=== PATIENT | male | born 1960 | race Caucasian/White ===

== ENCOUNTER 2020-06-30 22:21 | Inpatient (IN) | payer OTHER, MEDICAID, SELFPAY ==
[~2020-06-30] VITALS: Ht 142.2 cm; Wt 58.5 kg
[2020-06-30 22:22] VITALS: BP_SYST 76
[2020-06-30] MEDS ORDERED: PIPERACILLIN/TAZO 3.375 GM in NS 50 ML IV ONE (22:45)
[2020-06-30] MEDS ORDERED: VANCOMYCIN HCL 1,000 MG in NS 250 ML IV ONE (22:45)
[2020-06-30] MEDS ORDERED: LR 1,000 ML IV ONE (22:45)
[2020-06-30] MEDS ORDERED: NOREPINEPHRINE 4 MG/4 ML VIAL IV ONE (22:47)
[2020-06-30] MEDS ORDERED: CALCIUM GLUCONATE 1 GM/10 ML VIAL IVP ONE (23:00)
[2020-06-30] MEDS ORDERED: NOREPINEPHRINE BITARTRATE 32 MG in NS 218 ML IV PRN (23:00)
[2020-06-30] MEDS ORDERED: PIPERACILLIN/TAZOBACTAM 3.375 GM/VIAL (ZOSYN) IV ONE (23:15)
[2020-06-30] MEDS ORDERED: VANCOMYCIN HCL 1000 MG/VIAL IV ONE (23:15)
[2020-06-30 23:22] LABS: HEMATOCRIT 28.6 % (36-54); HEMOGLOBIN 9.4 g/dL (14.0-18.0); MEAN CORPUSCULAR HEMOGLOBIN 32 pg (27-31); MEAN CORPUSCULAR HGB CONC 33 % (32-36); MEAN CORPUSCULAR VOLUME 97 fL (79.0-98.0); PLATELET COUNT (AUTO) 304 K/uL (130-430); RED BLOOD CELL COUNT(AUTO) 2.96 MIL/uL (4.2-6.2); RED CELL DISTRIBUTION WIDTH 18.5 % (9.0-15.0); WHITE BLOOD COUNT (AUTO) 20.2 K/uL (4.8-10.8)
[2020-06-30 23:36] LABS: CREATININE 1.83 mg/dL (0.55-1.30)
[2020-06-30 23:47] LABS: ALBUMIN 2.1 g/dL (3.4-4.8); BILIRUBIN,DIRECT 0.1 mg/dL (0.0-0.3); TOTAL BILIRUBIN 0.3 mg/dL (0.0-1.0)
[2020-06-30 23:49] LABS: BAND % (MANUAL) 0 % (0-6)
[2020-06-30 23:50] LABS: ATYPICAL LYMPHOCYTES % 0 % (0-0); BASOPHILS % (MANUAL) 0 % (0-2); EOSINOPHILS % (MANUAL) 2 % (0-7); LYMPHOCYTES % (MANUAL) 1 % (20-46); MONOCYTES % (MANUAL) 7 % (0-11)
[2020-06-30] MEDS ORDERED: FAMO20TA8 GT (23:50)
[2020-06-30] MEDS ORDERED: CARV3.1246 GT (23:50)
[2020-06-30] MEDS ORDERED: ALBMDI INH (23:50)
[2020-06-30] MEDS ORDERED: LOVI30 SQ (23:50)
[2020-06-30] MEDS ORDERED: TYLL650 GT (23:50)
[2020-06-30] MEDS ORDERED: METO-290 GT (23:56)
[2020-06-30] MEDS ORDERED: ASCO500W7 GT (23:56)
[2020-06-30] MEDS ORDERED: INSU100V42 (23:56)
[2020-06-30] MEDS ORDERED: MIDO5TAB4 GT (23:56)
[2020-06-30] MEDS ORDERED: LORA-258 GT (23:56)
[2020-06-30] MEDS ORDERED: LOPE2CAP GT (23:56)
[2020-07-01] VITALS (28 sets, daily range): BP systolic 76–152
[2020-07-01 00:13] LABS: BILIRUBIN,URINE NEGATIVE (NEGATIVE); BLOOD, URINE 3+ (NEGATIVE); CLARITY/URINE CLEAR (CLEAR); COLOR,URINE YELLOW (YELLOW); GLUCOSE,URINE NEGATIVE (NEGATIVE); KETONES,URINE NEGATIVE (NEGATIVE); LEUKOCYTE ESTERASE ,URINE NEGATIVE (NEGATIVE); NITRITE, URINE NEGATIVE (NEGATIVE); PH,URINE 6.5 (5.0-8.0); PROTEIN URINE 1+ (NEGATIVE); UROBILINOGEN,URINE 0.2 (0.2-1.0)
[2020-07-01] MEDS ORDERED: LR 1,000 ML IV ONE (00:15)
[2020-07-01] MEDS ORDERED: D5W 1,000 ML IV PRN (00:30)
[2020-07-01] MEDS ORDERED: GLUCOSE (DEXTROSE) ORAL GEL -Adults PO PRN (00:30)
[2020-07-01] MEDS ORDERED: INSULIN LISPRO SLIDING SCALE 100 UNITS/ML VIAL (humaLOG) SUBCUT PRN (00:30)
[2020-07-01] MEDS ORDERED: NOREPINEPHRINE BITARTRATE 4 MG in NS 246 ML IV SCH (00:30)
[2020-07-01] MEDS ORDERED: DEXTROSE 50% JECT 50 ML DISP.SYRIN IVP PRN (00:30)
[2020-07-01 00:33] LABS: BACTERIA,URINE RARE /HPF (None Seen); RBC,URINE >100 /HPF (0-3); WBC,URINE 0-3 /HPF (0-3)
[2020-07-01] MEDS: LR 1,000 ML IV SCH ×4 (01:12→20:09)
[2020-07-01] MEDS: ALBUTEROL SULFATE 0.083% 2.5 MG/3 ML VIAL.NEB INH SCH ×6 (02:39→23:23)
[2020-07-01] MEDS ORDERED: PIPERACILLIN/TAZOBACTAM 3.375 GM/VIAL (ZOSYN) IV ONE (03:20)
[2020-07-01] MEDS ORDERED: NOREPINEPHRINE BITARTRATE 4 MG in NS 246 ML IV PRN (03:30)
[2020-07-01] MEDS ORDERED: NOREPINEPHRINE BITARTRATE 32 MG in NS 218 ML IV PRN (03:30)
[2020-07-01] MEDS: ACETAMINOPHEN 325 MG TABLET GT SCH ×3 (05:03→17:53)
[2020-07-01] MEDS: PIPERACILLIN/TAZO 3.375/DEX-IS 50 ML IV SCH ×3 (05:04→17:53)
[2020-07-01 07:12] LABS: BASOPHILS # (AUTO) 0.1 K/uL (0.0-0.2); BASOPHILS % (AUTO) 0.3 % (0.0-2.0); EOSINOPHILS % (AUTO) 0.2 % (0.0-4.0); HEMATOCRIT 30.3 % (36-54); LYMPHOCYTES # (AUTO) 0.7 K/uL (1.0-5.5); LYMPHOCYTES % (AUTO) 2.8 % (20.5-51.5); MEAN CORPUSCULAR HEMOGLOBIN 32 pg (27-31); MEAN CORPUSCULAR HGB CONC 33 % (32-36); MEAN CORPUSCULAR VOLUME 96 fL (79.0-98.0); MONOCYTES # (AUTO) 1.4 K/uL (0.0-1.0); MONOCYTES % (AUTO) 5.7 % (1.7-9.3); NEUTROPHILS # (AUTO) 21.8 K/uL (1.8-7.7); PLATELET COUNT (AUTO) 314 K/uL (130-430); RED BLOOD CELL COUNT(AUTO) 3.14 MIL/uL (4.2-6.2); RED CELL DISTRIBUTION WIDTH 18.2 % (9.0-15.0)
[2020-07-01 07:50] LABS: ALBUMIN 2.1 g/dL (3.4-4.8); CALCIUM 9.1 mg/dL (8.4-11.0); CREATININE 1.5 mg/dL (0.55-1.30); POTASSIUM 4.4 mmol/L (3.5-5.1)
[2020-07-01 08:29] LABS: TOTAL BILIRUBIN 0.6 mg/dL (0.0-1.0)
[2020-07-01] MEDS ORDERED: METOCLOPRAMIDE HCL 10 MG TABLET GT PRN (09:45)
[2020-07-01] MEDS ORDERED: ASCORBIC ACID 500 MG TABLET GT ONE (10:00)
[2020-07-01] MEDS: MIDODRINE HCL 5 MG TABLET (PROAMATINE) GT SCH ×2 (11:37→17:53)
[2020-07-01] MEDS: FLUCONAZOLE 100 mg/ NS 50 ML IV SCH (20:08)
[2020-07-01] MEDS: ENOXAPARIN SODIUM 30 MG/0.3 ML SYRINGE SQ SCH (20:55)
[2020-07-01] MEDS: FAMOTIDINE 20 MG TABLET GT SCH (20:55)
[2020-07-01] MEDS: LINEZOLID 300 ML IV SCH (20:55)
[2020-07-01] MEDS ORDERED: VANCOMYCIN HCL 1,250 MG in NS 250 ML IV SCH (21:00)
[2020-07-02] VITALS (29 sets, daily range): BP systolic 92–159
[2020-07-02] MEDS: PIPERACILLIN/TAZO 3.375/DEX-IS 50 ML IV SCH ×4 (00:07→17:41)
[2020-07-02] MEDS: ACETAMINOPHEN 325 MG TABLET GT SCH ×4 (00:08→17:41)
[2020-07-02] MEDS: MIDODRINE HCL 5 MG TABLET (PROAMATINE) GT SCH ×4 (00:08→17:41)
[2020-07-02] MEDS: ALBUTEROL SULFATE 0.083% 2.5 MG/3 ML VIAL.NEB INH SCH ×5 (03:33→23:42)
[2020-07-02 06:39] LABS: BASOPHILS # (AUTO) 0.1 K/uL (0.0-0.2); BASOPHILS % (AUTO) 0.6 % (0.0-2.0); EOSINOPHILS # (AUTO) 0.5 K/uL (0.0-0.4); HEMATOCRIT 28.3 % (36-54); HEMOGLOBIN 9.3 g/dL (14.0-18.0); LYMPHOCYTES # (AUTO) 0.6 K/uL (1.0-5.5); LYMPHOCYTES % (AUTO) 3.6 % (20.5-51.5); MEAN CORPUSCULAR HEMOGLOBIN 32 pg (27-31); MEAN CORPUSCULAR HGB CONC 33 % (32-36); MEAN CORPUSCULAR VOLUME 97 fL (79.0-98.0); MONOCYTES % (AUTO) 5.9 % (1.7-9.3); NEUTROPHILS # (AUTO) 14.4 K/uL (1.8-7.7); NEUTROPHILS % (AUTO) 86.9 % (40.0-70.0); PLATELET COUNT (AUTO) 328 K/uL (130-430); RED BLOOD CELL COUNT(AUTO) 2.91 MIL/uL (4.2-6.2); RED CELL DISTRIBUTION WIDTH 18.8 % (9.0-15.0); WHITE BLOOD COUNT (AUTO) 16.6 K/uL (4.8-10.8)
[2020-07-02] MEDS: LR 1,000 ML IV SCH ×3 (06:52→17:39)
[2020-07-02 07:17] LABS: ALBUMIN 1.9 g/dL (3.4-4.8); CREATININE 1.27 mg/dL (0.55-1.30); PHOSPHORUS 3.8 mg/dL (2.7-4.5); POTASSIUM 4.6 mmol/L (3.5-5.1); TOTAL BILIRUBIN 0.4 mg/dL (0.0-1.0)
[2020-07-02] MEDS: ASCORBIC ACID 500 MG TABLET GT SCH (08:23)
[2020-07-02] MEDS: FAMOTIDINE 20 MG TABLET GT SCH ×2 (08:23→21:43)
[2020-07-02] MEDS: LINEZOLID 300 ML IV SCH ×2 (09:14→21:43)
[2020-07-02] MEDS: ENOXAPARIN SODIUM 30 MG/0.3 ML SYRINGE SQ SCH ×2 (09:15→21:44)
[2020-07-02] MEDS ORDERED: MUPIROCIN 2% TOPICAL OINTMENT 22 GM NS ONE (11:15)
[2020-07-02] MEDS: FLUCONAZOLE 100 mg/ NS 50 ML IV SCH (18:17)
[2020-07-02] MEDS: MUPIROCIN 2% TOPICAL OINTMENT 22 GM NS SCH ×2 (21:00→21:49)
[2020-07-02] MEDS: LOPERAMIDE HCL 2 MG CAPSULE GT PRN (21:43)
[2020-07-03] VITALS (33 sets, daily range): BP systolic 99–159
[2020-07-03] MEDS: PIPERACILLIN/TAZO 3.375/DEX-IS 50 ML IV SCH ×4 (00:02→17:00)
[2020-07-03] MEDS: ACETAMINOPHEN 325 MG TABLET GT SCH ×4 (00:02→17:02)
[2020-07-03] MEDS: LORazepam 1 MG TABLET GT PRN (00:03)
[2020-07-03] MEDS: MIDODRINE HCL 5 MG TABLET (PROAMATINE) GT SCH ×4 (00:03→17:00)
[2020-07-03] MEDS: LR 1,000 ML IV SCH ×4 (00:04→17:51)
[2020-07-03] MEDS: ALBUTEROL SULFATE 0.083% 2.5 MG/3 ML VIAL.NEB INH SCH ×6 (04:01→23:30)
[2020-07-03] MEDS: ENOXAPARIN SODIUM 30 MG/0.3 ML SYRINGE SQ SCH ×2 (08:49→21:00)
[2020-07-03] MEDS: ASCORBIC ACID 500 MG TABLET GT SCH (08:49)
[2020-07-03] MEDS: FAMOTIDINE 20 MG TABLET GT SCH ×2 (08:49→21:00)
[2020-07-03] MEDS: LINEZOLID 300 ML IV SCH (08:49)
[2020-07-03] MEDS: MUPIROCIN 2% TOPICAL OINTMENT 22 GM NS SCH ×2 (08:50→21:00)
[2020-07-03 10:01] LABS: BASOPHILS # (AUTO) 0.1 K/uL (0.0-0.2); EOSINOPHILS # (AUTO) 0.3 K/uL (0.0-0.4); EOSINOPHILS % (AUTO) 3.5 % (0.0-4.0); HEMATOCRIT 26.9 % (36-54); HEMOGLOBIN 8.9 g/dL (14.0-18.0); LYMPHOCYTES # (AUTO) 0.9 K/uL (1.0-5.5); LYMPHOCYTES % (AUTO) 9.4 % (20.5-51.5); MEAN CORPUSCULAR HEMOGLOBIN 32 pg (27-31); MEAN CORPUSCULAR HGB CONC 33 % (32-36); MEAN CORPUSCULAR VOLUME 97 fL (79.0-98.0); MONOCYTES # (AUTO) 0.7 K/uL (0.0-1.0); MONOCYTES % (AUTO) 7.7 % (1.7-9.3); NEUTROPHILS # (AUTO) 7.3 K/uL (1.8-7.7); NEUTROPHILS % (AUTO) 78.4 % (40.0-70.0); PLATELET COUNT (AUTO) 287 K/uL (130-430); RED BLOOD CELL COUNT(AUTO) 2.77 MIL/uL (4.2-6.2); WHITE BLOOD COUNT (AUTO) 9.3 K/uL (4.8-10.8)
[2020-07-03 10:03] LABS: CALCIUM 8.2 mg/dL (8.4-11.0); CREATININE 1.06 mg/dL (0.55-1.30); POTASSIUM 3.9 mmol/L (3.5-5.1)
[2020-07-03] MEDS: FLUCONAZOLE 100 mg/ NS 50 ML IV SCH (17:50)
[2020-07-03] MEDS: LOPERAMIDE HCL 2 MG CAPSULE GT PRN (22:22)
[2020-07-04] VITALS (28 sets, daily range): BP systolic 81–145
[2020-07-04] MEDS: MIDODRINE HCL 5 MG TABLET (PROAMATINE) GT SCH ×4 (00:01→17:33)
[2020-07-04] MEDS: ACETAMINOPHEN 325 MG TABLET GT SCH ×4 (00:02→17:33)
[2020-07-04] MEDS: PIPERACILLIN/TAZO 3.375/DEX-IS 50 ML IV SCH ×4 (00:03→17:33)
[2020-07-04] MEDS: LR 1,000 ML IV SCH ×3 (01:16→16:13)
[2020-07-04] MEDS: ALBUTEROL SULFATE 0.083% 2.5 MG/3 ML VIAL.NEB INH SCH ×4 (07:22→20:35)
[2020-07-04] MEDS: MUPIROCIN 2% TOPICAL OINTMENT 22 GM NS SCH ×2 (09:15→20:55)
[2020-07-04] MEDS: FAMOTIDINE 20 MG TABLET GT SCH ×2 (09:16→20:53)
[2020-07-04] MEDS: ASCORBIC ACID 500 MG TABLET GT SCH (09:16)
[2020-07-04] MEDS: ENOXAPARIN SODIUM 30 MG/0.3 ML SYRINGE SQ SCH ×2 (09:17→20:54)
[2020-07-04] MEDS: FLUCONAZOLE 100 mg/ NS 50 ML IV SCH (18:16)
[2020-07-05] VITALS: BP_SYST 112
[2020-07-05] MEDS: ALBUTEROL SULFATE 0.083% 2.5 MG/3 ML VIAL.NEB INH SCH ×7 (00:21→23:34)
[2020-07-05] MEDS: PIPERACILLIN/TAZO 3.375/DEX-IS 50 ML IV SCH ×5 (01:08→23:24)
[2020-07-05] MEDS: MIDODRINE HCL 5 MG TABLET (PROAMATINE) GT SCH ×5 (01:09→23:24)
[2020-07-05] MEDS: ACETAMINOPHEN 325 MG TABLET GT SCH ×5 (01:09→23:24)
[2020-07-05] MEDS: LR 1,000 ML IV SCH ×4 (01:19→16:58)
[2020-07-05 08:01] VITALS: BP_SYST 119
[2020-07-05] MEDS: ENOXAPARIN SODIUM 30 MG/0.3 ML SYRINGE SQ SCH ×2 (09:22→20:38)
[2020-07-05] MEDS: FAMOTIDINE 20 MG TABLET GT SCH ×2 (09:22→20:37)
[2020-07-05] MEDS: ASCORBIC ACID 500 MG TABLET GT SCH (09:22)
[2020-07-05] MEDS: MUPIROCIN 2% TOPICAL OINTMENT 22 GM NS SCH ×2 (09:25→20:41)
[2020-07-05 11:30] VITALS: BP_SYST 140
[2020-07-05 15:24] VITALS: BP_SYST 95
[2020-07-05] MEDS: FLUCONAZOLE 100 mg/ NS 50 ML IV SCH (17:26)
[2020-07-06 01:00] VITALS: BP_SYST 133
[2020-07-06] MEDS: ALBUTEROL SULFATE 0.083% 2.5 MG/3 ML VIAL.NEB INH SCH ×6 (03:22→23:20)
[2020-07-06] MEDS: PIPERACILLIN/TAZO 3.375/DEX-IS 50 ML IV SCH ×4 (05:13→23:04)
[2020-07-06] MEDS: ACETAMINOPHEN 325 MG TABLET GT SCH ×5 (05:16→23:05)
[2020-07-06] MEDS: LR 1,000 ML IV SCH ×4 (05:16→20:56)
[2020-07-06] MEDS: MIDODRINE HCL 5 MG TABLET (PROAMATINE) GT SCH ×4 (05:24→23:19)
[2020-07-06 07:05] LABS: BASOPHILS # (AUTO) 0.1 K/uL (0.0-0.2); BASOPHILS % (AUTO) 1.7 % (0.0-2.0); EOSINOPHILS # (AUTO) 0.3 K/uL (0.0-0.4); EOSINOPHILS % (AUTO) 5.7 % (0.0-4.0); HEMOGLOBIN 9.3 g/dL (14.0-18.0); LYMPHOCYTES # (AUTO) 1.2 K/uL (1.0-5.5); LYMPHOCYTES % (AUTO) 19.2 % (20.5-51.5); MEAN CORPUSCULAR HEMOGLOBIN 32 pg (27-31); MEAN CORPUSCULAR HGB CONC 33 % (32-36); MEAN CORPUSCULAR VOLUME 97 fL (79.0-98.0); MONOCYTES # (AUTO) 0.6 K/uL (0.0-1.0); MONOCYTES % (AUTO) 9.7 % (1.7-9.3); NEUTROPHILS # (AUTO) 3.9 K/uL (1.8-7.7); NEUTROPHILS % (AUTO) 63.7 % (40.0-70.0); PLATELET COUNT (AUTO) 352 K/uL (130-430); RED BLOOD CELL COUNT(AUTO) 2.87 MIL/uL (4.2-6.2); RED CELL DISTRIBUTION WIDTH 18.2 % (9.0-15.0); WHITE BLOOD COUNT (AUTO) 6.2 K/uL (4.8-10.8)
[2020-07-06 07:22] LABS: CALCIUM 8.7 mg/dL (8.4-11.0); CREATININE 0.92 mg/dL (0.55-1.30); POTASSIUM 5.5 mmol/L (3.5-5.1)
[2020-07-06 08:00] VITALS: BP_SYST 129
[2020-07-06] MEDS: FAMOTIDINE 20 MG TABLET GT SCH ×2 (08:52→20:56)
[2020-07-06] MEDS: ASCORBIC ACID 500 MG TABLET GT SCH (08:52)
[2020-07-06] MEDS: ENOXAPARIN SODIUM 30 MG/0.3 ML SYRINGE SQ SCH ×2 (08:54→20:57)
[2020-07-06] MEDS: MUPIROCIN 2% TOPICAL OINTMENT 22 GM NS SCH ×2 (09:25→20:58)
[2020-07-06 11:28] VITALS: BP_SYST 117
[2020-07-06] MEDS: LORazepam 1 MG TABLET GT PRN (13:26)
[2020-07-06 15:41] VITALS: BP_SYST 100
[2020-07-06] MEDS: FLUCONAZOLE 100 mg/ NS 50 ML IV SCH (17:12)
[2020-07-06 20:00] VITALS: BP_SYST 129
[2020-07-06] MEDS: COLISTIMETHATE SODIUM 150 MG VIAL INH SCH (23:21)
[2020-07-07 00:42] VITALS: BP_SYST 90
[2020-07-07] MEDS: ALBUTEROL SULFATE 0.083% 2.5 MG/3 ML VIAL.NEB INH SCH ×5 (04:02→23:17)
[2020-07-07] MEDS: LR 1,000 ML IV SCH ×4 (05:04→21:53)
[2020-07-07] MEDS: PIPERACILLIN/TAZO 3.375/DEX-IS 50 ML IV SCH ×4 (05:05→23:55)
[2020-07-07] MEDS: LOPERAMIDE HCL 2 MG CAPSULE GT PRN ×2 (05:08→12:40)
[2020-07-07] MEDS: MIDODRINE HCL 5 MG TABLET (PROAMATINE) GT SCH ×4 (05:08→23:55)
[2020-07-07] MEDS: ACETAMINOPHEN 325 MG TABLET GT SCH ×4 (05:09→23:55)
[2020-07-07 08:00] VITALS: BP_SYST 105
[2020-07-07] MEDS: ASCORBIC ACID 500 MG TABLET GT SCH (09:51)
[2020-07-07] MEDS: FAMOTIDINE 20 MG TABLET GT SCH ×2 (09:51→20:12)
[2020-07-07] MEDS: MUPIROCIN 2% TOPICAL OINTMENT 22 GM NS SCH ×2 (09:51→20:14)
[2020-07-07] MEDS: ENOXAPARIN SODIUM 30 MG/0.3 ML SYRINGE SQ SCH ×2 (09:52→20:13)
[2020-07-07] MEDS: COLISTIMETHATE SODIUM 150 MG VIAL INH SCH ×2 (11:20→20:13)
[2020-07-07 12:13] VITALS: BP_SYST 119
[2020-07-07 16:13] VITALS: BP_SYST 139
[2020-07-07] MEDS: FLUCONAZOLE 100 mg/ NS 50 ML IV SCH (16:58)
[2020-07-07 20:00] VITALS: BP_SYST 112
[2020-07-08 00:53] VITALS: BP_SYST 155
[2020-07-08] MEDS: ALBUTEROL SULFATE 0.083% 2.5 MG/3 ML VIAL.NEB INH SCH ×6 (03:15→23:17)
[2020-07-08] MEDS: LR 1,000 ML IV SCH ×3 (05:41→20:49)
[2020-07-08] MEDS: PIPERACILLIN/TAZO 3.375/DEX-IS 50 ML IV SCH ×4 (06:27→23:55)
[2020-07-08] MEDS: ACETAMINOPHEN 325 MG TABLET GT SCH ×4 (06:28→23:56)
[2020-07-08] MEDS: MIDODRINE HCL 5 MG TABLET (PROAMATINE) GT SCH ×4 (06:28→23:56)
[2020-07-08] MEDS: COLISTIMETHATE SODIUM 150 MG VIAL INH SCH ×2 (07:14→21:42)
[2020-07-08 09:04] VITALS: BP_SYST 121
[2020-07-08] MEDS: MUPIROCIN 2% TOPICAL OINTMENT 22 GM NS SCH ×2 (09:08→20:52)
[2020-07-08] MEDS: FAMOTIDINE 20 MG TABLET GT SCH ×2 (09:09→20:49)
[2020-07-08] MEDS: ASCORBIC ACID 500 MG TABLET GT SCH (09:09)
[2020-07-08] MEDS: ENOXAPARIN SODIUM 30 MG/0.3 ML SYRINGE SQ SCH ×2 (09:10→20:54)
[2020-07-08 12:00] VITALS: BP_SYST 116
[2020-07-08 16:08] VITALS: BP_SYST 125
[2020-07-08 20:00] VITALS: BP_SYST 117
[2020-07-08 20:06] VITALS: BP_SYST 117
[2020-07-09 00:01] VITALS: BP_SYST 100
[2020-07-09] MEDS: ALBUTEROL SULFATE 0.083% 2.5 MG/3 ML VIAL.NEB INH SCH ×6 (03:23→23:18)
[2020-07-09] MEDS: LR 1,000 ML IV SCH ×3 (03:43→20:14)
[2020-07-09] MEDS: PIPERACILLIN/TAZO 3.375/DEX-IS 50 ML IV SCH ×4 (05:30→23:41)
[2020-07-09] MEDS: MIDODRINE HCL 5 MG TABLET (PROAMATINE) GT SCH ×4 (05:31→23:42)
[2020-07-09] MEDS: ACETAMINOPHEN 325 MG TABLET GT SCH ×2 (05:32→12:00)
[2020-07-09 07:38] VITALS: BP_SYST 134
[2020-07-09] MEDS: COLISTIMETHATE SODIUM 150 MG VIAL INH SCH ×2 (07:50→19:45)
[2020-07-09 08:11] VITALS: BP_SYST 126
[2020-07-09] MEDS: ASCORBIC ACID 500 MG TABLET GT SCH (09:25)
[2020-07-09] MEDS: FAMOTIDINE 20 MG TABLET GT SCH ×2 (09:25→21:57)
[2020-07-09] MEDS: ENOXAPARIN SODIUM 30 MG/0.3 ML SYRINGE SQ SCH ×2 (09:27→22:00)
[2020-07-09] MEDS: MUPIROCIN 2% TOPICAL OINTMENT 22 GM NS SCH ×2 (09:27→21:58)
[2020-07-09 12:42] VITALS: BP_SYST 107
[2020-07-09 16:29] VITALS: BP_SYST 120
[2020-07-09] MEDS ORDERED: ACETAMINOPHEN 650 MG/20.3 ML UDC GT PRN (18:15)
[2020-07-09 20:00] VITALS: BP_SYST 107
[2020-07-10] VITALS (8 sets, daily range): BP systolic 91–148
[2020-07-10] MEDS: LR 1,000 ML IV SCH ×4 (03:44→19:43)
[2020-07-10] MEDS: ALBUTEROL SULFATE 0.083% 2.5 MG/3 ML VIAL.NEB INH SCH ×6 (04:46→19:52)
[2020-07-10] MEDS: PIPERACILLIN/TAZO 3.375/DEX-IS 50 ML IV SCH ×3 (06:05→17:53)
[2020-07-10] MEDS: MIDODRINE HCL 5 MG TABLET (PROAMATINE) GT SCH ×3 (06:05→17:53)
[2020-07-10] MEDS: COLISTIMETHATE SODIUM 150 MG VIAL INH SCH ×2 (07:42→20:19)
[2020-07-10] MEDS: ENOXAPARIN SODIUM 30 MG/0.3 ML SYRINGE SQ SCH ×2 (08:32→20:44)
[2020-07-10] MEDS: ASCORBIC ACID 500 MG TABLET GT SCH (08:32)
[2020-07-10] MEDS: FAMOTIDINE 20 MG TABLET GT SCH ×2 (08:33→20:43)
[2020-07-10] MEDS: MUPIROCIN 2% TOPICAL OINTMENT 22 GM NS SCH ×2 (08:33→20:44)
== END 2020-07-10 23:38 | DRG 870 ==
LOC: SED 22:21 → SIC 07-01 00:22 → STU 07-04 19:16
PROVIDERS: ADMIT Family Medicine; ATTEND Family Medicine
PROC: 5A1955Z Respiratory Ventilation, Greater than 96 Consecutive Hours (ICD-10-PCS; principal; 2020-07-01)
DX: A41.9 Sepsis, unspecified organism (principal); R65.21 Severe sepsis with septic shock; J15.6 Pneumonia due to other Gram-negative bacteria; N39.0 Urinary tract infection, site not specified; J96.10 Chronic respiratory failure, unspecified whether with hypoxia or hypercapnia; N17.9 Acute kidney failure, unspecified; Z99.11 Dependence on respirator [ventilator] status; Z16.30 Resistance to unspecified antimicrobial drugs; Y95 Nosocomial condition; E86.0 Dehydration; I10 Essential (primary) hypertension; E87.5 Hyperkalemia; E11.9 Type 2 diabetes mellitus without complications; Z20.822 Contact with and (suspected) exposure to COVID-19; Q90.9 Down syndrome, unspecified; Z79.899 Other long term (current) drug therapy; Z86.16 Personal history of COVID-19; Z93.0 Tracheostomy status; Z93.1 Gastrostomy status
CPT/HCPCS: 36415; 36600; 70450-TC; 71045; 76376; 80048; 80053; 80076; 81000; 82803-TC; 82947; 82962; 83690; 83735; 83880; 84100; 84484; 85007; 85025; 85027; 86140; 87040-TC; 87070-TC; 87081; 87101; 87205-TC; 93005; 94002; 94003; 94640; 94760; 96361; 96365; 96368; 96375; 99291; G0378; J0610; J0770; J1450; J1650; J2020; J2543; J3370; J7030; J7050; J7060; J7120; J7613

== ENCOUNTER 2020-08-10 08:13 | Inpatient (IN) | payer OTHER, MEDICAID, SELFPAY ==
[~2020-08-10] VITALS: Ht 162.6 cm; Wt 78.2 kg
[2020-08-10] VITALS (15 sets, daily range): BP systolic 88–112
[~2020-08-10 08:13] MED LIST: ALBMDI INH; ASCO500W7 GT; CARV3.1246 GT; FAMO20TA8 GT; INSU100V42; LOPE2CAP GT; LORA-258 GT; LOVI30 SQ; METO-290 GT; MIDO5TAB4 GT; TYLL650 GT
--- NOTE | 2020-08-10 08:13 | NUR ---
Placed in room 1. Placed on sheet catcher, blood pressure machine and pulse oximeter. To gown for exam. Side rails up. Report given to MAUREEN Pretty.
--- NOTE | 2020-08-10 08:14 | NUR ---
ER Dr. Mackenzie at bedside examining patient.
[2020-08-10] MEDS ORDERED: ACETAMINOPHEN 650 MG SUPP.RECT RC ONE ×2 (08:20→08:30)
[2020-08-10] MEDS ORDERED: ACETAMINOPHEN 325 MG SUPP.RECT RC ONE ×2 (08:21→08:30)
[2020-08-10] MEDS ORDERED: TRAM50TA2 GT (08:27)
[2020-08-10] MEDS ORDERED: INSU100V SUBQ (08:27)
[2020-08-10] MEDS ORDERED: LOPE2CAP GT (08:27)
[2020-08-10] MEDS ORDERED: ENOX30DI4 SQ (08:27)
[2020-08-10] MEDS ORDERED: ASCO500S10 GT (08:27)
[2020-08-10] MEDS ORDERED: MIDO5TAB4 GT (08:27)
[2020-08-10] MEDS ORDERED: DOXY100T2 GT (08:27)
[2020-08-10] MEDS ORDERED: ACET650S22 GT (08:27)
[2020-08-10] MEDS ORDERED: FAMO20TA8 GT (08:27)
[2020-08-10] MEDS ORDERED: ALBU2.5V7 NEB (08:27)
[2020-08-10] MEDS ORDERED: MULT-1100 GT (08:27)
[2020-08-10] MEDS ORDERED: ACID1CAP2 GT (08:27)
--- NOTE | 2020-08-10 08:27 | NUR ---
Medication reconciliation completed with information provided by Camden Love. Any prior medication reconciliation on file was reviewed and corrected.
[2020-08-10] MEDS ORDERED: NACL 0.9% 1,000 ML IV ONE ×2 (08:30→11:00)
--- NOTE | 2020-08-10 08:33 | NUR ---
PT BIB AMBULANCE WITH HYPOXIA AND CYANOSIS. GCS 13 PT IS NON-VERBAL AND UNABLE TO FOLLOW COMMANDS. PT IS PALE AND HAS BILATERAL HEEL WOUNDS, EXCORIATION ON THE COCYX. PT VS RECTAL TEMP 102 BP103/57, HR152, RR 48, 02 100% TRACH TO VENTED A/C 20 TV 450 FIO2 50 PEEP 5. PT ARRIVED WITH PORT A CATH AND PEG TUBE. BILATERAL LUNGS SOUNDS ARE CLEAR. ABDOMEN IS FIRM AND DISTENDED.
--- NOTE | 2020-08-10 08:35 | NUR ---
1 LITER OF NS STARTED, 650MG RECTAL TYLENOL AND 325MG RECTAL TYLENOL GIVEN BAH CATHETER INSERTED WITH STERILE TECHNIQUE. PT TOLERATED PROCEDURE WELL.
--- NOTE | 2020-08-10 08:45 | NUR ---
# 20 gauge angiocath placed to rac. Use of asceptic technique. Opsite placed over site. Blood return noted. Blood for lab drawn from site. Flushed with 10 cc of normal saline. No evidence of infiltration noted. Patient tolerated well.
[2020-08-10 08:55] LABS: BASOPHILS % (AUTO) 0.1 % (0.0-2.0); EOSINOPHILS % (AUTO) 0.2 % (0.0-4.0); HEMATOCRIT 32.1 % (36-54); HEMOGLOBIN 10.1 g/dL (14.0-18.0); LYMPHOCYTES # (AUTO) 0.8 K/uL (1.0-5.5); LYMPHOCYTES % (AUTO) 5.8 % (20.5-51.5); MEAN CORPUSCULAR HEMOGLOBIN 31 pg (27-31); MEAN CORPUSCULAR HGB CONC 31 % (32-36); MEAN CORPUSCULAR VOLUME 100 fL (79.0-98.0); MONOCYTES % (AUTO) 0.3 % (1.7-9.3); NEUTROPHILS # (AUTO) 13.4 K/uL (1.8-7.7); NEUTROPHILS % (AUTO) 93.6 % (40.0-70.0); PLATELET COUNT (AUTO) 524 K/uL (130-430); RED BLOOD CELL COUNT(AUTO) 3.21 MIL/uL (4.2-6.2); WHITE BLOOD COUNT (AUTO) 14.3 K/uL (4.8-10.8)
--- NOTE | 2020-08-10 09:00 | NUR ---
RAPID COVID AND MRSA COLLECTED AND SENT TO LAB
[2020-08-10] MEDS ORDERED: NACL 0.9% 1,500 ML IV ONE (09:15)
[2020-08-10 09:20] LABS: ALBUMIN 1.8 g/dL (3.4-4.8); CALCIUM 9.2 mg/dL (8.4-11.0); CREATININE 1.37 mg/dL (0.55-1.30); POTASSIUM 4.5 mmol/L (3.5-5.1); TOTAL BILIRUBIN 0.6 mg/dL (0.0-1.0)
[2020-08-10 09:26] LABS: PROTHROMBIN TIME 10.3 SECS (9.5-12.5)
[2020-08-10] MEDS ORDERED: PIPERACILLIN/TAZO 3.375 GM in NS 50 ML IV ONE (09:30)
[2020-08-10] MEDS ORDERED: PIPERACILLIN/TAZOBACTAM 3.375 GM/VIAL (ZOSYN) IV ONE (09:33)
--- NOTE | 2020-08-10 10:20 | NUR ---
Patient transported to radiology via GURNEY, accompanied by STAFF AND RN
[2020-08-10] MEDS ORDERED: NOREPINEPHRINE 4 MG/4 ML VIAL IV ONE ×2 (10:49→11:03)
--- NOTE | 2020-08-10 10:57 | NUR ---
LEVOPHED DRIP STARTED AT 0.1 MCG/KG/MIN.
[2020-08-10] MEDS ORDERED: NOREPINEPHRINE BITARTRATE 4 MG in NS 246 ML IV ONE (11:00)
[2020-08-10] MEDS ORDERED: VANCOMYCIN HCL 1,000 MG in NS 250 ML IV ONE (11:00)
[2020-08-10] MEDS ORDERED: VANCOMYCIN HCL 1000 MG/VIAL IV ONE (11:17)
--- NOTE | 2020-08-10 11:20 | NUR ---
LEVOPHED DRIP INCREASED TO 0.13 MCG.
[2020-08-10 11:25] LABS: BILIRUBIN,URINE NEGATIVE (NEGATIVE); BLOOD, URINE 3+ (NEGATIVE); CLARITY/URINE CLOUDY (CLEAR); COLOR,URINE YELLOW (YELLOW); GLUCOSE,URINE NEGATIVE (NEGATIVE); KETONES,URINE NEGATIVE (NEGATIVE); LEUKOCYTE ESTERASE ,URINE NEGATIVE (NEGATIVE); NITRITE, URINE NEGATIVE (NEGATIVE); PH,URINE 5.5 (5.0-8.0); PROTEIN URINE 2+ (NEGATIVE); UROBILINOGEN,URINE 0.2 (0.2-1.0)
--- NOTE | 2020-08-10 11:38 | NUR ---
LEVOPHED DRIP INCREASED TO 0.16MCG Addendum: 08/10/20 at 1138 by CLINTONNKAYLYNN CURRENT BP IS 73/55 (00), 124
[2020-08-10 11:41] LABS: BACTERIA,URINE MODERATE /HPF (None Seen); WBC,URINE 0-3 /HPF (0-3)
[2020-08-10 11:42] LABS: MUCUS,URINE None Seen /LPF (None Seen); URINE AMORPHOUS URATE 3+ /HPF (None Seen)
--- NOTE | 2020-08-10 12:04 | NUR ---
LEVOPHED DRIP INCREASED 0.19 Addendum: 08/10/20 at 1205 by SDEDND LEVOPHED DRIP INCREASED 0.19MCG
--- NOTE | 2020-08-10 12:20 | NUR ---
LEVOPHED DRIP INCREASED TO 0.22MCG 93/44 (59), HR 122,
--- NOTE | 2020-08-10 12:31 | NUR ---
LEVOPHED INCREASED TO 0.25MCG BP 79/45
--- NOTE | 2020-08-10 12:40 | NUR ---
Patient will be admitted to care of . Admitted to ICU unit. Will go to room 6. Belongings list completed. Complete and up to date summary report printed. SBAR report to be given at bedside with opportunity for questions.
--- NOTE | 2020-08-10 14:23 | NUR ---
ADMIT TO ICU BED 6 REPORT RCVD FROM REPLENISHMENT ANALYST AT BEDSIDE.
--- NOTE | 2020-08-10 14:29 | NUR ---
BELONGINGS: PATIENT CAME WITH NO BELONGINGS FROM FACILITY.
[2020-08-10] MEDS: D5NS 1,000 ML IV SCH ×2 (14:50→19:25)
[2020-08-10] MEDS: NOREPINEPHRINE BITARTRATE 16 MG in NS 234 ML IV PRN (15:08)
--- NOTE | 2020-08-10 15:33 | NUR ---
DR. QUILES: MD AT BEDSIDE ASSESSING PATIENT, VERBAL REPORT GIVEN. MD TO PLACE NEW ORDERS.
--- NOTE | 2020-08-10 15:38 | NUR ---
CONSULT ID CONSULTING MD: DR. FENG DIALED: [phone] PERSON NOTIFIED: LUCRETIA ORDERED BY: DR. QUILES
--- NOTE | 2020-08-10 15:40 | NUR ---
CONSULT PULMO. CONSULTING MD: DR. ROYAL PERSON NOTIFIED: DR. ROYAL DIALED: [phone] ORDERED BY: DR. QUILES
--- NOTE | 2020-08-10 15:46 | NUR ---
DR. ROYAL: SPOKE WITH MD OVER PHONE, REPORT GIVEN WILL COME SEE PATIENT LATER THIS EVENING.
[2020-08-10] MEDS ORDERED: VANCOMYCIN HCL 750 MG/NS 250 ML IV SCH (16:00)
[2020-08-10] MEDS ORDERED: IPRATROPIUM/ALBUTEROL SULFATE 3 ML AMPUL.NEB (DUONEB) INH ONE (16:15)
--- NOTE | 2020-08-10 17:56 | NUR ---
FAMILY: SPOKE WITH BROTHER OVER PHONE, UPDATE GIVEN ALL QUESTIONS ANSWERED AT THIS TIME.
[2020-08-10] MEDS: VANCOMYCIN HCL 750 MG/NS 250 ML IV SCH (17:59)
[2020-08-10] MEDS: PIPERACILLIN/TAZO 3.375/DEX-IS 50 ML IV SCH (17:59)
[2020-08-10] MEDS: MIDODRINE HCL 5 MG TABLET (PROAMATINE) GT SCH (18:00)
--- NOTE | 2020-08-10 19:19 | NUR ---
CLOSING NOTE: REPORT GIVEN TO NOC NURSE USING SBAR FORMAT, BED LOW LOCKED FOR SAFETY. ALL SAFETY PRECAUTIONS IN PLACE.
--- NOTE | 2020-08-10 19:25 | NUR ---
OPENING NOTE Received SBAR report from off coming RN for continuity of care. Pt laying in bed with eyes closed. No s/s of distress noted. Pt has a trach and is intubated. Levophed gtt infusing @ 0.6 mcg/kg/min, D5NS infusing @ 150 ml/hr. G tube in place with tube feeding infusing, Contreras catheter in place and draining to gravity. Bed locked and in lowest position, safety precautions in place.
[2020-08-10] MEDS: LACTULOSE 20 GM/30 ML UDC GT SCH (20:43)
[2020-08-10] MEDS: LACTOBACILLUS RHAMNOSUS GG 1 CAP CAPSULE PO SCH (20:43)
[2020-08-10] MEDS: FAMOTIDINE 20 MG TABLET GT SCH (20:43)
[2020-08-10] MEDS: ENOXAPARIN SODIUM 30 MG/0.3 ML SYRINGE SQ SCH (20:45)
[2020-08-10] MEDS: SENNOSIDES/DOCUSATE SODIUM 1 TAB TABLET(SENOKOT-S) GT SCH (21:00)
--- NOTE | 2020-08-10 21:15 | NUR ---
Pt laying in bed with eyes closed, opens eyes to tactile stimuli. Pt does not follow commands but withdraws to painful stimuli. Pt trached and on ventilator,oxygen saturations maintained above 90%. PO care and suctioning provided, tolerated well. Pt has small amounts of PO and endotracheal secretions, frequent suctioning provided as needed. Tube feeding infusing through G tube. Contreras catheter in place and draining to gravity. Pt turned and repositioned. Bed locked and in lowest position, safety precautions in place.
--- NOTE | 2020-08-10 23:26 | NUR ---
Dr. Nava at the bedside assessing pt.
[2020-08-11] VITALS (34 sets, daily range): BP systolic 95–143
[2020-08-11] MEDS: PIPERACILLIN/TAZO 3.375/DEX-IS 50 ML IV SCH ×5 (00:07→23:58)
[2020-08-11] MEDS: MIDODRINE HCL 5 MG TABLET (PROAMATINE) GT SCH ×5 (00:08→23:58)
[2020-08-11] MEDS ORDERED: NOREPINEPHRINE 4 MG/4 ML VIAL IV ONE (00:25)
[2020-08-11] MEDS: NOREPINEPHRINE BITARTRATE 16 MG in NS 234 ML IV PRN ×2 (00:32→09:36)
[2020-08-11] MEDS: INSULIN REGULAR, HUMAN 100 UNITS/ML, 10 ML VIAL (humuLIN R) SUBCUT PRN ×4 (00:32→18:03)
[2020-08-11] MEDS: D5NS 1,000 ML IV SCH ×4 (00:40→21:57)
[2020-08-11] MEDS: IPRATROPIUM/ALBUTEROL SULFATE 3 ML AMPUL.NEB (DUONEB) INH SCH ×4 (00:54→20:01)
--- NOTE | 2020-08-11 05:00 | NUR ---
CHG bath and full linen change done, pt tolerated well.
[2020-08-11] MEDS: VANCOMYCIN HCL 750 MG/NS 250 ML IV SCH (05:37)
[2020-08-11 06:16] LABS: CALCIUM 7.6 mg/dL (8.4-11.0); CREATININE 1.26 mg/dL (0.55-1.30); PHOSPHORUS 3.3 mg/dL (2.7-4.5); POTASSIUM 4.6 mmol/L (3.5-5.1)
--- NOTE | 2020-08-11 07:13 | NUR ---
Nutrition Update Joel Scale 12 noted. Pt admitted for Septic shock Diet: Glucerna 1.2 at 40ml/hr, FWF 150ml via GT BMI: 23.9 kg/m2 RD to follow per nutrition care standards.
--- NOTE | 2020-08-11 07:23 | NUR ---
CLOSING NOTE Endorsed SBAR report to oncoming RN for continuity of care. Pt laying in bed with eyes open, no s/s of distress noted. Levophed gtt infusing @ 0.5 mcg/kg/min. Bed locked in lowest position, safety precautions in place.
[2020-08-11 07:29] LABS: HEMATOCRIT 26.3 % (36-54); HEMOGLOBIN 8.1 g/dL (14.0-18.0); MEAN CORPUSCULAR HEMOGLOBIN 30 pg (27-31); MEAN CORPUSCULAR HGB CONC 31 % (32-36); MEAN CORPUSCULAR VOLUME 99 fL (79.0-98.0); PLATELET COUNT (AUTO) 469 K/uL (130-430); RED BLOOD CELL COUNT(AUTO) 2.67 MIL/uL (4.2-6.2); RED CELL DISTRIBUTION WIDTH 19.4 % (9.0-15.0)
--- NOTE | 2020-08-11 07:30 | NUR ---
opening notes: received bedside report from endorsing RN, patient is lying in bed, no signs of acute distress noted at this time. Bed locked at lowest position Fall and safety precaution in place.
--- NOTE | 2020-08-11 07:50 | NUR ---
AM ASSESSMENT PT AFEBRILE, ORAL CARE DONE, SUCTIONED VIA TRACH, ABDOMEN SOFT, GOOD BOWEL SOUNDS, TURNED TO HIS SIDE, INCONTINENT OF BOWEL, GOOD PERINEAL CARE DONE, FOAM DRESSING INTACT TO SACRO/BUTTOCK, SKIN BROWN-RED TO BOTH HEELS, ELEVATED HEELS ON PILLOW.
[2020-08-11 07:59] LABS: WHITE BLOOD COUNT (AUTO) 68.4 K/uL (4.8-10.8)
--- NOTE | 2020-08-11 08:15 | NUR ---
abnormal lab paged Dr. Ramirez(ID). for elevated WBC count.
--- NOTE | 2020-08-11 08:30 | NUR ---
CHANGED TO AC18 PER GENNY.
[2020-08-11 09:21] LABS: BAND % (MANUAL) 30 % (0-6); BASOPHILS % (MANUAL) 0 % (0-2); EOSINOPHILS % (MANUAL) 0 % (0-7); LYMPHOCYTES % (MANUAL) 1 % (20-46); MONOCYTES % (MANUAL) 1 % (0-11); WBC MORPHOLOGY TOXIC GRANULATION
[2020-08-11] MEDS: ASCORBIC ACID 500 MG TABLET GT SCH (09:36)
[2020-08-11] MEDS: FAMOTIDINE 20 MG TABLET GT SCH ×2 (09:37→20:00)
[2020-08-11] MEDS: LACTULOSE 20 GM/30 ML UDC GT SCH ×2 (09:37→20:01)
[2020-08-11] MEDS: LACTOBACILLUS RHAMNOSUS GG 1 CAP CAPSULE PO SCH ×2 (09:37→20:01)
[2020-08-11] MEDS: ENOXAPARIN SODIUM 30 MG/0.3 ML SYRINGE SQ SCH ×2 (09:37→20:02)
[2020-08-11] MEDS: MULTIVITS,CA,MINERALS/IRON/FA 1 TABLET GT SCH (09:37)
[2020-08-11] MEDS ORDERED: LEVOFLOXACIN 250 MG/D5W 50 ML IV SCH (10:00)
--- NOTE | 2020-08-11 10:20 | NUR ---
FAMILY PT'S BROTHER FRANCISCO CALLED TO GET UPDATE, PT'S STATUS PROVIDED.
--- NOTE | 2020-08-11 11:00 | NUR ---
MD: Dr. Ramirez (ID) is at bedside assessing the Patient. new orders carried out.
--- NOTE | 2020-08-11 11:30 | NUR ---
WOUND EVALUATION: Late note for 08/11/20 at 1130 secondary to patient care. Wound Consult received from Dr. Oseguera. Thank you, Dr. Oseguera, for the consult. Patient received in a [place] Bed with an IsoFlex ARISTIDES mattress, awake, nonverbal, nonresponsive to verbal commands. Patient is unable to turn in bed independently. Joel Score is a 12. Past Medical History: Diabetes Mellitus, Down Syndrome, Chronic Respiratory Failure, Tracheostomy, G-tube placement. Admitted for Hypotension, initial workup significant for Septic Shock, Dehydration, and Acute Renal Failure. Recent Labs: WBC 68.4, RBC 2.67, hemoglobin 8.1, hematocrit 26.3, chloride 113, BUN 22, creatinine 1.26, GFR 62, glucose 286, POC glucose 129, calcium 7.6, PTT 23.0, albumin 1.8. Microbiology: Blood culture results x2 in progress. MRSA screen results in progress. Urine culture results in progress. Tracheal aspirate culture results in progress. Intrinsic factors that delay wound healing: Diabetes Mellitus, Chronic Respiratory Failure, Acute Renal Failure. Extrinsic factors that delay wound healing: Decreased mobility. Wound Assessment: 1. Sacral/Buttocks areas: Blanchable redness (IAD/MASD) with brown discoloration, possible sDTI. 2. Left Sacral area: Area of wrinkly brown skin. No odor, no drainage. Site measures 1.4 cm x 1.0 cm. 3. Right Buttock: Blanchable redness with wound, present on admission. Wound bed has 100% pink tissue. No odor, no drainage. Periwound intact. Wound measures 1.0 cm x 1.4 Recommend: Cleanse sites with normal saline. Apply moisture barrier cream to sites. Cover with Sacral foam dressing. Perform site care daily, and as needed for dressing soiling or dislodgement. Do not rub involved areas. 4. Left Knee: Blanchable redness, present on admission. Recommend: No dressing needed. Continue to monitor site every shift. 5. Left Lateral Malleolus: Blanchable redness, present on admission. 6. Left Heel: Non-blanchable dark red tissue with brown discoloration, present on admission. 7. Right Heel: Blanchable dark red tissue with brown discoloration, present on admission. Recommend: Elevate, offload and float bilateral heels, ankles and feet with one pillow lengthwise under each extremity at all times. Do not allow any portion of heels, ankles or feet to to touch bed or other surfaces at any time. Also recommend: Reposition patient side to side only every 2 hours with pillow support and off-load pressure areas with pillows for pressure re-distribution. Offload, elevate and float bilateral heels with pillows. Perform skin care and monitor skin integrity Q shift. Use moisture barrier cream on buttocks and other moisture susceptible areas QID and as needed for soiling. Initiate low air loss therapy.
--- NOTE | 2020-08-11 11:45 | NUR ---
Skin Care: Foam dressing been removed.county coroner Donny is at bedside.wound assess and care done.
[2020-08-11] MEDS: metroNIDAZOLE 500 mg/NS 100 ML IV SCH ×2 (14:11→21:57)
--- NOTE | 2020-08-11 19:16 | NUR ---
CLOSING NOTES: ENDORSED PATIENT TO HOSPITALITY HOUSE SUPERVISOR RN FOR CONTINUATION OF CARE.
--- NOTE | 2020-08-11 19:20 | NUR ---
OPENING NOTE Received SBAR report from off coming RN for continuation of care. Pt laying in bed with eyes closed, trach to vent. No s/s of distress noted. Levophed gtt infusing @ 0.4 mcg/kg/min, D5 NS infusing @ 150 ml/hr. Tube feeding infusing through G tube. Contreras catheter in place and draining to gravity. Bed locked in lowest position, safety precautions in place.
--- NOTE | 2020-08-11 19:25 | NUR ---
Dr. Oseguera at bedside assessing pt. Discussed plan of care. Made aware of pt's frequent loose BMs, ordered to hold lactulose and send stool sample for c dif.
[2020-08-11] MEDS: SENNOSIDES/DOCUSATE SODIUM 1 TAB TABLET(SENOKOT-S) GT SCH (20:01)
--- NOTE | 2020-08-11 20:10 | NUR ---
Pt had 2 large emesis episodes. Provided PO care and cleaned pt. Stopped tube feeding.
--- NOTE | 2020-08-11 20:30 | NUR ---
Pt laying in bed with eyes open. Pt trach to vent, Oxygen saturations above 90%. Provided PO care and suctioning, pt tolerated well. Levophed gtt infusing @ 0.4 mcg/kg/min, D5 NS @ 150 ml/hr. HR in low 100s to 90s (ST-NSR). Abdomen firm and slightly distended. Pt presents with a lot of gas. No residual obtained from G tube. Tube feeding stopped d/t emesis earlier, will reassess and resume if appropriate. Contreras catheter in place and draining to gravity. Pt had a large loose BM. Provided dolores care and full CHG and bed bath, linen change, pt tolerated well. Turned and repositioned pt, heels floated with pillows. Bed locked and in lowest position, safety precautions in place.
--- NOTE | 2020-08-11 22:35 | NUR ---
Tube feeding resumed @ 10 ml/hr, will increase as appropriate. No residual obtained from G tube. Pt continues to be gassy.
--- NOTE | 2020-08-11 23:25 | NUR ---
Dr. Nava at bedside assessing pt and discussing plan of care.
[2020-08-12] VITALS (33 sets, daily range): BP systolic 85–135
[2020-08-12] MEDS: INSULIN REGULAR, HUMAN 100 UNITS/ML, 10 ML VIAL (humuLIN R) SUBCUT PRN ×3 (00:06→11:38)
[2020-08-12] MEDS: IPRATROPIUM/ALBUTEROL SULFATE 3 ML AMPUL.NEB (DUONEB) INH SCH ×4 (01:04→19:51)
[2020-08-12] MEDS: MIDODRINE HCL 5 MG TABLET (PROAMATINE) GT SCH ×4 (05:14→23:50)
[2020-08-12] MEDS: PIPERACILLIN/TAZO 3.375/DEX-IS 50 ML IV SCH ×4 (05:14→23:49)
[2020-08-12] MEDS: D5NS 1,000 ML IV SCH ×4 (05:14→22:22)
[2020-08-12] MEDS: NOREPINEPHRINE BITARTRATE 16 MG in NS 234 ML IV PRN ×2 (05:17→18:00)
--- NOTE | 2020-08-12 06:00 | NUR ---
Pt had a small BM, pasty in texture. Nicolette care provided and partial linen change, pt tolerated well. Tube feeding infusing @ 40 ml/hr (goal rate) now. No residuals obtained from G tube.
[2020-08-12] MEDS: metroNIDAZOLE 500 mg/NS 100 ML IV SCH ×3 (06:10→21:33)
[2020-08-12 06:59] LABS: BASOPHILS # (AUTO) 0.1 K/uL (0.0-0.2); BASOPHILS % (AUTO) 0.3 % (0.0-2.0); EOSINOPHILS # (AUTO) 0.2 K/uL (0.0-0.4); EOSINOPHILS % (AUTO) 0.5 % (0.0-4.0); HEMATOCRIT 26.3 % (36-54); HEMOGLOBIN 8.3 g/dL (14.0-18.0); LYMPHOCYTES # (AUTO) 1.2 K/uL (1.0-5.5); LYMPHOCYTES % (AUTO) 2.9 % (20.5-51.5); MEAN CORPUSCULAR HEMOGLOBIN 31 pg (27-31); MEAN CORPUSCULAR HGB CONC 32 % (32-36); MEAN CORPUSCULAR VOLUME 97 fL (79.0-98.0); MONOCYTES # (AUTO) 1.1 K/uL (0.0-1.0); MONOCYTES % (AUTO) 2.7 % (1.7-9.3); NEUTROPHILS # (AUTO) 40.1 K/uL (1.8-7.7); NEUTROPHILS % (AUTO) 93.6 % (40.0-70.0); PLATELET COUNT (AUTO) 366 K/uL (130-430); RED CELL DISTRIBUTION WIDTH 19.5 % (9.0-15.0)
[2020-08-12 07:17] LABS: CALCIUM 7.5 mg/dL (8.4-11.0); CREATININE 1.06 mg/dL (0.55-1.30); PHOSPHORUS 2.3 mg/dL (2.7-4.5); POTASSIUM 3.7 mmol/L (3.5-5.1)
--- NOTE | 2020-08-12 07:19 | NUR ---
CLOSING NOTE Endorsed SBAR report to oncoming RN for continuity of care. Pt laying in bed, eyes open with no s/s of distress noted. Levophed gtt infusing @ 0.34 mcg/kg/min. Bed locked and in lowest position, safety precautions in place.
[2020-08-12 07:26] LABS: WHITE BLOOD COUNT (AUTO) 42.8 K/uL (4.8-10.8)
--- NOTE | 2020-08-12 07:53 | NUR ---
Initial notes Awake, no distress noted. afebrile. repositioned and oral care done. tolerating feeding and vent settings. will continue to monitor Addendum: 08/12/20 at 0913 by Missy Ortiz RN On levophed at 0.34mcg/kg/min
[2020-08-12] MEDS: LACTULOSE 20 GM/30 ML UDC GT SCH ×2 (08:22→21:30)
[2020-08-12] MEDS: FAMOTIDINE 20 MG TABLET GT SCH ×2 (08:31→21:30)
[2020-08-12] MEDS: ASCORBIC ACID 500 MG TABLET GT SCH (08:31)
[2020-08-12] MEDS: LACTOBACILLUS RHAMNOSUS GG 1 CAP CAPSULE PO SCH ×2 (08:31→21:31)
[2020-08-12] MEDS: MULTIVITS,CA,MINERALS/IRON/FA 1 TABLET GT SCH (08:31)
[2020-08-12] MEDS: ENOXAPARIN SODIUM 30 MG/0.3 ML SYRINGE SQ SCH ×2 (08:34→21:32)
--- NOTE | 2020-08-12 10:47 | NUR ---
Dietitian Recommendations *Recommend: increase EN infusion rate to new goal. *Recommend: Glucerna 1.2 at 60ml/hr (new goal), Lauri BID, FWF 150ml Q6H (per physician) via GT Provides: 1888 kcal, 91gm protein and 1759ml free water daily. Meets: 99% of estimated calorie needs and 102% of upper end of estimated protein needs. *Consider Banatrol TID if diarrhea persists. Please see Nutritional Assessment for details. CHELSI, RD
--- NOTE | 2020-08-12 13:00 | NUR ---
Md rounds Seen by dr. Oseguera .
--- NOTE | 2020-08-12 16:00 | NUR ---
Notes repositioned, oral care done, no distress noted.
[2020-08-12] MEDS ORDERED: NACL 0.9% 1,000 ML IV ONE (16:30)
[2020-08-12] MEDS ORDERED: *TPN PER PHARMACY XX PRN (16:30)
[2020-08-12] MEDS ORDERED: MIDAZOLAM IN NACL,ISO-OSMOT/PF 100 ML IV PRN (16:30)
[2020-08-12] MEDS ORDERED: PANTOPRAZOLE SODIUM 40 MG in NS 50 ML IV SCH (18:00)
--- NOTE | 2020-08-12 18:15 | NUR ---
Spoke to Dr. Ramirez and made aware of c diff results, new orders received.
--- NOTE | 2020-08-12 20:00 | NUR ---
MENTALLY CHALLENGED. TRACH TO VENT. SUCTIONED WITH MOD AMOUNT OF THIN WHITE MUCUS OBTAINED. GT FEEDING WITH GLUCERNA AT 40CC/HR. RIGHT CHEST PORTACATH DRSG D/I. ON LEVOPHED DRIP AT 0.36 MCG/KG/MIN. BAH CATH PATENT DRAINING OLIGURIC MYRTLE URINE TO GRAVITY. SR.
[2020-08-12] MEDS: SENNOSIDES/DOCUSATE SODIUM 1 TAB TABLET(SENOKOT-S) GT SCH (21:30)
[2020-08-12] MEDS: VANCOMYCIN HCL ORAL SOLUTION 250 MG/5 ML, 80 ML GT SCH (21:31)
--- NOTE | 2020-08-12 22:00 | NUR ---
HS CARE GIVEN.
--- NOTE | 2020-08-12 23:00 | NUR ---
VOMITED. CLEANED. GT FEEDING HELD AT THIS TIME.
[2020-08-13] VITALS (32 sets, daily range): BP systolic 103–153
--- NOTE | 2020-08-13 | NUR ---
SUCTIONED WITH SAME RESULTS. ORAL CARE GIVEN. ACCU-CHEK 136, NO INSULIN DUE PER SLIDING SCALE COV. TURNED.
[2020-08-13] MEDS: INSULIN REGULAR, HUMAN 100 UNITS/ML, 10 ML VIAL (humuLIN R) SUBCUT PRN ×3 (00:14→11:31)
[2020-08-13] MEDS: IPRATROPIUM/ALBUTEROL SULFATE 3 ML AMPUL.NEB (DUONEB) INH SCH ×4 (01:13→20:40)
--- NOTE | 2020-08-13 02:52 | NUR ---
MORPHINE 2 MG IVP GIVEN FOR RESTLESSNESS. Addendum: 08/13/20 at 0425 by Hudson Smiley RN CORRECTION: WRONG PT.
[2020-08-13] MEDS ORDERED: NOREPINEPHRINE 4 MG/4 ML VIAL IV ONE (03:37)
[2020-08-13] MEDS: NOREPINEPHRINE BITARTRATE 16 MG in NS 234 ML IV PRN ×2 (03:53→17:39)
--- NOTE | 2020-08-13 04:00 | NUR ---
VOMITED SOME MORE EARLIER. GT FEEDING STILL ON HOLD. BP BETTER. LEVOPHED TITRATED DOWN TO 0.3 MCG/KG/MIN
--- NOTE | 2020-08-13 05:00 | NUR ---
CHG BATH GIVEN. ORAL CARE, BAH CARE, SKIN CARE, BACK CARE GIVEN. PARTIAL LINEN CHANGE DONE. DOES NOT ASSIST WITH TURNING. JENNA PROC WELL.
--- NOTE | 2020-08-13 06:00 | NUR ---
UO GOOD. LEVOPHED AT 0.3 MCG/KG/MIN. NGT 20CC OUT. ACCU-CHEK 157, 2 UNITS REGULAR INSULIN SQ GIVEN PER SLIDING SCALE COV. REMAINS IN GUARDED CONDITION.
[2020-08-13] MEDS: MIDODRINE HCL 5 MG TABLET (PROAMATINE) GT SCH ×3 (06:08→20:12)
[2020-08-13] MEDS: metroNIDAZOLE 500 mg/NS 100 ML IV SCH ×3 (06:08→21:59)
[2020-08-13] MEDS: PIPERACILLIN/TAZO 3.375/DEX-IS 50 ML IV SCH ×3 (06:08→17:16)
--- NOTE | 2020-08-13 08:00 | NUR ---
AM ASSESSMENT. PT AWAKE, TRACH TO VENTILATOR, IVF D5NS AT 150 ML PER HR, ON LEVOPHED DRIP AT 0.3 MCG/KG/MIN, TEMP IN NORMAL RANGE, EDEMA TO BOTH ARMS NOTED, PORT A CATH TO RIGHT CHEST, FEEDING OFF, ABDOMEN SOFT, REPOSITIONED PT TO HIS SIDE, FLATULENT, FOAM DRESSING TO SACRAL AREA INTACT, BAH CATHETER DRAINING YELLOW URINE.
[2020-08-13] MEDS: D5NS 1,000 ML IV SCH ×2 (08:23→17:37)
[2020-08-13] MEDS: ENOXAPARIN SODIUM 30 MG/0.3 ML SYRINGE SQ SCH ×2 (09:17→21:59)
[2020-08-13] MEDS: LACTULOSE 20 GM/30 ML UDC GT SCH ×2 (09:18→21:58)
[2020-08-13] MEDS: ASCORBIC ACID 500 MG TABLET GT SCH (09:18)
[2020-08-13] MEDS: LACTOBACILLUS RHAMNOSUS GG 1 CAP CAPSULE PO SCH ×2 (09:18→21:58)
[2020-08-13] MEDS: FAMOTIDINE 20 MG TABLET GT SCH ×2 (09:18→21:58)
[2020-08-13] MEDS: MULTIVITS,CA,MINERALS/IRON/FA 1 TABLET GT SCH (09:18)
[2020-08-13] MEDS: VANCOMYCIN HCL ORAL SOLUTION 250 MG/5 ML, 80 ML GT SCH ×4 (09:19→21:58)
[2020-08-13 10:36] LABS: BASOPHILS # (AUTO) 0.2 K/uL (0.0-0.2); BASOPHILS % (AUTO) 0.6 % (0.0-2.0); EOSINOPHILS # (AUTO) 0.4 K/uL (0.0-0.4); EOSINOPHILS % (AUTO) 1.6 % (0.0-4.0); HEMATOCRIT 27.8 % (36-54); LYMPHOCYTES # (AUTO) 1.6 K/uL (1.0-5.5); LYMPHOCYTES % (AUTO) 6.4 % (20.5-51.5); MEAN CORPUSCULAR HEMOGLOBIN 32 pg (27-31); MEAN CORPUSCULAR HGB CONC 32 % (32-36); MEAN CORPUSCULAR VOLUME 98 fL (79.0-98.0); MONOCYTES # (AUTO) 1.2 K/uL (0.0-1.0); MONOCYTES % (AUTO) 4.7 % (1.7-9.3); NEUTROPHILS # (AUTO) 22.3 K/uL (1.8-7.7); NEUTROPHILS % (AUTO) 86.7 % (40.0-70.0); PLATELET COUNT (AUTO) 296 K/uL (130-430); RED BLOOD CELL COUNT(AUTO) 2.84 MIL/uL (4.2-6.2); RED CELL DISTRIBUTION WIDTH 19.7 % (9.0-15.0); WHITE BLOOD COUNT (AUTO) 25.8 K/uL (4.8-10.8)
--- NOTE | 2020-08-13 11:35 | NUR ---
WOUND CARE. TURNED PT CAREFULLY TO HIS SIDE, FOAM DRESSING FROM BUTTOCKS REMOVED, WOUND CLEANSED WITH SALINE, PAT DRY, Z-GUARD LOTION TO WOUND EDGES AND HYDROGEL TO SKIN TEAR ON RIGHT BUTTOCK. FOAM DRESSING APPLIED TO COVER.
--- NOTE | 2020-08-13 11:50 | NUR ---
[facility]. CALL RECEIVED FROM RENY, WOOD AND HARDWARE OUTFITTER OF [facility]. SHE ASKED FOR THE REASON OF TRANSFERRING HIM TO THE HOSPITAL, SHE ALSO SAID THAT SHE GOT A CALL FROM THE UNIT INQUIRING FOR DURABLE POWER OF DEVELOPMENT TECHNICIAN. SHE SAID THAT THERE IS NO DPOA, PT'S BROTHER CAN GIVE CONSENT.
--- NOTE | 2020-08-13 15:30 | NUR ---
MD DR QUILES AT BEDSIDE, MADE AWARE THAT PT'S TUBE FEEDING BEEN HELD TODAY. HE ORDERED TO DISCONTINUE FEEDING AND PLACE PT ON TPN.
[2020-08-13] MEDS ORDERED: *TPN PER PHARMACY XX PRN (16:00)
--- NOTE | 2020-08-13 20:00 | NUR ---
TRACH TO VENT. SUCTIONED WITH MOD AMOUNT OF THIN WHITE MUCUS OBTAINED. GT CLAMPED. RIGHT CHEST CHAPINCITO CATH DRSG D/I. ON LEVOPHED AT 0.3 MCG/KG/MIN. BAH CATH PATENT DRAINING CLOUDY MYRTLE URINE TO GRAVITY. CONTACT ISOLATION OBSERVED.
[2020-08-13] MEDS ORDERED: IPRATROPIUM BROM 0.5 MG/2.5 ML VIAL.NEB (ATROVENT) INH ONE (20:15)
[2020-08-13] MEDS ORDERED: ALBUTEROL SULFATE 0.083% 2.5 MG/3 ML VIAL.NEB INH ONE (20:15)
[2020-08-13] MEDS: SENNOSIDES/DOCUSATE SODIUM 1 TAB TABLET(SENOKOT-S) GT SCH (21:58)
--- NOTE | 2020-08-13 22:00 | NUR ---
HS CARE DONE.
[2020-08-14] VITALS (35 sets, daily range): BP systolic 68–136
--- NOTE | 2020-08-14 | NUR ---
ACCU-CHEK 135, NO INSULIN DUE PER SLIDING SCALE COV.
[2020-08-14] MEDS: PIPERACILLIN/TAZO 3.375/DEX-IS 50 ML IV SCH ×2 (00:02→05:47)
[2020-08-14] MEDS: IPRATROPIUM/ALBUTEROL SULFATE 3 ML AMPUL.NEB (DUONEB) INH SCH ×4 (01:24→19:38)
[2020-08-14] MEDS: D5NS 1,000 ML IV SCH ×3 (02:00→20:40)
--- NOTE | 2020-08-14 03:00 | NUR ---
BP 132/79, LEVOPHED TITRATED DOWN TO 0.27 MCG/KG/MIN.
[2020-08-14] MEDS: MIDODRINE HCL 5 MG TABLET (PROAMATINE) GT SCH ×3 (03:38→21:19)
--- NOTE | 2020-08-14 05:00 | NUR ---
1 LARGE WATERY YELLOWISH BROWN STOOL DEFECATED. CLEANED. ORAL CARE GIVEN. CHG BATH DONE. BAH CARE, BACK CARE, SKIN CARE RENDERED. COMPLETE LINEN CHANGE DONE. DOES NOT ASSIST WITH TURNING. JENNA PROC WELL.
[2020-08-14] MEDS: metroNIDAZOLE 500 mg/NS 100 ML IV SCH ×3 (05:48→22:50)
--- NOTE | 2020-08-14 06:00 | NUR ---
ACCU-CHEK 144, NO INSULIN DUE PER SLIDING SCALE. UO GOOD. LEVOPHED AT 0.27 MCG/KG/MIN. REMAINS IN GUARDED CONDITION.
[2020-08-14] MEDS: INSULIN REGULAR, HUMAN 100 UNITS/ML, 10 ML VIAL (humuLIN R) SUBCUT PRN ×3 (06:15→23:24)
[2020-08-14 07:04] LABS: BASOPHILS # (AUTO) 0.1 K/uL (0.0-0.2); BASOPHILS % (AUTO) 1.1 % (0.0-2.0); EOSINOPHILS # (AUTO) 0.6 K/uL (0.0-0.4); EOSINOPHILS % (AUTO) 5.1 % (0.0-4.0); HEMATOCRIT 24.9 % (36-54); HEMOGLOBIN 9.1 g/dL (14.0-18.0); LYMPHOCYTES # (AUTO) 1.5 K/uL (1.0-5.5); LYMPHOCYTES % (AUTO) 12.5 % (20.5-51.5); MEAN CORPUSCULAR HEMOGLOBIN 36 pg (27-31); MEAN CORPUSCULAR HGB CONC 36 % (32-36); MEAN CORPUSCULAR VOLUME 98 fL (79.0-98.0); MONOCYTES # (AUTO) 0.7 K/uL (0.0-1.0); MONOCYTES % (AUTO) 5.9 % (1.7-9.3); NEUTROPHILS % (AUTO) 75.4 % (40.0-70.0); PLATELET COUNT (AUTO) 530 K/uL (130-430); RED BLOOD CELL COUNT(AUTO) 2.55 MIL/uL (4.2-6.2); RED CELL DISTRIBUTION WIDTH 20.5 % (9.0-15.0)
--- NOTE | 2020-08-14 07:27 | NUR ---
OPENING NOTES: RECEIVED BEDSIDE REPORT FROM ENDORSING RN, PATIENT IS AWAKE LYING IN BED, NO SIGNS OF ACUTE DISTRESS NOTED AT THIS TIME. BED LOCKED AT LOWEST POSITION. FALL AND SAFETY PRECAUTION IN PLACE.
[2020-08-14 07:48] LABS: ALBUMIN 1.3 g/dL (3.4-4.8); CREATININE 0.99 mg/dL (0.55-1.30); PHOSPHORUS 2.3 mg/dL (2.7-4.5); POTASSIUM 3.4 mmol/L (3.5-5.1); TOTAL BILIRUBIN 0.3 mg/dL (0.0-1.0)
[2020-08-14] MEDS: LACTOBACILLUS RHAMNOSUS GG 1 CAP CAPSULE PO SCH ×2 (08:02→21:18)
[2020-08-14] MEDS: ASCORBIC ACID 500 MG TABLET GT SCH (08:02)
[2020-08-14] MEDS: LACTULOSE 20 GM/30 ML UDC GT SCH ×2 (08:02→21:18)
[2020-08-14] MEDS: MULTIVITS,CA,MINERALS/IRON/FA 1 TABLET GT SCH (08:02)
[2020-08-14] MEDS: ENOXAPARIN SODIUM 30 MG/0.3 ML SYRINGE SQ SCH ×2 (08:04→21:16)
[2020-08-14] MEDS: FAMOTIDINE 20 MG TABLET GT SCH ×2 (08:07→21:18)
[2020-08-14] MEDS: VANCOMYCIN HCL ORAL SOLUTION 250 MG/5 ML, 80 ML GT SCH ×4 (08:29→21:19)
[2020-08-14] MEDS: NOREPINEPHRINE BITARTRATE 16 MG in NS 234 ML IV PRN (09:24)
[2020-08-14] MEDS: AMIKACIN SULFATE 1,000 MG in NS 250 ML IV SCH (10:53)
--- NOTE | 2020-08-14 14:08 | NUR ---
Admitting Diagnosis Pt w/: Septic shock, Bilateral pneumonia, Dehydration, CHRISTIANO, Chronic Respiratory failure, Down Syndrome, DM per MD notes. PMH: Down, syndrome, DM, Chronic respiratory failure, Tracheostomy and GT placement. RD Note: Per MD note pt is not tolerating GT feeding, pt continues to be on vent, pt C. diff result came in positive. Current Diet Order/Nutrition Support: NPO, TPN: 8.5%AA, 30% Dextrose, 43 ml/hr, total volume: 1032 mL Nutrition support provides a total volume of 1032 mL total volume, 702 kcals and 44 gm protein, meets 75% protein needs and 37% of energy needs (inadequate) Pertinent Medications Theragrean-M, Lactulose, Culturelle, Lovenox, SSI, D5%/NS at 150ml/hr, senokot, insulin, famotidine Pertinent Labs H/H: 9.1/24.1H, POC glucose: 161H Height: 5 ft 4 inch Weight: 139 lbs Weight: 63.602374 kilograms BMI: 23.86 kg/m2 %IBW: 107% [place]/Adjusted Body Weight : 130#/ 59kg; Adj IBW QP: 114#/ 52kg Weight Status: Appropriate GI: ABD firm, active bowel sounds, Last BM: 08/14/20 Difficulty With: Swallowing Usual Diet At Home Glucerna 1.2 at 40ml x20 hrs per hard chart review. Skin Integrity Comment: R heel wound, Posterior sacrum erythema Joel: 11 Current % PO N/A, on TPN support. Estimated Energy Expenditure (kcals/day) 1892 Kcal/day (PSU 2002b for vent) Estimated Protein Required (g/day) 59-89 gm/day (1-1.5 gm/kg IBW for sepsis, renal Dx predialysis and wound) Estimated Fluid Required (l/day) per MD (ARF) Problem/Etiology/Signs/Symptoms 1)Increased nutrient needs r/t metabolic demands AEB wounds (ongoing) 2)Altered nutrition related labs r/t endocrine dysfunction AEB elevated BG (ongoing) 3)Inadequate intake from parental nutrition related to inadequate energy intake as evidenced by current nutrition support meets 37% of energy needs (new*) Expected Outcomes/Goals Monitor nutrition support of pt meeting more than 75% of estimated nutritional needs, labs trending WNL, normal GI function, skin integrity/wt maintenance. Dietitian Recommendations *Recommend: TPN @ 43 mL/hr 30% dextrose, AA5% with 20% 250 mL ILE (this regimen provides a total volume of 1032 mL, 1759 kcals, 52 gm protein, GIR: 3.4 mg/kg/min) Provided recommendation to pharmacy, Pharmacy reported lipid bag can be ordered once sepsis resolves. Pharmacist may change rate of TPN, patients estimated nutrient needs communicated to pharmacist. Follow Up High Risk: F/U in 2-3days
--- NOTE | 2020-08-14 14:15 | NUR ---
Dietitian Recommendations *Recommend: TPN @ 43 mL/hr 30% dextrose, AA5% with 20% 250 mL ILE (this regimen provides a total volume of 1032 mL, 1759 kcals, 52 gm protein, GIR: 3.4 mg/kg/min) Provided recommendation to pharmacy, Pharmacy reported lipid bag can be ordered once sepsis resolves. Pharmacist may change rate of TPN, patients estimated nutrient needs communicated to pharmacist. KW, RD
--- NOTE | 2020-08-14 19:28 | NUR ---
closing notes: endorsed patient to overnight babysitter RN for continuation of care.
--- NOTE | 2020-08-14 20:00 | NUR ---
INITIAL NOTE PATIENT IS IN BED. NO S/S OF RESPIRATORY DISTRESS NOTED. PT IS RUNNING FLUIDS IN HIS PORT-A-CATH. PATIENT EDUCATED DOLPHIN RESEARCHER LIGHT. PATIENT UNSUCCESSFULLY DEMONSTRATES USAGE OF CALL LIGHT. BED IS LOCKED, ALARMED, AND AT THE LOWEST POSITION. FALL, SAFETY, ASPIRATION, AND RESPIRATORY PRECAUTIONS WILL BE IN PLACE THROUGHOUT THE SHIFT. PT ON VENT. PLAN OF CARE IS DISCUSSED WITH PATIENT.
--- NOTE | 2020-08-14 20:02 | NUR ---
MD ANNA ZAVALA CRITICAL LAB RESULTS [phone] SPOKE WITH DAGOBERTO
[2020-08-14] MEDS ORDERED: K PHOS IV SCH ×10 (21:00)
[2020-08-14] MEDS ORDERED: POTASSIUM ACETATE IV SCH ×10 (21:00)
[2020-08-14] MEDS ORDERED: [UNRECOGNIZED DRUG - OTHER] IV SCH ×10 (21:00)
[2020-08-14] MEDS ORDERED: TPN CENTRAL IV SCH ×10 (21:00)
[2020-08-14] MEDS: SENNOSIDES/DOCUSATE SODIUM 1 TAB TABLET(SENOKOT-S) GT SCH (21:19)
--- NOTE | 2020-08-14 21:26 | NUR ---
COMMUNICATED TO DR. ZAVALA ABOUT POSITIVE BLOOD CULTURE AND SPUTUM. NO NEW ORDERS.
[2020-08-15] VITALS (36 sets, daily range): BP systolic 91–149
[2020-08-15] MEDS: IPRATROPIUM/ALBUTEROL SULFATE 3 ML AMPUL.NEB (DUONEB) INH SCH ×4 (00:55→19:24)
[2020-08-15] MEDS: NOREPINEPHRINE BITARTRATE 16 MG in NS 234 ML IV PRN ×2 (01:43→14:35)
[2020-08-15] MEDS: MIDODRINE HCL 5 MG TABLET (PROAMATINE) GT SCH ×3 (05:37→20:53)
[2020-08-15] MEDS: metroNIDAZOLE 500 mg/NS 100 ML IV SCH (05:40)
[2020-08-15] MEDS: INSULIN REGULAR, HUMAN 100 UNITS/ML, 10 ML VIAL (humuLIN R) SUBCUT PRN ×2 (05:45→17:05)
[2020-08-15] MEDS: D5NS 1,000 ML IV SCH ×3 (07:00→17:08)
[2020-08-15 07:10] LABS: ALBUMIN 1.4 g/dL (3.4-4.8); CREATININE 0.9 mg/dL (0.55-1.30); PHOSPHORUS 2.2 mg/dL (2.7-4.5); TOTAL BILIRUBIN 0.3 mg/dL (0.0-1.0)
--- NOTE | 2020-08-15 07:15 | NUR ---
SBAR REPORT ENDORSED TO AM NURSE.
--- NOTE | 2020-08-15 07:30 | NUR ---
opening notes: received bedside report from endorsing RN, patient is lying in bed, intubated. no signs of acute distress noted at this time, bed locked at lowest position, fall and safety precaution in place.
[2020-08-15 07:38] LABS: CALCIUM 6.7 mg/dL (8.4-11.0); POTASSIUM 2.9 mmol/L (3.5-5.1)
--- NOTE | 2020-08-15 07:48 | NUR ---
phone call: talked to patient brother on the phone and gave an update.
--- NOTE | 2020-08-15 08:00 | NUR ---
MD rounds: Dr. Nvaa is at bedside assessing the patient.made aware of current critical value.
[2020-08-15] MEDS: ASCORBIC ACID 500 MG TABLET GT SCH (08:14)
[2020-08-15] MEDS: MULTIVITS,CA,MINERALS/IRON/FA 1 TABLET GT SCH (08:15)
[2020-08-15] MEDS: LACTULOSE 20 GM/30 ML UDC GT SCH ×2 (08:15→20:48)
[2020-08-15] MEDS: LACTOBACILLUS RHAMNOSUS GG 1 CAP CAPSULE PO SCH ×2 (08:15→20:53)
[2020-08-15] MEDS: FAMOTIDINE 20 MG TABLET GT SCH ×2 (08:15→20:53)
[2020-08-15] MEDS: ENOXAPARIN SODIUM 30 MG/0.3 ML SYRINGE SQ SCH ×2 (08:16→20:54)
[2020-08-15] MEDS: VANCOMYCIN HCL ORAL SOLUTION 250 MG/5 ML, 80 ML GT SCH ×4 (08:17→20:53)
[2020-08-15] MEDS: POTASSIUM CHLORIDE 20 MEQ/PKT PACKET PO SCH ×2 (09:50→12:17)
[2020-08-15] MEDS: AMIKACIN SULFATE 1,000 MG in NS 250 ML IV SCH (10:22)
[2020-08-15] MEDS: LEVOFLOXACIN 250 MG/D5W 50 ML IV SCH (11:33)
--- NOTE | 2020-08-15 11:58 | NUR ---
RN Notes: patient had bowel movement, good dolores care, turn and repositioned with pillow support.keep hob elevated to prevent aspiration, am care provided. endorsed patient to Nurse Maria Teresa RN for continuation of care.
--- NOTE | 2020-08-15 11:59 | NUR ---
RECEIVED PT FROM RN. PT STABLE AT THIS TIME.
--- NOTE | 2020-08-15 12:33 | NUR ---
ROUTINE MEDS ADMINISTERED ORDERED PER MD, VERBALIZED EDUCATION, TOLERATED WELL.
--- NOTE | 2020-08-15 17:25 | NUR ---
endorsed to michaela luevano. pt stable at this time.
--- NOTE | 2020-08-15 17:26 | NUR ---
RN NOTES: RECEIVED REPORT FROM IOANA REDDY. PATIENT IS IN STABLE CONDITION.
--- NOTE | 2020-08-15 18:26 | NUR ---
RN NOTES: PATIENT HAD BOWEL MOVEMENT,PAMELA CARE DONE, PATIENT CLEANED, TURNED, REPOSITIONED AND SUCTIONED.BED LOCKED AT LOWEST POSITION AND BED ALARM ON, NO SIGNS AND SYMPTOMS OF ACUTE DISTRESS NOTED, PATIENT TOLERATED WELL.
[2020-08-15] MEDS: SENNOSIDES/DOCUSATE SODIUM 1 TAB TABLET(SENOKOT-S) GT SCH (20:48)
[2020-08-15] MEDS ORDERED: TPN CENTRAL IV SCH ×10 (21:00)
[2020-08-15] MEDS ORDERED: POTASSIUM ACETATE IV SCH ×10 (21:00)
[2020-08-15] MEDS ORDERED: K PHOS IV SCH ×10 (21:00)
[2020-08-15] MEDS ORDERED: [UNRECOGNIZED DRUG - OTHER] IV SCH ×10 (21:00)
[2020-08-16] VITALS (33 sets, daily range): BP systolic 102–143
[2020-08-16] MEDS: IPRATROPIUM/ALBUTEROL SULFATE 3 ML AMPUL.NEB (DUONEB) INH SCH ×4 (02:05→21:34)
[2020-08-16] MEDS: MIDODRINE HCL 5 MG TABLET (PROAMATINE) GT SCH ×3 (05:29→20:00)
[2020-08-16] MEDS: D5NS 1,000 ML IV SCH ×3 (05:29→20:19)
[2020-08-16] MEDS: NOREPINEPHRINE BITARTRATE 16 MG in NS 234 ML IV PRN ×2 (05:39→22:19)
[2020-08-16] MEDS: INSULIN REGULAR, HUMAN 100 UNITS/ML, 10 ML VIAL (humuLIN R) SUBCUT PRN (05:40)
[2020-08-16] MEDS ORDERED: NOREPINEPHRINE 4 MG/4 ML VIAL IV ONE (06:12)
[2020-08-16 06:31] LABS: BASOPHILS # (AUTO) 0.1 K/uL (0.0-0.2); BASOPHILS % (AUTO) 0.8 % (0.0-2.0); EOSINOPHILS # (AUTO) 0.3 K/uL (0.0-0.4); EOSINOPHILS % (AUTO) 2.4 % (0.0-4.0); HEMATOCRIT 27.4 % (36-54); HEMOGLOBIN 8.8 g/dL (14.0-18.0); LYMPHOCYTES % (AUTO) 14.9 % (20.5-51.5); MEAN CORPUSCULAR HEMOGLOBIN 32 pg (27-31); MEAN CORPUSCULAR HGB CONC 32 % (32-36); MEAN CORPUSCULAR VOLUME 98 fL (79.0-98.0); MONOCYTES % (AUTO) 7.2 % (1.7-9.3); NEUTROPHILS # (AUTO) 10.3 K/uL (1.8-7.7); NEUTROPHILS % (AUTO) 74.7 % (40.0-70.0); PLATELET COUNT (AUTO) 266 K/uL (130-430); RED BLOOD CELL COUNT(AUTO) 2.78 MIL/uL (4.2-6.2); RED CELL DISTRIBUTION WIDTH 19.7 % (9.0-15.0); WHITE BLOOD COUNT (AUTO) 13.7 K/uL (4.8-10.8)
[2020-08-16 06:38] LABS: ALBUMIN 1.3 g/dL (3.4-4.8); CREATININE 0.7 mg/dL (0.55-1.30); PHOSPHORUS 1.7 mg/dL (2.7-4.5); POTASSIUM 3.5 mmol/L (3.5-5.1); TOTAL BILIRUBIN 0.2 mg/dL (0.0-1.0)
[2020-08-16 07:48] LABS: CALCIUM 6.6 mg/dL (8.4-11.0)
--- NOTE | 2020-08-16 08:00 | NUR ---
AM ROUNDS: PATIENT RECEIVED ON [facility] VENTILATOR,WITH FIO2=30%.WITH GOOD SATURATION. PATIENT'S EYE CLOSED. SLEEPING. ON CONTACT ISOLATION FOR MDRO/CHIEF METER READER AND C-DIFF,PRECAUTION RENDERED. RIGHT CHAPINCITO CATHETER AND RIGHT AC IN PLACE,LEVOPHED RUNNING AT 0.27MCG/KG/MIN,TPN AND IV FLUIDS RUNNING WELL. G TUBE CLAMPED.DISTENDED ABDOMEN,FIRM TO TOUCH. BAH IN SITU. PATIENT TOLERATING WELL,WITH THE VENT SETTINGS.
[2020-08-16] MEDS: ASCORBIC ACID 500 MG TABLET GT SCH (08:55)
[2020-08-16] MEDS: FAMOTIDINE 20 MG TABLET GT SCH ×2 (08:55→20:25)
[2020-08-16] MEDS: LACTULOSE 20 GM/30 ML UDC GT SCH ×2 (08:55→20:25)
[2020-08-16] MEDS: LACTOBACILLUS RHAMNOSUS GG 1 CAP CAPSULE PO SCH ×2 (08:55→20:27)
[2020-08-16] MEDS: MULTIVITS,CA,MINERALS/IRON/FA 1 TABLET GT SCH (08:56)
[2020-08-16] MEDS: VANCOMYCIN HCL ORAL SOLUTION 250 MG/5 ML, 80 ML GT SCH ×4 (08:56→20:27)
[2020-08-16] MEDS: ENOXAPARIN SODIUM 30 MG/0.3 ML SYRINGE SQ SCH ×2 (08:57→20:33)
[2020-08-16] MEDS: LEVOFLOXACIN 250 MG/D5W 50 ML IV SCH (11:47)
--- NOTE | 2020-08-16 17:25 | NUR ---
MD ROUNDS: DR QUILES SEEN PATIENT IN THE ROOM.NO NEW ORDERS MADE.
--- NOTE | 2020-08-16 18:19 | NUR ---
END OF SHIFT: PATIENT HAD ANOTHER LOOSE GREENISH STOOLS IN MODERATION.CARE RENDERED. SACRAL FOAM DRESSING APPLIED. MAINTAINED FIO2=30%,WITH GOOD SATURATION. G TUBE CLAMPED.RIGHT CHEST CHAPINCITO CATHETER IN PLACE. RIGHT AC IV INTACT. EDEMATOUS BOTH UPPER AND LOWER EXTREMITIES NOTED. BAH DRAINING LARGE AMOUNT OF YELLOW URINE. NO OTHER NEW ORDERS THIS TIME. STABLE THIS TIME. Addendum: 08/16/20 at 1830 by Shona Hope RN MAINTAINED ON LEVOPHED AT 0.27MCG/KG/MIN (15.9CC/H).SH=728/77.
--- NOTE | 2020-08-16 19:15 | NUR ---
change of shift.pt.presents cognition/mentation challenge.pt.presents mental challenge status.pt.presents isolation status; c-diff;contact.pt.presents rt.scv:central line:port/cath.intact;iv fluids;tpn,levophed drip infusing.pt.presents g-tube:clamped: g-tube to be utilized for the sole purpose medications administration. pt.presents schultz cath intact;patent urine content present.pt.presents trach#8/ventilator:settings:tv:450,fio2%=30%,a/c:18.peep:5.pt.tolerating the vent settings.02-sat%=98%.call light w/in access of the pt.
--- NOTE | 2020-08-16 20:00 | NUR ---
pt.assessed.v/s assessed values wnl.trach intact;i have attended to the oral /trach care/suction.rt.svc central line intact;tpn, iv fluids levophed drip infusing.g-tube intact;clamped.per flacc pain mgx pt.absent facial grimaces/body posturing.pt.assessed for cleanliness.pt.repositined.general status stable.respiratory status stable;02-sat%=98%.call light placed w/in access of the pt.
[2020-08-16] MEDS: SENNOSIDES/DOCUSATE SODIUM 1 TAB TABLET(SENOKOT-S) GT SCH (20:30)
[2020-08-16] MEDS: POTASSIUM ACETATE IV SCH ×10 (20:33)
[2020-08-16] MEDS: TPN CENTRAL IV SCH ×10 (20:33)
[2020-08-16] MEDS: K PHOS IV SCH ×10 (20:33)
[2020-08-16] MEDS: [UNRECOGNIZED DRUG - OTHER] IV SCH ×10 (20:33)
--- NOTE | 2020-08-16 21:00 | NUR ---
2100p medications administered via g-tube.g-tube flushed w/out resistance.per flacc pain mgx pt.absent facial grimaces/body posturing.call light placed w/in access of the pt.
--- NOTE | 2020-08-16 22:00 | NUR ---
pt.assessed.v/s assessed values wnl.trach intact.i have attended to the oral/trach care/suction.rt.svc intact iv fluids/tpn,levophed drips infusing. per flacc pain mgx pt.absent facial grimaces/body posturing.g-tube intact,schultz cath intact;patent urine content present.pt.assessed for cleanliness.pt.repositioned.general status stable.respiratory status stable;02-sat%=98%. present.assessed the pt. inquired r/e: pt's general status.i have provided/conveyed pt's updates to .call light placed w/in access of the pt.
[2020-08-16] MEDS: AMIKACIN SULFATE 1,000 MG in NS 250 ML IV SCH (22:15)
--- NOTE | 2020-08-16 23:30 | NUR ---
pt.assessed.blood glucose assessed value;126mg/dl.i have administered amikacin abx ivpb@this hour.per flacc pain mgx pt.absent facial grimaces/body posturing.call light placed w/in access of the pt.
[2020-08-17] VITALS (28 sets, daily range): BP systolic 100–149
--- NOTE | 2020-08-17 | NUR ---
pt.assessed.v/s assessed values wnl.trach intact i have attended to the oral/trach care.rt.svc intact;iv fluids/tpn,levophed drip infusing.g-tube intact.schultz cath intact;patent urine content present.per flacc pain mgx pt.absent facial grimaces/body posturing. .pt.assessed for cleanliness.pt.repositioned.general status stable:o2-sat%=98%.call light placed w/in access of the pt.
--- NOTE | 2020-08-17 02:00 | NUR ---
pt.assessed.v/s assessed values wnl.trach intact.i have attended to the oral/trach care/suction.per flacc pain mgx pt.absent facial grimaces/body posturing.rt.svc central line intact.iv fluids/tpn,levophed drip infusing.g-tube intact.schultz cath intact urine content present.pt.assessed for cleanliness.pt.repositioned.general status stable.respiratory status stable;02-sat%=98%.call light placed w/in access of the pt.
[2020-08-17] MEDS: MIDODRINE HCL 5 MG TABLET (PROAMATINE) GT SCH ×3 (03:29→19:51)
[2020-08-17] MEDS: D5NS 1,000 ML IV SCH ×2 (03:43→23:19)
--- NOTE | 2020-08-17 04:00 | NUR ---
pt.assessed.trach intact.i have attended to the oral/trach care suction.rt.svc intact iv fluids infusing.g-tube intact.schultz cath intact urine content present.per flacc pain mgx pt.absent facial grimaces/body posturing.pt.assessed for cleanliness.pt. repositioned.general status stable.respirtory status stable;02-sat%=98%.call light placed w/in access of the pt.
[2020-08-17 06:07] LABS: ALBUMIN 1.3 g/dL (3.4-4.8); CREATININE 0.78 mg/dL (0.55-1.30); PHOSPHORUS 2.4 mg/dL (2.7-4.5); POTASSIUM 3.8 mmol/L (3.5-5.1); TOTAL BILIRUBIN 0.1 mg/dL (0.0-1.0)
--- NOTE | 2020-08-17 06:30 | NUR ---
pt.assessed.v/s assessed wnl.trach intact.i have attended to the oral/trach care/suction.i have changed the rt.svc dsg.i have attended to the wound care;dsg changed.schultz cath intact urine content present.i have cleaned the pt.repositioned.blood glucose assed.i have weighed the pt.2/t chf.call light placed w/in access of the pt.
[2020-08-17 06:34] LABS: CALCIUM 6.8 mg/dL (8.4-11.0)
--- NOTE | 2020-08-17 07:18 | NUR ---
opening notes, Received pt in bed, pt is non-verbal, opens eyes, tached to vent, kept npo , on tpn, no fever , vitals wnl. will cont to monitor.
[2020-08-17] MEDS: FAMOTIDINE 20 MG TABLET GT SCH ×2 (08:31→20:36)
[2020-08-17] MEDS: LACTOBACILLUS RHAMNOSUS GG 1 CAP CAPSULE PO SCH ×2 (08:38→20:36)
[2020-08-17] MEDS: ASCORBIC ACID 500 MG TABLET GT SCH (08:39)
[2020-08-17] MEDS: ENOXAPARIN SODIUM 30 MG/0.3 ML SYRINGE SQ SCH ×2 (08:51→20:37)
[2020-08-17] MEDS: VANCOMYCIN HCL ORAL SOLUTION 250 MG/5 ML, 80 ML GT SCH ×4 (08:53→20:36)
[2020-08-17] MEDS: MULTIVITS,CA,MINERALS/IRON/FA 1 TABLET GT SCH (09:00)
[2020-08-17] MEDS: LACTULOSE 20 GM/30 ML UDC GT SCH ×2 (09:02→20:36)
--- NOTE | 2020-08-17 11:18 | NUR ---
PT CLEANSED AFTER HAVE DIARRHEA. TURNED AND REPOSITIONED.
[2020-08-17] MEDS: LEVOFLOXACIN 250 MG/D5W 50 ML IV SCH (11:32)
--- NOTE | 2020-08-17 12:37 | NUR ---
Nutrition F/U Admitting Diagnosis: Septic shock Medical History Comment: Pt w/: Septic shock, Bilateral pneumonia, Dehydration, CHRISTIANO, Chronic Respiratory failure, Down Syndrome, DM per MD notes. PMH: Down, syndrome, DM, Chronic respiratory failure, Tracheostomy and GT placement. SARS-CoV-2 Ag Rapid 08/10 Negative Subjective Information: Pt was seen in ICU, non-verbal, intubated on vent, and remains on levophed. Pt tested positive for C.diff PCR and ID started pt on vancomycin. RAGHU aguirre/ RN who reports that pt c/w diarrhea, stool regimen still provided this am. Per EMR review, abdomen is firm and distended w/ hypoactive bowel sounds. Last BM 08/17 x1, Joel scale: 12. Per employment specialist/program manager note 08/11: 1. Sacral/Buttocks areas: Blanchable redness (IAD/MASD) with brown discoloration, possible sDTI. 2. Left Sacral area: Area of wrinkly brown skin. 3. Right Buttock: Blanchable redness with wound, present on admission. 4. Left Knee: Blanchable redness, present on admission. 5. Left Lateral Malleolus: Blanchable redness, present on admission. 6. Left Heel: Non-blanchable dark red tissue with brown discoloration, present on admission. 7. Right Heel: Blanchable dark red tissue with brown discoloration, present on admission. Current CPN provides: 832 kcal, 52gm protein and 1224ml fluids daily which meets> 44% of estimated calorie needs and 58% of upper end of estimated protein needs. Pt is not yet meeting adequate nutrition and may benefit from increasing PN concentration and infusion rate to better meet estimated needs. Current Diet Order/Nutrition Support: NPO since 08/13 + D30% AA8.5% at 75ml/hr via central line Pertinent Medications: Theragran-M, Lactulose, Culturelle, Lovenox, SSI, D5%/NS at 75ml/hr (306 kcal/day) Pertinent Labs: 08/17: WBC 13.7H, Na 146H, K 3.8WNL, BG 144H, POC BG 132H, BUN 6L, Cre 0.78WNL, 08/14: TG 91WNL. Height: 5 feet 4.00 inches Weight: 139 pounds/ 63.426411 kilograms Body Mass Index: 23.86 kg/m2 [place]/Adjusted Body Weight: 130#/ 59kg; Adj IBW QP: 114#/ 52kg Estimated Energy Expenditure (kcals/day) 1892 Kcal/day (PSU 2003b for vent) Estimated Protein Required (g/day) 59-89 gm/day (1-1.5 gm/kg IBW for sepsis, renal Dz predialysis and wound) Estimated Fluid Required (l/day) per MD (ARF Problem/Etiology/Signs/Symptoms Increased nutrient needs r/t metabolic demands AEB wounds. (*ongoing) Altered nutrition related labs r/t endocrine dysfunction AEB elevated BG. (*ongoing) Inadequate PN intake r/t current PN order AEB current PN meets <65% of estimated needs (*modified) Altered GI function r/t increased gastric motility AEB diarrhea. (*new) Expected Outcomes/Goals Monitor PN tolerance and intake w/ goal of pt meeting more than 75% of estimated nutritional needs, labs trending WNL, normal GI function, skin integrity/wt maintenance. Dietitian Recommendations *Recommend: continue culturelle and consider Banatrol TID for C.diff. Discontinue laxatives. *Recommend: increase TPN concentration to better meet estimated needs. *Recommend: D30% AA 10% at 80ml/hr (goal rate) via central line, no lipid. Provides: 1363 Kcal, 96gm protein, 1920ml fluids daily. Meets: 72% of estimated calorie needs and 107% of upper end of estimated protein needs. Follow Up High Risk: F/U in 2-3days
--- NOTE | 2020-08-17 13:00 | NUR ---
Dietitian Recommendations *Recommend: continue culturelle and consider Banatrol TID for C.diff. Discontinue laxatives. *Recommend: increase TPN concentration to better meet estimated needs. *Recommend: D30% AA 10% at 80ml/hr (goal rate) via central line, no lipid. Provides: 1363 Kcal, 96gm protein, 1920ml fluids daily. Meets: 72% of estimated calorie needs and 107% of upper end of estimated protein needs. Please see Nutrition F/U note for details. CHELSI, RD
--- NOTE | 2020-08-17 13:32 | NUR ---
DR QUILES MADE ROUNDS, NO NEW ORDERS. INFORMED OF CA LEVEL OF 6.8, MD SAID WE DONT DO ANYTHING .
[2020-08-17] MEDS: IPRATROPIUM/ALBUTEROL SULFATE 3 ML AMPUL.NEB (DUONEB) INH SCH ×2 (13:33→19:40)
--- NOTE | 2020-08-17 18:20 | NUR ---
DR FENG HERE AND SEEN PT. SAID OKAY TO CONTINUE ISOLATION. ALSO SAID OKAY FOR PICC INSERTION [place] CATH IS MOSTLY FOR CHEMO PURPOSES ONLY.
--- NOTE | 2020-08-17 18:24 | NUR ---
CLOSING NOTES, PT HAS BEEN STABLE, NO CHANGES IN VENT SETTTINGS. PT HAS BEEN CONTINUED ON LEVOPHED DRIP. NOTED THAT PT'S BP WENT DOWN TO THE 80S WHEN LEVO DRIP STOPPED. WILL ENDORSE TO NIGHT NURSE.
--- NOTE | 2020-08-17 20:00 | NUR ---
ALERT. TRACH TO VENT. SUCTIONED WITH MOD AMOUNT OF YELLOW MUCUS OBTAINED. ORAL CARE DONE. GT CLAMPED. RIGHT UPPER CHEST PORT-A-CATH DRSG D/I. ON LEVOPHED AT O.23 MCG/KG/MIN. TPN AT 52CC/HR. BAH CATH PATENT DRAINING HAZY YELLOW URINE TO GRAVITY. SR.
[2020-08-17] MEDS: NOREPINEPHRINE BITARTRATE 16 MG in NS 234 ML IV PRN (20:20)
[2020-08-17] MEDS: SENNOSIDES/DOCUSATE SODIUM 1 TAB TABLET(SENOKOT-S) GT SCH (20:36)
[2020-08-17] MEDS: POTASSIUM ACETATE IV SCH ×10 (20:38)
[2020-08-17] MEDS: K PHOS IV SCH ×10 (20:38)
[2020-08-17] MEDS: [UNRECOGNIZED DRUG - OTHER] IV SCH ×10 (20:38)
[2020-08-17] MEDS: TPN CENTRAL IV SCH ×10 (20:38)
[2020-08-17] MEDS ORDERED: POTASSIUM ACETATE IV SCH ×10 (21:00)
[2020-08-17] MEDS ORDERED: K PHOS IV SCH ×10 (21:00)
[2020-08-17] MEDS ORDERED: TPN CENTRAL IV SCH ×10 (21:00)
[2020-08-17] MEDS ORDERED: [UNRECOGNIZED DRUG - OTHER] IV SCH ×10 (21:00)
--- NOTE | 2020-08-17 21:40 | NUR ---
DR ROYAL HERE, UPDATED ON STATUS. NO NEW ORDERS GIVEN.
--- NOTE | 2020-08-17 22:00 | NUR ---
HS CARE DONE.
[2020-08-18] VITALS (31 sets, daily range): BP systolic 102–135
--- NOTE | 2020-08-18 | NUR ---
ACCU-CHEK 143, NO INSULIN DUE PER SLIDING SCALE COV. BP 126/75, LEVOPHED DRIP TITRATED DOWN TO 0.2 MCG/KG/MIN.
[2020-08-18] MEDS: IPRATROPIUM/ALBUTEROL SULFATE 3 ML AMPUL.NEB (DUONEB) INH SCH ×3 (00:42→20:28)
[2020-08-18] MEDS: INSULIN REGULAR, HUMAN 100 UNITS/ML, 10 ML VIAL (humuLIN R) SUBCUT PRN ×2 (00:46→06:17)
--- NOTE | 2020-08-18 02:00 | NUR ---
DOZES ON AND OFF. SUCTIONED. TURNED.
[2020-08-18] MEDS: MIDODRINE HCL 5 MG TABLET (PROAMATINE) GT SCH ×3 (03:51→21:19)
--- NOTE | 2020-08-18 04:00 | NUR ---
1 LARGE WATERY YELLOWISH BROWN STOOL DEFECATED X2. CLEANED. PERINEAL CARE DONE. ORAL CARE, BACK CARE, BAH CARE GIVEN. Z-GUARD APPLIED, SKIN CARE RENDERED. COMPLETE LINEN CHANGE. DOES NOT ASSIST WITH TURNING. JENNA PROC WELL. BP 119/68, LEVOPHED TITRATED DOWN TO 0.17 MCG/KG/MIN. Addendum: 08/18/20 at 0623 by Hudson Smiley RN CHG BATH GIVEN.
--- NOTE | 2020-08-18 06:00 | NUR ---
SLEPT INTERMITTENTLY. UO GOOD. BP 134/69, LEVOPHED TITRATED DOWN TO 0.14 MCG/KG/MIN. ACCU-CHEK 127, NO INSULIN DUE PER SLIDING SCALE COV. REMAINS IN GUARDED CONDITION.
[2020-08-18 06:41] LABS: ALBUMIN 1.4 g/dL (3.4-4.8); CALCIUM 7.3 mg/dL (8.4-11.0); CREATININE 0.78 mg/dL (0.55-1.30); TOTAL BILIRUBIN 0.3 mg/dL (0.0-1.0)
[2020-08-18 07:20] LABS: INR 1.1 (0.80-1.20); PROTHROMBIN TIME 10.9 SECS (9.5-12.5)
[2020-08-18 07:24] LABS: POTASSIUM 4.1 mmol/L (3.5-5.1)
--- NOTE | 2020-08-18 07:30 | NUR ---
Opening Note Received bedside report from endorsing RN for continuation of care. Received patient resting in bed, no signs or symptoms of distress noted. Bed locked in lowest position, bed alarm on, and call light within reach. Fall and safety precautions in place.
[2020-08-18] MEDS: ENOXAPARIN SODIUM 30 MG/0.3 ML SYRINGE SQ SCH ×2 (08:22→21:20)
[2020-08-18] MEDS: LACTOBACILLUS RHAMNOSUS GG 1 CAP CAPSULE PO SCH ×2 (08:22→21:19)
[2020-08-18] MEDS: LACTULOSE 20 GM/30 ML UDC GT SCH ×2 (08:22→21:00)
[2020-08-18] MEDS: FAMOTIDINE 20 MG TABLET GT SCH ×2 (08:22→21:19)
[2020-08-18] MEDS: MULTIVITS,CA,MINERALS/IRON/FA 1 TABLET GT SCH (08:22)
[2020-08-18] MEDS: ASCORBIC ACID 500 MG TABLET GT SCH (08:23)
[2020-08-18 09:10] LABS: BASOPHILS # (AUTO) 0.1 K/uL (0.0-0.2); BASOPHILS % (AUTO) 1.3 % (0.0-2.0); EOSINOPHILS # (AUTO) 0.2 K/uL (0.0-0.4); EOSINOPHILS % (AUTO) 2.8 % (0.0-4.0); HEMATOCRIT 25.1 % (36-54); HEMOGLOBIN 8.3 g/dL (14.0-18.0); LYMPHOCYTES # (AUTO) 1.6 K/uL (1.0-5.5); LYMPHOCYTES % (AUTO) 19.1 % (20.5-51.5); MEAN CORPUSCULAR HEMOGLOBIN 33 pg (27-31); MEAN CORPUSCULAR HGB CONC 33 % (32-36); MEAN CORPUSCULAR VOLUME 100 fL (79.0-98.0); MONOCYTES # (AUTO) 0.7 K/uL (0.0-1.0); MONOCYTES % (AUTO) 8.1 % (1.7-9.3); NEUTROPHILS # (AUTO) 5.9 K/uL (1.8-7.7); NEUTROPHILS % (AUTO) 68.7 % (40.0-70.0); PLATELET COUNT (AUTO) 258 K/uL (130-430); RED BLOOD CELL COUNT(AUTO) 2.51 MIL/uL (4.2-6.2); RED CELL DISTRIBUTION WIDTH 19.3 % (9.0-15.0); WHITE BLOOD COUNT (AUTO) 8.6 K/uL (4.8-10.8)
--- NOTE | 2020-08-18 10:20 | NUR ---
Contacted brother of patient, Rian Blanco, for PICC line consent. No answer, left voicemail. Contacted Lindsay Ornelas, did not answer and left voicemail.
--- NOTE | 2020-08-18 10:30 | NUR ---
Received a call back from Lindsay Ornelas. States Rian Blanco is the decision maker for patient.
--- NOTE | 2020-08-18 10:35 | NUR ---
Second attempt at calling Rian Blanco for PICC line consent. Left voicemail.
[2020-08-18] MEDS: LEVOFLOXACIN 250 MG/D5W 50 ML IV SCH (11:10)
--- NOTE | 2020-08-18 12:50 | NUR ---
Dr. Valleium rounding on patient. Informed MD about multiple attempts to contact brother for PICC line consent. MD states he will sign for medical necessity.
[2020-08-18] MEDS: AMIKACIN SULFATE 1,000 MG in NS 250 ML IV SCH (13:05)
[2020-08-18] MEDS: FAT EMULSIONS 250 ML IV SCH (13:09)
[2020-08-18] MEDS: VANCOMYCIN HCL ORAL SOLUTION 250 MG/5 ML, 80 ML GT SCH ×2 (13:14→21:35)
[2020-08-18] MEDS: D5NS 1,000 ML IV SCH (13:21)
--- NOTE | 2020-08-18 14:00 | NUR ---
Right AC IV catheter noted outside of patient's arm. IV catheter tip intact, bleeding controlled. No infiltration.
--- NOTE | 2020-08-18 17:00 | NUR ---
Dr. Nava rounding on patient.
--- NOTE | 2020-08-18 18:15 | NUR ---
PICC line RN at bedside.
--- NOTE | 2020-08-18 19:02 | NUR ---
Closing Pt with PICC line to left arm. No acute distress or pain noted. Remains on levophed drip. Flexiseal in place. Contreras in place. Will endorse plan of care to RN.
--- NOTE | 2020-08-18 19:30 | NUR ---
Opening note Received report and assumed care. Patient tolerating vent settings on AC 18 TV 450 FIO2 30% peep 5+. Requires full assist for ADL's and repositioning. IV infusions changed from right subclavian port a cath to Left upper arm picc line. will continue to monitor patient as per unit protocol.
[2020-08-18] MEDS ORDERED: POTASSIUM ACETATE IV SCH ×10 (21:00)
[2020-08-18] MEDS ORDERED: TPN CENTRAL IV SCH ×10 (21:00)
[2020-08-18] MEDS ORDERED: [UNRECOGNIZED DRUG - OTHER] IV SCH ×10 (21:00)
[2020-08-18] MEDS ORDERED: K PHOS IV SCH ×10 (21:00)
[2020-08-18] MEDS: SENNOSIDES/DOCUSATE SODIUM 1 TAB TABLET(SENOKOT-S) GT SCH (21:00)
--- NOTE | 2020-08-18 21:45 | NUR ---
Spoke to brother Rian, information and update provided.
[2020-08-19] VITALS (34 sets, daily range): BP systolic 83–133
--- NOTE | 2020-08-19 00:11 | NUR ---
Assessment completed, repositioned for comfort.
[2020-08-19] MEDS: IPRATROPIUM/ALBUTEROL SULFATE 3 ML AMPUL.NEB (DUONEB) INH SCH ×4 (01:32→19:45)
[2020-08-19] MEDS: D5NS 1,000 ML IV SCH ×3 (02:20→21:00)
[2020-08-19] MEDS: MIDODRINE HCL 5 MG TABLET (PROAMATINE) GT SCH ×3 (05:13→21:08)
[2020-08-19 06:34] LABS: BASOPHILS # (AUTO) 0.1 K/uL (0.0-0.2); BASOPHILS % (AUTO) 2.4 % (0.0-2.0); EOSINOPHILS # (AUTO) 0.1 K/uL (0.0-0.4); EOSINOPHILS % (AUTO) 2.8 % (0.0-4.0); HEMATOCRIT 24.4 % (36-54); LYMPHOCYTES # (AUTO) 1.3 K/uL (1.0-5.5); LYMPHOCYTES % (AUTO) 25.5 % (20.5-51.5); MEAN CORPUSCULAR HEMOGLOBIN 33 pg (27-31); MEAN CORPUSCULAR HGB CONC 33 % (32-36); MEAN CORPUSCULAR VOLUME 101 fL (79.0-98.0); MONOCYTES # (AUTO) 0.5 K/uL (0.0-1.0); NEUTROPHILS # (AUTO) 3.1 K/uL (1.8-7.7); NEUTROPHILS % (AUTO) 59.3 % (40.0-70.0); PLATELET COUNT (AUTO) 243 K/uL (130-430); RED BLOOD CELL COUNT(AUTO) 2.42 MIL/uL (4.2-6.2); RED CELL DISTRIBUTION WIDTH 19.2 % (9.0-15.0); WHITE BLOOD COUNT (AUTO) 5.3 K/uL (4.8-10.8)
[2020-08-19 06:52] LABS: ALBUMIN 1.3 g/dL (3.4-4.8); CALCIUM 7.3 mg/dL (8.4-11.0); CREATININE 0.71 mg/dL (0.55-1.30); PHOSPHORUS 3.7 mg/dL (2.7-4.5); POTASSIUM 4.4 mmol/L (3.5-5.1); TOTAL BILIRUBIN 0.1 mg/dL (0.0-1.0)
--- NOTE | 2020-08-19 07:20 | NUR ---
Opening Received report from endorsing RN. Pt in no signs of distress, trach to vent. Remains on levophed drip. Contreras in place draining urine to gravity. Flexi seal in place with liquid stool. Bed in lowest position.
[2020-08-19 07:40] LABS: TOTAL IRON BIND. CAPACITY 114 ug/dL (250-450)
[2020-08-19] MEDS: LACTULOSE 20 GM/30 ML UDC GT SCH ×2 (09:00→21:13)
[2020-08-19] MEDS: MULTIVITS,CA,MINERALS/IRON/FA 1 TABLET GT SCH (09:24)
[2020-08-19] MEDS: FAMOTIDINE 20 MG TABLET GT SCH ×2 (09:24→21:07)
[2020-08-19] MEDS: ASCORBIC ACID 500 MG TABLET GT SCH (09:24)
[2020-08-19] MEDS: LACTOBACILLUS RHAMNOSUS GG 1 CAP CAPSULE PO SCH ×2 (09:24→21:07)
[2020-08-19] MEDS: ENOXAPARIN SODIUM 30 MG/0.3 ML SYRINGE SQ SCH ×2 (09:24→21:09)
[2020-08-19] MEDS: VANCOMYCIN HCL ORAL SOLUTION 250 MG/5 ML, 80 ML GT SCH ×3 (09:26→17:43)
[2020-08-19] MEDS: FAT EMULSIONS 250 ML IV SCH (12:35)
[2020-08-19] MEDS: SOD FERRIC GLUC COMPLEX/SUC 125 MG in NS 100 ML IV SCH (15:43)
--- NOTE | 2020-08-19 18:00 | NUR ---
CHG bath and skin care done. Pt tolerated well.
--- NOTE | 2020-08-19 19:00 | NUR ---
Closing Pt in no signs of pain or distress. Off levophed drip, SBP 100s. Contreras in place draining yellow urine. Flexiseal in place with liquid brown stool with sediments. Bed locked in lowest position. Will endorse plan of care to RN.
--- NOTE | 2020-08-19 19:25 | NUR ---
PM SHIFT ASSESSMENT Pt is awake and alert. SPO2 is above 95%, RR even and unlabored. Skin warm and intact. IVF infusing to KERRI PICCLINE. Safety precautions in place, call light within reach. Will continue to monitor.
--- NOTE | 2020-08-19 20:30 | NUR ---
Dr. Nava here to see patient.
[2020-08-19] MEDS: SENNOSIDES/DOCUSATE SODIUM 1 TAB TABLET(SENOKOT-S) GT SCH (21:00)
[2020-08-19] MEDS ORDERED: TPN CENTRAL IV SCH ×10 (21:00)
[2020-08-19] MEDS ORDERED: SODIUM ACETATE IV SCH ×10 (21:00)
[2020-08-19] MEDS ORDERED: K PHOS IV SCH ×10 (21:00)
[2020-08-19] MEDS ORDERED: [UNRECOGNIZED DRUG - OTHER] IV SCH ×10 (21:00)
[2020-08-19] MEDS: AMIKACIN SULFATE 1,000 MG in NS 250 ML IV SCH (23:47)
[2020-08-20] VITALS (36 sets, daily range): BP systolic 72–150
[2020-08-20] MEDS: IPRATROPIUM/ALBUTEROL SULFATE 3 ML AMPUL.NEB (DUONEB) INH SCH ×4 (01:59→19:25)
[2020-08-20 05:08] LABS: FOLATE (FOLIC ACID) 13.5 ng/mL (>3.0)
[2020-08-20] MEDS: MIDODRINE HCL 5 MG TABLET (PROAMATINE) GT SCH ×3 (05:32→20:22)
[2020-08-20] MEDS: NOREPINEPHRINE BITARTRATE 16 MG in NS 234 ML IV PRN (06:18)
[2020-08-20 06:54] LABS: ALBUMIN 1.2 g/dL (3.4-4.8); CALCIUM 7.6 mg/dL (8.4-11.0); CREATININE 0.73 mg/dL (0.55-1.30); PHOSPHORUS 4.3 mg/dL (2.7-4.5); POTASSIUM 4.1 mmol/L (3.5-5.1); TOTAL BILIRUBIN 0.1 mg/dL (0.0-1.0)
--- NOTE | 2020-08-20 07:15 | NUR ---
ENDORSEMENT Pt care endorsed to dayshift RN using nursing SBAR.
--- NOTE | 2020-08-20 08:00 | NUR ---
AM ASSESSMENT. PT AFEBRILE, SKIN WARM AND DRY TO TOUCH, TRACHED TO VENT, SINUS TACHY, LEVOPHED DRIP INFUSING AT 0.1 MCG/KG/MIN, TPN AND LIPIDS, IVF D5NS AT 50 ML PER HR THRU PICC PORT, PORTACATH TO RIGHT UPPER CHEST, ABDOMEN SOFT, GTUBE CLAMPED, BAH CATHETER DRAINING LIGHT YELLOW URINE, FLEXISEAL INTACT.
[2020-08-20] MEDS: ASCORBIC ACID 500 MG TABLET GT SCH (08:16)
[2020-08-20] MEDS: MULTIVITS,CA,MINERALS/IRON/FA 1 TABLET GT SCH (08:16)
[2020-08-20] MEDS: LACTULOSE 20 GM/30 ML UDC GT SCH ×2 (08:16→20:22)
[2020-08-20] MEDS: LACTOBACILLUS RHAMNOSUS GG 1 CAP CAPSULE PO SCH ×2 (08:16→20:22)
[2020-08-20] MEDS: FAMOTIDINE 20 MG TABLET GT SCH ×2 (08:16→20:22)
[2020-08-20] MEDS: ENOXAPARIN SODIUM 30 MG/0.3 ML SYRINGE SQ SCH ×2 (08:17→20:23)
[2020-08-20] MEDS: FAT EMULSIONS 250 ML IV SCH (11:35)
--- NOTE | 2020-08-20 12:00 | NUR ---
SKIN CARE. FOAM DRESSING REMOVED FROM SACRAL AREA, WOUND DRY, CLEANSED WITH SALINE, MOISTURE BARRIER TO EDGES, COVERED WITH FOAM DRESSING. PERINEAL CARE DONE.
[2020-08-20] MEDS: SOD FERRIC GLUC COMPLEX/SUC 125 MG in NS 100 ML IV SCH (13:23)
[2020-08-20] MEDS: D5NS 1,000 ML IV SCH (14:59)
--- NOTE | 2020-08-20 16:19 | NUR ---
Admitting Diagnosis: Septic shock Medical History Comment: Pt w/: Septic shock, Bilateral pneumonia, Dehydration, CHRISTIANO, Chronic Respiratory failure, Down Syndrome, DM per MD notes. PMH: Down, syndrome, DM, Chronic respiratory failure, Tracheostomy and GT placement. RD Note: Pt was seen in ICU, non-verbal, intubated on vent. Pt tested positive for C.diff PCR. per pts nurse pt has a rectal tube, pt continues to have watery stools, ABD more soft per pts primary RN GI: soft, nondistended ABD, active bowel sounds, last BM 08/18 x3 Skin: Joel scale: 12. No skin issues identified per nursing notes Current Diet Order/Nutrition Support: NPO since 08/13 + D30% AA8.5% at 76 ml/hr, fat emulsion: 20%, 250 mL bag @ 10 mL/hr (Provides a total volume of 2074 mL, including lipid emulsion, 1740 kcals, 78 gm protein, 50 gm lipid, GIR: 3 mg/kg/min) Pertinent Medications: Theragran-M, Lactulose, Culturelle, D5%/NS at 50 mL/hr, [place] sulfate 254 mL/hr, vitamin C 500 mg, ferric sodium gluconate complex 110 mL/hr, senokot, lovenox Pertinent Labs: H/H: 8/24.4L, Cl: 109H, glucose; 112H, POC glucose: 113H (08/19), Glucose: 112, SARS-CoV-2 Ag Rapid 08/10 Negative Height: 5 feet 4.00 inches Weight: (08/17): 63.957 kg/ 140 lbs, (08/12) 139 pounds/ 63.895347 kilograms Body Mass Index: (08/17): 24.2 kg/m2, (08/12): 23.86 kg/m2), wt stable Weight status: appropriate [place]/Adjusted Body Weight: 130#/ 59kg; Adj IBW QP: 114#/ 52kg Estimated Energy Expenditure (kcals/day) 1892 Kcal/day (PSU 2003b for vent) Estimated Protein Required (g/day) 59-89 gm/day (1-1.5 gm/kg IBW for sepsis, renal Dz predialysis and wound) Estimated Fluid Required (l/day) per MD (ARF Problem/Etiology/Signs/Symptoms 1) Increased nutrient needs r/t metabolic demands AEB wounds. (*ongoing) 2) Altered nutrition related labs r/t endocrine dysfunction AEB elevated BG. (*ongoing) 3) Inadequate PN intake r/t current PN order AEB current PN meets <65% of estimated needs (resolved, PN meeting estimated nutrition needs 08/20) 4) Altered GI function r/t increased gastric motility AEB diarrhea. (ongoing) Expected Outcomes/Goals Monitor PN tolerance and intake w/ goal of pt meeting more than 75% of estimated nutritional needs, labs trending WNL, normal GI function, skin integrity/wt maintenance (ongoing) Dietitian Recommendations *Recommend: continue Culturelle Recommend Banatrol TID for C.diff. Discontinue laxatives. Continue current CPN, as ordered. Meets 92% of kcal needs and 100% of protein needs. Follow Up High Risk: F/U in 2-3days KW, RD
--- NOTE | 2020-08-20 16:19 | NUR ---
Dietitian Recommendations *Recommend: continue Culturelle Recommend Banatrol TID for C.diff. Discontinue laxatives. Continue current CPN, as ordered. Meets 92% of kcal needs and 100% of protein needs. KW, RD
[2020-08-20] MEDS ORDERED: ALBUMIN HUMAN 25% 100 ML IV PRN (17:15)
--- NOTE | 2020-08-20 17:56 | NUR ---
NURSING CARE. TURNED AND REPOSITIONED PT Q2H. ORAL CARE DONE, DRAINAGE BAG CHANGED FROM FLEXISEAL, LARGE AMOUNT OF GAS OBSERVED.
[2020-08-20] MEDS: TPN CENTRAL IV SCH ×10 (20:25)
[2020-08-20] MEDS: SENNOSIDES/DOCUSATE SODIUM 1 TAB TABLET(SENOKOT-S) GT SCH (20:25)
[2020-08-20] MEDS: SODIUM ACETATE IV SCH ×10 (20:25)
[2020-08-20] MEDS: K PHOS IV SCH ×10 (20:25)
[2020-08-20] MEDS: [UNRECOGNIZED DRUG - OTHER] IV SCH ×10 (20:25)
[2020-08-21] VITALS (35 sets, daily range): BP systolic 80–172
[2020-08-21] MEDS: ALBUMIN HUMAN 25% 100 ML IV PRN ×2 (00:25→05:14)
[2020-08-21] MEDS: IPRATROPIUM/ALBUTEROL SULFATE 3 ML AMPUL.NEB (DUONEB) INH SCH ×4 (01:49→19:36)
[2020-08-21] MEDS: ACETAMINOPHEN 650 MG/20.3 ML UDC GT PRN (05:14)
[2020-08-21] MEDS: MIDODRINE HCL 5 MG TABLET (PROAMATINE) GT SCH ×3 (05:14→22:39)
[2020-08-21 07:06] LABS: BASOPHILS # (AUTO) 0.2 K/uL (0.0-0.2); BASOPHILS % (AUTO) 1.3 % (0.0-2.0); EOSINOPHILS # (AUTO) 0.1 K/uL (0.0-0.4); EOSINOPHILS % (AUTO) 1.1 % (0.0-4.0); HEMATOCRIT 27.2 % (36-54); HEMOGLOBIN 8.8 g/dL (14.0-18.0); LYMPHOCYTES # (AUTO) 1.9 K/uL (1.0-5.5); LYMPHOCYTES % (AUTO) 15.5 % (20.5-51.5); MEAN CORPUSCULAR HEMOGLOBIN 34 pg (27-31); MEAN CORPUSCULAR HGB CONC 33 % (32-36); MEAN CORPUSCULAR VOLUME 103 fL (79.0-98.0); MONOCYTES # (AUTO) 0.7 K/uL (0.0-1.0); MONOCYTES % (AUTO) 5.7 % (1.7-9.3); NEUTROPHILS # (AUTO) 9.4 K/uL (1.8-7.7); NEUTROPHILS % (AUTO) 76.4 % (40.0-70.0); PLATELET COUNT (AUTO) 327 K/uL (130-430); RED BLOOD CELL COUNT(AUTO) 2.64 MIL/uL (4.2-6.2); RED CELL DISTRIBUTION WIDTH 23.6 % (9.0-15.0); WHITE BLOOD COUNT (AUTO) 12.2 K/uL (4.8-10.8)
--- NOTE | 2020-08-21 07:21 | NUR ---
ENDORSEMENT Pt care endorsed to dayshift RN using nursing SBAR.
[2020-08-21 07:36] LABS: ALBUMIN 1.8 g/dL (3.4-4.8); CREATININE 0.76 mg/dL (0.55-1.30); PHOSPHORUS 4.1 mg/dL (2.7-4.5); POTASSIUM 3.6 mmol/L (3.5-5.1); TOTAL BILIRUBIN 0.2 mg/dL (0.0-1.0)
--- NOTE | 2020-08-21 08:00 | NUR ---
AM ASSESSMENT. PT ON PPN AND LIPIDS INFUSION, ABDOMEN SOFT ON PALPATION, FLEXISEAL INTACT, LARGE AMOUNT OF GAS NOTED, TURNED PT TO HIS SIDE, FOAM DRESSING INTACT TO SACRAL AREA, BAH CATHETER DRAINING ADEQUATE AMOUNT OF URINE.
[2020-08-21] MEDS: LACTOBACILLUS RHAMNOSUS GG 1 CAP CAPSULE PO SCH ×2 (08:55→22:39)
[2020-08-21] MEDS: LACTULOSE 20 GM/30 ML UDC GT SCH ×2 (08:55→21:00)
[2020-08-21] MEDS: MULTIVITS,CA,MINERALS/IRON/FA 1 TABLET GT SCH (08:55)
[2020-08-21] MEDS: FAMOTIDINE 20 MG TABLET GT SCH ×2 (08:55→22:39)
[2020-08-21] MEDS: ENOXAPARIN SODIUM 30 MG/0.3 ML SYRINGE SQ SCH ×2 (08:56→22:40)
[2020-08-21] MEDS: ASCORBIC ACID 500 MG TABLET GT SCH (09:01)
[2020-08-21] MEDS: D5NS 1,000 ML IV SCH (09:16)
[2020-08-21] MEDS: AMIKACIN SULFATE 1,000 MG in NS 250 ML IV SCH (10:37)
[2020-08-21] MEDS: FAT EMULSIONS 250 ML IV SCH (11:35)
[2020-08-21] MEDS: SOD FERRIC GLUC COMPLEX/SUC 125 MG in NS 100 ML IV SCH (13:16)
[2020-08-21] MEDS: NOREPINEPHRINE BITARTRATE 16 MG in NS 234 ML IV PRN (13:18)
--- NOTE | 2020-08-21 13:20 | NUR ---
BP78/38. Levophed is initiated.
--- NOTE | 2020-08-21 14:00 | NUR ---
SBP in the low 100s. Continue to monitor.
--- NOTE | 2020-08-21 18:20 | NUR ---
BS 120. No coverage needed.
--- NOTE | 2020-08-21 19:30 | NUR ---
Opening note Received report and assumed care. patient intubated and tolerating settings on Ac 18 tv 450 FIO2 30% peep 5+. No signs of respiratory distress. Vital signs stable. flexiseal in place requiring frequent emptying of accumulation of excess gas. TPN and lipids infusing to Jerman picc; patent. Continue on Levophed drip at 0.15 mcg/kg/min. will continue to monitor patient as per unit protocol.
[2020-08-21] MEDS: SODIUM ACETATE IV SCH ×10 (19:53)
[2020-08-21] MEDS: K PHOS IV SCH ×20 (19:53→21:47)
[2020-08-21] MEDS: TPN CENTRAL IV SCH ×20 (19:53→21:47)
[2020-08-21] MEDS: [UNRECOGNIZED DRUG - OTHER] IV SCH ×10 (19:53)
--- NOTE | 2020-08-21 20:00 | NUR ---
Assessment completed; repositioned for comfort.
[2020-08-21] MEDS: SENNOSIDES/DOCUSATE SODIUM 1 TAB TABLET(SENOKOT-S) GT SCH (21:00)
[2020-08-21] MEDS: CALCIUM GLUCONATE IV SCH ×10 (21:47)
[2020-08-21] MEDS: [UNRECOGNIZED DRUG - OTHER] IV SCH ×10 (21:47)
--- NOTE | 2020-08-21 22:10 | NUR ---
Dr Nava at bedside for assessment. Information provided; orders received.
--- NOTE | 2020-08-21 23:30 | NUR ---
Received call from Rian, patient's brother. Update provided.
[2020-08-22] VITALS (32 sets, daily range): BP systolic 92–138
[2020-08-22] MEDS: IPRATROPIUM/ALBUTEROL SULFATE 3 ML AMPUL.NEB (DUONEB) INH SCH ×4 (00:02→19:46)
--- NOTE | 2020-08-22 00:15 | NUR ---
assessment completed; repositioned for comfort. BS 134, no coverage required.
[2020-08-22] MEDS: MIDODRINE HCL 5 MG TABLET (PROAMATINE) GT SCH ×3 (04:00→20:00)
--- NOTE | 2020-08-22 04:05 | NUR ---
Morning care provided. CHG bath given. repositioned for comfort. patient tolerated well.
[2020-08-22] MEDS: ACETAMINOPHEN 650 MG/20.3 ML UDC GT PRN (06:00)
[2020-08-22 06:41] LABS: BASOPHILS # (AUTO) 0.1 K/uL (0.0-0.2); BASOPHILS % (AUTO) 1.2 % (0.0-2.0); EOSINOPHILS # (AUTO) 0.2 K/uL (0.0-0.4); EOSINOPHILS % (AUTO) 2.1 % (0.0-4.0); HEMATOCRIT 23.7 % (36-54); HEMOGLOBIN 7.8 g/dL (14.0-18.0); LYMPHOCYTES # (AUTO) 1.2 K/uL (1.0-5.5); LYMPHOCYTES % (AUTO) 10.5 % (20.5-51.5); MEAN CORPUSCULAR HEMOGLOBIN 33 pg (27-31); MEAN CORPUSCULAR HGB CONC 33 % (32-36); MEAN CORPUSCULAR VOLUME 102 fL (79.0-98.0); MONOCYTES # (AUTO) 0.5 K/uL (0.0-1.0); MONOCYTES % (AUTO) 4.6 % (1.7-9.3); NEUTROPHILS # (AUTO) 9.3 K/uL (1.8-7.7); NEUTROPHILS % (AUTO) 81.6 % (40.0-70.0); PLATELET COUNT (AUTO) 354 K/uL (130-430); RED BLOOD CELL COUNT(AUTO) 2.33 MIL/uL (4.2-6.2); WHITE BLOOD COUNT (AUTO) 11.4 K/uL (4.8-10.8)
[2020-08-22 06:59] LABS: ALBUMIN 1.9 g/dL (3.4-4.8); CALCIUM 7.5 mg/dL (8.4-11.0); CREATININE 0.73 mg/dL (0.55-1.30); PHOSPHORUS 3.4 mg/dL (2.7-4.5); POTASSIUM 3.2 mmol/L (3.5-5.1); TOTAL BILIRUBIN 0.2 mg/dL (0.0-1.0)
--- NOTE | 2020-08-22 07:38 | NUR ---
INITIAL NOTES, rECEIVED PT IN BED, PT IS SLEEPING, DID NOT OPEN EYES TO VOICE, RESPONDS TO TACTILE STIMULI. PT RECEIVING IV FLUIDS, ON LEVOPHED DRIP. BP WNL, TACHED TO VENT SETTING HAS NOT BEEN CHANGED PER NIGHT NURSE. PT HAS BAH CATH WITH YELLOW URINE AND RECTAL TUBE DRAINING GREENISH /BLACK LIQUID STOOL. WILL CONT TO MONITOR.
[2020-08-22] MEDS: LACTULOSE 20 GM/30 ML UDC GT SCH (08:38)
[2020-08-22] MEDS: ASCORBIC ACID 500 MG TABLET GT SCH (08:38)
[2020-08-22] MEDS: FAMOTIDINE 20 MG TABLET GT SCH ×2 (08:38→22:17)
[2020-08-22] MEDS: LACTOBACILLUS RHAMNOSUS GG 1 CAP CAPSULE PO SCH ×2 (08:38→22:19)
[2020-08-22] MEDS: MULTIVITS,CA,MINERALS/IRON/FA 1 TABLET GT SCH (08:38)
[2020-08-22] MEDS: D5NS 1,000 ML IV SCH (08:39)
[2020-08-22] MEDS: ENOXAPARIN SODIUM 30 MG/0.3 ML SYRINGE SQ SCH ×2 (08:40→22:19)
--- NOTE | 2020-08-22 09:05 | NUR ---
PLACED PAGE FOR DR GALICIA (COVERING FOR DR QUILES) FOR K = 3.2.
--- NOTE | 2020-08-22 09:25 | NUR ---
HIGH ALERT NOTE: Called back at identified within the medical roster to verify physician authenticity.
[2020-08-22] MEDS ORDERED: POTASSIUM CHLORIDE 20 MEQ/PKT PACKET GT ONE (09:30)
[2020-08-22] MEDS: FAT EMULSIONS 250 ML IV SCH (11:43)
[2020-08-22] MEDS: INSULIN REGULAR, HUMAN 100 UNITS/ML, 10 ML VIAL (humuLIN R) SUBCUT PRN (11:44)
[2020-08-22] MEDS: SOD FERRIC GLUC COMPLEX/SUC 125 MG in NS 100 ML IV SCH (13:04)
[2020-08-22] MEDS ORDERED: LACTULOSE 20 GM/30 ML UDC GT PRN (14:15)
--- NOTE | 2020-08-22 15:13 | NUR ---
Nutrition follow up note Admitting Diagnosis: Septic shock Medical History Comment: Pt w/: Septic shock, Bilateral pneumonia, Dehydration, CHRISTIANO, Chronic Respiratory failure, Down Syndrome, DM per MD notes. PMH: Down, syndrome, DM, Chronic respiratory failure, Tracheostomy and GT placement. RD Note: Per RN, large amount of gas noted, ABD soft, rectal tube draining greenish black stool this AM, per MD notes pt will be leaned off levophed. Lactulose on hold per MD notes. Pt weighed via bed scale at time of visit. Pts weight was 133.7 lbs, pt has lost 6.3 lbs since 08/17/20. Will continue to monitor wt for changes. GI: soft, distended ABD, active bowel sounds, rectal tube in place, stool output this AM per pts primary nurse Edema: bilateral arms and feet pitting + 1 Skin: Joel scale: 13. Per RN notes 1) L foot dry scab, 2) L/R heel erythema, 3) posterior sacrum dry scab, 4) R foot erythema Current Diet Order/Nutrition Support: NPO since 08/13 + D30% AA8.5% at 76 ml/hr, fat emulsion: 20%, 250 mL bag @ 10 mL/hr (Provides a total volume of 2170 mL, including lipid emulsion, 1806 kcals, 82 gm protein, 50 gm lipid, GIR: 2.5 mg/kg/min) I/Os: (08/22): 894/1000= - 106 mL PN infusion: 540 mL Pertinent Medications: Theragran-M, Culturelle, [place] sulfate 254 mL/hr, vitamin C 500 mg, ferric, senokot, lovenox, albumin, insulin Pertinent Labs: H/H: 7.8/23.7L, WBC: 11.4H, POC glucose: 152H, glucose: 137H Height: 5 feet 4.00 inches Weight: (08/22): 133.7 lbs, 60.7 kg (08/17): 63.957 kg/ 140 lbs, (08/12) 139 pounds/ 63.835438 kilograms Body Mass Index: (08/22): 23 kg.m2, (08/17): 24.2 kg/m2, (08/12): 23.86 kg/m2), wt loss of 6.3 lbs Weight status: appropriate [place]/Adjusted Body Weight: 130#/ 59kg; Adj IBW QP: 114#/ 52kg Estimated Energy Expenditure (kcals/day) 1892 Kcal/day (PSU for vent) Estimated Protein Required (g/day) 59-89 gm/day (1-1.5 gm/kg IBW for sepsis, renal Dz predialysis and wound) Estimated Fluid Required (l/day) per MD (ARF Problem/Etiology/Signs/Symptoms 1) Increased nutrient needs r/t metabolic demands AEB wounds. (*ongoing) 2) Altered nutrition related labs r/t endocrine dysfunction AEB elevated BG. (*ongoing) 3) Inadequate PN intake r/t current PN order AEB current PN meets <65% of estimated needs (resolved, PN meeting estimated nutrition needs 08/20) 4) Altered GI function r/t increased gastric motility AEB diarrhea, rectal tube in place, + C.diff. (ongoing) Expected Outcomes/Goals Monitor PN tolerance and intake w/ goal of pt meeting more than 75% of estimated nutritional needs, labs trending WNL, normal GI function, skin integrity/wt maintenance (ongoing) Dietitian Recommendations *Recommend: continue Culturelle. Discontinue laxatives. Continue current CPN, as ordered. Meets 95% of kcal needs and 100% of protein needs. KW, RD
--- NOTE | 2020-08-22 15:13 | NUR ---
Dietitian Recommendations *Recommend: continue Culturelle. Discontinue laxatives. Continue current CPN, as ordered. Meets 95% of kcal needs and 100% of protein needs. KW, RD
--- NOTE | 2020-08-22 19:27 | NUR ---
PT HAS BEEN STABLE, NO FEVER. CONTINUED TO BE ON LEVOPHED DRIP. ENDORSED TO NIGHT MAUREEN SWEET
--- NOTE | 2020-08-22 19:40 | NUR ---
Opening note Received report and assumed care. Patient awake but lethargic and unable to follow commands. Vent to trach in place tolerating settings on AC 18.
[2020-08-22] MEDS: CALCIUM GLUCONATE IV SCH ×21 (19:53→22:18)
[2020-08-22] MEDS: TPN CENTRAL IV SCH ×21 (19:53→22:18)
[2020-08-22] MEDS: [UNRECOGNIZED DRUG - OTHER] IV SCH ×10 (19:53)
[2020-08-22] MEDS: K PHOS IV SCH ×21 (19:53→22:18)
[2020-08-22] MEDS: SENNOSIDES/DOCUSATE SODIUM 1 TAB TABLET(SENOKOT-S) GT SCH (22:17)
[2020-08-22] MEDS: [UNRECOGNIZED DRUG - OTHER] IV SCH ×11 (22:18)
[2020-08-22] MEDS: AMIKACIN SULFATE 1,000 MG in NS 250 ML IV SCH (23:00)
[2020-08-23] VITALS (30 sets, daily range): BP systolic 101–149
[2020-08-23] MEDS: IPRATROPIUM/ALBUTEROL SULFATE 3 ML AMPUL.NEB (DUONEB) INH SCH ×4 (01:20→19:50)
[2020-08-23] MEDS: MIDODRINE HCL 5 MG TABLET (PROAMATINE) GT SCH ×3 (04:00→21:08)
[2020-08-23] MEDS: D5NS 1,000 ML IV SCH ×2 (05:31→23:57)
[2020-08-23 07:06] LABS: ALBUMIN 1.8 g/dL (3.4-4.8); CALCIUM 7.9 mg/dL (8.4-11.0); CREATININE 0.66 mg/dL (0.55-1.30); PHOSPHORUS 3.5 mg/dL (2.7-4.5); POTASSIUM 3.6 mmol/L (3.5-5.1); TOTAL BILIRUBIN 0.3 mg/dL (0.0-1.0)
--- NOTE | 2020-08-23 07:25 | NUR ---
Relieved patient and report from night club manager nurse. Patient in bed with side rails x 3 up. Call light with in reach.
[2020-08-23 08:06] LABS: HEMATOCRIT 26.5 % (36-54); HEMOGLOBIN 8.7 g/dL (14.0-18.0); MEAN CORPUSCULAR HEMOGLOBIN 34 pg (27-31); MEAN CORPUSCULAR HGB CONC 33 % (32-36); MEAN CORPUSCULAR VOLUME 104 fL (79.0-98.0); PLATELET COUNT (AUTO) 386 K/uL (130-430); RED BLOOD CELL COUNT(AUTO) 2.55 MIL/uL (4.2-6.2); RED CELL DISTRIBUTION WIDTH 25.4 % (9.0-15.0); WHITE BLOOD COUNT (AUTO) 9.7 K/uL (4.8-10.8)
[2020-08-23] MEDS: MULTIVITS,CA,MINERALS/IRON/FA 1 TABLET GT SCH (10:12)
[2020-08-23] MEDS: ASCORBIC ACID 500 MG TABLET GT SCH (10:12)
[2020-08-23] MEDS: LACTOBACILLUS RHAMNOSUS GG 1 CAP CAPSULE PO SCH ×2 (10:13→21:10)
[2020-08-23] MEDS: FAMOTIDINE 20 MG TABLET GT SCH ×2 (10:13→21:08)
[2020-08-23] MEDS: ENOXAPARIN SODIUM 30 MG/0.3 ML SYRINGE SQ SCH ×2 (10:13→21:11)
--- NOTE | 2020-08-23 12:20 | NUR ---
MD Monreal at bedside assessing patient, new order to restart original vancomycin 125 mg four times a day. Orders placed.
[2020-08-23] MEDS: VANCOMYCIN HCL ORAL SOLUTION 250 MG/5 ML, 80 ML PO SCH ×3 (13:03→21:10)
[2020-08-23] MEDS: SOD FERRIC GLUC COMPLEX/SUC 125 MG in NS 100 ML IV SCH (13:03)
[2020-08-23] MEDS: FAT EMULSIONS 250 ML IV SCH (13:04)
[2020-08-23 13:36] LABS: BAND % (MANUAL) 10 % (0-6); BASOPHILS % (MANUAL) 0 % (0-2); EOSINOPHILS % (MANUAL) 1 % (0-7); LYMPHOCYTES % (MANUAL) 13 % (20-46); MONOCYTES % (MANUAL) 9 % (0-11)
--- NOTE | 2020-08-23 19:15 | NUR ---
OPENING NOTE: RECEIVED REPORT FROM RN USING SBAR REPORTING. ALL CARE ASSUMED.
[2020-08-23] MEDS: TPN CENTRAL IV SCH ×11 (19:53)
[2020-08-23] MEDS: CALCIUM GLUCONATE IV SCH ×11 (19:53)
[2020-08-23] MEDS: [UNRECOGNIZED DRUG - OTHER] IV SCH ×11 (19:53)
[2020-08-23] MEDS: K PHOS IV SCH ×11 (19:53)
[2020-08-23] MEDS ORDERED: CALCIUM GLUCONATE IV SCH ×10 (21:00)
[2020-08-23] MEDS ORDERED: TPN CENTRAL IV SCH ×10 (21:00)
[2020-08-23] MEDS ORDERED: [UNRECOGNIZED DRUG - OTHER] IV SCH ×10 (21:00)
[2020-08-23] MEDS ORDERED: K PHOS IV SCH ×10 (21:00)
[2020-08-23] MEDS: SENNOSIDES/DOCUSATE SODIUM 1 TAB TABLET(SENOKOT-S) GT SCH (21:09)
[2020-08-23] MEDS: NOREPINEPHRINE BITARTRATE 16 MG in NS 234 ML IV PRN (23:53)
[2020-08-24] VITALS (36 sets, daily range): BP systolic 78–137
[2020-08-24] MEDS: IPRATROPIUM/ALBUTEROL SULFATE 3 ML AMPUL.NEB (DUONEB) INH SCH ×4 (00:40→19:35)
[2020-08-24] MEDS: MIDODRINE HCL 5 MG TABLET (PROAMATINE) GT SCH ×3 (05:40→20:14)
[2020-08-24 06:43] LABS: BASOPHILS # (AUTO) 0.2 K/uL (0.0-0.2); BASOPHILS % (AUTO) 1.3 % (0.0-2.0); EOSINOPHILS # (AUTO) 0.2 K/uL (0.0-0.4); HEMATOCRIT 27.1 % (36-54); HEMOGLOBIN 8.8 g/dL (14.0-18.0); LYMPHOCYTES # (AUTO) 1.2 K/uL (1.0-5.5); LYMPHOCYTES % (AUTO) 10.1 % (20.5-51.5); MEAN CORPUSCULAR HEMOGLOBIN 34 pg (27-31); MEAN CORPUSCULAR HGB CONC 33 % (32-36); MEAN CORPUSCULAR VOLUME 104 fL (79.0-98.0); MONOCYTES # (AUTO) 0.7 K/uL (0.0-1.0); MONOCYTES % (AUTO) 5.9 % (1.7-9.3); NEUTROPHILS # (AUTO) 9.6 K/uL (1.8-7.7); PLATELET COUNT (AUTO) 392 K/uL (130-430); RED CELL DISTRIBUTION WIDTH 25.5 % (9.0-15.0); WHITE BLOOD COUNT (AUTO) 11.9 K/uL (4.8-10.8)
[2020-08-24 07:07] LABS: ALBUMIN 1.7 g/dL (3.4-4.8); CALCIUM 8.2 mg/dL (8.4-11.0); CREATININE 0.67 mg/dL (0.55-1.30); POTASSIUM 3.6 mmol/L (3.5-5.1); TOTAL BILIRUBIN 0.4 mg/dL (0.0-1.0)
[2020-08-24 07:51] LABS: NEUTROPHILS % (AUTO) 80.7 % (40.0-70.0)
[2020-08-24] MEDS: LACTOBACILLUS RHAMNOSUS GG 1 CAP CAPSULE PO SCH ×2 (08:17→20:14)
[2020-08-24] MEDS: MULTIVITS,CA,MINERALS/IRON/FA 1 TABLET GT SCH (08:17)
[2020-08-24] MEDS: FAMOTIDINE 20 MG TABLET GT SCH ×2 (08:17→20:14)
[2020-08-24] MEDS: ASCORBIC ACID 500 MG TABLET GT SCH (08:17)
[2020-08-24] MEDS: ENOXAPARIN SODIUM 30 MG/0.3 ML SYRINGE SQ SCH ×2 (08:18→20:16)
[2020-08-24] MEDS: VANCOMYCIN HCL ORAL SOLUTION 250 MG/5 ML, 80 ML PO SCH ×4 (08:18→20:15)
[2020-08-24] MEDS: AMIKACIN SULFATE 1,000 MG in NS 250 ML IV SCH (11:35)
[2020-08-24] MEDS: FAT EMULSIONS 250 ML IV SCH (12:10)
--- NOTE | 2020-08-24 13:25 | NUR ---
ENDORSEMENT Patient received from MAUREEN BURDICK. VSS. Patient tolerating current vent settings. No signs of acute distress noted. Safety precautions in place, call light within reach. Will continue to monitor.
--- NOTE | 2020-08-24 13:55 | NUR ---
CLOSING NOTE: REPORT GIVEN TO RN USING SBAR REPORTING. ALL SAFETY PRECAUTIONS ENFORCED.
[2020-08-24] MEDS: SOD FERRIC GLUC COMPLEX/SUC 125 MG in NS 100 ML IV SCH (14:00)
--- NOTE | 2020-08-24 16:25 | NUR ---
DR. SANCHEZIUM HERE TO SEE PATIENT, NO NEW ORDERS.
--- NOTE | 2020-08-24 19:30 | NUR ---
ENDORSEMENT Pt care endorsed to nightshift RN using nursing SBAR.
--- NOTE | 2020-08-24 19:30 | NUR ---
PM ASSESSMENT REPORT RECEIVED FROM HAROON REDDY. PT RECEIVED IN BED WITH EYES OPEN, VSS, NO S/S OF ACUTE DISTRESS NOTED. PT TRACH TO VENT: AC 18, TV 450, FIO2 30%, PEEP 5. R PORT-A-CATH IN PLACE, KERRI PICC IN PLACE INFUSING IVF, TPN, LIPIDS, AND LEVOPHED DRIP PER ORDERS. G-TUBE IN PLACE CLAMPED. BAH CATH AND FLEXI-SEAL DRAINING URINE AND STOOL TO GRAVITY. HOB ELEVATED, BED IN LOWEST POSITION, CALL LIGHT IN REACH. WILL CONTINUE TO MONITOR PT.
[2020-08-24] MEDS: D5NS 1,000 ML IV SCH (20:13)
[2020-08-24] MEDS: SENNOSIDES/DOCUSATE SODIUM 1 TAB TABLET(SENOKOT-S) GT SCH (20:14)
[2020-08-24] MEDS ORDERED: K PHOS IV SCH ×10 (21:00)
[2020-08-24] MEDS ORDERED: TPN CENTRAL IV SCH ×10 (21:00)
[2020-08-24] MEDS ORDERED: [UNRECOGNIZED DRUG - OTHER] IV SCH ×10 (21:00)
[2020-08-24] MEDS ORDERED: POTASSIUM ACETATE IV SCH ×10 (21:00)
[2020-08-24] MEDS: ACETAMINOPHEN 650 MG/20.3 ML UDC GT PRN (23:14)
[2020-08-25] VITALS (36 sets, daily range): BP systolic 75–162
[2020-08-25] MEDS: IPRATROPIUM/ALBUTEROL SULFATE 3 ML AMPUL.NEB (DUONEB) INH SCH ×4 (01:10→20:00)
--- NOTE | 2020-08-25 01:40 | NUR ---
FEBRILE PT REMAINS FEBRILE AFTER TYLENOL BEING GIVEN, TEMP 101.1. COOLING MEASURES APPLIED. WILL CONTINUE TO MONITOR PT.
[2020-08-25] MEDS: MIDODRINE HCL 5 MG TABLET (PROAMATINE) GT SCH ×3 (03:43→20:31)
[2020-08-25 06:34] LABS: ALBUMIN 1.5 g/dL (3.4-4.8); CALCIUM 7.7 mg/dL (8.4-11.0); CREATININE 1.02 mg/dL (0.55-1.30); PHOSPHORUS 3.4 mg/dL (2.7-4.5); POTASSIUM 4.1 mmol/L (3.5-5.1); TOTAL BILIRUBIN 0.4 mg/dL (0.0-1.0)
--- NOTE | 2020-08-25 07:17 | NUR ---
ENDORSEMENT BEDSIDE REPORT GIVEN TO DEYSI REDDY USING SBAR APPROACH.
[2020-08-25] MEDS: LACTOBACILLUS RHAMNOSUS GG 1 CAP CAPSULE PO SCH ×2 (08:44→20:32)
[2020-08-25] MEDS: MULTIVITS,CA,MINERALS/IRON/FA 1 TABLET GT SCH (08:44)
[2020-08-25] MEDS: FAMOTIDINE 20 MG TABLET GT SCH ×2 (08:44→20:31)
[2020-08-25] MEDS: ASCORBIC ACID 500 MG TABLET GT SCH (08:44)
[2020-08-25] MEDS: VANCOMYCIN HCL ORAL SOLUTION 250 MG/5 ML, 80 ML PO SCH ×4 (08:45→20:32)
[2020-08-25] MEDS: ENOXAPARIN SODIUM 30 MG/0.3 ML SYRINGE SQ SCH ×2 (08:46→20:33)
[2020-08-25] MEDS: ACETAMINOPHEN 650 MG/20.3 ML UDC GT PRN ×2 (09:01→20:13)
--- NOTE | 2020-08-25 10:43 | NUR ---
Nutrition F/U Admitting Diagnosis: Septic shock Medical History Comment: Pt w/: Septic shock, Bilateral pneumonia, Dehydration, CHRISTIANO, Chronic Respiratory failure, Down Syndrome, DM per MD notes. PMH: Down, syndrome, DM, Chronic respiratory failure, Tracheostomy and GT placement. SARS-CoV-2 Ag Rapid 08/10 Negative Subjective Information: Pt remains in ICU, vent-dependent respiratory failure, w/ history of Down Syndrome and functional quadriplegia. Pt is non-verbal, has not been tolerating EN support and was placed on TPN and lipids. Pt seen in ICU, on vent, TPN infusing as ordered. RD s/w pharmD [id number], rec to lower infusion rate for lipid (elevated TG as of 08/21). PharmD stated that he will get new TG first and make changes after the lab. Per EMR review, Joel scale: 14. Pt was seen by reimbursement specialist on 08/11: 1. Sacral/Buttocks areas: Blanchable redness (IAD/MASD) with brown discoloration, possible sDTI. 2. Left Sacral area: Area of wrinkly brown skin. 3. Right Buttock: Blanchable redness with wound, present on admission. 4. Left Knee: Blanchable redness, present on admission. Left Lateral Malleolus: Blanchable redness, present on admission. 6. Left Heel: Non-blanchable dark red tissue with brown discoloration, present on admission. 7. Right Heel: Blanchable dark red tissue with brown discoloration, present on admission. No edema noted. Abdomen is soft w/ active bowel sounds. Current Diet Order/Nutrition Support: NPO since 08/13 + D30% AA8.5% at 80 ml/hr, IL20% at 10 mL/hr via central line Current TPN provides: 1785 kcal, 82gm protein and 2160ml fluids daily which meets: 94% of estimated calorie needs and 92% of upper end of estimated protein needs. Pertinent Medications: Theragran-M, Culturelle, vitamin C, lovenox, insulin, D5%/NaCl IV at 50ml/hr (204 kcal/day) Pertinent Labs: 08/25: Na 135L, K 4.1WNL, BG 91WNL, BUN 19WNL, Cre 1.02WNL, 08/21:TG 151H Height: 5 feet 4.00 inches Weight: (08/22): 133.7 lbs, 60.7 kg (08/17): 63.957 kg/ 140 lbs, (08/12) 139 pounds/ 63.387575 kilograms; (08/17) 141#/ 64kg ---2# weight gain in 2 days. Body Mass Index: (08/22): 23 kg.m2, (08/17): 24.2 kg/m2, (08/12): 23.86 kg/m2), (08/17): 24.2 kg.m2. Weight status: appropriate [place]/Adjusted Body Weight: 130#/ 59kg; Adj IBW QP: 114#/ 52kg Estimated Energy Expenditure (kcals/day) 1892 Kcal/day (PSU 2003b for vent) Estimated Protein Required (g/day) 59-89 gm/day (1-1.5 gm/kg IBW for sepsis, renal Dz predialysis and wound) Estimated Fluid Required (l/day) per MD (ARF Problem/Etiology/Signs/Symptoms 1) Increased nutrient needs r/t metabolic demands AEB wounds. (*ongoing) 2) Altered nutrition related labs r/t endocrine dysfunction AEB elevated BG. (*ongoing) 3) Inadequate PN intake r/t current PN order AEB current PN meets <65% of estimated needs (resolved, PN meeting estimated nutrition needs 08/25) 4) Altered GI function r/t increased gastric motility AEB diarrhea, rectal tube in place, + C.diff. (ongoing) Expected Outcomes/Goals Monitor PN tolerance and intake w/ goal of pt meeting more than 75% of estimated nutritional needs, labs trending WNL, normal GI function, skin integrity/wt maintenance (ongoing) Dietitian Recommendations *Recommend: continue Culturelle. Discontinue laxatives. *Recommend: D30% AA8.5% at 80ml/hr, IL20% at 5ml/hr via central line Provides: 1545 kcal, 82gm protein, 2040ml fluids daily, GIR: 3gm CHO/kg/min Meets: 82% of estimated calorie needs and 92% of upper end of estimated protein needs. Follow Up High risk 2-3 days
--- NOTE | 2020-08-25 10:58 | NUR ---
Dietitian Recommendations *Recommend: continue Culturelle. Discontinue laxatives. *Recommend: D30% AA8.5% at 80ml/hr, IL20% at 5ml/hr via central line Provides: 1545 kcal, 82gm protein, 2040ml fluids daily, GIR: 3gm CHO/kg/min Meets: 82% of estimated calorie needs and 92% of upper end of estimated protein needs. Please see Nutrition F/U note for details. [facility], RD
[2020-08-25] MEDS: FAT EMULSIONS 250 ML IV SCH ×2 (12:39→22:12)
[2020-08-25] MEDS: SOD FERRIC GLUC COMPLEX/SUC 125 MG in NS 100 ML IV SCH (14:28)
--- NOTE | 2020-08-25 17:30 | NUR ---
Dr. Nava at bedside.
[2020-08-25] MEDS: D5NS 1,000 ML IV SCH (17:51)
--- NOTE | 2020-08-25 19:15 | NUR ---
CLOSING NOTE Endorsed bedside report to oncoming RN using SBAR approach for continuation of care.
--- NOTE | 2020-08-25 19:30 | NUR ---
Opening note received report and assumed care. Patient with vent to trach tolerating setting on AC 18. no signs of pain or respiratory distress noted. Requires repositioning and full assist. Suction required. On TPN and lipids; not tolerating feeding. will continue to monitor.
--- NOTE | 2020-08-25 20:10 | NUR ---
Assessment completed; repositioned for comfort.
[2020-08-25] MEDS: SENNOSIDES/DOCUSATE SODIUM 1 TAB TABLET(SENOKOT-S) GT SCH (20:32)
[2020-08-25] MEDS ORDERED: K PHOS IV SCH ×10 (21:00)
[2020-08-25] MEDS ORDERED: TPN CENTRAL IV SCH ×10 (21:00)
[2020-08-25] MEDS ORDERED: POTASSIUM ACETATE IV SCH ×10 (21:00)
[2020-08-25] MEDS ORDERED: SODIUM ACETATE IV SCH ×10 (21:00)
[2020-08-25] MEDS ORDERED: [UNRECOGNIZED DRUG - OTHER] IV SCH ×10 (21:00)
[2020-08-25] MEDS: AMIKACIN SULFATE 1,000 MG in NS 250 ML IV SCH (22:21)
[2020-08-26] VITALS (34 sets, daily range): BP systolic 87–162
--- NOTE | 2020-08-26 00:15 | NUR ---
Assessment completed. Incontinent care given. No signs of discomfort noted.
[2020-08-26] MEDS: IPRATROPIUM/ALBUTEROL SULFATE 3 ML AMPUL.NEB (DUONEB) INH SCH ×4 (02:17→19:00)
[2020-08-26] MEDS: MIDODRINE HCL 5 MG TABLET (PROAMATINE) GT SCH ×3 (04:00→19:58)
--- NOTE | 2020-08-26 04:30 | NUR ---
Morning care provided. patient tolerated well. repositioned for comfort.
[2020-08-26 05:38] LABS: ALBUMIN 1.4 g/dL (3.4-4.8); CALCIUM 7.6 mg/dL (8.4-11.0); CREATININE 1.07 mg/dL (0.55-1.30); PHOSPHORUS 4.2 mg/dL (2.7-4.5); POTASSIUM 4.3 mmol/L (3.5-5.1); TOTAL BILIRUBIN 0.3 mg/dL (0.0-1.0)
--- NOTE | 2020-08-26 07:30 | NUR ---
OPENING NOTES PT RESTING IN BED, CHEST RISE AND FALL NOTED. EASILY AWAKEN. PT ON VENT AC 18 TV 450 FIO2 30% AND PEEP 5, TOLERATING WELL. PICC LINE INTACT AND PATENT, NO SIGNS OF INFILTRATION NOTED. FLUIDS RUNNING ORDERED PER MD, LEVO DRIP RUNNING 0.1 mcg/kg/min, TOLERATING WELL. FLEXISEAL INTACT AND PATENT. BAH CATHETER INTACT AND DRAINING. NO ACUTE DISTRESS NOTED. ALL NEEDS MET. CALL LIGHT IN REACH. FALL AND ASPIRATION PRECAUTIONS IN PLACE
[2020-08-26] MEDS: FAMOTIDINE 20 MG TABLET GT SCH ×2 (08:01→21:19)
[2020-08-26] MEDS: LACTOBACILLUS RHAMNOSUS GG 1 CAP CAPSULE PO SCH ×2 (08:01→21:19)
[2020-08-26] MEDS: ASCORBIC ACID 500 MG TABLET GT SCH (08:01)
[2020-08-26] MEDS: VANCOMYCIN HCL ORAL SOLUTION 250 MG/5 ML, 80 ML PO SCH ×4 (08:02→21:19)
[2020-08-26] MEDS: ENOXAPARIN SODIUM 30 MG/0.3 ML SYRINGE SQ SCH ×2 (08:20→21:20)
[2020-08-26] MEDS: MULTIVITS,CA,MINERALS/IRON/FA 1 TABLET GT SCH (08:22)
[2020-08-26] MEDS: D5NS 1,000 ML IV SCH (08:23)
[2020-08-26] MEDS: ACETAMINOPHEN 650 MG/20.3 ML UDC GT PRN (10:00)
--- NOTE | 2020-08-26 10:08 | NUR ---
paged dr. adams, awaiting call back.
--- NOTE | 2020-08-26 10:20 | NUR ---
exchange of dr. heart stated to call dr. mata regarding pt's status
--- NOTE | 2020-08-26 10:40 | NUR ---
spoke to dr. mata regarding pt's fever and update on status, received orders, verified, and carried out.
[2020-08-26] MEDS ORDERED: NACL 0.9% 1,000 ML IV ONE (10:45)
[2020-08-26] MEDS: SOD FERRIC GLUC COMPLEX/SUC 125 MG in NS 100 ML IV SCH (13:50)
--- NOTE | 2020-08-26 17:42 | NUR ---
seen by dr. wagner at bedside.
--- NOTE | 2020-08-26 18:09 | NUR ---
SPOKE TO DR. ZAVALA, MADE MD AWARE OF LAB VALUES, VITALS, AND PT'S STATUS, NO FEVER NOTED AT THIS TIME. MD VERBALIZED UNDERSTANDING, NO NEW ORDERS RECEIVED.
--- NOTE | 2020-08-26 18:46 | NUR ---
CLOSING NOTES PT RESTING IN BED, CHEST RISE AND FALL NOTED, EASILY AWAKEN, OPENS EYES. PT ON VENT AC 18 TV 450 FIO2 30% AND PEEP 5, TOLERATING WELL. NO S/S OF RESPIRATORY DISTRESS NOTED. PICC LINE INTACT AND PATENT, NO SIGNS OF INFILTRATION NOTED, FLUIDS RUNNING ORDERED PER MD, LEVO DRIP RUNNING 0.1 mcg/kg/min, TOLERATING WELL. FLEXISEAL INTACT AND PATENT. BAH CATHETER INTACT AND DRAINING. NO ACUTE DISTRESS NOTED. ALL NEEDS MET. CALL LIGHT IN REACH. FALL AND ASPIRATION PRECAUTIONS IN PLACE. WILL ENDORSE TO NOC NURSE.
--- NOTE | 2020-08-26 19:30 | NUR ---
Opening note Received report and assumed care. Vent to trach in place tolerating settings well. Continues on Levophed drip for BP support as patient's BP continues to decrease unpredictably. No signs of respiratory distress noted. Requires frequent turning and full assist for care. will continue to monitor patient as per unit protocol.
--- NOTE | 2020-08-26 19:45 | NUR ---
Dr Nava at bedside. Reported discontent for patient being on Levophed drip and suggested to use PRN albumin before using Levophed. Levophed drip was decreased as Albumin dose starts to infuse. Levophed infusing at 0.05 mcg/kg/min. Will continue to monitor patient for episodes of hypotension.
[2020-08-26] MEDS: ALBUMIN HUMAN 25% 100 ML IV PRN (20:08)
--- NOTE | 2020-08-26 20:30 | NUR ---
Assessment completed. patient repositioned for comfort.
[2020-08-26] MEDS ORDERED: TPN CENTRAL 0.0001 ML, SODIUM ACETATE 40 MEQ, POTASSIUM ACETATE 30 MEQ, K PHOS 9 MM, CA... IV SCH ×11 (21:00)
[2020-08-26] MEDS: FAT EMULSIONS 250 ML IV SCH (21:42)
[2020-08-27] VITALS (31 sets, daily range): BP systolic 85–146
[2020-08-27] MEDS: IPRATROPIUM/ALBUTEROL SULFATE 3 ML AMPUL.NEB (DUONEB) INH SCH ×4 (01:00→19:47)
[2020-08-27] MEDS: MIDODRINE HCL 5 MG TABLET (PROAMATINE) GT SCH ×3 (04:00→20:11)
[2020-08-27 07:06] LABS: ALBUMIN 1.8 g/dL (3.4-4.8); CALCIUM 7.6 mg/dL (8.4-11.0); CREATININE 0.84 mg/dL (0.55-1.30); PHOSPHORUS 2.7 mg/dL (2.7-4.5); TOTAL BILIRUBIN 0.3 mg/dL (0.0-1.0)
[2020-08-27 07:30] LABS: BASOPHILS # (AUTO) 0.1 K/uL (0.0-0.2); BASOPHILS % (AUTO) 1.6 % (0.0-2.0); EOSINOPHILS # (AUTO) 0.1 K/uL (0.0-0.4); EOSINOPHILS % (AUTO) 2.5 % (0.0-4.0); HEMOGLOBIN 7.2 g/dL (14.0-18.0); LYMPHOCYTES # (AUTO) 0.5 K/uL (1.0-5.5); LYMPHOCYTES % (AUTO) 10.9 % (20.5-51.5); MEAN CORPUSCULAR HEMOGLOBIN 35 pg (27-31); MEAN CORPUSCULAR HGB CONC 33 % (32-36); MEAN CORPUSCULAR VOLUME 104 fL (79.0-98.0); MONOCYTES # (AUTO) 0.2 K/uL (0.0-1.0); NEUTROPHILS # (AUTO) 3.7 K/uL (1.8-7.7); PLATELET COUNT (AUTO) 240 K/uL (130-430); RED BLOOD CELL COUNT(AUTO) 2.06 MIL/uL (4.2-6.2); WHITE BLOOD COUNT (AUTO) 4.6 K/uL (4.8-10.8)
[2020-08-27] MEDS ORDERED: ALBUMIN HUMAN 25% 100 ML IV PRN (07:30)
[2020-08-27] MEDS: LACTOBACILLUS RHAMNOSUS GG 1 CAP CAPSULE PO SCH ×2 (08:07→20:11)
[2020-08-27] MEDS: FAMOTIDINE 20 MG TABLET GT SCH ×2 (08:08→20:11)
[2020-08-27] MEDS: MULTIVITS,CA,MINERALS/IRON/FA 1 TABLET GT SCH (08:08)
[2020-08-27] MEDS: ASCORBIC ACID 500 MG TABLET GT SCH (08:08)
[2020-08-27] MEDS: VANCOMYCIN HCL ORAL SOLUTION 250 MG/5 ML, 80 ML PO SCH ×4 (08:08→20:12)
[2020-08-27] MEDS: D5NS 1,000 ML IV SCH (08:08)
[2020-08-27] MEDS: ENOXAPARIN SODIUM 30 MG/0.3 ML SYRINGE SQ SCH ×2 (08:09→20:11)
[2020-08-27 08:19] LABS: HEMATOCRIT 21.5 % (36-54)
--- NOTE | 2020-08-27 09:00 | NUR ---
dr adams was called and informed abt pt's hct value of 21.5, gave orders to transfuse prbc.
--- NOTE | 2020-08-27 10:13 | NUR ---
LEFT MESSAGES TO PT'S BROTHER FRANCISCO RE BLOOD TRANSFUSION CONSENT. THIS IS MY 2ND MESSAGE TO HIS WORK AND HOME PHONE
[2020-08-27] MEDS: AMIKACIN SULFATE 1,000 MG in NS 250 ML IV SCH (11:22)
[2020-08-27] MEDS ORDERED: LEVOFLOXACIN 250 MG/D5W 50 ML IV SCH (12:00)
--- NOTE | 2020-08-27 12:33 | NUR ---
spoke with [facility] ctr latisha hairston to check if they can give consent for blood transfusion. this rn was told the brother gives consent. left message again (4th time) to call us back.
[2020-08-27] MEDS: ACETAMINOPHEN 650 MG/20.3 ML UDC GT PRN (14:43)
--- NOTE | 2020-08-27 14:45 | NUR ---
pt have temp of 100.3, hr is 133 given tylenol
[2020-08-27] MEDS: NOREPINEPHRINE BITARTRATE 16 MG in NS 234 ML IV PRN (18:28)
--- NOTE | 2020-08-27 18:36 | NUR ---
pt given albumin 100 cc 25%, despite albumin bp was still low, pt started on levophed.
--- NOTE | 2020-08-27 19:15 | NUR ---
Opening note Received report from Sam REDDY. Pt resting in bed, trach to vent, infusing D5NS @50, TPN @80, lipids @5 and Levophed @0.1 mcg. Pt is pending consent for blood transfusion.
--- NOTE | 2020-08-27 19:41 | NUR ---
MD Communication Received call from Dr. Oseguera, updated on pending consent from family and unable to reach brother. He gave verbal ok to wait for family to consent through tomorrow. If Hgb drops again tomorrow, he will consent medical necessity.
[2020-08-27] MEDS: FAT EMULSIONS 250 ML IV SCH (20:12)
--- NOTE | 2020-08-27 20:25 | NUR ---
MD Communication Paged Dr. Ramirez regarding positive blood culture. Pending call back.
[2020-08-27] MEDS ORDERED: K PHOS IV SCH ×11 (21:00)
[2020-08-27] MEDS ORDERED: TPN CENTRAL IV SCH ×11 (21:00)
[2020-08-27] MEDS ORDERED: [UNRECOGNIZED DRUG - OTHER] IV SCH ×11 (21:00)
[2020-08-27] MEDS ORDERED: SODIUM ACETATE IV SCH ×11 (21:00)
[2020-08-27] MEDS ORDERED: POTASSIUM ACETATE IV SCH ×11 (21:00)
--- NOTE | 2020-08-27 21:20 | NUR ---
Family Received call from Rian Blanco- valerieer. Verbal telephone consent obtained with 2 nurse verification for blood transfusion.
--- NOTE | 2020-08-27 21:50 | NUR ---
Blood transfusion Blood transfusion initiated, verified with 2 RN's, VSS.
--- NOTE | 2020-08-27 22:05 | NUR ---
Transfusion 1 unit of blood transfusing, VSS, pt tolerating well.
[2020-08-28] VITALS (38 sets, daily range): BP systolic 82–146
--- NOTE | 2020-08-28 00:30 | NUR ---
Blood transfusion Blood transfusion #2 initiated, verified by 2 RN's, ALESSANDRAS.
--- NOTE | 2020-08-28 00:50 | NUR ---
Transfusion 1 unit of blood transfusing, pt with elevated temp. Transfusion stopped immediately. Transfusion reaction protocol initiated. catheterization laboratory technician aware. Lab notified. paged.
[2020-08-28] MEDS: ACETAMINOPHEN 650 MG/20.3 ML UDC GT PRN ×3 (01:21→17:26)
[2020-08-28] MEDS: IPRATROPIUM/ALBUTEROL SULFATE 3 ML AMPUL.NEB (DUONEB) INH SCH ×4 (01:38→19:38)
[2020-08-28 02:19] LABS: BILIRUBIN,URINE NEGATIVE (NEGATIVE); CLARITY/URINE CLEAR (CLEAR); COLOR,URINE YELLOW (YELLOW); GLUCOSE,URINE NEGATIVE (NEGATIVE); KETONES,URINE NEGATIVE (NEGATIVE); LEUKOCYTE ESTERASE ,URINE 1+ (NEGATIVE); NITRITE, URINE NEGATIVE (NEGATIVE); PROTEIN URINE 1+ (NEGATIVE); UROBILINOGEN,URINE 0.2 (0.2-1.0)
[2020-08-28 02:25] LABS: BLOOD, URINE TRACE (NEGATIVE)
[2020-08-28 02:27] LABS: BACTERIA,URINE FEW /HPF (None Seen); YEAST,URINE Many /HPF (None Seen)
--- NOTE | 2020-08-28 02:30 | NUR ---
RN Rounds Pt temp 103.4. Cooling measures applied.
[2020-08-28 02:33] LABS: BASOPHILS # (AUTO) 0.1 K/uL (0.0-0.2); BASOPHILS % (AUTO) 1.5 % (0.0-2.0); EOSINOPHILS % (AUTO) 0.1 % (0.0-4.0); HEMATOCRIT 27.5 % (36-54); HEMOGLOBIN 9.3 g/dL (14.0-18.0); LYMPHOCYTES # (AUTO) 0.5 K/uL (1.0-5.5); LYMPHOCYTES % (AUTO) 15.9 % (20.5-51.5); MEAN CORPUSCULAR HEMOGLOBIN 34 pg (27-31); MEAN CORPUSCULAR HGB CONC 34 % (32-36); MEAN CORPUSCULAR VOLUME 101 fL (79.0-98.0); MONOCYTES # (AUTO) 0.3 K/uL (0.0-1.0); MONOCYTES % (AUTO) 7.8 % (1.7-9.3); NEUTROPHILS # (AUTO) 2.5 K/uL (1.8-7.7); NEUTROPHILS % (AUTO) 74.7 % (40.0-70.0); PLATELET COUNT (AUTO) 186 K/uL (130-430); RED BLOOD CELL COUNT(AUTO) 2.73 MIL/uL (4.2-6.2); WHITE BLOOD COUNT (AUTO) 3.3 K/uL (4.8-10.8)
[2020-08-28] MEDS: MIDODRINE HCL 5 MG TABLET (PROAMATINE) GT SCH ×3 (03:08→21:10)
--- NOTE | 2020-08-28 03:15 | NUR ---
RN Rounds Pt resting in bed, temp rechecked 102.2. Cooling measures applied.
[2020-08-28 04:12] LABS: CALCIUM 7.7 mg/dL (8.4-11.0); CREATININE 1.07 mg/dL (0.55-1.30); POTASSIUM 4.1 mmol/L (3.5-5.1)
[2020-08-28 04:18] LABS: BILIRUBIN,DIRECT 0.4 mg/dL (0.0-0.3); PHOSPHORUS 2.4 mg/dL (2.7-4.5); TOTAL BILIRUBIN 0.6 mg/dL (0.0-1.0)
[2020-08-28] MEDS: D5NS 1,000 ML IV SCH (04:33)
--- NOTE | 2020-08-28 04:45 | NUR ---
RN Rounds Pt resting comfortably in bed, VSS on Levophed.
--- NOTE | 2020-08-28 06:00 | NUR ---
RN Rounds Pt resting in bed, temp down to 99.3. Linens changed, pt tolerated well.
--- NOTE | 2020-08-28 07:07 | NUR ---
Closing note Report given to Sam REDDY. Endorsed pending call backs from Dr. Oseguera and Dr. Ramirez regarding infusion reaction and positive blood culture.
--- NOTE | 2020-08-28 07:25 | NUR ---
Opening notes, Received pt, pt continued to be on Trache to vent, no fever temp was 98.4F. no change in settings of vent. pt on ST, ,o2 sat 95%, Gtube clamped. Contreras on draining yellow urine. TPN and lipids and iv fluids running via picc. Pt still on levephed drip at 0.1 mcg/kg/min. PICC dressing is CDI. will cont to monitor pt.
[2020-08-28] MEDS: MULTIVITS,CA,MINERALS/IRON/FA 1 TABLET GT SCH (08:27)
[2020-08-28] MEDS: ASCORBIC ACID 500 MG TABLET GT SCH (08:27)
[2020-08-28] MEDS: FAMOTIDINE 20 MG TABLET GT SCH ×2 (08:27→21:06)
[2020-08-28] MEDS: LACTOBACILLUS RHAMNOSUS GG 1 CAP CAPSULE PO SCH ×2 (08:27→21:09)
[2020-08-28] MEDS: VANCOMYCIN HCL ORAL SOLUTION 250 MG/5 ML, 80 ML PO SCH ×4 (08:28→21:17)
[2020-08-28] MEDS: ENOXAPARIN SODIUM 30 MG/0.3 ML SYRINGE SQ SCH ×2 (08:29→21:17)
--- NOTE | 2020-08-28 09:42 | NUR ---
AXILLARY TEMP CHECK, PT HR ELEVATED AT 125 AND SHAKING. TEMP WAS 103.0, GIVEN TYLENOL AND COOLING MEASURES.
[2020-08-28] MEDS: MICAFUNGIN SODIUM 100 MG in NS 100 ML IV SCH (10:00)
--- NOTE | 2020-08-28 15:59 | NUR ---
Nutrition F/U Admitting Diagnosis: Septic shock Medical History Comment: Pt w/: Septic shock, Bilateral pneumonia, Dehydration, CHRISTIANO, Chronic Respiratory failure, Down Syndrome, DM per MD notes. PMH: Down, syndrome, DM, Chronic respiratory failure, Tracheostomy and GT placement. Subjective Information: This gentleman is 60 years old with a history of vent-dependent respiratory failure, underlying history of Down syndrome, diabetes, and a history of functional quadriplegia remains in the ICU, but now off Levophed. He still has rectal tube and watery gaseous stools. He does not follow commands, and seems lethargic. He is on TPN and lipids. pt still hypotensive and requires blood pressure support per MD progress note. Also, pt spiking fevers, pt now requires albumin per MD progress notes. At time of visit, observed pt at bedside, observed PN and ILE infusing. Pts wt taken at time of visit. Current Diet Order/Nutrition Support: NPO since 08/13 + D30% AA8.5% at 80 ml/hr, IL20% 250 mL @ 5 mL/hr via central line Current TPN provides: Provides: 1545 kcal, 82gm protein, 2040ml fluids daily, GIR: 3gm CHO/kg/min Meets: 82% of estimated calorie needs and 92% of upper end of estimated protein needs. I/Os: 564/1000= -436 mL GI: Soft, distended ABD, active bowel sounds, last BM: pt has rectal tube Skin: posterior sacrum dry scab, R/L heel, R/L foot- dry, flaky skin per nursing notes Edema: generalized pitting + 1 Pertinent Medications: Theragran-M, Culturelle, vitamin C, lovenox, insulin Pertinent Labs: 08/28: POC BH, Albumin: 2L, Ca: 7.7L, BUN/Cr WNL, 08/21:TG 151H, SARS-CoV-2 Ag Rapid 08/10 Negative Height: 5 feet 4.00 inches Wts: (08/28): 65 kg, 143 lbs (08/22): 133.7 lbs, 60.7 kg (08/17): 63.957 kg/ 140 lbs, (08/17) 141#/ 64kg,(08/12) 139 pounds/ 63.269851 kilograms *wt stable Body Mass Index: (08/28): 24.54 kg/m2, (08/22): 23 kg/m2, (08/17): 24.2 kg/m2, (08/12): 23.86 kg/m2), (08/17): 24.2 kg.m2. Weight status: appropriate [place]/Adjusted Body Weight: 130#/ 59kg; Adj IBW QP: 114#/ 52kg Estimated Energy Expenditure (kcals/day) 1892 Kcal/day (PSU 2003b for vent) Estimated Protein Required (g/day) 59-89 gm/day (1-1.5 gm/kg IBW for sepsis, renal Dz predialysis and wound) Estimated Fluid Required (l/day) per MD (ARF Problem/Etiology/Signs/Symptoms 1) Increased nutrient needs r/t metabolic demands AEB wounds. (*ongoing) 2) Altered nutrition related labs r/t endocrine dysfunction AEB elevated BG. (*ongoing) 3) Inadequate PN intake r/t current PN order AEB current PN meets <65% of estimated needs (resolved, PN meeting estimated nutrition needs 08/25) 4) Altered GI function r/t increased gastric motility AEB diarrhea, rectal tube in place, + C.diff. (ongoing) Expected Outcomes/Goals Monitor PN tolerance and intake w/ goal of pt meeting more than 75% of estimated nutritional needs, labs trending WNL, normal GI function, skin integrity/wt maintenance (ongoing) Dietitian Recommendations *Recommend: continue Culturelle. Discontinue laxatives. *Recommend: Continue D30% AA8.5% at 80ml/hr, IL20% at 5ml/hr via central line Provides: 1545 kcal, 82gm protein, 2040ml fluids daily, GIR: 3gm CHO/kg/min Meets: 82% of estimated calorie needs and 92% of upper end of estimated protein needs. Follow Up High risk 2-3 days RAGHU BRUCE
--- NOTE | 2020-08-28 17:30 | NUR ---
PT GIVEN TYLENOL, TEMP WAS 100.4, RR IS ON THE 30S.
--- NOTE | 2020-08-28 19:15 | NUR ---
Pt report received. Pt alert, trach to vent with vent settings: A/C, 18, 450, 30%, 5. LUE PICC TPN at 80 mL/hr, Lipids at 5 mL/hr, D5NS at 50 mL/hr, and Levophed at 0.07 mcg/kg/min. Abdomen soft, yet distended. Flexiseal in place draining brown-yellow liquid stool. F/C draining yellow and cloudy urine. VSS, NAD.
[2020-08-28] MEDS ORDERED: K PHOS IV SCH ×12 (21:00)
[2020-08-28] MEDS ORDERED: POTASSIUM ACETATE IV SCH ×12 (21:00)
[2020-08-28] MEDS ORDERED: TPN CENTRAL IV SCH ×12 (21:00)
[2020-08-28] MEDS ORDERED: SODIUM ACETATE IV SCH ×12 (21:00)
[2020-08-28] MEDS ORDERED: [UNRECOGNIZED DRUG - OTHER] IV SCH ×12 (21:00)
--- NOTE | 2020-08-28 21:00 | NUR ---
Rectal tube dislodged with large amount of liquid yellow-brown stool with yellow mucous to chucks beneath pt. Sacral Dsg soiled, pt cleaned, CHG bath given, clean gown and bed linens applied. Rectal tube reinserted with lubrication and balloon inflated with 45 mL water, immediate return of yellow-brown stool to tubing. Pt tolerated fair.
[2020-08-28] MEDS: FAT EMULSIONS 250 ML IV SCH (21:18)
[2020-08-28] MEDS: AMIKACIN SULFATE 1,000 MG in NS 250 ML IV SCH (23:12)
[2020-08-29] VITALS (35 sets, daily range): BP systolic 95–164
--- NOTE | 2020-08-29 00:38 | NUR ---
DR. ZAVALA PAGED [phone] ORDERS SPOKE WITH LILIBETH
[2020-08-29] MEDS: ACETAMINOPHEN 650 MG/20.3 ML UDC GT PRN ×2 (00:40→17:49)
--- NOTE | 2020-08-29 00:44 | NUR ---
Pt shivering, axillary Temp 101.3, HR 138. Tylenol 640.25 mg given per GT. Reserve removed, BLE covered with thin sheet. Dr. Dougherty notified and new order received to initiate cooling measures. Ice packs applied to nape of pts neck, bilat axila, and groin. Addendum: 08/29/20 at 0132 by Hakeem Suarez RN EIC: Temporal Temp 101.3
[2020-08-29] MEDS ORDERED: ALBUMIN HUMAN 25% 100 ML IV ONE ×2 (01:00→01:19)
[2020-08-29] MEDS: IPRATROPIUM/ALBUTEROL SULFATE 3 ML AMPUL.NEB (DUONEB) INH SCH ×4 (01:11→20:48)
[2020-08-29] MEDS: ALBUMIN HUMAN 25% 100 ML IV PRN (05:13)
[2020-08-29] MEDS: MIDODRINE HCL 5 MG TABLET (PROAMATINE) GT SCH ×3 (05:15→20:08)
[2020-08-29 06:45] LABS: ALBUMIN 1.9 g/dL (3.4-4.8); CALCIUM 7.9 mg/dL (8.4-11.0); CREATININE 0.91 mg/dL (0.55-1.30); PHOSPHORUS 2.7 mg/dL (2.7-4.5); POTASSIUM 3.4 mmol/L (3.5-5.1); TOTAL BILIRUBIN 0.5 mg/dL (0.0-1.0)
--- NOTE | 2020-08-29 07:15 | NUR ---
Pt report given to oncoming RN. Pt resting quietly, VSS, NAD.
[2020-08-29 07:43] LABS: BASOPHILS % (AUTO) 1.1 % (0.0-2.0); EOSINOPHILS % (AUTO) 0.4 % (0.0-4.0); HEMATOCRIT 28.9 % (36-54); HEMOGLOBIN 9.7 g/dL (14.0-18.0); LYMPHOCYTES # (AUTO) 1.1 K/uL (1.0-5.5); LYMPHOCYTES % (AUTO) 24.6 % (20.5-51.5); MEAN CORPUSCULAR HEMOGLOBIN 34 pg (27-31); MEAN CORPUSCULAR HGB CONC 33 % (32-36); MEAN CORPUSCULAR VOLUME 100 fL (79.0-98.0); MONOCYTES # (AUTO) 0.3 K/uL (0.0-1.0); MONOCYTES % (AUTO) 6.8 % (1.7-9.3); NEUTROPHILS # (AUTO) 2.9 K/uL (1.8-7.7); NEUTROPHILS % (AUTO) 67.1 % (40.0-70.0); PLATELET COUNT (AUTO) 126 K/uL (130-430); RED BLOOD CELL COUNT(AUTO) 2.89 MIL/uL (4.2-6.2); RED CELL DISTRIBUTION WIDTH 21.3 % (9.0-15.0)
[2020-08-29 07:45] LABS: WHITE BLOOD COUNT (AUTO) 4.3 K/uL (4.8-10.8)
--- NOTE | 2020-08-29 08:00 | NUR ---
Patient is awake, appears to be responsive to name. On vent, A/C 18, Vt 450, FiO2 30%, PEEP 5. PICC LUE secure and patent with D5NS at 80 mL/hr and TPN +Lipids .. F/C draining yellow/cloudy urine. Call light in place, bed locked at the lowest position, will continue to monitor.
[2020-08-29] MEDS: LACTOBACILLUS RHAMNOSUS GG 1 CAP CAPSULE PO SCH ×2 (08:03→20:07)
[2020-08-29] MEDS: MULTIVITS,CA,MINERALS/IRON/FA 1 TABLET GT SCH (08:03)
[2020-08-29] MEDS: ASCORBIC ACID 500 MG TABLET GT SCH (08:03)
[2020-08-29] MEDS: FAMOTIDINE 20 MG TABLET GT SCH ×2 (08:03→20:07)
[2020-08-29] MEDS: VANCOMYCIN HCL ORAL SOLUTION 250 MG/5 ML, 80 ML PO SCH ×4 (08:06→20:08)
[2020-08-29] MEDS: ENOXAPARIN SODIUM 30 MG/0.3 ML SYRINGE SQ SCH ×2 (08:07→20:09)
[2020-08-29] MEDS: MICAFUNGIN SODIUM 100 MG in NS 100 ML IV SCH (10:01)
--- NOTE | 2020-08-29 12:20 | NUR ---
CHG bath is provided. BS 89. No coverage needed.
--- NOTE | 2020-08-29 17:20 | NUR ---
Patient appears restless with pulse in the 120s. Dr. Nava is called.
[2020-08-29] MEDS ORDERED: MORPHINE 2 MG/ML INJ. SYRINGE IVP PRN (17:30)
[2020-08-29] MEDS ORDERED: NALOXONE HCL 0.4 MG/ML AMP (NARCAN) IVP PRN (17:30)
[2020-08-29] MEDS ORDERED: guaiFENesin 200 MG/10 ML UDC PO PRN (17:30)
--- NOTE | 2020-08-29 17:30 | NUR ---
Dr. Nava calls back. Orders are given.
--- NOTE | 2020-08-29 17:40 | NUR ---
RN attempted to page Dr. Nava for confirmation of orders. Awaiting call back.
--- NOTE | 2020-08-29 18:00 | NUR ---
[id number] noted. Tylenol will be given per order.
[2020-08-29] MEDS: LORazepam 2 MG/ML VIAL IVP PRN (18:27)
--- NOTE | 2020-08-29 18:52 | NUR ---
DR. ROYAL PAGED [phone]
--- NOTE | 2020-08-29 18:53 | NUR ---
HIGH ALERT NOTE: Called Dr. Nava back at [phone] identified within the medical roster to verify physician authenticity.
[2020-08-29] MEDS ORDERED: POTASSIUM CHLORIDE 20 MEQ/PKT PACKET GT ONE (19:30)
--- NOTE | 2020-08-29 19:30 | NUR ---
INITIAL NOTE PATIENT IS IN BED. PT IN ON VENT. CALL LIGHT IN REACH. PATIENT UNSUCCESSFULLY DEMONSTRATES USAGE OF CALL LIGHT. WILL CONTINUE TO MONITOR. BED IS LOCKED, ALARMED, AND AT THE LOWEST POSITION. FALL, SAFETY, ASPIRATION, AND RESPIRATORY PRECAUTIONS WILL BE IN PLACE THROUGHOUT THE SHIFT. PLAN OF CARE IS DISCUSSED WITH THE PATIENT.
--- NOTE | 2020-08-29 19:35 | NUR ---
HIGH ALERT NOTE: Dr. QUILES at BEDSIDE identified within the medical roster to verify physician authenticity.
--- NOTE | 2020-08-29 19:35 | NUR ---
DR. QUILES BY BEDSIDE, MADE AWARE OF POTASSIUM. ONE TIME ORDER GIVEN.
[2020-08-29] MEDS: FAT EMULSIONS 250 ML IV SCH (20:10)
[2020-08-29] MEDS ORDERED: TPN CENTRAL IV SCH ×12 (21:00)
[2020-08-29] MEDS ORDERED: SODIUM ACETATE IV SCH ×12 (21:00)
[2020-08-29] MEDS ORDERED: [UNRECOGNIZED DRUG - OTHER] IV SCH ×12 (21:00)
[2020-08-29] MEDS ORDERED: K PHOS IV SCH ×12 (21:00)
[2020-08-29] MEDS ORDERED: POTASSIUM ACETATE IV SCH ×12 (21:00)
[2020-08-30] VITALS (33 sets, daily range): BP systolic 85–162
--- NOTE | 2020-08-30 | NUR ---
RECTAL TUBE DISLODGED AT THIS TIME. SMALL AMOUNT OF YELLOW LIQUID. 3 ATTEMPTS TO INSERT. INSERTION FAILED. SMALL AMOUNT OF BLOOD NOTED. PATIENT WAS CLEANED AND REPOSITIONED. WILL CONTINUE TO MONITOR.
[2020-08-30] MEDS: IPRATROPIUM/ALBUTEROL SULFATE 3 ML AMPUL.NEB (DUONEB) INH SCH ×4 (01:30→19:43)
[2020-08-30] MEDS: D5NS 1,000 ML IV SCH ×3 (02:31→17:00)
[2020-08-30] MEDS: MIDODRINE HCL 5 MG TABLET (PROAMATINE) GT SCH ×3 (05:45→12:00)
--- NOTE | 2020-08-30 06:19 | NUR ---
PATIENT REPOSITIONED AND CLEANED. NO S/S OF MAJOR BLEEDING NOTED ON THE RECTUM. WILL CONTINUE TO MONITOR.
--- NOTE | 2020-08-30 07:02 | NUR ---
CLOSING NOTE SBAR REPORT ENDORSED TO AM NURSE.
[2020-08-30 07:16] LABS: CALCIUM 8.3 mg/dL (8.4-11.0); CREATININE 0.83 mg/dL (0.55-1.30); PHOSPHORUS 3.1 mg/dL (2.7-4.5); POTASSIUM 4.1 mmol/L (3.5-5.1); TOTAL BILIRUBIN 0.4 mg/dL (0.0-1.0)
[2020-08-30] MEDS: LACTOBACILLUS RHAMNOSUS GG 1 CAP CAPSULE PO SCH ×2 (08:24→21:57)
[2020-08-30] MEDS: FAMOTIDINE 20 MG TABLET GT SCH ×2 (08:24→21:57)
[2020-08-30] MEDS: MULTIVITS,CA,MINERALS/IRON/FA 1 TABLET GT SCH (08:24)
[2020-08-30] MEDS: ASCORBIC ACID 500 MG TABLET GT SCH (08:24)
[2020-08-30] MEDS: ENOXAPARIN SODIUM 30 MG/0.3 ML SYRINGE SQ SCH ×2 (08:25→21:57)
[2020-08-30] MEDS: MICAFUNGIN SODIUM 100 MG in NS 100 ML IV SCH (09:26)
--- NOTE | 2020-08-30 10:30 | NUR ---
Endorsed patient and report from ongoing nurse. Patient in bed with side rails x 3 up. Call light with in reach.
[2020-08-30] MEDS: AMIKACIN SULFATE 1,000 MG in NS 250 ML IV SCH (12:02)
[2020-08-30] MEDS: ACETAMINOPHEN 650 MG/20.3 ML UDC GT PRN ×2 (14:40→15:55)
--- NOTE | 2020-08-30 16:20 | NUR ---
MD Oseguera at bedside assessing with patient, updated patient as requested. Requested information from MD regarding midodrine protocal, stated give midodrine despite blood pressure results.
--- NOTE | 2020-08-30 16:25 | NUR ---
Reported to MD Oseguera patient had a temperature of 101.6.
--- NOTE | 2020-08-30 19:22 | NUR ---
Endorsed patient and report to oncoming nurse. Patient in bed with side rails x 3 up. Call light with in reach.
--- NOTE | 2020-08-30 19:30 | NUR ---
Opening note Received report and assumed care. Vent to trach in place tolerating settings on AC 18. Continue parenteral nutrition with TPN and lipids to KERRI picc patent. Patient continues to have episodes of watery diarrhea requiring incontinence care. Turning patient Q 2 hrs. Will continue to monitor patient as per unit protocol.
--- NOTE | 2020-08-30 20:30 | NUR ---
Assessment completed; repositioned for comfort. continue to monitor.
[2020-08-30] MEDS: POTASSIUM ACETATE IV SCH ×12 (22:04)
[2020-08-30] MEDS: K PHOS IV SCH ×12 (22:04)
[2020-08-30] MEDS: TPN CENTRAL IV SCH ×12 (22:04)
[2020-08-30] MEDS: SODIUM ACETATE IV SCH ×12 (22:04)
[2020-08-30] MEDS: [UNRECOGNIZED DRUG - OTHER] IV SCH ×12 (22:04)
[2020-08-30] MEDS: FAT EMULSIONS 250 ML IV SCH (22:05)
--- NOTE | 2020-08-30 23:10 | NUR ---
Dr Nava at bedside for evaluation. Orders received for labs in am and CXR.
[2020-08-31] VITALS (31 sets, daily range): BP systolic 99–189
[2020-08-31] MEDS: IPRATROPIUM/ALBUTEROL SULFATE 3 ML AMPUL.NEB (DUONEB) INH SCH ×4 (01:34→19:41)
--- NOTE | 2020-08-31 02:30 | NUR ---
Rectal tube placed due to continuous episodes of diarrhea. patient tolerated well.
[2020-08-31] MEDS ORDERED: MIDODRINE HCL 5 MG TABLET (PROAMATINE) GT SCH ×2 (04:00→07:04)
--- NOTE | 2020-08-31 04:10 | NUR ---
Morning care provided. CHG bath given. Patient tolerated well.
[2020-08-31 06:24] LABS: BASOPHILS # (AUTO) 0.1 K/uL (0.0-0.2); BASOPHILS % (AUTO) 0.9 % (0.0-2.0); EOSINOPHILS # (AUTO) 0.1 K/uL (0.0-0.4); EOSINOPHILS % (AUTO) 0.8 % (0.0-4.0); HEMATOCRIT 27.1 % (36-54); LYMPHOCYTES # (AUTO) 1.4 K/uL (1.0-5.5); LYMPHOCYTES % (AUTO) 20.1 % (20.5-51.5); MEAN CORPUSCULAR HEMOGLOBIN 34 pg (27-31); MEAN CORPUSCULAR HGB CONC 33 % (32-36); MEAN CORPUSCULAR VOLUME 100 fL (79.0-98.0); MONOCYTES # (AUTO) 0.3 K/uL (0.0-1.0); MONOCYTES % (AUTO) 5.2 % (1.7-9.3); NEUTROPHILS # (AUTO) 4.9 K/uL (1.8-7.7); PLATELET COUNT (AUTO) 133 K/uL (130-430); RED CELL DISTRIBUTION WIDTH 20.3 % (9.0-15.0); WHITE BLOOD COUNT (AUTO) 6.7 K/uL (4.8-10.8)
[2020-08-31 06:49] LABS: ALBUMIN 1.7 g/dL (3.4-4.8); CALCIUM 7.8 mg/dL (8.4-11.0); CREATININE 0.87 mg/dL (0.55-1.30); PHOSPHORUS 3.5 mg/dL (2.7-4.5); TOTAL BILIRUBIN 0.5 mg/dL (0.0-1.0)
[2020-08-31] MEDS: FAMOTIDINE 20 MG TABLET GT SCH ×2 (08:51→20:49)
[2020-08-31] MEDS: MULTIVITS,CA,MINERALS/IRON/FA 1 TABLET GT SCH (08:51)
[2020-08-31] MEDS: MICAFUNGIN SODIUM 100 MG in NS 100 ML IV SCH (08:51)
[2020-08-31] MEDS: ASCORBIC ACID 500 MG TABLET GT SCH (08:51)
[2020-08-31] MEDS: LACTOBACILLUS RHAMNOSUS GG 1 CAP CAPSULE PO SCH ×2 (08:51→20:49)
[2020-08-31] MEDS: ENOXAPARIN SODIUM 30 MG/0.3 ML SYRINGE SQ SCH ×2 (08:53→20:52)
[2020-08-31] MEDS: LORazepam 2 MG/ML VIAL IVP PRN (10:52)
--- NOTE | 2020-08-31 10:52 | NUR ---
ATIVAN GIVEN FOR INCREASED RESP RATE OF 35-40.
--- NOTE | 2020-08-31 11:00 | NUR ---
RECTUBE TUBE WAS OUT, PT HAD LOOSE BM, TRIED INSERTING A NEW RECTAL TUBE, PT UNABLE TO HOLD THE RECTAL TUBE, RECTAL TUBE COMES OUT WHEN PT COUGHS.
[2020-08-31] MEDS: ACETAMINOPHEN 650 MG/20.3 ML UDC GT PRN (12:44)
--- NOTE | 2020-08-31 12:44 | NUR ---
PT GIVEN TYLENOL FOR TEMP OF 99.5, AND HR ABOVE 100BPM. RR ON THE 30-40'S WILL CONT TO MONITOR.
[2020-08-31] MEDS: D5NS 1,000 ML IV SCH (13:00)
--- NOTE | 2020-08-31 13:01 | NUR ---
Nutrition F/U Admitting Diagnosis: Septic shock Medical History Comment: Pt w/: Septic shock, Bilateral pneumonia, Dehydration, CHRISTIANO, Chronic Respiratory failure, Down Syndrome, DM per MD notes. PMH: Down, syndrome, DM, Chronic respiratory failure, Tracheostomy and GT placement. SARS-CoV-2 Ag Rapid 08/10 Negative Subjective Information: Pt was seen in ICU, pt is vent dependent, w/ Down Syndrome, DM and functional quadriplegia. He is suffering from C.diff colitis and being treated w/ antibiotic. He still has rectal tube and receiving TPN w/ lipids. Per EMR, last BM 08/30 x1, abdomen is soft w/ active bowel sounds. Joel scale: 11, pale skin color and pt was seen by referral specialist on 08/11: 1. Sacral/Buttocks areas: Blanchable redness (IAD/MASD) with brown discoloration, possible sDTI. 2. Left Sacral area: Area of wrinkly brown skin. 3. Right Buttock: Blanchable redness with wound, present on admission. Per RN notes, 2+ pitting generalized edema. Current CPN provides: 1567 Kcal, 83gm protein, 2071ml fluids and GIR 3.2 gm CHO/kg/min which meets 73% of NEW estimated calorie needs and 93% of upper end of estimated protein needs. Most recent C.diff tested negative, pt continues w/ diarrhea (rectal tube in place) on antibiotic per ID MD. Pt w/ increased calorie needs for febrile episodes and increased ventilation. MD to consider resuming EN support vs TPN. Current Diet Order/Nutrition Support: NPO since 08/13 + D30% AA8.5% at 81.273 ml/hr, IL20% at 5 mL/hr via central line Current TPN provides: Provides: 1567 kcal, 83gm protein, 2071ml fluids daily, GIR: 3.2gm CHO/kg/min Meets: 73% of NEW estimated calorie needs and 93% of upper end of estimated protein needs. Pertinent Medications: Theragran-M, Culturelle, vitamin C, lovenox, insulin, MVI in TPN, Lactulose Pertinent Labs: 08/31: BG 107H, 08/26 TG 119WNL. Height: 5 feet 4.00 inches Wts: (08/28): 65 kg, 143 lbs (08/22): 133.7 lbs, 60.7 kg (08/17): 63.957 kg/ 140 lbs, (08/17) 141#/ 64kg,(08/12) 139 pounds/ 63.118320 kilograms *wt stable Body Mass Index: (08/28): 24.54 kg/m2, (08/22): 23 kg/m2, (08/17): 24.2 kg/m2, (08/12): 23.86 kg/m2), (08/17): 24.2 kg.m2. Weight status: appropriate [place]/Adjusted Body Weight: 130#/ 59kg; Adj IBW QP: 114#/ 52kg NEW Estimated Energy Expenditure (kcals/day) 2118 Kcal/day (PSU for vent, febrile) Estimated Protein Required (g/day) 59-89 gm/day (1-1.5 gm/kg IBW for sepsis, renal Dz predialysis and wound) Estimated Fluid Required (l/day) per MD (ARF Problem/Etiology/Signs/Symptoms Increased nutrient needs r/t metabolic demands AEB wounds. (*ongoing) Altered nutrition related labs r/t endocrine dysfunction AEB elevated BG. (*ongoing) Inadequate PN intake r/t current PN order AEB current PN meets <65% of estimated needs (resolved, PN meeting estimated nutrition needs 08/25) Altered GI function r/t increased gastric motility AEB diarrhea, rectal tube in place, + C.diff. (*pt tested negative for C.diff, but remains w/ diarrhea, rectal tube) Expected Outcomes/Goals Monitor PN tolerance, resume EN support, and intake w/ goal of pt meeting more than 75% of estimated nutritional needs, labs trending WNL, normal GI function, skin integrity/wt maintenance (ongoing) Dietitian Recommendations *Recommend: continue Culturelle. Consider adding Banatrol TID. Discontinue laxatives. *Consider resuming EN support w/ Banatrol TID vs TPN. *Recommend: Continue D30% AA8.5% at 81.273ml/hr, IL20% at 5ml/hr via central line Provides: 1567 kcal, 83gm protein, 2071ml fluids daily, GIR: 3.2gm CHO/kg/min Meets: 73% of NEW estimated calorie needs and 93% of upper end of estimated protein needs. Follow Up High risk 2-3 days
--- NOTE | 2020-08-31 13:12 | NUR ---
Dietitian Recommendations *Recommend: continue Culturelle. Consider adding Banatrol TID. Discontinue laxatives. *Consider resuming EN support w/ Banatrol TID vs TPN. *Recommend: Continue D30% AA8.5% at 81.273ml/hr, IL20% at 5ml/hr via central line Provides: 1567 kcal, 83gm protein, 2071ml fluids daily, GIR: 3.2gm CHO/kg/min Meets: 73% of NEW estimated calorie needs and 93% of upper end of estimated protein needs. Please see Nutrition F/U note for details. SHELTER, RD
--- NOTE | 2020-08-31 14:30 | NUR ---
PT VITALS NOW PATIENTS NORMAL LIMIT, RR AT 25 AND HR AT 98-100.
[2020-08-31] MEDS: MIDODRINE HCL 5 MG TABLET (PROAMATINE) GT SCH ×2 (14:35→21:13)
--- NOTE | 2020-08-31 17:44 | NUR ---
PT SLEEPING AT THIS TIME, APPEARS COMFORTABLE.
--- NOTE | 2020-08-31 17:45 | NUR ---
DR FENG HERE AND SEEN PT.
--- NOTE | 2020-08-31 19:09 | NUR ---
PT ENDORSED TO NIGHT NURSE FRANCISCO JAVIER. PT SLEEPING, APPEARS COMFORTABLE. ON STABLE CONDITION.
--- NOTE | 2020-08-31 20:30 | NUR ---
Dr delcid at bedside for evaluation and update. Information provided; no new orders received
[2020-08-31] MEDS: POTASSIUM ACETATE IV SCH ×12 (20:46)
[2020-08-31] MEDS: TPN CENTRAL IV SCH ×12 (20:46)
[2020-08-31] MEDS: K PHOS IV SCH ×12 (20:46)
[2020-08-31] MEDS: SODIUM ACETATE IV SCH ×12 (20:46)
[2020-08-31] MEDS: [UNRECOGNIZED DRUG - OTHER] IV SCH ×12 (20:46)
[2020-08-31] MEDS: FAT EMULSIONS 250 ML IV SCH (20:47)
[2020-08-31] MEDS: AMIKACIN SULFATE 1,000 MG in NS 250 ML IV SCH (22:28)
[2020-09-01] VITALS (29 sets, daily range): BP systolic 99–163
--- NOTE | 2020-09-01 00:10 | NUR ---
Assessment completed. Repositioned for comfort. Incontinence care provided. Continues to have watery diarrhea.
[2020-09-01] MEDS: IPRATROPIUM/ALBUTEROL SULFATE 3 ML AMPUL.NEB (DUONEB) INH SCH ×4 (00:56→19:28)
--- NOTE | 2020-09-01 05:20 | NUR ---
Incontinence care given. Bath and linen change completed. patient tolerated well.
[2020-09-01] MEDS: ACETAMINOPHEN 650 MG/20.3 ML UDC GT PRN (06:00)
[2020-09-01] MEDS: MIDODRINE HCL 5 MG TABLET (PROAMATINE) GT SCH ×4 (06:30→21:32)
[2020-09-01 06:34] LABS: ALBUMIN 1.8 g/dL (3.4-4.8); CREATININE 0.82 mg/dL (0.55-1.30); PHOSPHORUS 3.5 mg/dL (2.7-4.5); POTASSIUM 4.1 mmol/L (3.5-5.1); TOTAL BILIRUBIN 0.4 mg/dL (0.0-1.0)
--- NOTE | 2020-09-01 07:15 | NUR ---
opening notes: received bedside report from internal audit director RN, patient is lying in bed, no signs of acute distress noted at this time, schultz catheter draining to gravity. bed locked at lowest position. fall and safety precaution in place.
[2020-09-01] MEDS: LACTOBACILLUS RHAMNOSUS GG 1 CAP CAPSULE PO SCH ×2 (08:08→21:00)
[2020-09-01] MEDS: ASCORBIC ACID 500 MG TABLET GT SCH (08:08)
[2020-09-01] MEDS: MULTIVITS,CA,MINERALS/IRON/FA 1 TABLET GT SCH (08:08)
[2020-09-01] MEDS: FAMOTIDINE 20 MG TABLET GT SCH ×2 (08:08→21:00)
[2020-09-01] MEDS: ENOXAPARIN SODIUM 30 MG/0.3 ML SYRINGE SQ SCH ×2 (08:10→21:00)
[2020-09-01] MEDS: D5NS 1,000 ML IV SCH (09:00)
[2020-09-01] MEDS: MICAFUNGIN SODIUM 100 MG in NS 100 ML IV SCH (09:29)
[2020-09-01] MEDS: LORazepam 2 MG/ML VIAL IVP PRN ×2 (11:22→15:40)
--- NOTE | 2020-09-01 11:22 | NUR ---
RN notes: Ativan given for increased respiratory rate of 36.
[2020-09-01] MEDS: MORPHINE 2 MG/ML INJ. SYRINGE IVP PRN (15:07)
--- NOTE | 2020-09-01 19:30 | NUR ---
Opening note Received report and assumed care. Patient continues to be tachypneic with RR 35. Vent settings AC 18, TV 450 FIO2 30% peep 5+. Continues with TPN and lipids to KERRI picc; patent. Requires full assist for turning and incontinence care. will continue to monitor.
--- NOTE | 2020-09-01 19:35 | NUR ---
KERRI picc dressing change completed.
--- NOTE | 2020-09-01 19:40 | NUR ---
Dr Oseguera at bedside. Orders received to start feeding with Glucerna 1.2 rate 20 cc/h testing if patient may tolerate GT feeding.
--- NOTE | 2020-09-01 20:30 | NUR ---
Full assessment completed. Patient repositioned for comfort. Temp 102.0 Tylenol will be given via GT.
[2020-09-01] MEDS: SODIUM ACETATE IV SCH ×12 (20:56)
[2020-09-01] MEDS: POTASSIUM ACETATE IV SCH ×12 (20:56)
[2020-09-01] MEDS: TPN CENTRAL IV SCH ×12 (20:56)
[2020-09-01] MEDS: [UNRECOGNIZED DRUG - OTHER] IV SCH ×12 (20:56)
[2020-09-01] MEDS: K PHOS IV SCH ×12 (20:56)
[2020-09-01] MEDS: FAT EMULSIONS 250 ML IV SCH (20:57)
--- NOTE | 2020-09-01 23:30 | NUR ---
GT Feeding with Glucerna 1.2 @ 20 ml/h started. will continue to monitor patient for tolerance.
[2020-09-02] VITALS (36 sets, daily range): BP systolic 94–178
[2020-09-02] MEDS: IPRATROPIUM/ALBUTEROL SULFATE 3 ML AMPUL.NEB (DUONEB) INH SCH ×4 (01:21→19:35)
[2020-09-02] MEDS: D5NS 1,000 ML IV SCH (05:40)
[2020-09-02] MEDS: MIDODRINE HCL 5 MG TABLET (PROAMATINE) GT SCH ×3 (05:41→21:20)
[2020-09-02] MEDS: LORazepam 2 MG/ML VIAL IVP PRN ×2 (06:26→19:48)
[2020-09-02 07:02] LABS: ALBUMIN 1.5 g/dL (3.4-4.8); CALCIUM 7.7 mg/dL (8.4-11.0); CREATININE 0.87 mg/dL (0.55-1.30); PHOSPHORUS 3.8 mg/dL (2.7-4.5); POTASSIUM 4.2 mmol/L (3.5-5.1); TOTAL BILIRUBIN 0.5 mg/dL (0.0-1.0)
[2020-09-02] MEDS: ACETAMINOPHEN 650 MG/20.3 ML UDC GT PRN ×2 (07:37→19:35)
[2020-09-02] MEDS: MULTIVITS,CA,MINERALS/IRON/FA 1 TABLET GT SCH (08:14)
[2020-09-02] MEDS: LACTOBACILLUS RHAMNOSUS GG 1 CAP CAPSULE PO SCH ×2 (08:14→21:20)
[2020-09-02] MEDS: FAMOTIDINE 20 MG TABLET GT SCH ×2 (08:14→21:20)
[2020-09-02] MEDS: ASCORBIC ACID 500 MG TABLET GT SCH (08:14)
[2020-09-02] MEDS: ENOXAPARIN SODIUM 30 MG/0.3 ML SYRINGE SQ SCH ×2 (08:18→21:21)
[2020-09-02] MEDS: MICAFUNGIN SODIUM 100 MG in NS 100 ML IV SCH (09:24)
[2020-09-02] MEDS: AMIKACIN SULFATE 1,000 MG in NS 250 ML IV SCH (11:15)
--- NOTE | 2020-09-02 19:35 | NUR ---
Opening note Received report and assumed care. No residuals obtained at this time from GT. Patient's temp 102.5 Tylenol 650 mg GT given. Continues to be tachypneic RR40. Ativan 1 mg IVP given. will continue to monitor.
[2020-09-02] MEDS: [UNRECOGNIZED DRUG - OTHER] IV SCH ×12 (20:53)
[2020-09-02] MEDS: SODIUM ACETATE IV SCH ×12 (20:53)
[2020-09-02] MEDS: K PHOS IV SCH ×12 (20:53)
[2020-09-02] MEDS: TPN CENTRAL IV SCH ×12 (20:53)
[2020-09-02] MEDS: POTASSIUM ACETATE IV SCH ×12 (20:53)
[2020-09-02] MEDS: FAT EMULSIONS 250 ML IV SCH (20:54)
[2020-09-03] VITALS (35 sets, daily range): BP systolic 98–169
[2020-09-03] MEDS: D5NS 1,000 ML IV SCH ×2 (01:00→20:49)
[2020-09-03] MEDS: IPRATROPIUM/ALBUTEROL SULFATE 3 ML AMPUL.NEB (DUONEB) INH SCH ×4 (01:19→19:50)
[2020-09-03] MEDS: ACETAMINOPHEN 650 MG/20.3 ML UDC GT PRN ×2 (05:21→16:32)
[2020-09-03] MEDS: LORazepam 2 MG/ML VIAL IVP PRN ×3 (05:24→16:32)
[2020-09-03] MEDS: MIDODRINE HCL 5 MG TABLET (PROAMATINE) GT SCH ×3 (05:35→20:48)
[2020-09-03 06:37] LABS: HEMATOCRIT 26.3 % (36-54); MEAN CORPUSCULAR HEMOGLOBIN 34 pg (27-31); MEAN CORPUSCULAR HGB CONC 34 % (32-36); MEAN CORPUSCULAR VOLUME 100 fL (79.0-98.0); PLATELET COUNT (AUTO) 229 K/uL (130-430); RED BLOOD CELL COUNT(AUTO) 2.64 MIL/uL (4.2-6.2); WHITE BLOOD COUNT (AUTO) 7.4 K/uL (4.8-10.8)
[2020-09-03 07:08] LABS: ALBUMIN 1.5 g/dL (3.4-4.8); CALCIUM 7.7 mg/dL (8.4-11.0); CREATININE 0.92 mg/dL (0.55-1.30); PHOSPHORUS 3.5 mg/dL (2.7-4.5); POTASSIUM 4.4 mmol/L (3.5-5.1); TOTAL BILIRUBIN 0.3 mg/dL (0.0-1.0)
--- NOTE | 2020-09-03 07:26 | NUR ---
Opening Note Received plan of care via sbar from endorsing RN.
[2020-09-03] MEDS: MICAFUNGIN SODIUM 100 MG in NS 100 ML IV SCH (09:40)
[2020-09-03] MEDS: ASCORBIC ACID 500 MG TABLET GT SCH (09:41)
[2020-09-03] MEDS: FAMOTIDINE 20 MG TABLET GT SCH ×2 (09:41→20:48)
[2020-09-03] MEDS: MULTIVITS,CA,MINERALS/IRON/FA 1 TABLET GT SCH (09:41)
[2020-09-03] MEDS: LACTOBACILLUS RHAMNOSUS GG 1 CAP CAPSULE PO SCH ×2 (09:41→20:48)
[2020-09-03] MEDS: ENOXAPARIN SODIUM 30 MG/0.3 ML SYRINGE SQ SCH ×2 (09:41→20:48)
[2020-09-03 09:43] LABS: BAND % (MANUAL) 12 % (0-6); BASOPHILS % (MANUAL) 0 % (0-2); EOSINOPHILS % (MANUAL) 2 % (0-7); LYMPHOCYTES % (MANUAL) 13 % (20-46); MONOCYTES % (MANUAL) 8 % (0-11)
--- NOTE | 2020-09-03 12:45 | NUR ---
Dr. Rodrigez at bedside. Provided patient update. Received recommendation to discuss rudy cath removal from Dr. Oseguera.
[2020-09-03] MEDS: MORPHINE 2 MG/ML INJ. SYRINGE IVP PRN ×2 (12:48→16:32)
--- NOTE | 2020-09-03 13:35 | NUR ---
RT NOTES FIO2 to 0.40 due to low saturation. improvement noted.
[2020-09-03] MEDS: PIPERACILLIN/TAZO 4.5GM/DEX-IS 100 ML IV SCH ×2 (13:47→21:09)
--- NOTE | 2020-09-03 13:56 | NUR ---
Dr. Oseguera at bedside. Provided patient update. Received order to consult Dr. Faulkner to remove rudy cath.
--- NOTE | 2020-09-03 13:57 | NUR ---
Called Dr. Andersen with a consult,spoke with Charla from the exchange
--- NOTE | 2020-09-03 14:10 | NUR ---
Nutrition F/U Admitting Diagnosis: Septic shock Medical History Comment: Pt w/: Septic shock, Bilateral pneumonia, Dehydration, CHRISTIANO, Chronic Respiratory failure, Down Syndrome, DM per MD notes. PMH: Down, syndrome, DM, Chronic respiratory failure, Tracheostomy and GT placement. SARS-CoV-2 Ag Rapid 08/10 Negative Subjective Information: Pt was under isolation precautions and sliding doors were closed at time of RD rounds. RD viewed pt through glass window. TF and TPN were seen ongoing as per physician orders. RN reported that pt had GRV of 180-200 ml this morning and TF was held until about 1100, at which time, TF was resumed. RN reported that GRV will be checked again at 1600. He also reported that pt's rectal tube was removed yesterday but pt is still having some loose stools, and stool was collected and tested for C. diff again, however, results are still pending. Pt may benefit from incorporation of banana flakes prebiotic fiber to help bulk stool, as well as taper off of TPN support, and gradually increase EN support to optimize nutrition and gut function. Per EMR review, no recent documentation of EN infusion records. Current Diet Order/Nutrition Support: TPN D30%, AA8.5% at 80 ml/hr, IL20% at 5 ml/hr via central line Current TPN Provides: 1545 kcal/day, 82 gm protein/day, 2040 ml total volume/day, and GIR: 3.1 gm CHO/kg/min Current TPN Meets: 73% of estimated caloric needs and 92% of upper end of estimated protein needs EN Support: Glucerna 1.2 at 20 ml/hr, Free Water Flush: 150 ml Q 8 hrs via GT Current EN Support Provides: 576 kcal/day, 29 gm protein/day, and 836 ml free water/day Current EN Support Meets: 27% of estimated caloric needs and 49% of lower end of estimated protein needs Pertinent Medications: piperacillin/tazobactam IV, morphine, IV ALB, D5%NS at 50 ml/hr (204 kcal/day), culturelle, SSI, theragran, VIT C Pertinent Labs: Reviewed Ht: 54/64 Wt: (08/28): 65 kg, 143 lbs (08/22): 133.7 lbs, 60.7 kg (08/17): 63.957 kg/ 140 lbs, (08/17) 141#/ 64kg,(08/12) 139#/63.549948 kg; 141#/64 kg (08/17) *wt stable Body Mass Index: (08/28): 24.54 kg/m2, (08/22): 23 kg/m2, (08/17): 24.2 kg/m2, (08/12): 23.86 kg/m2), (08/17): 24.2 kg.m2 Weight status: appropriate [place]/Adjusted Body Weight: 130#/ 59kg; Adj IBW QP: 114#/ 52kg Estimated Energy Expenditure (kcals/day) 2118 Kcal/day (PSU 2003 for vent, febrile) Estimated Protein Required (g/day) 59-89 gm/day (1-1.5 gm/kg IBW for sepsis, renal Dz predialysis and wound) Estimated Fluid Required (l/day) per MD (ARF Problem/Etiology/Signs/Symptoms Increased nutrient needs r/t metabolic demands AEB wounds. (*ongoing) Altered nutrition related labs r/t endocrine dysfunction AEB elevated BG. (*ongoing) Inadequate PN intake r/t current PN order AEB current PN meets <65% of estimated needs (resolved, PN meeting estimated nutrition needs 08/25) Altered GI function r/t increased gastric motility AEB diarrhea, rectal tube in place, + C.diff. (*pt tested negative for C.diff, but remains w/ diarrhea, rectal tube) Expected Outcomes/Goals Monitor PN tolerance, resume EN support, and intake w/ goal of pt meeting more than 75% of estimated nutritional needs, labs trending WNL, normal GI function, skin integrity/wt maintenance (ongoing) Dietitian Recommendations * Recommend continuing Culturelle * Consider adding Banatrol TID * Recommend gradually increasing EN support to Glucerna 1.2 at 60 ml/hr (goal rate), Free Water Flush: 150 ml Q8h via GT Provides: 1728 kcal/day, 86 gm protein/day, and 1159 ml free water/day Meets: 82% of estimated caloric needs and 97% of upper end of estimated protein needs * Consider slowly tapering down TPN Follow Up High risk 2-3 days
--- NOTE | 2020-09-03 14:15 | NUR ---
Dietitian Recommendations * Recommend continuing Culturelle * Consider adding Banatrol TID * Recommend gradually increasing EN support to Glucerna 1.2 at 60 ml/hr (goal rate), Free Water Flush: 150 ml Q8h via GT Provides: 1728 kcal/day, 86 gm protein/day, and 1159 ml free water/day Meets: 82% of estimated caloric needs and 97% of upper end of estimated protein needs * Consider slowly tapering down TPN LP, RD Please refer to Nutrition F/U for details.
--- NOTE | 2020-09-03 17:10 | NUR ---
RT NOTES FIO2 to 100% due to low saturation
--- NOTE | 2020-09-03 19:25 | NUR ---
PM SHIFT ASSESSMENT Pt is resting in bed. SPO2 is above 95%, RR even and unlabored. Skin warm and intact. IVF infusing to KERRI PICCLINE. Safety precautions in place, call light within reach. Will continue to monitor.
[2020-09-03] MEDS: FAT EMULSIONS 250 ML IV SCH (20:53)
[2020-09-03] MEDS: SODIUM ACETATE IV SCH ×12 (20:55)
[2020-09-03] MEDS: [UNRECOGNIZED DRUG - OTHER] IV SCH ×12 (20:55)
[2020-09-03] MEDS: TPN CENTRAL IV SCH ×12 (20:55)
[2020-09-03] MEDS: SODIUM CHLORIDE IV SCH ×12 (20:55)
[2020-09-03] MEDS: AMIKACIN SULFATE 1,000 MG in NS 250 ML IV SCH (23:21)
[2020-09-04] VITALS (33 sets, daily range): BP systolic 98–176
[2020-09-04] MEDS: IPRATROPIUM/ALBUTEROL SULFATE 3 ML AMPUL.NEB (DUONEB) INH SCH ×4 (01:00→19:00)
[2020-09-04] MEDS: MORPHINE 2 MG/ML INJ. SYRINGE IVP PRN ×4 (02:17→21:49)
[2020-09-04] MEDS: LORazepam 2 MG/ML VIAL IVP PRN ×2 (03:16→18:04)
[2020-09-04] MEDS: PIPERACILLIN/TAZO 4.5GM/DEX-IS 100 ML IV SCH ×3 (05:24→21:48)
[2020-09-04] MEDS: ACETAMINOPHEN 650 MG/20.3 ML UDC GT PRN ×3 (05:24→21:49)
[2020-09-04] MEDS: MIDODRINE HCL 5 MG TABLET (PROAMATINE) GT SCH ×3 (05:24→22:08)
--- NOTE | 2020-09-04 05:29 | NUR ---
DR. ROYAL PAGED [phone]
[2020-09-04] MEDS ORDERED: MORPHINE 2 MG/ML INJ. SYRINGE IVP PRN ×2 (05:30→05:45)
--- NOTE | 2020-09-04 05:35 | NUR ---
Spoke to Dr. Elijah MD made aware of patients high RR, HR and BP. Orders to change Morphine IVP to Q4hrs instead of Q6hrs. Will carry out order.
[2020-09-04] MEDS ORDERED: MORPHINE 2 MG/ML INJ. SYRINGE ONE (05:48)
--- NOTE | 2020-09-04 07:09 | NUR ---
ENDORSEMENT PT CARE ENDORSED TO DAYSHIFT RN USING NURSING SBAR.
--- NOTE | 2020-09-04 07:14 | NUR ---
Opening Note Received plan of care via sbar from endorsing RN.
[2020-09-04 07:36] LABS: BASOPHILS # (AUTO) 0.1 K/uL (0.0-0.2); BASOPHILS % (AUTO) 0.8 % (0.0-2.0); EOSINOPHILS # (AUTO) 0.2 K/uL (0.0-0.4); EOSINOPHILS % (AUTO) 2.1 % (0.0-4.0); HEMATOCRIT 25.9 % (36-54); HEMOGLOBIN 8.5 g/dL (14.0-18.0); LYMPHOCYTES # (AUTO) 1.1 K/uL (1.0-5.5); LYMPHOCYTES % (AUTO) 13.6 % (20.5-51.5); MEAN CORPUSCULAR HEMOGLOBIN 33 pg (27-31); MEAN CORPUSCULAR HGB CONC 33 % (32-36); MEAN CORPUSCULAR VOLUME 101 fL (79.0-98.0); MONOCYTES # (AUTO) 0.6 K/uL (0.0-1.0); NEUTROPHILS # (AUTO) 6.3 K/uL (1.8-7.7); NEUTROPHILS % (AUTO) 76.5 % (40.0-70.0); PLATELET COUNT (AUTO) 180 K/uL (130-430); RED BLOOD CELL COUNT(AUTO) 2.56 MIL/uL (4.2-6.2); RED CELL DISTRIBUTION WIDTH 20.9 % (9.0-15.0); WHITE BLOOD COUNT (AUTO) 8.2 K/uL (4.8-10.8)
[2020-09-04 07:38] LABS: ALBUMIN 1.4 g/dL (3.4-4.8); CALCIUM 7.7 mg/dL (8.4-11.0); CREATININE 0.93 mg/dL (0.55-1.30); PHOSPHORUS 3.5 mg/dL (2.7-4.5); POTASSIUM 4.6 mmol/L (3.5-5.1); TOTAL BILIRUBIN 0.4 mg/dL (0.0-1.0)
[2020-09-04] MEDS: ASCORBIC ACID 500 MG TABLET GT SCH (08:05)
[2020-09-04] MEDS: FAMOTIDINE 20 MG TABLET GT SCH ×2 (08:05→20:20)
[2020-09-04] MEDS: LACTOBACILLUS RHAMNOSUS GG 1 CAP CAPSULE PO SCH ×2 (08:05→20:20)
[2020-09-04] MEDS: ENOXAPARIN SODIUM 30 MG/0.3 ML SYRINGE SQ SCH ×2 (08:07→20:21)
[2020-09-04] MEDS: MULTIVITS,CA,MINERALS/IRON/FA 1 TABLET GT SCH (08:08)
[2020-09-04] MEDS: MICAFUNGIN SODIUM 100 MG in NS 100 ML IV SCH (09:35)
--- NOTE | 2020-09-04 09:35 | NUR ---
TEMP 101.1 COOLING MEASURES REMAIN IN PLACE, MD AWARE, NO NEW ORDERS.
--- NOTE | 2020-09-04 09:50 | NUR ---
DR. ZAVALA: CALLED UNIT, REPORT GIVEN WITH NO NEW ORDERS AT THIS TIME.
--- NOTE | 2020-09-04 10:19 | NUR ---
PATIENTS BROTHER CALLED UNIT: UPDATE GIVEN OVER PHONE, BROTHER STATED THAT DR. KUMARI CAN CALL HIM BETWEEN THE HOURS OF 12-1 TODAY TO DISCUSS CONSENT FOR PORT A CATH REMOVAL.
--- NOTE | 2020-09-04 10:30 | NUR ---
DR. KUMARI: SPOKE WITH DR. KUMARI OVER PHONE, DR STATED HE WILL ATTEMPT TO REACH THE PATIENTS BROTHER TO DISCUSS SURGERY AND RECEIVE CONSENT.
--- NOTE | 2020-09-04 10:32 | NUR ---
Supply/Medication Orders Received For Bedside Surgical Procedure: Dr. Faulkner gave orders for Supplies/Medications for bedside surgical procedure. Orders read back and entered.
--- NOTE | 2020-09-04 14:34 | NUR ---
HALOPERIDOL PRN: PRN GIVEN FOR AGITATION WILL MONITOR. Addendum: 09/04/20 at 1435 by Traci Simental RN WRONG CHART
--- NOTE | 2020-09-04 14:50 | NUR ---
TEMP 101.9 PRN TYLENOL: TYLENOL GIVEN PRN.
--- NOTE | 2020-09-04 15:12 | NUR ---
WOUND RE-EVALUATION: Patient received in a [facility] Bed with an IsoFlex ARISTIDES mattress with low air-loss therapy, awake, nonverbal, nonresponsive to verbal commands. Patient is unable to turn in bed independently. Joel Score is a 12. Past Medical History: Diabetes Mellitus, Down Syndrome, Chronic Respiratory Failure, Tracheostomy, G-tube placement. Admitted for Hypotension, initial workup significant for Septic Shock, Dehydration, and Acute Renal Failure. Microbiology: Blood culture results x2 positive for Acinetobacter Baumannii/Haemol (MDRO/ENDOCRINOLOGY SPECIALIST) and Pseudomonas Aeruginosa (MDRO/ENDOCRINOLOGY SPECIALIST). MRSA screen results negative. Urine culture results negative. Tracheal aspirate culture results positive for Acinetobacter Baumannii/Haemol (MDRO/ENDOCRINOLOGY SPECIALIST) and Pseudomonas Aeruginosa (ENDOCRINOLOGY SPECIALIST). Additional Tracheal aspirate culture results in progress. Intrinsic factors that delay wound healing: Diabetes Mellitus, Chronic Respiratory Failure, Acute Renal Failure. Extrinsic factors that delay wound healing: Decreased mobility. Wound Assessment: 1. Sacral/Buttocks areas: Blanchable redness (IAD/MASD) with brown discoloration (resolved). 2. Left Sacral area: Area of wrinkly brown skin. No odor, no drainage. 3. Right Buttock: Blanchable redness with wound, present on admission. Wound bed has 100% pink tissue. No odor, no drainage. Periwound intact. Wound measures 1.0 cm x 1.4 Recommend continue: Cleanse sites with normal saline. Apply moisture barrier cream to sites. Cover with Sacral foam dressing. Perform site care daily, and as needed for dressing soiling or dislodgement. Do not rub involved areas. 4. Left Knee: Blanchable redness, present on admission. Resolved. Recommend: No dressing needed. Continue to monitor site every shift. 5. Right Lateral Malleolus: Blanchable redness, present on admission. 6. Left Heel: Non-blanchable dark red tissue with brown discoloration, present on admission. 7. Right Heel: Blanchable dark red tissue with brown discoloration, present on admission. Recommend continue: Elevate, offload and float bilateral heels, ankles and feet with one pillow lengthwise under each extremity at all times. Do not allow any portion of heels, ankles or feet to to touch bed or other surfaces at any time. Also recommend continue: Reposition patient side to side only every 2 hours with pillow support and off-load pressure areas with pillows for pressure re-distribution. Offload, elevate and float bilateral heels with pillows. Perform skin care and monitor skin integrity Q shift. Use moisture barrier cream on buttocks and other moisture susceptible areas QID and as needed for soiling. Maintain patient on low air loss therapy.
[2020-09-04] MEDS ORDERED: LIDOCAINE 2%, 20 ML MDV INJ ONE (15:15)
--- NOTE | 2020-09-04 16:00 | NUR ---
DR. ETTA BERGERON AT BEDSIDE, VERBAL REPORT GIVEN, NO NEW ORDERS.
--- NOTE | 2020-09-04 17:20 | NUR ---
TACHYCARDIC / TACHYPNEIC : HR 148 / RESP RATE 59, MD AWARE, NO NEW ORDERS, RT AT BEDSIDE,
[2020-09-04] MEDS: D5NS 1,000 ML IV SCH (17:40)
--- NOTE | 2020-09-04 17:43 | NUR ---
PRN MORPHINE GIVEN MORPHINE GIVEN PRN, MONITORING.
--- NOTE | 2020-09-04 18:04 | NUR ---
ATIVAN PRN: ATIVAN GIVEN PRN FOR AGITATION
--- NOTE | 2020-09-04 18:13 | NUR ---
TEMP: 104.9, PLACED ICE PACKS AND COOL WASH CLOTHES ON PATIENT, CHARGE AWARE, MD AWARE NO NEW ORDERS.
--- NOTE | 2020-09-04 19:01 | NUR ---
CLOSING NOTE: REPORT GIVEN TO INCOMING RN USING SBAR FORMAT, BED LOW AND LOCKED FOR SAFETY.
--- NOTE | 2020-09-04 19:30 | NUR ---
Opening Note Received report from AM nurse using SBAR approach. Patient's HR is in the 140's, Respirations in the 50's and temp of 105. Cooling measures done.
[2020-09-04] MEDS: SODIUM CHLORIDE IV SCH ×12 (20:22)
[2020-09-04] MEDS: [UNRECOGNIZED DRUG - OTHER] IV SCH ×12 (20:22)
[2020-09-04] MEDS: TPN CENTRAL IV SCH ×12 (20:22)
[2020-09-04] MEDS: SODIUM ACETATE IV SCH ×12 (20:22)
[2020-09-04] MEDS: FAT EMULSIONS 250 ML IV SCH (20:23)
--- NOTE | 2020-09-04 23:00 | NUR ---
MD Dr. Nava at bedside no new orders received.
[2020-09-05] VITALS (32 sets, daily range): BP systolic 80–159
[2020-09-05] MEDS: LORazepam 2 MG/ML VIAL IVP PRN (00:05)
[2020-09-05] MEDS: IPRATROPIUM/ALBUTEROL SULFATE 3 ML AMPUL.NEB (DUONEB) INH SCH ×4 (01:09→19:30)
[2020-09-05] MEDS: PIPERACILLIN/TAZO 4.5GM/DEX-IS 100 ML IV SCH ×3 (05:32→22:06)
[2020-09-05] MEDS: MIDODRINE HCL 5 MG TABLET (PROAMATINE) GT SCH ×3 (05:32→22:06)
[2020-09-05] MEDS: MORPHINE 2 MG/ML INJ. SYRINGE IVP PRN ×3 (05:34→20:00)
[2020-09-05] MEDS: ACETAMINOPHEN 650 MG/20.3 ML UDC GT PRN ×3 (05:34→22:07)
[2020-09-05 06:51] LABS: ALBUMIN 1.4 g/dL (3.4-4.8); CALCIUM 7.9 mg/dL (8.4-11.0); CREATININE 0.94 mg/dL (0.55-1.30); PHOSPHORUS 3.8 mg/dL (2.7-4.5); POTASSIUM 4.6 mmol/L (3.5-5.1); TOTAL BILIRUBIN 0.4 mg/dL (0.0-1.0)
--- NOTE | 2020-09-05 07:19 | NUR ---
Opening Note Received plan of care via sbar from endorsing RN.
--- NOTE | 2020-09-05 07:25 | NUR ---
RT NOTES 0725 Found pt on 60% FIO2, pt saturating 100%. Titrated FIO2 to 50%, 99% saturation. will continue to monitor pt.
[2020-09-05] MEDS: MULTIVITS,CA,MINERALS/IRON/FA 1 TABLET GT SCH (08:43)
[2020-09-05] MEDS: FAMOTIDINE 20 MG TABLET GT SCH ×2 (08:43→20:48)
[2020-09-05] MEDS: LACTOBACILLUS RHAMNOSUS GG 1 CAP CAPSULE PO SCH ×2 (08:43→20:49)
[2020-09-05] MEDS: ASCORBIC ACID 500 MG TABLET GT SCH (08:43)
[2020-09-05] MEDS: ENOXAPARIN SODIUM 30 MG/0.3 ML SYRINGE SQ SCH ×2 (08:46→20:49)
[2020-09-05] MEDS ORDERED: LIDOCAINE JELLY 5 ML TUBE TP ONE (09:00)
[2020-09-05] MEDS: MICAFUNGIN SODIUM 100 MG in NS 100 ML IV SCH (09:51)
--- NOTE | 2020-09-05 10:28 | NUR ---
RT NOTES 1028 Post ABG, PO2 117.5- Titrated fio2 to 40%, saturating 98%. family nurseMAUREEN Douglas aware. no distress noted. will continue to monitor pt.
--- NOTE | 2020-09-05 11:04 | NUR ---
PAGED PAGED JERMAINE ANNE AT [phone] SPOKE WITH ISSA.
--- NOTE | 2020-09-05 11:09 | NUR ---
DR. QUILES: SPOKE WITH MD HE STATED TO CALL AND CONSULT GI DR. WINCHESTER FOR PATIENT TO BE SEEN.
[2020-09-05] MEDS: AMIKACIN SULFATE 1,000 MG in NS 250 ML IV SCH (11:14)
--- NOTE | 2020-09-05 11:14 | NUR ---
CONSULTATION PAGED PRIORITY: ROUTINE REASON FOR CONSULTATION:G-TUBE DISLODGED WAS CONSULT CALLED:Y PERSON WHO WAS NOTIFIED:TOMMY CONSULTING PHYSICIAN:ALBER ARCE EMT/DISPATCHER SPECIALTY:GI EMT/DISPATCHER PHONE NUMBER:[phone] REQUESTING PHYSIC CARIE:JERMAINE ANNE
--- NOTE | 2020-09-05 11:28 | NUR ---
PER DR. ANNABELLA ANGLIN MD "OKAY TO USE BAH CATH G-TUBE AT THIS TIME, MD WILL SEE PATIENT ON 09.07.[address] NEW G-TUBE.
[2020-09-05] MEDS ORDERED: MORPHINE 4 MG INJ. 4 MG/ML VIAL ONE (13:14)
--- NOTE | 2020-09-05 13:18 | NUR ---
DR. KUMARI AT BEDSIDE
--- NOTE | 2020-09-05 13:19 | NUR ---
4MG MORPHINE IVP ONCE GIVEN PER DR. KUMARI FOR PATIENT COMFORT.
--- NOTE | 2020-09-05 13:20 | NUR ---
PATIENT SKIN PREPPED BY DR. KUMARI FOR INCISION
--- NOTE | 2020-09-05 13:21 | NUR ---
LIDOCAINE INJECTED INTO SITE (RIGHT UPPER CHEST AREA) SITE OF PORT A CATH
--- NOTE | 2020-09-05 13:22 | NUR ---
INCISION MADE BY DR. KUMARI USING STERILE TECHNIQUE
--- NOTE | 2020-09-05 13:23 | NUR ---
PATIENT STABLE IN NO ACUTE DISTRESS AND OR DISCOMFORT.
[2020-09-05] MEDS ORDERED: MORPHINE 4 MG INJ. 4 MG/ML VIAL IVP ONE (13:30)
--- NOTE | 2020-09-05 13:30 | NUR ---
PORT A CATH REMOVED FROM RIGHT UPPER CHEST
[2020-09-05] MEDS: D5NS 1,000 ML IV SCH (13:37)
--- NOTE | 2020-09-05 13:40 | NUR ---
SUTURES PLACED WITH DRESSING, NO SIGNS OF BLEEDING PRESENT.
--- NOTE | 2020-09-05 14:30 | NUR ---
PORT-A-CATH BROUGHT TO LAB FOR TESTING PER DR. KUMARI.
[2020-09-05] MEDS: NOREPINEPHRINE BITARTRATE 16 MG in NS 234 ML IV PRN (15:03)
--- NOTE | 2020-09-05 15:31 | NUR ---
rt notes 1531 Increased FIO2 back to 50%, pt rr 40-50s. Pt saturation went up to 92%. will continue to monitor pt. MAUREEN houser.
--- NOTE | 2020-09-05 15:49 | NUR ---
PRN MORPHINE GIVEN MORPHINE GIVEN PRN, MONITORING.
--- NOTE | 2020-09-05 15:52 | NUR ---
TEMP 101.5 PRN TYLENOL: TYLENOL GIVEN PRN.
--- NOTE | 2020-09-05 16:08 | NUR ---
Nutrition F/U Admitting Diagnosis: Septic shock Medical History Comment: Pt w/: Septic shock, Bilateral pneumonia, Dehydration, CHRISTIANO, Chronic Respiratory failure, Down Syndrome, DM per MD notes. PMH: Down, syndrome, DM, Chronic respiratory failure, Tracheostomy and GT placement. SARS-CoV-2 Ag Rapid 08/10 Negative Subjective Information: Pt continues under isolation precautions d/t +C. diff/MDRO/OBSTETRICIAN/GYNECOLOGIST/MRSA per RN report. RN stated that TF has been off as GT was dislodged earlier today, and a schultz catheter tube was inserted instead w/ approval by client onboarding analyst to continue feedings until he is able to re-insert GT on 09/07/20. RN stated she would resume shortly after RD visit. RN also reported that pt's skin has been OK w/ a couple of small open areas to bottom area. She also reported that pt has been continuing w/ loose stools, however, no rectal tube has been re-inserted. TPN and D5%/NS were seen infusing as per physician orders. Per EMR review, TF Rate: 20 ml /; GRV: 20 ml 7/3; TF Intakes: 280 ml 7/3; abd is distended w/ active bowel sounds; last BM x3 09/04; last BM x3 /; Joel scale: 7 -- per Foundry Supervisor note09/04: 1. Sacral/Buttocks areas: Blanchable redness (IAD/MASD) with brown discoloration (resolved). 2. Left Sacral area: Area of wrinkly brown skin. No odor, no drainage. 3. Right Buttock: Blanchable redness with wound, present on admission. 4. Left Knee: Blanchable redness, present on admission. Resolved. 5. Right Lateral Malleolus: Blanchable redness, present on admission. 6. Left Heel: Non-blanchable dark red tissue with brown discoloration, present on admission. 7. Right Heel: Blanchable dark red tissue with brown discoloration, present on admission. Pt may benefit from incorporation of banana flakes prebiotic fiber to help bulk stool, as well as taper off of TPN support, and gradually increase EN support to optimize nutrition and gut function. Current Diet Order/Nutrition Support: TPN D30%, AA8.5% at 80 ml/hr, IL20% at 5 ml/hr via central line Current TPN Provides: 1545 kcal/day, 82 gm protein/day, 2040 ml total volume/day, and GIR: 3.1 gm CHO/kg/min Current TPN Meets: 73% of estimated caloric needs and 92% of upper end of estimated protein needs EN Support: Glucerna 1.2 at 20 ml/hr, Free Water Flush: 150 ml Q 8 hrs via GT Current EN Support Provides: 576 kcal/day, 29 gm protein/day, and 836 ml free water/day Current EN Support Meets: 27% of estimated caloric needs and 49% of lower end of estimated protein needs Pertinent Medications: piperacillin/tazobactam IV, morphine, IV ALB, D5%NS at 50 ml/hr (204 kcal/day), culturelle, SSI, theragran, VIT C, lovenox Pertinent Labs: BUN 23 H, BG 119 H, POC BG 105 H, AST 57 H, ALP 543 H, ALB 1.4 L, TG 253 H Ht: 54/64 Wt: (08/28): 65 kg, 143 lbs (08/22): 133.7 lbs, 60.7 kg (08/17): 63.957 kg/ 140 lbs, (08/17) 141#/ 64kg,(08/12) 139#/63.442922 kg; 141#/64 kg (08/17) *wt stable Body Mass Index: (08/28): 24.54 kg/m2, (08/22): 23 kg/m2, (08/17): 24.2 kg/m2, (08/12): 23.86 kg/m2), (08/17): 24.2 kg.m2 Weight status: appropriate [place]/Adjusted Body Weight: 130#/ 59kg; Adj IBW QP: 114#/ 52kg Estimated Energy Expenditure (kcals/day) 2118 Kcal/day (PSU for vent, febrile) Estimated Protein Required (g/day) 59-89 gm/day (1-1.5 gm/kg IBW for sepsis, renal Dz predialysis and wound) Estimated Fluid Required (l/day) per MD (ARF) Problem/Etiology/Signs/Symptoms Increased nutrient needs r/t metabolic demands AEB wounds. (*ongoing) Altered nutrition related labs r/t endocrine dysfunction AEB elevated BG. (*ongoing) Inadequate PN intake r/t current PN order AEB current PN meets <65% of estimated needs (resolved, PN meeting estimated nutrition needs 08/25) Altered GI function r/t increased gastric motility AEB diarrhea, rectal tube in place, + C.diff. (*pt tested negative for C.diff, but remains w/ diarrhea, rectal tube) Expected Outcomes/Goals Monitor PN tolerance, resume EN support, and intake w/ goal of pt meeting more than 75% of estimated nutritional needs, labs trending WNL, normal GI function, skin integrity/wt maintenance (ongoing) Dietitian Recommendations * Recommend continuing Culturelle * Recommend Banatrol TID * Consider gradually increasing EN support to Glucerna 1.2 at 60 ml/hr (goal rate), Free Water Flush: 150 ml Q8h via GT Provides: 1728 kcal/day, 86 gm protein/day, and 1159 ml free water/day Meets: 82% of estimated caloric needs and 97% of upper end of estimated protein needs * Consider slowly tapering down TPN if/when medically appropriate Follow Up High risk 2-3 days Addendum: 09/05/20 at [address] CORRECTION: Problem/Etiology/Signs/Symptoms Increased nutrient needs r/t metabolic demands AEB wounds. (*ongoing) Altered nutrition related labs r/t endocrine dysfunction AEB elevated BG. (*ongoing) Inadequate PN intake r/t current PN order AEB current PN meets <65% of estimated needs (resolved, PN meeting estimated nutrition needs 08/25) Altered GI function r/t increased gastric motility AEB diarrhea, rectal tube in place, + C.diff. (*pt continues +C. diff, but no longer has a rectal tube)
--- NOTE | 2020-09-05 16:17 | NUR ---
Dietitian Recommendations * Recommend continuing Culturelle * Recommend Banatrol TID * Consider gradually increasing EN support to Glucerna 1.2 at 60 ml/hr (goal rate), Free Water Flush: 150 ml Q8h via GT Provides: 1728 kcal/day, 86 gm protein/day, and 1159 ml free water/day Meets: 82% of estimated caloric needs and 97% of upper end of estimated protein needs * Consider slowly tapering down TPN if/when medically appropriate LP, RD Please refer to Nutrition F/U for details.
--- NOTE | 2020-09-05 16:21 | NUR ---
PAGED DR. QUILES: PENDING RETURN CALL
--- NOTE | 2020-09-05 16:43 | NUR ---
SPOKE WITH DR. QUILES NEW ORDER FOR DILAUDID OBTAINED 2MG IVP [id number] FOR PAIN CONTROL
[2020-09-05] MEDS: HYDROmorphone 2 MG/ML VIAL IVP PRN ×2 (16:50→23:46)
--- NOTE | 2020-09-05 16:52 | NUR ---
DILAUDID PRN GIVEN FOR PAIN
--- NOTE | 2020-09-05 18:02 | NUR ---
SEIZURE ACTIVITY: PATIENT NOTED WITH SEIZURE ACTIVITY, + NYSTAGMUS, BUE / BLE CONVULSING, CHARGE AWARE AND ASSISTED IN ROOM
--- NOTE | 2020-09-05 18:03 | NUR ---
DR. QUILES PAGED
--- NOTE | 2020-09-05 18:05 | NUR ---
DR. QUILES RETURNED PAGE NEW ORDER RCVD FOR MIGUEL ÁNGEL, CHARGE PLACED ORDER.
--- NOTE | 2020-09-05 18:06 | NUR ---
ATIVAN PRN GIVEN IVP
--- NOTE | 2020-09-05 18:08 | NUR ---
TEMP 102.9 ORALLY, ICE PACKS PLACED WITH ADDITIONAL COOLING MEASURES.
--- NOTE | 2020-09-05 18:10 | NUR ---
CONSULTATION PAGED: PRIORITY: ROUTINE REASON FOR CONSULTATION:SEIZURES WAS CONSULT CALLED:Y PERSON WHO WAS NOTIFIED:TEXT MESSAGED LINNETTE COHN CONSULTING PHYSICIAN:ANDIE COHN UTILITY TECH SPECIALTY:NEURO UTILITY TECH PHONE NUMBER:[phone] REQUESTING PHYSIC CARIE:JERMAINE ANNE
--- NOTE | 2020-09-05 18:42 | NUR ---
TEMP 102.9 REMAINS, CONTINUE WITH COOLING MEASURES.
--- NOTE | 2020-09-05 18:50 | NUR ---
SEIZURE ACTIVITY: PATIENT NOTED WITH SEIZURE ACTIVITY, + NYSTAGMUS, BUE / BLE CONVULSING,
--- NOTE | 2020-09-05 18:54 | NUR ---
CLOSING NOTE: REPORT GIVEN TO INCOMING RN USING SBAR FORMAT, BED LOW AND LOCKED FOR SAFETY.
--- NOTE | 2020-09-05 18:55 | NUR ---
CLOSING NOTE: REPORT GIVEN TO INCOMING RN USING SBAR FORMAT, BED LOW AND LOCKED FOR SAFETY.
--- NOTE | 2020-09-05 19:30 | NUR ---
Opening Note Received report from AM nurse using SBAR approach.
--- NOTE | 2020-09-05 20:00 | NUR ---
Submerged patient on an ice bath. Fever is 102.9. Will continue to monitor.
[2020-09-05] MEDS: levETIRAcetam 1,000 MG in NS 100 ML IV SCH (20:49)
[2020-09-05] MEDS: SODIUM CHLORIDE IV SCH ×12 (20:50)
[2020-09-05] MEDS: SODIUM ACETATE IV SCH ×12 (20:50)
[2020-09-05] MEDS: TPN CENTRAL IV SCH ×12 (20:50)
[2020-09-05] MEDS: [UNRECOGNIZED DRUG - OTHER] IV SCH ×12 (20:50)
[2020-09-06] VITALS (35 sets, daily range): BP systolic 86–168
[2020-09-06] MEDS: IPRATROPIUM/ALBUTEROL SULFATE 3 ML AMPUL.NEB (DUONEB) INH SCH ×4 (01:05→19:10)
--- NOTE | 2020-09-06 06:00 | NUR ---
patient's temperature is now 98 F. Heart rate is 96, respirations is 17 and blood pressure is 107/52. patient is resting in bed
[2020-09-06] MEDS: PIPERACILLIN/TAZO 4.5GM/DEX-IS 100 ML IV SCH ×3 (06:47→22:12)
[2020-09-06] MEDS: MIDODRINE HCL 5 MG TABLET (PROAMATINE) GT SCH ×3 (06:47→21:24)
[2020-09-06] MEDS: MORPHINE 2 MG/ML INJ. SYRINGE IVP PRN ×2 (07:08→17:20)
--- NOTE | 2020-09-06 07:15 | NUR ---
OPENING NOTE: RECEIVED REPORT FROM RN USING SBAR REPORTING. ALL CARE ASSUMED.
[2020-09-06 07:22] LABS: ALBUMIN 1.3 g/dL (3.4-4.8); CALCIUM 7.8 mg/dL (8.4-11.0); CREATININE 1.37 mg/dL (0.55-1.30); PHOSPHORUS 4.1 mg/dL (2.7-4.5); POTASSIUM 4.8 mmol/L (3.5-5.1); TOTAL BILIRUBIN 0.5 mg/dL (0.0-1.0)
--- NOTE | 2020-09-06 07:30 | NUR ---
Closing Note Endorsed report to AM nurse using SBAR approach.
[2020-09-06 09:02] LABS: BASOPHILS # (AUTO) 0.1 K/uL (0.0-0.2); BASOPHILS % (AUTO) 1.2 % (0.0-2.0); EOSINOPHILS # (AUTO) 0.3 K/uL (0.0-0.4); EOSINOPHILS % (AUTO) 2.9 % (0.0-4.0); HEMOGLOBIN 8.8 g/dL (14.0-18.0); LYMPHOCYTES # (AUTO) 1.2 K/uL (1.0-5.5); LYMPHOCYTES % (AUTO) 11.2 % (20.5-51.5); MEAN CORPUSCULAR HEMOGLOBIN 35 pg (27-31); MEAN CORPUSCULAR HGB CONC 34 % (32-36); MEAN CORPUSCULAR VOLUME 103 fL (79.0-98.0); MONOCYTES # (AUTO) 0.5 K/uL (0.0-1.0); NEUTROPHILS # (AUTO) 8.5 K/uL (1.8-7.7); NEUTROPHILS % (AUTO) 79.7 % (40.0-70.0); PLATELET COUNT (AUTO) 172 K/uL (130-430); RED BLOOD CELL COUNT(AUTO) 2.52 MIL/uL (4.2-6.2); RED CELL DISTRIBUTION WIDTH 20.9 % (9.0-15.0); WHITE BLOOD COUNT (AUTO) 10.6 K/uL (4.8-10.8)
[2020-09-06] MEDS: FAMOTIDINE 20 MG TABLET GT SCH ×2 (09:39→21:01)
[2020-09-06] MEDS: ASCORBIC ACID 500 MG TABLET GT SCH (09:39)
[2020-09-06] MEDS: MULTIVITS,CA,MINERALS/IRON/FA 1 TABLET GT SCH (09:39)
[2020-09-06] MEDS: LACTOBACILLUS RHAMNOSUS GG 1 CAP CAPSULE PO SCH ×2 (09:39→21:01)
[2020-09-06] MEDS: levETIRAcetam 1,000 MG in NS 100 ML IV SCH (09:41)
[2020-09-06] MEDS: ALBUMIN HUMAN 25% 100 ML IV PRN (09:42)
[2020-09-06] MEDS: MICAFUNGIN SODIUM 100 MG in NS 100 ML IV SCH (09:42)
[2020-09-06] MEDS: D5NS 1,000 ML IV SCH (09:43)
[2020-09-06] MEDS: ENOXAPARIN SODIUM 30 MG/0.3 ML SYRINGE SQ SCH ×2 (09:46→21:21)
--- NOTE | 2020-09-06 11:25 | NUR ---
DR ROYAL: DR ROYAL NOTIFIED OF ABG RESULTS. CHANGED AC OF 18 TO 22 AND WILL REPEAT ABG IN 2 HOURS. WILL CONTINUE TO MONITOR.
--- NOTE | 2020-09-06 11:25 | NUR ---
rt notes 1125 Per ABG results, Dr Nava ordered set rate increased to 22. Pt mercedes changes, will continue to monitor pt. MAUREEN Su aware.
[2020-09-06] MEDS: HYDROmorphone 2 MG/ML VIAL IVP PRN ×2 (12:10→20:00)
--- NOTE | 2020-09-06 17:28 | NUR ---
rt notes 1728 Pt desaturated to 87%, increased fio2 to 55%. saturation went up to 92%. will continue to monitor pt. MAUREEN Su aware.
[2020-09-06] MEDS: ACETAMINOPHEN 650 MG/20.3 ML UDC GT PRN ×2 (17:34→20:53)
--- NOTE | 2020-09-06 19:30 | NUR ---
Opening note Received report and assumed care. Vent to trach with settings on AC 18 and tolerating. No seizure activity noted or reported. patient's temperature 101.3 F. Levophed infusing to KERRI picc at 0.06 mcg/kg/min. will continue to monitor.
--- NOTE | 2020-09-06 20:20 | NUR ---
Assessment completed, repositioned for comfort. will continue to monitor.
[2020-09-06] MEDS ORDERED: [UNRECOGNIZED DRUG - OTHER] IV SCH ×12 (21:00)
[2020-09-06] MEDS ORDERED: SODIUM ACETATE IV SCH ×12 (21:00)
[2020-09-06] MEDS ORDERED: SODIUM CHLORIDE IV SCH ×12 (21:00)
[2020-09-06] MEDS ORDERED: TPN CENTRAL IV SCH ×12 (21:00)
[2020-09-06] MEDS: levETIRAcetam 500 MG in NS 100 ML IV SCH (21:01)
[2020-09-06] MEDS: AMIKACIN SULFATE 1,000 MG in NS 250 ML IV SCH (23:00)
[2020-09-07] VITALS (35 sets, daily range): BP systolic 91–157
[2020-09-07] MEDS: IPRATROPIUM/ALBUTEROL SULFATE 3 ML AMPUL.NEB (DUONEB) INH SCH ×4 (00:59→19:38)
[2020-09-07] MEDS: HYDROmorphone 2 MG/ML VIAL IVP PRN ×2 (02:00→10:04)
[2020-09-07] MEDS: MIDODRINE HCL 5 MG TABLET (PROAMATINE) GT SCH ×3 (05:56→22:51)
[2020-09-07] MEDS: D5NS 1,000 ML IV SCH (05:56)
[2020-09-07] MEDS: PIPERACILLIN/TAZO 4.5GM/DEX-IS 100 ML IV SCH ×3 (06:01→22:52)
[2020-09-07 06:51] LABS: BASOPHILS # (AUTO) 0.1 K/uL (0.0-0.2); BASOPHILS % (AUTO) 1.1 % (0.0-2.0); EOSINOPHILS # (AUTO) 0.1 K/uL (0.0-0.4); EOSINOPHILS % (AUTO) 1.6 % (0.0-4.0); HEMATOCRIT 25.7 % (36-54); HEMOGLOBIN 8.2 g/dL (14.0-18.0); LYMPHOCYTES # (AUTO) 1.1 K/uL (1.0-5.5); LYMPHOCYTES % (AUTO) 12.8 % (20.5-51.5); MEAN CORPUSCULAR HEMOGLOBIN 33 pg (27-31); MEAN CORPUSCULAR HGB CONC 32 % (32-36); MEAN CORPUSCULAR VOLUME 103 fL (79.0-98.0); MONOCYTES # (AUTO) 0.3 K/uL (0.0-1.0); MONOCYTES % (AUTO) 3.6 % (1.7-9.3); NEUTROPHILS % (AUTO) 80.9 % (40.0-70.0); PLATELET COUNT (AUTO) 89 K/uL (130-430); RED BLOOD CELL COUNT(AUTO) 2.51 MIL/uL (4.2-6.2); RED CELL DISTRIBUTION WIDTH 20.4 % (9.0-15.0); WHITE BLOOD COUNT (AUTO) 8.6 K/uL (4.8-10.8)
--- NOTE | 2020-09-07 07:15 | NUR ---
OPENING NOTE: REPORT RECEIVED FROM RN USING SBAR REPORTING. ALL CARE ASSUMED.
[2020-09-07 07:41] LABS: ALBUMIN 1.3 g/dL (3.4-4.8); CALCIUM 7.8 mg/dL (8.4-11.0); CREATININE 1.5 mg/dL (0.55-1.30); PHOSPHORUS 3.6 mg/dL (2.7-4.5); POTASSIUM 4.6 mmol/L (3.5-5.1); TOTAL BILIRUBIN 0.5 mg/dL (0.0-1.0)
[2020-09-07] MEDS: FAMOTIDINE 20 MG TABLET GT SCH ×2 (10:00→22:50)
[2020-09-07] MEDS: MULTIVITS,CA,MINERALS/IRON/FA 1 TABLET GT SCH (10:00)
[2020-09-07] MEDS: levETIRAcetam 500 MG in NS 100 ML IV SCH ×2 (10:01→22:50)
[2020-09-07] MEDS: LACTOBACILLUS RHAMNOSUS GG 1 CAP CAPSULE PO SCH ×2 (10:01→22:51)
[2020-09-07] MEDS: ASCORBIC ACID 500 MG TABLET GT SCH (10:01)
[2020-09-07] MEDS: MICAFUNGIN SODIUM 100 MG in NS 100 ML IV SCH (10:04)
[2020-09-07] MEDS: ENOXAPARIN SODIUM 30 MG/0.3 ML SYRINGE SQ SCH ×2 (10:05→22:53)
[2020-09-07] MEDS: ALBUMIN HUMAN 25% 100 ML IV PRN (10:11)
[2020-09-07] MEDS ORDERED: FUROSEMIDE 40 MG/4 ML VIAL IVP ONE (10:45)
--- NOTE | 2020-09-07 10:45 | NUR ---
DR ROYAL: ORDERS RECEIVED FROM DR ROYAL FOR A ONE TIME DOSE OF LASIX DUE TO THE PTS EXCESSIVE EDEMA. WILL CONTINUE TO MONITOR.
[2020-09-07] MEDS: MORPHINE 2 MG/ML INJ. SYRINGE IVP PRN ×2 (11:51→21:00)
[2020-09-07] MEDS: ACETAMINOPHEN 650 MG/20.3 ML UDC GT PRN ×2 (11:51→17:49)
--- NOTE | 2020-09-07 12:00 | NUR ---
FEVER: PT FOUND TO HAVE A TEMPERATURE OF 101.5 F. TYLENOL GIVEN AND COOLING MEASURES INITIATED. WILL CONTINUE TO MONITOR.
--- NOTE | 2020-09-07 17:41 | NUR ---
DR ROYAL: DR ROYAL AT BEDSIDE, UPDATED ON PTS STATUS. DR ROYAL ORDERED ALBUMIN FOLLOWED BY LASIX TID FOR 2 DAYS.
[2020-09-07] MEDS ORDERED: FUROSEMIDE 20 MG/2 ML VIAL IVP ONE (17:45)
--- NOTE | 2020-09-07 19:30 | NUR ---
Opening Note Received report from AM nurse using SBAR approach.
--- NOTE | 2020-09-07 20:00 | NUR ---
Patient's temperature is 97.8. took out all icepacks from under patient's arms.
[2020-09-07] MEDS ORDERED: [UNRECOGNIZED DRUG - OTHER] IV SCH ×12 (21:00)
[2020-09-07] MEDS ORDERED: SODIUM CHLORIDE IV SCH ×12 (21:00)
[2020-09-07] MEDS ORDERED: TPN CENTRAL IV SCH ×12 (21:00)
[2020-09-07] MEDS ORDERED: SODIUM ACETATE IV SCH ×12 (21:00)
[2020-09-07] MEDS: ALBUMIN HUMAN 25% 100 ML IV SCH (22:51)
[2020-09-07] MEDS: FUROSEMIDE 20 MG/2 ML VIAL IVP SCH (22:52)
[2020-09-08] VITALS (36 sets, daily range): BP systolic 88–165
--- NOTE | 2020-09-08 | NUR ---
patient's temperature is 98.2
[2020-09-08] MEDS: D5NS 1,000 ML IV SCH ×2 (01:10→21:08)
[2020-09-08] MEDS: IPRATROPIUM/ALBUTEROL SULFATE 3 ML AMPUL.NEB (DUONEB) INH SCH ×4 (01:31→19:19)
--- NOTE | 2020-09-08 02:00 | NUR ---
Patient's temperature is 98.4
[2020-09-08] MEDS: MORPHINE 2 MG/ML INJ. SYRINGE IVP PRN ×4 (02:11→23:00)
--- NOTE | 2020-09-08 04:56 | NUR ---
Paged Dr. Nava at exchange [phone].
[2020-09-08] MEDS: HYDROmorphone 2 MG/ML VIAL IVP PRN ×2 (04:58→21:34)
--- NOTE | 2020-09-08 05:22 | NUR ---
Informed Dr. Nava of increase work of breathing and tachycardia. New orders received.
--- NOTE | 2020-09-08 05:30 | NUR ---
Patient experienced a 20 second seizure episode. Inserted bite block so patient does not bite on tongue. Temp was 100.6. Tyenol given.
[2020-09-08] MEDS ORDERED: ALBUMIN HUMAN 25% 100 ML IV ONE (05:39)
[2020-09-08] MEDS: PIPERACILLIN/TAZO 4.5GM/DEX-IS 100 ML IV SCH (05:56)
[2020-09-08] MEDS: MIDODRINE HCL 5 MG TABLET (PROAMATINE) GT SCH ×3 (05:56→21:09)
[2020-09-08] MEDS: ALBUMIN HUMAN 25% 100 ML IV SCH ×3 (05:56→23:17)
[2020-09-08] MEDS: FUROSEMIDE 20 MG/2 ML VIAL IVP SCH ×3 (05:57→23:17)
[2020-09-08 06:20] LABS: BASOPHILS # (AUTO) 0.1 K/uL (0.0-0.2); BASOPHILS % (AUTO) 1.3 % (0.0-2.0); EOSINOPHILS # (AUTO) 0.2 K/uL (0.0-0.4); EOSINOPHILS % (AUTO) 1.7 % (0.0-4.0); HEMATOCRIT 26.7 % (36-54); HEMOGLOBIN 8.8 g/dL (14.0-18.0); LYMPHOCYTES # (AUTO) 1.1 K/uL (1.0-5.5); LYMPHOCYTES % (AUTO) 11.5 % (20.5-51.5); MEAN CORPUSCULAR HEMOGLOBIN 34 pg (27-31); MEAN CORPUSCULAR HGB CONC 33 % (32-36); MEAN CORPUSCULAR VOLUME 103 fL (79.0-98.0); MONOCYTES # (AUTO) 0.4 K/uL (0.0-1.0); MONOCYTES % (AUTO) 4.3 % (1.7-9.3); NEUTROPHILS # (AUTO) 7.6 K/uL (1.8-7.7); NEUTROPHILS % (AUTO) 81.2 % (40.0-70.0); PLATELET COUNT (AUTO) 87 K/uL (130-430); RED BLOOD CELL COUNT(AUTO) 2.59 MIL/uL (4.2-6.2); RED CELL DISTRIBUTION WIDTH 21.4 % (9.0-15.0); WHITE BLOOD COUNT (AUTO) 9.4 K/uL (4.8-10.8)
[2020-09-08 06:23] LABS: ALBUMIN 2.2 g/dL (3.4-4.8); CALCIUM 8.4 mg/dL (8.4-11.0); CREATININE 1.47 mg/dL (0.55-1.30); PHOSPHORUS 4.2 mg/dL (2.7-4.5); POTASSIUM 4.5 mmol/L (3.5-5.1); TOTAL BILIRUBIN 0.8 mg/dL (0.0-1.0)
--- NOTE | 2020-09-08 07:00 | NUR ---
MD Oseguera paged to inform him on patient's seizure activity
--- NOTE | 2020-09-08 07:04 | NUR ---
RT NOTES Placed OPA per nurse's request. Pt. appears to tolerate, no gagging noted.
[2020-09-08] MEDS: ACETAMINOPHEN 650 MG/20.3 ML UDC GT PRN ×2 (07:20→21:35)
--- NOTE | 2020-09-08 07:25 | NUR ---
RT NOTES FIO2 to 0.70 due to low saturation.
--- NOTE | 2020-09-08 07:40 | NUR ---
AM ASSESSMENT. PT OBTUNDED, BITE BLOCK INPLACE, SEIZURE ABOUT 15 SECONDS, TEMP 102.5, HEAD OF BED ELEVATED, TRACH TO VENT, COLD PACKS APPLIED TO EXTREMITIES, LIGHT LAYER OF LINEN ON TOP OF HIM FOR COMFORT.
--- NOTE | 2020-09-08 08:08 | NUR ---
HIGH ALERT NOTE: Called Dr. Oseguera back at identified within the medical roster to verify physician authenticity. New order for Ativan 1mg Q2HRP for seizure.
[2020-09-08] MEDS: FAMOTIDINE 20 MG TABLET GT SCH ×2 (09:00→21:08)
[2020-09-08] MEDS: ENOXAPARIN SODIUM 30 MG/0.3 ML SYRINGE SQ SCH ×2 (09:00→21:31)
[2020-09-08] MEDS: MULTIVITS,CA,MINERALS/IRON/FA 1 TABLET GT SCH (09:00)
[2020-09-08] MEDS: ASCORBIC ACID 500 MG TABLET GT SCH (09:00)
[2020-09-08] MEDS: LACTOBACILLUS RHAMNOSUS GG 1 CAP CAPSULE PO SCH ×2 (09:00→21:08)
[2020-09-08] MEDS: LORazepam 2 MG/ML VIAL IVP PRN ×4 (09:11→21:40)
[2020-09-08] MEDS: levETIRAcetam 500 MG in NS 100 ML IV SCH ×2 (09:11→21:08)
--- NOTE | 2020-09-08 09:11 | NUR ---
MEDS. ATIVAN 1 MG IVP GIVEN FOR 10 SECONDS SEIZURE, CONTINUE COOLING MEASURES, TEMP READING 102.
--- NOTE | 2020-09-08 09:35 | NUR ---
RT NOTES FIO2 to 0.60. @0950 Vt to [address] delcid's order.
--- NOTE | 2020-09-08 09:47 | NUR ---
- Сергей Spoke to Dr. Nava, provided ABG results from 09/08/2020 and previous day 09/07/2020. New orders received for tidal volume to 500.
--- NOTE | 2020-09-08 10:05 | NUR ---
Maria WHITE WENT TO SEE PATIENT. REMOVED EXISTING FEEDING TUBE AND REPLACED WITH A 20 FR SIZE GTUBE. MODERATE AMOUNT OF GREENISH BILE DRAINAGE SEEPED OUT FROM PT'S GTUBE SITE. CLEANSED AREA WITH WET WIPES, PAT DRY WITH GAUZE, AND COVERED GTUBE SITE WITH SLIT GAUZE DRESSING.
[2020-09-08] MEDS: MICAFUNGIN SODIUM 100 MG in NS 100 ML IV SCH (10:24)
[2020-09-08] MEDS: AMIKACIN SULFATE 1,000 MG in NS 250 ML IV SCH (11:25)
[2020-09-08] MEDS ORDERED: GASTROGRAFIN 120 ML ONE (11:34)
--- NOTE | 2020-09-08 11:52 | NUR ---
XRAY. KUB DONE AT BEDSIDE FOR CONFIRMATION OF FEEDING TUBE.
--- NOTE | 2020-09-08 12:36 | NUR ---
Nutrition F/U Admitting Diagnosis: Septic shock Medical History Comment: Pt w/: Septic shock, Bilateral pneumonia, Dehydration, CHRISTIANO, Chronic Respiratory failure, Down Syndrome, DM per MD notes. PMH: Down, syndrome, DM, Chronic respiratory failure, Tracheostomy and GT placement. SARS-CoV-2 Ag Rapid 08/10 Negative Subjective Information: Pt is seen in ICU, appeared edematous. TPN infusing as ordered. Pt w/ active EN order but not infusing during visit. RD s/w pt's primary RN who reported that plan is to replace GT today and resume EN support. Pt is on TPN and D5 NS IV at 50ml/hr. RD discussed fluid overload vs current fluids infusing. Per EMR review, MD notes states that pt continues to have episodes of fever, on and off. Pt is on vent and retaining fluids. Per GI physician, pt w/ high gastric residuals (300ml 09/06 and 09/07; 50ml 09/08) and EN held, pt on TPN. Plan to replace GT once available. Abdomen is distended w/ active bowel sounds. BM 09/06 x2. Per RN notes, 3+ pitting generalized edema. Pt w/ multiple IVs infusing and TPN is not appropriate d/t fluid retention. RD rec EN support: 1.5 jelena/ml pt needs can be met w/ less volume vs TPN. Current Diet Order/Nutrition Support: TPN D30%, AA8.5% at 80 ml/hr via central line Current TPN Provides: 1305 kcal/day, 82 gm protein/day, 1920 ml total volume/day, and GIR: 3 gm CHO/kg/min Current TPN Meets: 62% of estimated caloric needs and 92% of upper end of estimated protein needs EN Support: Glucerna 1.2 at 20 ml/hr, Free Water Flush: 150 ml Q 8 hrs via GT --active order but not infusing. Current EN Support Provides: 576 kcal/day, 29 gm protein/day, and 836 ml free water/day Current EN Support Meets: 27% of estimated caloric needs and 49% of lower end of estimated protein needs Pertinent Medications: lasix, morphine, IV ALB, D5%NS at 50 ml/hr (204 kcal/day), culturelle, SSI, theragran, VIT C, lovenox Pertinent Labs: 09/08: Na 143WNL, K 4.5WNL, BG 106H, POC BG 107H, BUN 33H, Cre 1.47H Ht: 54/64 Wt: (08/28): 65 kg, 143 lbs (08/22): 133.7 lbs, 60.7 kg (08/17): 63.957 kg/ 140 lbs, (08/17) 141#/ 64kg,(08/12) 139#/63.845861 kg; 141#/64 kg (08/17) *wt stable Body Mass Index: (08/28): 24.54 kg/m2, (08/22): 23 kg/m2, (08/17): 24.2 kg/m2, (08/12): 23.86 kg/m2), (08/17): 24.2 kg.m2 Weight status: appropriate [place]/Adjusted Body Weight: 130#/ 59kg; Adj IBW QP: 114#/ 52kg NEW Estimated Energy Expenditure (kcals/day) 2040 Kcal/day (PSU 2003 for vent, febrile) Estimated Protein Required (g/day) 59-89 gm/day (1-1.5 gm/kg IBW for sepsis, renal Dz predialysis and wound) Estimated Fluid Required (l/day) per MD (ARF) Problem/Etiology/Signs/Symptoms Increased nutrient needs r/t metabolic demands AEB wounds. (*ongoing) Altered nutrition related labs r/t endocrine dysfunction AEB elevated BG. (*ongoing) Inadequate PN intake r/t current PN order AEB current PN meets <65% of estimated needs (resolved, PN meeting estimated nutrition needs 08/25) Altered GI function r/t increased gastric motility AEB diarrhea, rectal tube in place, + C.diff. (*pt tested negative for C.diff, but remains w/ diarrhea, rectal tube) Expected Outcomes/Goals Monitor PN tolerance, resume EN support, and intake w/ goal of pt meeting more than 75% of estimated nutritional needs, labs trending WNL, normal GI function, skin integrity/wt maintenance (ongoing) Dietitian Recommendations * Recommend continuing Culturelle * Recommend Banatrol TID * Recommend: modify EN formula (1.5 jelena/ml pt needs can be met w/ less volume) * Recommend: initiate Glucerna 1.5 at 45ml/hr, FWF per physician via GT * Initial EN rate of 20ml, slowly increase Q8H by 10ml to goal rate of 45ml. Provides: 1620 kcal/day, 89 gm protein/day, and 820 ml free water/day Meets: 79% of estimated caloric needs and 100% of upper end of estimated protein needs * Consider slowly tapering down TPN if/when medically appropriate Follow Up High risk 2-3 days
[2020-09-08] MEDS: LEVOFLOXACIN 250 MG/D5W 50 ML IV SCH (12:41)
--- NOTE | 2020-09-08 12:53 | NUR ---
Dietitian Recommendations * Recommend continuing Culturelle * Recommend Banatrol TID * Recommend: modify EN formula (1.5 jelena/ml pt needs can be met w/ less volume) * Recommend: initiate Glucerna 1.5 at 45ml/hr, FWF per physician via GT * Initial EN rate of 20ml, slowly increase Q8H by 10ml to goal rate of 45ml. Provides: 1620 kcal/day, 89 gm protein/day, and 820 ml free water/day Meets: 79% of estimated caloric needs and 100% of upper end of estimated protein needs * Consider slowly tapering down TPN if/when medically appropriate Please see Nutrition F/U note for details. CHELSI, RD
--- NOTE | 2020-09-08 14:15 | NUR ---
WOUND EVALUATION: Late note for 09/08/2020 at 1415 secondary to patient care. Patient received in a [facility] Bed with an IsoFlex ARISTIDES mattress with low air-loss therapy, awake, nonverbal, nonresponsive to verbal commands. Patient is unable to turn in bed independently. Joel Score is a 7. Past Medical History: Diabetes Mellitus, Down Syndrome, Chronic Respiratory Failure, Tracheostomy, G-tube placement. Admitted for Hypotension, initial workup significant for Septic Shock, Dehydration, and Acute Renal Failure. Intrinsic factors that delay wound healing: Diabetes Mellitus, Chronic Respiratory Failure, Acute Renal Failure, Septic Shock, severe Malnutrition, Bilateral Pneumonia, Anemia. Extrinsic factors that delay wound healing: Decreased mobility. Per assessment by Dr. Oseguera: "1. SEPTIC SHOCK. 2. SEVER MALNUTRITION. 3. UTI 4. DEHYDRATION. 5. ARF 6. C DIFF COLITIS 7. ANEMIA 8. BILATERAL PNEUMONIA 9.FUNGEMIA 10.GRAM NEGATIVE SEPTICEMIA" Wound Assessment: 1. Sacral/Buttocks areas: Blanchable redness (IAD/MASD) with brown discoloration (resolved). 2. Left Sacral area: Area of wrinkly brown skin (resolved). 3. Right Buttock: Blanchable redness with wound, present on admission. Site has 100% pink scar tissue (resolved). Recommend continue: Cleanse sites with normal saline. Apply moisture barrier cream to sites. Cover with Sacral foam dressing. Perform site care daily, and as needed for dressing soiling or dislodgement. Do not rub involved areas. 4. Right Lateral Malleolus: Blanchable redness, present on admission. 5. Left Heel: Non-blanchable dark red tissue with brown discoloration, present on admission. 6. Right Heel: Blanchable dark red tissue with brown discoloration, present on admission. Recommend continue: Elevate, offload and float bilateral heels, ankles and feet with one pillow lengthwise under each extremity at all times. Do not allow any portion of heels, ankles or feet to to touch bed or other surfaces at any time. 7. Left Abdominal Fold: Intertrigo with erythema and MASD. Open area has 100% yellow tissue. Surrounding tissue has blanchable red erythema. Site measures 0.2 cm x 5.5 cm. 8. Left Inguinal Fold: Intertrigo with erythema and MASD. Open area has 100% pink tissue. Surrounding tissue has blanchable red erythema. Site measures 1.5 cm x 4.0 cm. Recommend: Cleanse involved areas with normal saline. Pat dry. Apply antifungal powder to involved areas. Dust off excess powder with clean gauze. Cut Interdry Ag cough into appropriate size and place in between all Abdominal and Inguinal fold areas. 9. Right Superior Neck Area, Medial To Ear Lobe: Friction blister from tape rubbing. Bulla present, closed, with same color tissue as surrounding skin. No odor, no drainage. Recommend: Leave open to air. Offload area with 1-2 towels folded into thirds at all times. 10. Right Outer (Lateral) Ear ([place]): Possible tape related injury. Site has 100% red tissue. No odor, no drainage. Periwound intact. Site measures 1.5 cm x 0.3 cm. 12. Right Posterior (Medial) Ear ([place]): Possible tape related injury. Site has 100% red tissue. No odor, no drainage. Periwound intact. Site measures 1.7 cm x 0.5 cm. Recommend: Cleanse involved areas with normal saline. Apply alginate dressing to involved areas. Cover alginate dressing with nonadhesive foam dressing cut to size. Secure dressings with transparent dressings. Perform site care daily, and as needed for dressing soiling or dislodgment. Offload area with 1-2 towels folded into thirds at all times. Also recommend continue: Reposition patient side to side only every 2 hours with pillow support and off-load pressure areas with pillows for pressure re-distribution. Offload, elevate and float bilateral heels with pillows. Perform skin care and monitor skin integrity Q shift. Use moisture barrier cream on buttocks and other moisture susceptible areas QID and as needed for soiling. Maintain patient on low air loss therapy.
--- NOTE | 2020-09-08 14:15 | NUR ---
SKIN CARE.' GTUBE DRESSING CHANGED, MODERATELY SATURATED WITH BILE GREEN DRAINAGE, SKIN MOISTENED WITH WET TOWEL, PAT DRY, MOISTURE BARRIER CREAM UNDER G TUBE DEVICE APPLIED, CUT SEASORB ALGINATE DRESSING THEN FOAM DRESSING TO COVER AND SECURE.
[2020-09-08] MEDS: NOREPINEPHRINE BITARTRATE 16 MG in NS 234 ML IV PRN (15:32)
--- NOTE | 2020-09-08 19:30 | NUR ---
Opening Note Received report from AM nurse using SBAR approach.
--- NOTE | 2020-09-08 19:31 | NUR ---
G tube feeding was started by previous shift at 1800. Will monitor feeding.
--- NOTE | 2020-09-08 20:00 | NUR ---
Patient's temperature is 102.7. Placed ice packs on patient's armpits and forehead. Gave tyenol.
[2020-09-08] MEDS ORDERED: SODIUM CHLORIDE IV SCH ×12 (21:00)
[2020-09-08] MEDS ORDERED: [UNRECOGNIZED DRUG - OTHER] IV SCH ×12 (21:00)
[2020-09-08] MEDS ORDERED: TPN CENTRAL IV SCH ×12 (21:00)
[2020-09-08] MEDS ORDERED: SODIUM ACETATE IV SCH ×12 (21:00)
--- NOTE | 2020-09-08 21:00 | NUR ---
Family Talked to Rian, patient's brother. Updated him on patient's seizure activity and infection. Brother stated understanding. Answered all questions.
--- NOTE | 2020-09-08 22:00 | NUR ---
Patient's temperature is 101.3
--- NOTE | 2020-09-08 23:00 | NUR ---
patient's temperature is 100.5
[2020-09-09] VITALS (35 sets, daily range): BP systolic 99–170
--- NOTE | 2020-09-09 | NUR ---
patient's temperature is 99.6
[2020-09-09] MEDS: IPRATROPIUM/ALBUTEROL SULFATE 3 ML AMPUL.NEB (DUONEB) INH SCH ×4 (01:14→19:05)
[2020-09-09] MEDS: MORPHINE 2 MG/ML INJ. SYRINGE IVP PRN (04:30)
[2020-09-09] MEDS: MIDODRINE HCL 5 MG TABLET (PROAMATINE) GT SCH ×3 (05:49→21:26)
[2020-09-09] MEDS: ALBUMIN HUMAN 25% 100 ML IV SCH ×2 (05:49→15:36)
[2020-09-09] MEDS: FUROSEMIDE 20 MG/2 ML VIAL IVP SCH ×2 (05:49→15:32)
[2020-09-09] MEDS: INSULIN REGULAR, HUMAN 100 UNITS/ML, 10 ML VIAL (humuLIN R) SUBCUT PRN (05:52)
[2020-09-09] MEDS: HYDROmorphone 2 MG/ML VIAL IVP PRN ×3 (06:00→19:30)
--- NOTE | 2020-09-09 07:15 | NUR ---
RN notes: received report from endorsing stripper and printer RN for continuation of care, patient is lying in bed, no signs of acute distress noted at this time. bed locked at lowest position, fall and safety precaution in place.
[2020-09-09 07:25] LABS: ALBUMIN 2.3 g/dL (3.4-4.8); CALCIUM 8.6 mg/dL (8.4-11.0); CREATININE 1.63 mg/dL (0.55-1.30); PHOSPHORUS 3.8 mg/dL (2.7-4.5); POTASSIUM 3.9 mmol/L (3.5-5.1)
[2020-09-09] MEDS: MULTIVITS,CA,MINERALS/IRON/FA 1 TABLET GT SCH (08:55)
[2020-09-09] MEDS: levETIRAcetam 500 MG in NS 100 ML IV SCH ×2 (08:55→21:26)
[2020-09-09] MEDS: ASCORBIC ACID 500 MG TABLET GT SCH (08:55)
[2020-09-09] MEDS: FAMOTIDINE 20 MG TABLET GT SCH ×2 (08:55→21:25)
[2020-09-09] MEDS: LACTOBACILLUS RHAMNOSUS GG 1 CAP CAPSULE PO SCH ×2 (08:55→21:42)
[2020-09-09] MEDS: ENOXAPARIN SODIUM 30 MG/0.3 ML SYRINGE SQ SCH ×2 (08:56→21:41)
[2020-09-09] MEDS: LORazepam 2 MG/ML VIAL IVP PRN (09:16)
[2020-09-09] MEDS: MICAFUNGIN SODIUM 100 MG in NS 100 ML IV SCH (09:53)
[2020-09-09] MEDS: ACETAMINOPHEN 650 MG/20.3 ML UDC GT PRN ×2 (11:29→18:22)
[2020-09-09] MEDS: LEVOFLOXACIN 250 MG/D5W 50 ML IV SCH (11:51)
--- NOTE | 2020-09-09 16:00 | NUR ---
RN notes: change bed linen and provided CHG bath,change wound dressings.
--- NOTE | 2020-09-09 16:35 | NUR ---
RT NOTES FIO2 to 0.70 due to low saturation. Improvement noted. Rn made aware.
[2020-09-09] MEDS: D5NS 1,000 ML IV SCH (18:01)
--- NOTE | 2020-09-09 19:11 | NUR ---
RN notes: endorsed patient to flatwork washer RN for continuation of care.
--- NOTE | 2020-09-09 19:20 | NUR ---
Dr Oseguera at bedside for assessment; no new orders received.
--- NOTE | 2020-09-09 19:30 | NUR ---
Opening note Received report and assumed care. Vent to trach tolerating settings on AC 22 TV 500 FIO2 70% peep 5+. Eyes closed and responding to pain. Levophed infusing to KERRI picc patent. Contreras catheter draining to gravity. will continue to monitor as per unit protocol.
--- NOTE | 2020-09-09 20:15 | NUR ---
Assessment completed, repositioned for comfort. Occasional cough requiring endotracheal suctioning; moderate amount of secretions thick and beige. will continue to monitor.
[2020-09-09] MEDS ORDERED: [UNRECOGNIZED DRUG - OTHER] IV SCH ×13 (21:00)
[2020-09-09] MEDS ORDERED: SODIUM ACETATE IV SCH ×13 (21:00)
[2020-09-09] MEDS ORDERED: TPN CENTRAL IV SCH ×13 (21:00)
[2020-09-09] MEDS ORDERED: SODIUM CHLORIDE IV SCH ×13 (21:00)
[2020-09-09] MEDS ORDERED: AMIKACIN SULFATE 1,000 MG in NS 250 ML IV SCH ×4 (23:00)
[2020-09-10] VITALS (34 sets, daily range): BP systolic 105–155
[2020-09-10] MEDS: LORazepam 2 MG/ML VIAL IVP PRN ×2 (00:22→10:58)
[2020-09-10] MEDS: ACETAMINOPHEN 650 MG/20.3 ML UDC GT PRN (00:33)
[2020-09-10] MEDS: IPRATROPIUM/ALBUTEROL SULFATE 3 ML AMPUL.NEB (DUONEB) INH SCH ×4 (00:50→19:36)
[2020-09-10] MEDS: HYDROmorphone 2 MG/ML VIAL IVP PRN ×3 (01:55→20:30)
[2020-09-10] MEDS: MIDODRINE HCL 5 MG TABLET (PROAMATINE) GT SCH ×3 (06:14→22:31)
[2020-09-10 06:39] LABS: BASOPHILS # (AUTO) 0.1 K/uL (0.0-0.2); BASOPHILS % (AUTO) 0.9 % (0.0-2.0); EOSINOPHILS # (AUTO) 0.1 K/uL (0.0-0.4); EOSINOPHILS % (AUTO) 1.5 % (0.0-4.0); HEMATOCRIT 23.4 % (36-54); HEMOGLOBIN 7.5 g/dL (14.0-18.0); LYMPHOCYTES # (AUTO) 0.7 K/uL (1.0-5.5); LYMPHOCYTES % (AUTO) 10.5 % (20.5-51.5); MEAN CORPUSCULAR HEMOGLOBIN 34 pg (27-31); MEAN CORPUSCULAR HGB CONC 32 % (32-36); MEAN CORPUSCULAR VOLUME 105 fL (79.0-98.0); MONOCYTES # (AUTO) 0.2 K/uL (0.0-1.0); MONOCYTES % (AUTO) 3.4 % (1.7-9.3); NEUTROPHILS # (AUTO) 5.4 K/uL (1.8-7.7); NEUTROPHILS % (AUTO) 83.7 % (40.0-70.0); RED BLOOD CELL COUNT(AUTO) 2.24 MIL/uL (4.2-6.2); RED CELL DISTRIBUTION WIDTH 21.8 % (9.0-15.0); WHITE BLOOD COUNT (AUTO) 6.4 K/uL (4.8-10.8)
[2020-09-10 06:54] LABS: ALBUMIN 2.1 g/dL (3.4-4.8); CALCIUM 8.4 mg/dL (8.4-11.0); CREATININE 1.88 mg/dL (0.55-1.30); PHOSPHORUS 3.4 mg/dL (2.7-4.5); POTASSIUM 4.1 mmol/L (3.5-5.1); TOTAL BILIRUBIN 1.1 mg/dL (0.0-1.0)
--- NOTE | 2020-09-10 07:15 | NUR ---
opening notes; received bedside report from endorsing night shift manager RN, patient is lying in bed with an IVF of D5 NS @50, Levophed @ 0.03 mcg/kg/min, and TPN @ 80. Patient is on trach to Vent AC 22, TV 500,FiO2 70 and PEEP 5. Contreras catheter in place draining to gravity.bed locked at lowest position , fall and safety precaution in place.
[2020-09-10 07:16] LABS: PLATELET COUNT (AUTO) 42 K/uL (130-430)
[2020-09-10] MEDS: FAMOTIDINE 20 MG TABLET GT SCH ×2 (08:16→21:00)
[2020-09-10] MEDS: LACTOBACILLUS RHAMNOSUS GG 1 CAP CAPSULE PO SCH ×2 (08:16→21:00)
[2020-09-10] MEDS: ASCORBIC ACID 500 MG TABLET GT SCH (08:16)
[2020-09-10] MEDS: MULTIVITS,CA,MINERALS/IRON/FA 1 TABLET GT SCH (08:16)
[2020-09-10] MEDS: levETIRAcetam 500 MG in NS 100 ML IV SCH ×2 (08:17→20:11)
[2020-09-10] MEDS: ENOXAPARIN SODIUM 30 MG/0.3 ML SYRINGE SQ SCH ×2 (08:19→21:00)
--- NOTE | 2020-09-10 09:00 | NUR ---
RN notes; talked to on the phone and told about the ABG result, he ordered to change the PEEP from 5 to 7.
--- NOTE | 2020-09-10 09:25 | NUR ---
rt notes 0927 Per ABG results, Dr Nava ordered PEEP to be increased to 7. Saturation 96%, pt tolerating changes, will continue to monitor pt. MAUREEN Roland aware of changes.
[2020-09-10] MEDS: LEVOFLOXACIN 250 MG/D5W 50 ML IV SCH (10:44)
--- NOTE | 2020-09-10 12:25 | NUR ---
RN notes; spoke to patient brother on the phone
[2020-09-10] MEDS: D5NS 1,000 ML IV SCH (14:43)
--- NOTE | 2020-09-10 14:52 | NUR ---
RN notes: Dr. Oseguera is at bedside assessing the patient, verbal reports given, and told him about the platelet count.
--- NOTE | 2020-09-10 19:30 | NUR ---
Opening note Received report and assumed care. Vent to trach tolerating settings on AC 22 TV 500 FIO2 70% peep 7+. Eyes closed and responding to pain. Levophed infusing to KERRI picc patent. Contreras catheter draining to gravity. will continue to monitor as per unit protocol.
--- NOTE | 2020-09-10 20:30 | NUR ---
Suctioned and repositioned for comfort. Assessment completed; noted temp raising fro 98.7 to 100.0 F. Cooling measures established and Tylenol will be provided as per PRN orders. will continue to monitor.
[2020-09-10] MEDS ORDERED: SODIUM CHLORIDE IV SCH ×12 (21:00)
[2020-09-10] MEDS ORDERED: POTASSIUM ACETATE IV SCH ×12 (21:00)
[2020-09-10] MEDS ORDERED: TPN CENTRAL IV SCH ×12 (21:00)
[2020-09-10] MEDS ORDERED: [UNRECOGNIZED DRUG - OTHER] IV SCH ×12 (21:00)
--- NOTE | 2020-09-10 21:00 | NUR ---
Residuals 200 ; GTF held
[2020-09-11] VITALS (33 sets, daily range): BP systolic 102–152
[2020-09-11] MEDS: IPRATROPIUM/ALBUTEROL SULFATE 3 ML AMPUL.NEB (DUONEB) INH SCH ×4 (01:20→19:39)
[2020-09-11] MEDS: HYDROmorphone 2 MG/ML VIAL IVP PRN ×2 (03:37→10:58)
--- NOTE | 2020-09-11 04:00 | NUR ---
Residuals <100; GTF restarted at 20 cc/h.
[2020-09-11] MEDS: MIDODRINE HCL 5 MG TABLET (PROAMATINE) GT SCH ×3 (05:57→20:32)
[2020-09-11 06:39] LABS: BASOPHILS # (AUTO) 0.2 K/uL (0.0-0.2); BASOPHILS % (AUTO) 2.8 % (0.0-2.0); EOSINOPHILS # (AUTO) 0.1 K/uL (0.0-0.4); EOSINOPHILS % (AUTO) 2.2 % (0.0-4.0); HEMATOCRIT 23.7 % (36-54); HEMOGLOBIN 7.8 g/dL (14.0-18.0); LYMPHOCYTES % (AUTO) 15.4 % (20.5-51.5); MEAN CORPUSCULAR HEMOGLOBIN 35 pg (27-31); MEAN CORPUSCULAR HGB CONC 33 % (32-36); MEAN CORPUSCULAR VOLUME 106 fL (79.0-98.0); MONOCYTES # (AUTO) 0.4 K/uL (0.0-1.0); MONOCYTES % (AUTO) 6.7 % (1.7-9.3); NEUTROPHILS # (AUTO) 4.8 K/uL (1.8-7.7); NEUTROPHILS % (AUTO) 72.9 % (40.0-70.0); PLATELET COUNT (AUTO) 62 K/uL (130-430); RED BLOOD CELL COUNT(AUTO) 2.24 MIL/uL (4.2-6.2); RED CELL DISTRIBUTION WIDTH 23.8 % (9.0-15.0); WHITE BLOOD COUNT (AUTO) 6.6 K/uL (4.8-10.8)
--- NOTE | 2020-09-11 06:55 | NUR ---
Episode of agitation with RR 45. Patient required to be suctioned and Ativan 1 mg IVP given as per PRN orders. will continue to monitor.
--- NOTE | 2020-09-11 06:56 | NUR ---
Opening Note Received report from NOC nurse using SBAR approach.
[2020-09-11] MEDS: LORazepam 2 MG/ML VIAL IVP PRN ×2 (06:58→10:58)
[2020-09-11 07:12] LABS: ALBUMIN 1.7 g/dL (3.4-4.8); CALCIUM 8.3 mg/dL (8.4-11.0); CREATININE 1.73 mg/dL (0.55-1.30); PHOSPHORUS 3.5 mg/dL (2.7-4.5); POTASSIUM 3.8 mmol/L (3.5-5.1); TOTAL BILIRUBIN 0.7 mg/dL (0.0-1.0)
[2020-09-11] MEDS: MULTIVITS,CA,MINERALS/IRON/FA 1 TABLET GT SCH (08:16)
[2020-09-11] MEDS: levETIRAcetam 500 MG in NS 100 ML IV SCH ×2 (08:16→20:31)
[2020-09-11] MEDS: ASCORBIC ACID 500 MG TABLET GT SCH (08:16)
[2020-09-11] MEDS: LACTOBACILLUS RHAMNOSUS GG 1 CAP CAPSULE PO SCH ×2 (08:16→20:31)
[2020-09-11] MEDS: D5NS 1,000 ML IV SCH (08:16)
[2020-09-11] MEDS: ENOXAPARIN SODIUM 30 MG/0.3 ML SYRINGE SQ SCH ×2 (08:17→20:29)
[2020-09-11] MEDS: FAMOTIDINE 20 MG TABLET GT SCH ×2 (08:18→20:31)
--- NOTE | 2020-09-11 08:43 | NUR ---
DR. WHITE AT BEDSIDE, VERBAL REPORT GIVEN.
[2020-09-11] MEDS ORDERED: TUBERCULIN,PURIF.PROT.DERIV. 0.1 ML SYR ID ONE (10:27)
[2020-09-11] MEDS: LEVOFLOXACIN 250 MG/D5W 50 ML IV SCH (10:42)
[2020-09-11] MEDS: ACETAMINOPHEN 650 MG/20.3 ML UDC GT PRN ×2 (10:43→17:07)
--- NOTE | 2020-09-11 10:43 | NUR ---
TEMP 102.3 TYLENOL GIVEN
--- NOTE | 2020-09-11 11:00 | NUR ---
ATIVAN PRN GIVEN FOR AGITATION
--- NOTE | 2020-09-11 11:04 | NUR ---
DILAUDID PRN GIVEN FOR SEVERE PAIN AEB FLACC
--- NOTE | 2020-09-11 11:05 | NUR ---
DR. QUILES PAGED PENDING RETURN CALL.
--- NOTE | 2020-09-11 11:38 | NUR ---
DR. QUILES RETURNED CALL, NEW VERBAL ORDER VD FOR CONSULT OF DR. STANLEY.
--- NOTE | 2020-09-11 11:42 | NUR ---
DR. STANLEY AWARE OF CONSULT WILL COME AND SEE THE PATIENT.
[2020-09-11] MEDS: FUROSEMIDE 100 MG in D5W 90 ML IV SCH (12:29)
[2020-09-11] MEDS: METOCLOPRAMIDE HCL 10 MG/2 ML VIAL IVP SCH ×2 (13:20→21:44)
--- NOTE | 2020-09-11 15:24 | NUR ---
Nutrition F/U Admitting Diagnosis: Septic shock Medical History Comment: Pt w/: Septic shock, Bilateral pneumonia, Dehydration, CHRISTIANO, Chronic Respiratory failure, Down Syndrome, DM per MD notes. PMH: Down, syndrome, DM, Chronic respiratory failure, Tracheostomy and GT placement. SARS-CoV-2 Ag Rapid 08/10 Negative Subjective Information: RD observed isolation precautions and visited pt at bedside -- verified EN and TPN support; both infusing as per physician order. EN support Glucerna 1.5 at 20 ml/hr w/ 56 ml infused, providing 84 kcal. Ve visualized on vent machine. Bedscale wt taken: 180.4#/81.9 kg -- unsure of reliability, may be skewed d/t linens/bedding. RN was on lunch break at time of RD visit. clinical dietician reported that pt has been tolerating TF well today. RD visited ICU later this afternoon, and pt's RN stated she would try to get TF to goal rate (35 ml/hr) today. Per EMR review, pt has had minimal urine output; renal US ordered to r/o hydronephrosis; elevated GRV overnight (200 ml), therefore, GT feeding was held around 2100 09/10/20; TF Rate: 20 ml 09/11; GRV: 80 ml 09/11; TF Intakes: 240 ml 09/06; abd is distended w/ active bowel sounds; last BM x1 09/10; Joel scale: 8 -- per Acid Loader note 09/08: 1. Sacral/Buttocks areas: Blanchable redness (IAD/MASD) with brown discoloration (resolved). 2. Left Sacral area: Area of wrinkly brown skin (resolved). 3. Right Buttock: Blanchable redness with wound, present on admission. Site has 100% pink scar tissue (resolved). 4. Right Lateral Malleolus: Blanchable redness, present on admission. 5. Left Heel: Non-blanchable dark red tissue with brown discoloration, present on admission. 6. Right Heel: Blanchable dark red tissue with brown discoloration, present on admission. 7. Left Abdominal Fold: Intertrigo with erythema and MASD. Open area has 100% yellow tissue. Surrounding tissue has blanchable red erythema. 8. Left Inguinal Fold: Intertrigo with erythema and MASD. Open area has 100% pink tissue. 9. Right Superior Neck Area, Medial To Ear Lobe: Friction blister from tape rubbing. Bulla present, closed, with same color tissue as surrounding skin. No odor, no drainage. 10. Right Outer (Lateral) Ear ([place]): Possible tape related injury. Site has 100% red tissue. No odor, no drainage. Periwound intact. Site measures 1.5 cm x 0.3 cm. 12. Right Posterior (Medial) Ear ([place]): Possible tape related injury. Site has 100% red tissue. No odor, no drainage. Periwound intact. Current Diet Order/Nutrition Support: TPN D30%, AA5.4% at 80 ml/hr via central line Current TPN Provides: 1167 kcal/day, 47 gm protein/day, 1920 ml total volume/day, and GIR: 3 gm CHO/kg/min Current TPN Meets: 62% of estimated caloric needs and 80% of lower end of estimated protein needs EN Support: Glucerna 1.5 at 35 ml/hr (goal rate), Free Water Flush: 150 ml Q8H via GT x3 days Current EN Support Provides: 1260 kcal/day, 69 gm protein/day, and 1088 ml free water/day Current EN Support Meets: 67% of estimated caloric needs and 78% of upper end of estimated protein needs Pertinent Medications: lasix, morphine, IV ALB, D5%NS at 50 ml/hr (204 kcal/day), culturelle, SSI, theragran, VIT C, reglan, lactulose Pertinent Labs: BG 139 H, POC BG 129 H, BUN 45 H, CRE 1.73 H Ht: 54/64 Wt: (08/28): 65 kg, 143 lbs (08/22): 133.7 lbs, 60.7 kg (08/17): 63.957 kg/ 140 lbs, (08/17) 141#/ 64kg,(08/12) 139#/63.693816 kg; 141#/64 kg (08/17) *wt stable Body Mass Index: (08/28): 24.54 kg/m2, (08/22): 23 kg/m2, (08/17): 24.2 kg/m2, (08/12): 23.86 kg/m2), (08/17): 24.2 kg.m2 Weight status: appropriate [place]/Adjusted Body Weight: 130#/ 59kg; Adj IBW QP: 114#/ 52kg NEW Estimated Energy Expenditure (kcals/day) 1883 Kcal/day (PSU for vent, febrile -- Ve: 11; Temperature: 38.6 degrees C) Estimated Protein Required (g/day) 59-89 gm/day (1-1.5 gm/kg IBW for sepsis, renal Dz predialysis and wound) Estimated Fluid Required (l/day) per MD (ARF) Problem/Etiology/Signs/Symptoms Increased nutrient needs r/t metabolic demands AEB wounds. (*ongoing) Altered nutrition related labs r/t endocrine dysfunction AEB elevated BG. (*ongoing) Inadequate PN intake r/t current PN order AEB current PN meets <65% of estimated needs (resolved, PN meeting estimated nutrition needs, 08/25) Altered GI function r/t increased gastric motility AEB diarrhea, rectal tube in place, + C.diff. (*pt continues +C. diff, but no longer has a rectal tube, 09/05) Excessive nutrition support related to risk for overfeeding as evidence by pt is currently meeting >100% of estimated nutritional requirements. (*new, 09/11) Expected Outcomes/Goals Monitor PN tolerance, resume EN support, and intake w/ goal of pt meeting more than 75% of estimated nutritional needs, labs trending WNL, normal GI function, skin integrity/wt maintenance (ongoing) Dietitian Recommendations * D/C TPN support and observe pt's tolerance to solely EN support * If current TPN and EN support continue: TPN D30%, AA5.4% at 80 ml/hr via central line & Glucerna 1.5 at 35 ml/hr (goal rate), Free Water Flush: 150 ml Q8H via GT Combined TPN & EN provides: 2427 kcal/day, 116 gm protein/day, and 3008 total volume/day Combined TPN & EN provides: 129% of estimated caloric needs and 130% of upper end of estimated protein needs * Consider Glucerna 1.5 at 45 ml/hr (goal rate), Free Water Flush: 150 ml Q8h (per physician) via GT Provides: 1620 kcal/day, 89 gm protein/day, and 820 ml free water/day Meets: 86% of estimated caloric needs and 100% of upper end of estimated protein needs Follow Up High risk 2-3 days Addendum: 09/11/20 at [address] Pt noted w/ 3+ pitting generalized edema per EMR review
--- NOTE | 2020-09-11 15:48 | NUR ---
Dietitian Recommendations * D/C TPN support and observe pt's tolerance to solely EN support * If current TPN and EN support continue: TPN D30%, AA5.4% at 80 ml/hr via central line & Glucerna 1.5 at 35 ml/hr (goal rate), Free Water Flush: 150 ml Q8H via GT Combined TPN & EN provides: 2427 kcal/day, 116 gm protein/day, and 3008 total volume/day Combined TPN & EN provides: 129% of estimated caloric needs and 130% of upper end of estimated protein needs * Consider Glucerna 1.5 at 45 ml/hr (goal rate), Free Water Flush: 150 ml Q8h (per physician) via GT Provides: 1620 kcal/day, 89 gm protein/day, and 820 ml free water/day Meets: 86% of estimated caloric needs and 100% of upper end of estimated protein needs LP, RD Please refer to Nutrition F/U for details.
--- NOTE | 2020-09-11 15:51 | NUR ---
RN ROUNDS: PATIENT REPOSITIONED WITH PILLOW SUPPORT, BED LOW AND LOCKED FOR SAFETY, ALL NEEDS MET AT THIS TIME.
[2020-09-11] MEDS: INSULIN REGULAR, HUMAN 100 UNITS/ML, 10 ML VIAL (humuLIN R) SUBCUT PRN (17:08)
--- NOTE | 2020-09-11 17:11 | NUR ---
TEMP 101.5 TYLENOL GIVEN
--- NOTE | 2020-09-11 19:00 | NUR ---
CLOSING NOTE: REPORT GIVEN TO NOC NURSE, ALL CARES ENDORSED.
--- NOTE | 2020-09-11 19:30 | NUR ---
Opening Note Received report from AM nurse using SBAR approach.
[2020-09-11] MEDS ORDERED: methylPREDNISolone SOD SUCC/PF 62.5 MG/ML VIAL IVP SCH (19:45)
--- NOTE | 2020-09-11 20:00 | NUR ---
Patient's temperature is 98.6
[2020-09-11] MEDS: MORPHINE 2 MG/ML INJ. SYRINGE IVP PRN ×2 (20:30→22:43)
[2020-09-11] MEDS: FAT EMULSIONS 250 ML IV SCH (20:31)
[2020-09-11] MEDS ORDERED: methylPREDNISolone SOD SUCC/PF 62.5 MG/ML VIAL ONE ×2 (20:39→23:23)
[2020-09-11] MEDS ORDERED: SODIUM CHLORIDE IV SCH ×11 (21:00)
[2020-09-11] MEDS ORDERED: TPN CENTRAL IV SCH ×11 (21:00)
[2020-09-11] MEDS ORDERED: POTASSIUM CHLORIDE IV SCH ×11 (21:00)
[2020-09-11] MEDS ORDERED: [UNRECOGNIZED DRUG - OTHER] IV SCH ×11 (21:00)
--- NOTE | 2020-09-11 21:00 | NUR ---
Family Talked to Rian, brother, and updated him and answered all questions.
--- NOTE | 2020-09-11 23:00 | NUR ---
MD Dr. Nava in to see patient. No new orders received
[2020-09-12] VITALS (35 sets, daily range): BP systolic 116–156
--- NOTE | 2020-09-12 | NUR ---
patient's temperature is 98.8
[2020-09-12] MEDS: IPRATROPIUM/ALBUTEROL SULFATE 3 ML AMPUL.NEB (DUONEB) INH SCH ×4 (01:04→19:22)
--- NOTE | 2020-09-12 04:00 | NUR ---
patient's temperature is 98.8
[2020-09-12] MEDS: D5NS 1,000 ML IV SCH ×2 (05:33→07:45)
[2020-09-12] MEDS: MIDODRINE HCL 5 MG TABLET (PROAMATINE) GT SCH ×3 (05:46→22:15)
[2020-09-12] MEDS: METOCLOPRAMIDE HCL 10 MG/2 ML VIAL IVP SCH ×3 (05:46→22:16)
[2020-09-12] MEDS: INSULIN REGULAR, HUMAN 100 UNITS/ML, 10 ML VIAL (humuLIN R) SUBCUT PRN ×3 (05:49→17:46)
[2020-09-12] MEDS: MORPHINE 2 MG/ML INJ. SYRINGE IVP PRN ×3 (05:56→17:47)
[2020-09-12 07:16] LABS: ALBUMIN 1.6 g/dL (3.4-4.8); CALCIUM 8.2 mg/dL (8.4-11.0); CREATININE 1.72 mg/dL (0.55-1.30); PHOSPHORUS 3.9 mg/dL (2.7-4.5); POTASSIUM 4.4 mmol/L (3.5-5.1); TOTAL BILIRUBIN 0.6 mg/dL (0.0-1.0)
--- NOTE | 2020-09-12 07:28 | NUR ---
OPENING NOTE Patient resting in the bed. No acute distress. Trach intact to vent. HOB elevated. On GT feeding of Glucerna 1.5 at 20ml/hr. Skin warm and dry to touch. PICC line intact to KERRI, no redness, no swelling, no drainage, covered with clean and dry transparent dressing. On TPN at 80ml/hr, lipid at 5ml/hr, Lasix drip at 3ml/hr, Levophed drip decreased from 0.02mcg/kg/min to 0.01 mcg/kg/min. BP 151/77. Witness with night nurse MAUREEN Soliman. F/C intact, drain gravity. Safety measure maintained. Call light within reached. Continue to monitor.
--- NOTE | 2020-09-12 07:40 | NUR ---
SEEN AND EXAMINED BY MANAV SHAIKH WITH ORDER TO DECREASE RATE OF D5 NS FROM 50ML/HR TO 20ML/HR.
--- NOTE | 2020-09-12 08:20 | NUR ---
RT NOTES Per ABG result, FIO2 to 0.60.
[2020-09-12] MEDS: ENOXAPARIN SODIUM 30 MG/0.3 ML SYRINGE SQ SCH ×2 (09:00→20:58)
--- NOTE | 2020-09-12 09:35 | NUR ---
RT NOTES Per RN, ABG was reported to Dr Nava, no new order. is aware FIO2 to 0.60.
--- NOTE | 2020-09-12 09:38 | NUR ---
ABG RESULT Called and received call back from Baldo Ng. Reported ABG result: PH 7.344, POC2 62.6, PO2 126.3, HCO3 33.3. RT decreased HIO2 from 70% to 60%. Dr. Nava stated "that's fine" and no further order.
[2020-09-12] MEDS: levETIRAcetam 500 MG in NS 100 ML IV SCH ×2 (10:12→21:00)
[2020-09-12] MEDS: LACTOBACILLUS RHAMNOSUS GG 1 CAP CAPSULE PO SCH ×2 (10:12→20:59)
[2020-09-12] MEDS: MULTIVITS,CA,MINERALS/IRON/FA 1 TABLET GT SCH (10:12)
[2020-09-12] MEDS: FAMOTIDINE 20 MG TABLET GT SCH ×2 (10:12→20:59)
[2020-09-12] MEDS: ASCORBIC ACID 500 MG TABLET GT SCH (10:12)
[2020-09-12] MEDS: LEVOFLOXACIN 250 MG/D5W 50 ML IV SCH (11:48)
--- NOTE | 2020-09-12 11:58 | NUR ---
BS 233 Humulin R insulin 4 units given per sliding scale as ordered. No acute distress. Trach intact to vent. PICC line intact, TPN, lipid, Lasix drip, and IVF infusing well. F/C intact, drain gravity. Isolation maintained. Call light within reached. Continue to monitor.
[2020-09-12] MEDS: FUROSEMIDE 100 MG in D5W 90 ML IV SCH (11:59)
--- NOTE | 2020-09-12 13:05 | NUR ---
ROUND Patient resting in the bed. No acute distress. Trach intact to vent. PICC line intact, IVF, TPN, lipid, Lasix drip, and Levophed drip infusing well. F/C intact, drain gravity. Isolation maintained. Call light within reached. Continue to monitor.
[2020-09-12] MEDS ORDERED: methylPREDNISolone SOD SUCC/PF 62.5 MG/ML VIAL IVP SCH (14:00)
--- NOTE | 2020-09-12 15:42 | NUR ---
PICC LINE DRESSING CHANGED. ASEPTIC TECHNIQUE USED FOR DRESSING CHANGE. PATIENT TOLERATED PROCEDURE WELL.
--- NOTE | 2020-09-12 17:35 | NUR ---
CHG BATH DONE, TOLERATED WELL.
--- NOTE | 2020-09-12 17:49 | NUR ---
BS 186 Humulin R insulin 2 units given per sliding scale as ordered. No acute distress. Trach intact to vent. PICC line intact, TPN, lipid, Lasix drip, and IVF infusing well. F/C intact, drain gravity. Isolation maintained. Call light within reached. Continue to monitor.
--- NOTE | 2020-09-12 18:54 | NUR ---
CLOSING NOTE Patient resting in the bed. No acute distress. Trach intact to vent. HOB elevated all the time. Continue on GT feeding, tolerated well. Skin warm and dry to touch. PICC line intact to KERRI, no redness, no swelling, no drainage, covered with clean and dry transparent dressing. On TPN at 80ml/hr, lipid at 5ml/hr, Lasix drip at 3ml/hr, Levophed drip at 0.01mcg/kg/min. F/C intact, drain gravity. Safety measure maintained. Call light within reached. Will endorse to night nurse.
--- NOTE | 2020-09-12 18:59 | NUR ---
SEEN AND EXAMINED BY JERMAINE LEACH.
[2020-09-12] MEDS ORDERED: MORPHINE SULFATE IN 0.9 % NACL 100 ML IV PRN (19:00)
[2020-09-12] MEDS ORDERED: NALOXONE HCL 0.4 MG/ML AMP (NARCAN) IVP PRN (19:00)
[2020-09-12] MEDS: methylPREDNISolone SOD SUCC/PF 62.5 MG/ML VIAL IVP SCH (20:00)
--- NOTE | 2020-09-12 20:00 | NUR ---
TRACH TO VENT. OPENS EYES SPON. RESPONDS TO NOXIOUS STIMULI. SUCTIONED WITH MOD THIN YELLOW MUCUS OBTAINED. ORAL CARE GIVEN. GT FEEDING WITH GLUCERNA 1.5 AT 20CC/HR. RESIDUAL CHECK 5CC. GT FLUSHED WITH 150CC H2O. KERRI PICC LINE DRSG D/I. BAH CATH PATENT DRAINING CLEAR MYRTLE URINE TO GRAVITY. ON LEVOPHED AT 0.01MCG/KG/MIN. ON LASIX DRIP AT 3 MG/HR.
[2020-09-12] MEDS: FAT EMULSIONS 250 ML IV SCH (20:58)
[2020-09-12] MEDS ORDERED: POTASSIUM CHLORIDE IV SCH ×11 (21:00)
[2020-09-12] MEDS ORDERED: TPN CENTRAL IV SCH ×11 (21:00)
[2020-09-12] MEDS ORDERED: [UNRECOGNIZED DRUG - OTHER] IV SCH ×11 (21:00)
[2020-09-12] MEDS ORDERED: SODIUM CHLORIDE IV SCH ×11 (21:00)
--- NOTE | 2020-09-12 22:00 | NUR ---
HS CARE DONE.
--- NOTE | 2020-09-12 22:15 | NUR ---
BP GOOD AT 142/63. LEVOPHED OFF.
--- NOTE | 2020-09-12 22:30 | NUR ---
PT'S BROTHER FRANCISCO CALLED, UPDATED ON STATUS.
[2020-09-13] VITALS (34 sets, daily range): BP systolic 106–166
--- NOTE | 2020-09-13 | NUR ---
ACCU-CHEK 181, 2 UNITS REGULAR INSULIN SQ GIVEN PER SLIDING SCALE COV. RESIDUAL CHECK 5CC. SUCTIONED. REPOSITIONED. ORAL CARE GIVEN. TYLENOL GR 10 GT GIVEN FOR TEMP 99.6, TEMPORAL ARTERY SCAN.
[2020-09-13] MEDS: INSULIN REGULAR, HUMAN 100 UNITS/ML, 10 ML VIAL (humuLIN R) SUBCUT PRN ×4 (00:09→17:28)
[2020-09-13] MEDS: ACETAMINOPHEN 650 MG/20.3 ML UDC GT PRN (00:15)
[2020-09-13] MEDS: methylPREDNISolone SOD SUCC/PF 62.5 MG/ML VIAL IVP SCH ×4 (01:20→21:05)
--- NOTE | 2020-09-13 01:30 | NUR ---
TEMP 100.0 (ORAL).
[2020-09-13] MEDS: IPRATROPIUM/ALBUTEROL SULFATE 3 ML AMPUL.NEB (DUONEB) INH SCH ×4 (01:51→19:19)
--- NOTE | 2020-09-13 04:00 | NUR ---
1 LARGE MODERATE WATERY, GREENISH YELLOWISH BROWN STOOL DEFECATED. PAMELA-CARE DONE. BAH CARE, SKIN CARE, BACK CARE GIVEN. PARTIAL LINEN CHANGE. DOES NOT ASSIST WITH TURNING. JENNA PROC WELL. SUCTIONED. ORAL CARE RENDERED. RESIDUAL CHECK 30, GT FLUSHED WITH 150CC H2O.
[2020-09-13] MEDS: MIDODRINE HCL 5 MG TABLET (PROAMATINE) GT SCH ×3 (05:40→22:21)
[2020-09-13] MEDS: METOCLOPRAMIDE HCL 10 MG/2 ML VIAL IVP SCH ×3 (05:40→22:21)
--- NOTE | 2020-09-13 06:00 | NUR ---
SUCTIONED AND TURNED Q2 HRS AND PRN. UO GOOD. ACCU-CHEK 233, 4 UNITS REGULAR INSULIN SQ GIVEN. REMAINS IN GUARDED CONDITION.
[2020-09-13 06:44] LABS: ALBUMIN 1.7 g/dL (3.4-4.8); CREATININE 1.49 mg/dL (0.55-1.30); PHOSPHORUS 3.8 mg/dL (2.7-4.5); TOTAL BILIRUBIN 0.6 mg/dL (0.0-1.0)
[2020-09-13 07:21] LABS: BASOPHILS % (AUTO) 0.2 % (0.0-2.0); HEMATOCRIT 25.4 % (36-54); HEMOGLOBIN 7.9 g/dL (14.0-18.0); LYMPHOCYTES # (AUTO) 0.4 K/uL (1.0-5.5); LYMPHOCYTES % (AUTO) 6.5 % (20.5-51.5); MEAN CORPUSCULAR HEMOGLOBIN 33 pg (27-31); MEAN CORPUSCULAR HGB CONC 31 % (32-36); MEAN CORPUSCULAR VOLUME 106 fL (79.0-98.0); MONOCYTES # (AUTO) 0.2 K/uL (0.0-1.0); MONOCYTES % (AUTO) 3.7 % (1.7-9.3); NEUTROPHILS # (AUTO) 5.6 K/uL (1.8-7.7); NEUTROPHILS % (AUTO) 89.6 % (40.0-70.0); RED CELL DISTRIBUTION WIDTH 25.2 % (9.0-15.0); WHITE BLOOD COUNT (AUTO) 6.2 K/uL (4.8-10.8)
--- NOTE | 2020-09-13 07:46 | NUR ---
OPENING NOTE Patient resting in the bed. No acute distress. Trach intact to vent. HOB elevated. On GT feeding of Glucerna 1.5 at 20ml/hr. Skin warm and dry to touch. PICC line intact to KERRI, no redness, no swelling, no drainage, covered with clean and dry transparent dressing. On TPN at 80ml/hr, lipid at 5ml/hr, Lasix drip at 3ml/hr, D5 1/2NS at 20ml/hr, infusing well. F/C intact, drain gravity. Safety measure maintained. Call light within reached. Continue to monitor.
[2020-09-13 07:58] LABS: PLATELET COUNT (AUTO) 48 K/uL (130-430)
[2020-09-13] MEDS: LACTOBACILLUS RHAMNOSUS GG 1 CAP CAPSULE PO SCH ×2 (08:56→21:04)
[2020-09-13] MEDS: MULTIVITS,CA,MINERALS/IRON/FA 1 TABLET GT SCH (08:56)
[2020-09-13] MEDS: ENOXAPARIN SODIUM 30 MG/0.3 ML SYRINGE SQ SCH ×3 (08:56→21:03)
[2020-09-13] MEDS: ASCORBIC ACID 500 MG TABLET GT SCH (08:56)
--- NOTE | 2020-09-13 08:57 | NUR ---
LOVENOX NOT GIVEN, LOW PLATELET 48.
[2020-09-13] MEDS: FAMOTIDINE 20 MG TABLET GT SCH ×2 (09:07→21:04)
[2020-09-13] MEDS: levETIRAcetam 500 MG in NS 100 ML IV SCH ×2 (09:07→21:05)
[2020-09-13] MEDS: D5NS 1,000 ML IV SCH (09:09)
[2020-09-13] MEDS: MORPHINE 2 MG/ML INJ. SYRINGE IVP PRN ×2 (09:15→14:42)
--- NOTE | 2020-09-13 10:52 | NUR ---
WOUND CARE DONE ORDERED, TOLERATED WELL.
[2020-09-13] MEDS: LEVOFLOXACIN 250 MG/D5W 50 ML IV SCH (11:02)
[2020-09-13] MEDS: FUROSEMIDE 100 MG in D5W 90 ML IV SCH (12:37)
--- NOTE | 2020-09-13 12:45 | NUR ---
BS 1236 Humulin R insulin 4 units given per sliding scale as ordered. No acute distress. Trach intact to vent. PICC line intact, TPN, lipid, Lasix drip, and IVF infusing well. F/C intact, drain gravity. Isolation maintained. Safety measure maintained. Call light within reached. Continue to monitor. Addendum: 09/13/20 at 1607 by Hill Abel RN WRONG ENTRY BS 236
[2020-09-13] MEDS: LORazepam 2 MG/ML VIAL IVP PRN (15:49)
--- NOTE | 2020-09-13 15:59 | NUR ---
HANDS OFF Report and SBAR given to Yasmani at bedside. Patient resting in the bed. No acute distress. Trach intact to vent. PICC line intact. On TPN at 80ml/hr, lipid at 5ml/hr, Lasix drip at 3mg/hr, and D5 1/2NS at 20ml/hr, infusing well. F/C intact, drain gravity. Isolation maintained. Call light within reached. Hands off.
--- NOTE | 2020-09-13 16:02 | NUR ---
Received plan of care via sbar from endorsing RN.
--- NOTE | 2020-09-13 19:15 | NUR ---
Opening Note Patient is vent to trach, tolerating current vent settings. IV infusions to left upper arm PICC line, no signs of infiltration. Contreras catheter in place and draining to gravity. Safety precautions in place, call light within reach. Will continue to monitor.
[2020-09-13] MEDS ORDERED: TPN CENTRAL IV SCH ×11 (21:00)
[2020-09-13] MEDS ORDERED: POTASSIUM CHLORIDE IV SCH ×11 (21:00)
[2020-09-13] MEDS ORDERED: SODIUM CHLORIDE IV SCH ×11 (21:00)
[2020-09-13] MEDS ORDERED: [UNRECOGNIZED DRUG - OTHER] IV SCH ×11 (21:00)
[2020-09-13] MEDS: FAT EMULSIONS 250 ML IV SCH (21:06)
[2020-09-14] VITALS (26 sets, daily range): BP systolic 125–162
[2020-09-14] MEDS: INSULIN REGULAR, HUMAN 100 UNITS/ML, 10 ML VIAL (humuLIN R) SUBCUT PRN ×4 (00:16→19:08)
[2020-09-14] MEDS: IPRATROPIUM/ALBUTEROL SULFATE 3 ML AMPUL.NEB (DUONEB) INH SCH ×3 (01:27→19:35)
[2020-09-14] MEDS: methylPREDNISolone SOD SUCC/PF 62.5 MG/ML VIAL IVP SCH ×4 (02:36→20:34)
[2020-09-14] MEDS: HYDROmorphone 2 MG/ML VIAL IVP PRN ×3 (02:38→20:23)
[2020-09-14] MEDS: MIDODRINE HCL 5 MG TABLET (PROAMATINE) GT SCH ×3 (05:30→22:20)
[2020-09-14] MEDS: METOCLOPRAMIDE HCL 10 MG/2 ML VIAL IVP SCH ×3 (05:30→22:19)
[2020-09-14 06:49] LABS: ALBUMIN 1.8 g/dL (3.4-4.8); CALCIUM 7.6 mg/dL (8.4-11.0); CREATININE 1.2 mg/dL (0.55-1.30); PHOSPHORUS 3.1 mg/dL (2.7-4.5); POTASSIUM 3.2 mmol/L (3.5-5.1); TOTAL BILIRUBIN 0.7 mg/dL (0.0-1.0)
--- NOTE | 2020-09-14 07:12 | NUR ---
Closing Note Endorsed bedside report to incoming RN using SBAR approach for continuation of care.
--- NOTE | 2020-09-14 07:30 | NUR ---
Assumed care of the patient and pt is comfortable on current vent settings of AC 22/500/50%/p7. No secretions suctioned from trach. VSS, SR on monitor. Tube feeding infusing at 20 cc/hr and GI doctor said to increase it to goal slowly. Increased to 30 cc/hr. IVF infusing at 20 cc/hr, lasix drip infusing at 3 mg.hr, TPN infusing at 80 cc.hr and lipids at 5 cc/hr. Will monitor urine output with lasix drip. Left ear wound with dressing in place. Heels lifted off bed on pillows.
[2020-09-14] MEDS: D5NS 1,000 ML IV SCH (07:45)
[2020-09-14] MEDS: FAMOTIDINE 20 MG TABLET GT SCH ×2 (08:58→20:25)
[2020-09-14] MEDS: MULTIVITS,CA,MINERALS/IRON/FA 1 TABLET GT SCH (08:58)
[2020-09-14] MEDS: LACTOBACILLUS RHAMNOSUS GG 1 CAP CAPSULE PO SCH ×2 (08:58→20:25)
[2020-09-14] MEDS: ASCORBIC ACID 500 MG TABLET GT SCH (08:58)
[2020-09-14] MEDS: levETIRAcetam 500 MG in NS 100 ML IV SCH ×2 (08:58→20:34)
--- NOTE | 2020-09-14 10:30 | NUR ---
Suctioned for small amount of white secretions from trach. VSS. HOB up. Tolerating tube feeds still.
[2020-09-14] MEDS: LEVOFLOXACIN 250 MG/D5W 50 ML IV SCH (11:03)
[2020-09-14] MEDS: ENOXAPARIN SODIUM 30 MG/0.3 ML SYRINGE SQ SCH ×2 (11:06→20:24)
--- NOTE | 2020-09-14 11:41 | NUR ---
Nutrition F/U Admitting Diagnosis: Septic shock Medical History Comment: Pt w/: Septic shock, Bilateral pneumonia, Dehydration, CHRISTIANO, Chronic Respiratory failure, Down Syndrome, DM per MD notes. PMH: Down, syndrome, DM, Chronic respiratory failure, Tracheostomy and GT placement. SARS-CoV-2 Ag Rapid 08/10 Negative Subjective Information: Pt seen in ICU, through glass window, intubated on vent, appeared edematous. Current nutrition support of both EN and TPN infusing. RD s/w pts primary RN at nursing unit who reports EN currently infusing at 30cc per hour and pt has been tolerating EN well. RN also reports that TPN has been infusing as ordered, IV Albumin infusing as well as NaCl IV. RD discussed fluid overload from EN and TPN support and IVs and RD rec to taper off TPN and continue to increase EN to goal to meet estimated needs. RN agreed and will discuss w/ Dr. Oseguera. Per EMR, per nephrology, renal function is stable, last BM 09/13 x1. Joel scale: 11. Per Pipe Line Walker assessment 09/08: 1. Sacral/Buttocks areas: Blanchable redness (IAD/MASD) with brown discoloration (resolved). 2. Left Sacral area: Area of wrinkly brown skin (resolved). 3. Right Buttock: Blanchable redness with wound, present on admission. 4. Right Lateral Malleolus: Blanchable redness, present on admission. 5. Left Heel: Non-blanchable dark red tissue with brown discoloration, present on admission. 6. Right Heel: Blanchable dark red tissue with brown discoloration, present on admission. 7. Left Abdominal Fold: Intertrigo with erythema and MASD. 8. Left Inguinal Fold: Intertrigo with erythema and MASD. 9. Right Superior Neck Area, Medial To Ear Lobe: Friction blister from tape rubbing. Bulla present, closed. 10. Right Outer (Lateral) Ear ([place]): Possible tape related injury. 12. Right Posterior (Medial) Ear ([place]): Possible tape related injury. Current Diet Order/Nutrition Support: TPN D30%, AA5.4% at 80 ml/hr, IL20% at 5ml/hr via central line Current TPN Provides: 1407 kcal/day, 47 gm protein/day, 2040 ml total volume/day, and GIR: 3 gm CHO/kg/min Current TPN Meets: 81% of new estimated caloric needs and 80% of lower end of estimated protein needs EN Support: Glucerna 1.5 at 30 ml/hr (goal rate), Free Water Flush: 150 ml Q8H via GT x6 days Current EN Support Provides: 1260 kcal/day, 69 gm protein/day, and 1088 ml free water/day Current EN Support Meets: 72% of new estimated caloric needs and 78% of upper end of estimated protein needs Pertinent Medications: IV ALB, culturelle, SSI, theragran, VIT C, reglan, lactulose, solu-medrol, lovenox Pertinent Labs: 09/14: Na 143WNL, K 3.2L, BG 233H, POC BG 231H, BUN 46H, Cre 1.20 WNL; 09/11 TG 150WNL. Ht: 54/64 Wt: (08/28): 65 kg, 143 lbs (08/22): 133.7 lbs, 60.7 kg (08/17): 63.957 kg/ 140 lbs, (08/17) 141#/ 64kg,(08/12) 139#/63.332627 kg; 141#/64 kg (08/17) *wt stable Body Mass Index: (08/28): 24.54 kg/m2, (08/22): 23 kg/m2, (08/17): 24.2 kg/m2, (08/12): 23.86 kg/m2), (08/17): 24.2 kg.m2 Weight status: appropriate [place]/Adjusted Body Weight: 130#/ 59kg; Adj IBW QP: 114#/ 52kg NEW Estimated Energy Expenditure (kcals/day) 1740 Kcal/day (PSU 2003 for vent, febrile -- Ve: 10.7; Temperature: 37.8 degrees C) Estimated Protein Required (g/day) 59-89 gm/day (1-1.5 gm/kg IBW for sepsis, renal Dz predialysis and wound) Estimated Fluid Required (l/day) per MD (ARF) Problem/Etiology/Signs/Symptoms Increased nutrient needs r/t metabolic demands AEB wounds. (*ongoing) Altered nutrition related labs r/t endocrine dysfunction AEB elevated BG. (*ongoing) Inadequate PN intake r/t current PN order AEB current PN meets <65% of estimated needs (resolved, PN meeting estimated nutrition needs, 08/25) Altered GI function r/t increased gastric motility AEB diarrhea, rectal tube in place, + C.diff. (*pt continues +C. diff, but no longer has a rectal tube) Excessive nutrition support related to risk for overfeeding as evidence by pt is currently meeting >100% of estimated nutritional requirements. (*ongoing, as of 09/14) Expected Outcomes/Goals Monitor DC PN, resume EN support, and intake w/ goal of pt meeting more than 75% of estimated nutritional needs, labs trending WNL, normal GI function, skin integrity/wt maintenance (ongoing) Dietitian Recommendations * D/C TPN support and observe pt's tolerance to solely EN support * Recommend: slowly increase EN rate to goal. * Consider Glucerna 1.5 at 45 ml/hr (goal rate), Free Water Flush: 150 ml Q8h (per physician) via GT Provides: 1620 kcal/day, 89 gm protein/day, and 820 ml free water/day Meets: 93% of new estimated caloric needs and 100% of upper end of estimated protein needs Follow Up High risk 2-3 days
--- NOTE | 2020-09-14 11:45 | NUR ---
Pt had a brown liquid stool. Nicolette care done. Sacral dressing changed. No skin breakdown noted.
--- NOTE | 2020-09-14 11:50 | NUR ---
Dietitian Recommendations * D/C TPN support and observe pt's tolerance to solely EN support * Recommend: slowly increase EN rate to goal. * Consider Glucerna 1.5 at 45 ml/hr (goal rate), Free Water Flush: 150 ml Q8h (per physician) via GT Provides: 1620 kcal/day, 89 gm protein/day, and 820 ml free water/day Meets: 93% of new estimated caloric needs and 100% of upper end of estimated protein needs Please see Nutrition F/U note for details. CHELSI, RD
--- NOTE | 2020-09-14 14:50 | NUR ---
Pt had a liquid brown stool. Nicolette care done.
--- NOTE | 2020-09-14 15:30 | NUR ---
Tube feeding increased to 40 cc/hr.
[2020-09-14] MEDS: FUROSEMIDE 100 MG in D5W 90 ML IV SCH (15:52)
[2020-09-14] MEDS ORDERED: POTASSIUM CHLORIDE 20 MEQ/PKT PACKET PO ONE (16:15)
--- NOTE | 2020-09-14 17:30 | NUR ---
Pt's GT noted to be leaking yellow fluid, not the same color of tube feeding. Tube feeds turned off. Abd tight and distended as are all the extremities 4+. Good urine output from lasix drip.
--- NOTE | 2020-09-14 18:15 | NUR ---
Pt had a liquid brown stool. Nicolette care done.
--- NOTE | 2020-09-14 19:15 | NUR ---
Report given to oncoming RN to assume care of the patient.
[2020-09-14] MEDS ORDERED: [UNRECOGNIZED DRUG - OTHER] IV SCH ×11 (21:00)
[2020-09-14] MEDS ORDERED: POTASSIUM CHLORIDE IV SCH ×11 (21:00)
[2020-09-14] MEDS ORDERED: SODIUM CHLORIDE IV SCH ×11 (21:00)
[2020-09-14] MEDS ORDERED: TPN CENTRAL IV SCH ×11 (21:00)
--- NOTE | 2020-09-14 22:15 | NUR ---
DR. ROYAL HERE TO SEE PATIENT, NO NEW ORDERS.
[2020-09-15] VITALS (25 sets, daily range): BP systolic 133–178
[2020-09-15] MEDS: IPRATROPIUM/ALBUTEROL SULFATE 3 ML AMPUL.NEB (DUONEB) INH SCH ×4 (00:02→19:50)
[2020-09-15] MEDS: INSULIN REGULAR, HUMAN 100 UNITS/ML, 10 ML VIAL (humuLIN R) SUBCUT PRN ×4 (00:40→17:39)
[2020-09-15] MEDS: methylPREDNISolone SOD SUCC/PF 62.5 MG/ML VIAL IVP SCH ×4 (02:21→19:37)
[2020-09-15] MEDS: HYDROmorphone 2 MG/ML VIAL IVP PRN (02:24)
--- NOTE | 2020-09-15 05:35 | NUR ---
SPOKE TO PATIENTS BROTHER, UPDATE GIVEN.
[2020-09-15] MEDS: MIDODRINE HCL 5 MG TABLET (PROAMATINE) GT SCH ×3 (06:00→21:54)
[2020-09-15 06:04] LABS: BASOPHILS # (AUTO) 0.1 K/uL (0.0-0.2); BASOPHILS % (AUTO) 1.4 % (0.0-2.0); EOSINOPHILS % (AUTO) 0.3 % (0.0-4.0); HEMATOCRIT 24.9 % (36-54); LYMPHOCYTES # (AUTO) 0.4 K/uL (1.0-5.5); LYMPHOCYTES % (AUTO) 7.4 % (20.5-51.5); MEAN CORPUSCULAR HEMOGLOBIN 34 pg (27-31); MEAN CORPUSCULAR HGB CONC 32 % (32-36); MEAN CORPUSCULAR VOLUME 106 fL (79.0-98.0); MONOCYTES # (AUTO) 0.3 K/uL (0.0-1.0); NEUTROPHILS # (AUTO) 4.7 K/uL (1.8-7.7); NEUTROPHILS % (AUTO) 85.9 % (40.0-70.0); PLATELET COUNT (AUTO) 67 K/uL (130-430); RED BLOOD CELL COUNT(AUTO) 2.35 MIL/uL (4.2-6.2); RED CELL DISTRIBUTION WIDTH 25.7 % (9.0-15.0); WHITE BLOOD COUNT (AUTO) 5.5 K/uL (4.8-10.8)
[2020-09-15] MEDS: METOCLOPRAMIDE HCL 10 MG/2 ML VIAL IVP SCH ×3 (06:09→21:55)
[2020-09-15] MEDS: D5NS 1,000 ML IV SCH (06:18)
[2020-09-15 06:35] LABS: ALBUMIN 1.6 g/dL (3.4-4.8); CREATININE 1.02 mg/dL (0.55-1.30); PHOSPHORUS 2.7 mg/dL (2.7-4.5); TOTAL BILIRUBIN 0.8 mg/dL (0.0-1.0)
--- NOTE | 2020-09-15 07:00 | NUR ---
OPENING NOTE: REPORT RC'VD USING SBAR FORMAT AT BEDSIDE. ALL CARES ASSUMED.
--- NOTE | 2020-09-15 07:15 | NUR ---
ENDORSEMENT PATIENT CARE ENDORSED TO ROLY REDDY.
[2020-09-15 07:46] LABS: POTASSIUM 2.9 mmol/L (3.5-5.1)
[2020-09-15] MEDS: FAMOTIDINE 20 MG TABLET GT SCH ×2 (08:11→20:28)
[2020-09-15] MEDS: LACTOBACILLUS RHAMNOSUS GG 1 CAP CAPSULE PO SCH ×2 (08:11→20:28)
[2020-09-15] MEDS: ASCORBIC ACID 500 MG TABLET GT SCH (08:11)
[2020-09-15] MEDS: ENOXAPARIN SODIUM 30 MG/0.3 ML SYRINGE SQ SCH ×2 (08:12→20:29)
[2020-09-15] MEDS: MORPHINE 2 MG/ML INJ. SYRINGE IVP PRN (08:13)
[2020-09-15] MEDS: levETIRAcetam 500 MG in NS 100 ML IV SCH ×2 (08:14→21:00)
--- NOTE | 2020-09-15 08:23 | NUR ---
PRN MORPHINE GIVEN MORPHINE GIVEN PRN, MONITORING.
--- NOTE | 2020-09-15 08:43 | NUR ---
DR. CARDOZA: SPOKE WITH NEW ORDERS RC'VD FOR K-RIDER WILL CALL BACK MD WITH ROSTER PHONE NUMBER TO CONFIRM.
--- NOTE | 2020-09-15 08:44 | NUR ---
HIGH ALERT NOTE: Called back and identified within the medical roster to verify physician authenticity. New orders placed into EMAR per MD.
[2020-09-15] MEDS: MULTIVITS,CA,MINERALS/IRON/FA 1 TABLET GT SCH (09:29)
[2020-09-15] MEDS ORDERED: POTASSIUM CHLORIDE 30 MEQ in NS 250 ML IV ONE (10:00)
--- NOTE | 2020-09-15 10:00 | NUR ---
RN ROUNDS: PATIENT REPOSITIONED FOR COMFORT WITH PILLOW SUPPORT, BED LOW AND LOCKED FOR SAFETY.
[2020-09-15] MEDS: FUROSEMIDE 100 MG in D5W 90 ML IV SCH (11:51)
--- NOTE | 2020-09-15 12:00 | NUR ---
RN ROUNDS: PAMELA-CARE PROVIDED AFTER LARGE LOOSE STOOL, BARRIER CREAM APPLIED. PATIENT TOLERATED WELL.
--- NOTE | 2020-09-15 15:39 | NUR ---
DR. CRADOZA AT BEDSIDE, STATED SHE WILL PLACE NEW ORDERS INTO EMAR.
--- NOTE | 2020-09-15 16:00 | NUR ---
G-TUBE DRAINAGE: EXCESSIVE G-TUBE DRAINAGE NOTED BRIGHT YELLOW, FEEDING STOPPED WILL PAGE TO NOTIFY HIM.
--- NOTE | 2020-09-15 16:10 | NUR ---
PAGED DR. WHITE, PENDING RETURN CALL.
[2020-09-15] MEDS: ALBUMIN HUMAN 25% 100 ML IV SCH ×2 (17:39→20:35)
--- NOTE | 2020-09-15 18:12 | NUR ---
DR. HEATH AT BEDSIDE, VERBAL REPORT GIVEN, NO NEW ORDERS.
--- NOTE | 2020-09-15 19:03 | NUR ---
CLOSING NOTE: REPORT GIVEN NOC NURSE, ALL CARES ENDORSED. PATIENT STABLE IN NO ACUTE DISTRESS AND OR DISCOMFORT.
--- NOTE | 2020-09-15 20:00 | NUR ---
TRACH TO VENT. SUCTIONED WITH MOD AMOUNT OF THICK YELLOW MUCUS OBTAINED. ORAL CARE GIVEN. GT FEEDING WITH GLUCERNA 1.5 AT 10CC/HR. RESIDUAL CHECK 0. GT FLUSHED WITH 100CC H2O. KERRI PICC LINE DRSG D/I. ON TPN AT 80CC/HR, LASIX DRIP AT 3 MG/HR. ANASARCA NOTED. BAH CATH PATENT DRAINING CLOUDY MYRTLE URINE TO GRAVITY. CONTACT ISOLATION OBSERVED.
[2020-09-15] MEDS: ALBUMIN HUMAN 25% 100 ML IV ONE ×2 (20:28→20:32)
[2020-09-15] MEDS ORDERED: SODIUM CHLORIDE IV SCH ×11 (21:00)
[2020-09-15] MEDS ORDERED: [UNRECOGNIZED DRUG - OTHER] IV SCH ×11 (21:00)
[2020-09-15] MEDS ORDERED: TPN CENTRAL IV SCH ×11 (21:00)
[2020-09-15] MEDS ORDERED: POTASSIUM CHLORIDE IV SCH ×11 (21:00)
--- NOTE | 2020-09-15 22:00 | NUR ---
DR QUILES HERE, NO NEW ORDERS GIVEN. HS CARE DONE.
[2020-09-16] VITALS (31 sets, daily range): BP systolic 147–186
--- NOTE | 2020-09-16 | NUR ---
SUCTIONED WITH SAME RESULTS. ORAL CARE GIVEN. ACCU-CHEK 257, 6 UNITS REGULAR INSULIN SQ GIVEN.
[2020-09-16] MEDS ORDERED: ALBUMIN HUMAN 25% 100 ML IV ONE (00:11)
[2020-09-16] MEDS: ALBUMIN HUMAN 25% 100 ML IV SCH (01:12)
[2020-09-16] MEDS: methylPREDNISolone SOD SUCC/PF 62.5 MG/ML VIAL IVP SCH ×4 (01:52→20:15)
[2020-09-16] MEDS: IPRATROPIUM/ALBUTEROL SULFATE 3 ML AMPUL.NEB (DUONEB) INH SCH ×4 (02:38→19:58)
--- NOTE | 2020-09-16 04:00 | NUR ---
DOZES ON AND OFF. SUCTIONED. ORAL CARE DONE. RESIDUAL CHECK 20CC. GT FLUSHED WITH 100CC H2O.
--- NOTE | 2020-09-16 05:00 | NUR ---
ORAL CARE GIVEN. 1 MODERATE WATERY YELLOWISH BROWN STOOL DEFECATED. CLEANED. PAMELA-CARE, BAH CARE, SKIN CARE, BACK CARE DONE. GT DRSG CHANGED. PARTIAL LINEN CHANGE DONE. DOES NOT ASSIST WITH TURNING. JENNA PROC WELL.
[2020-09-16] MEDS: METOCLOPRAMIDE HCL 10 MG/2 ML VIAL IVP SCH ×3 (05:30→22:56)
[2020-09-16] MEDS: MIDODRINE HCL 5 MG TABLET (PROAMATINE) GT SCH ×3 (05:31→22:00)
--- NOTE | 2020-09-16 06:00 | NUR ---
UO GOOD. ACCU-CHEK 256, 6 UNITS REGULAR INSULIN SQ GIVEN. REMAINS IN GUARDED CONDITION.
[2020-09-16] MEDS: INSULIN REGULAR, HUMAN 100 UNITS/ML, 10 ML VIAL (humuLIN R) SUBCUT PRN ×5 (06:19→23:32)
[2020-09-16 07:06] LABS: BASOPHILS % (AUTO) 0.1 % (0.0-2.0); LYMPHOCYTES # (AUTO) 0.4 K/uL (1.0-5.5); LYMPHOCYTES % (AUTO) 8.6 % (20.5-51.5); MEAN CORPUSCULAR HEMOGLOBIN 34 pg (27-31); MEAN CORPUSCULAR HGB CONC 32 % (32-36); MEAN CORPUSCULAR VOLUME 106 fL (79.0-98.0); MONOCYTES # (AUTO) 0.2 K/uL (0.0-1.0); MONOCYTES % (AUTO) 3.8 % (1.7-9.3); NEUTROPHILS # (AUTO) 3.7 K/uL (1.8-7.7); NEUTROPHILS % (AUTO) 87.5 % (40.0-70.0); PLATELET COUNT (AUTO) 51 K/uL (130-430); WHITE BLOOD COUNT (AUTO) 4.2 K/uL (4.8-10.8)
[2020-09-16] MEDS ORDERED: IPRATROPIUM/ALBUTEROL SULFATE 3 ML AMPUL.NEB (DUONEB) ONE (07:18)
--- NOTE | 2020-09-16 07:30 | NUR ---
Opening Note Received bedside report from endorsing RN for continuation of care. Received patient trach to vent resting in bed, no signs or symptoms of acute distress noted. Bed locked in lowest position, bed alarm on, and call light within reach. Fall and safety precautions in place. All needs met.
[2020-09-16 07:59] LABS: ALBUMIN 2.7 g/dL (3.4-4.8); CALCIUM 7.1 mg/dL (8.4-11.0); CREATININE 0.9 mg/dL (0.55-1.30); FREE T4 (FREE THYROXINE) 0.6 ng/dl (0.8-1.5); THYROID STIMULATING HORMONE 1.64 uIu/mL (0.36-3.74)
[2020-09-16 08:54] LABS: POTASSIUM 2.6 mmol/L (3.5-5.1)
[2020-09-16] MEDS: MULTIVITS,CA,MINERALS/IRON/FA 1 TABLET GT SCH (09:04)
[2020-09-16] MEDS: ASCORBIC ACID 500 MG TABLET GT SCH (09:04)
[2020-09-16] MEDS: ENOXAPARIN SODIUM 30 MG/0.3 ML SYRINGE SQ SCH ×2 (09:04→20:17)
[2020-09-16] MEDS: LACTOBACILLUS RHAMNOSUS GG 1 CAP CAPSULE PO SCH ×2 (09:04→20:16)
[2020-09-16] MEDS: FAMOTIDINE 20 MG TABLET GT SCH ×2 (09:04→20:16)
[2020-09-16] MEDS: levETIRAcetam 500 MG in NS 100 ML IV SCH ×2 (09:06→20:16)
[2020-09-16] MEDS: D5NS 1,000 ML IV SCH (09:06)
[2020-09-16 09:16] LABS: TOTAL BILIRUBIN 1.6 mg/dL (0.0-1.0)
--- NOTE | 2020-09-16 10:01 | NUR ---
Dr. Garzon at bedside examining patient, new orders received for potassium replacement.
[2020-09-16 10:15] LABS: HEMATOCRIT 21.2 % (36-54); HEMOGLOBIN 6.8 g/dL (14.0-18.0)
--- NOTE | 2020-09-16 10:51 | NUR ---
Dr. Poole at bedside examining patient, new orders received.
[2020-09-16] MEDS: LORazepam 2 MG/ML VIAL IVP PRN ×3 (10:52→22:44)
[2020-09-16] MEDS ORDERED: POTASSIUM CHLORIDE 40 MEQ in NS 250 ML IV ONE (11:00)
[2020-09-16] MEDS: FUROSEMIDE 100 MG in D5W 90 ML IV SCH (11:20)
--- NOTE | 2020-09-16 15:20 | NUR ---
BT INITIATION: Consent signed per patient's brother agreeing to administration of blood. Blood has been type and crossmatched. Blood sent from blood bank. Information on unit of blood checked against patient wristband at bedside by two nurses. All information matches. Patient or responsible green party informed of potential complications associated with blood transfusion. Informed of possible transfusion reaction symptoms. Aware of need to notify nurse at once of itching, shortness of breath, flushing, feeling of impending doom, or other symptoms not previously present. Vital signs taken within 5 minutes prior to initiation of transfusion: Temperature 98.9 F, HR 86, RR 24, BP 170/76, and SpO2 99%. RN will remain with patient for first 15 minutes of transfusion at which time vital signs will be re-assessed.
--- NOTE | 2020-09-16 17:47 | NUR ---
Wound Care/BM/CHG Wound care done per wound care guidelines. Patient had large BM. CHG bath given and pericare done. Bed linens changed. Patient leaned, turned, repositioned, and suctioned.
--- NOTE | 2020-09-16 17:48 | NUR ---
PICC Line Dressing Change PICC Line dressing changed using aseptic technique. Transparent dressing used.
--- NOTE | 2020-09-16 18:15 | NUR ---
Dr. Nava at bedside examining patient, new orders received.
--- NOTE | 2020-09-16 19:09 | NUR ---
Closing Note Endorsed bedside report to oncoming RN using SBAR approach for continuation of care.
[2020-09-16] MEDS: MORPHINE 2 MG/ML INJ. SYRINGE IVP PRN ×2 (20:14→22:44)
[2020-09-16] MEDS ORDERED: SODIUM CHLORIDE IV SCH ×11 (21:00)
[2020-09-16] MEDS ORDERED: POTASSIUM CHLORIDE IV SCH ×11 (21:00)
[2020-09-16] MEDS ORDERED: [UNRECOGNIZED DRUG - OTHER] IV SCH ×11 (21:00)
[2020-09-16] MEDS ORDERED: TPN CENTRAL IV SCH ×11 (21:00)
[2020-09-17] VITALS (31 sets, daily range): BP systolic 115–185
[2020-09-17] MEDS: IPRATROPIUM/ALBUTEROL SULFATE 3 ML AMPUL.NEB (DUONEB) INH SCH ×4 (00:50→19:35)
[2020-09-17] MEDS: LORazepam 2 MG/ML VIAL IVP PRN ×2 (01:51→08:26)
[2020-09-17] MEDS: MORPHINE 2 MG/ML INJ. SYRINGE IVP PRN (01:51)
[2020-09-17] MEDS: methylPREDNISolone SOD SUCC/PF 62.5 MG/ML VIAL IVP SCH ×4 (02:00→20:35)
--- NOTE | 2020-09-17 03:15 | NUR ---
SOILED GTUBE DRESSING Soiled gtube dressing changed. Drainage around tube is yellow with odor and skin is red around gtube opening. Site cleaned and dressing applied. No tubefeeding infusing at this time, will notify
[2020-09-17] MEDS: METOCLOPRAMIDE HCL 10 MG/2 ML VIAL IVP SCH ×3 (05:37→21:34)
[2020-09-17] MEDS: MIDODRINE HCL 5 MG TABLET (PROAMATINE) GT SCH ×3 (05:37→21:27)
[2020-09-17] MEDS: INSULIN REGULAR, HUMAN 100 UNITS/ML, 10 ML VIAL (humuLIN R) SUBCUT PRN ×3 (05:39→18:19)
[2020-09-17] MEDS: D5NS 1,000 ML IV SCH (05:40)
[2020-09-17 06:38] LABS: BASOPHILS % (AUTO) 0.1 % (0.0-2.0); EOSINOPHILS # (AUTO) 0.1 K/uL (0.0-0.4); EOSINOPHILS % (AUTO) 1.6 % (0.0-4.0); HEMOGLOBIN 9.4 g/dL (14.0-18.0); LYMPHOCYTES # (AUTO) 0.5 K/uL (1.0-5.5); MEAN CORPUSCULAR HEMOGLOBIN 35 pg (27-31); MEAN CORPUSCULAR HGB CONC 35 % (32-36); MEAN CORPUSCULAR VOLUME 100 fL (79.0-98.0); MONOCYTES # (AUTO) 0.3 K/uL (0.0-1.0); MONOCYTES % (AUTO) 4.5 % (1.7-9.3); NEUTROPHILS # (AUTO) 6.3 K/uL (1.8-7.7); NEUTROPHILS % (AUTO) 86.8 % (40.0-70.0); PLATELET COUNT (AUTO) 147 K/uL (130-430); RED BLOOD CELL COUNT(AUTO) 2.71 MIL/uL (4.2-6.2); WHITE BLOOD COUNT (AUTO) 7.3 K/uL (4.8-10.8)
[2020-09-17 06:47] LABS: ALBUMIN 2.3 g/dL (3.4-4.8); CREATININE 0.83 mg/dL (0.55-1.30); PHOSPHORUS 2.7 mg/dL (2.7-4.5); TOTAL BILIRUBIN 1.3 mg/dL (0.0-1.0)
--- NOTE | 2020-09-17 07:38 | NUR ---
OPENING NOTE Patient resting in the bed. No acute distress. Trach intact to vent. HOB elevated. Skin warm and dry to touch. PICC line intact to KERRI, no redness, no swelling, no drainage, covered with clean and dry transparent dressing. On TPN at 80ml/hr, Lasix drip at 3ml/hr, D5 NS at 20ml/hr, infusing well. F/C intact, drain gravity. Safety measure maintained. Call light within reached. Bed locked in low position. On contact isolation. Continue to monitor.
[2020-09-17 07:43] LABS: CALCIUM 6.7 mg/dL (8.4-11.0); POTASSIUM 2.4 mmol/L (3.5-5.1)
--- NOTE | 2020-09-17 08:10 | NUR ---
Called Dr. Nava to report critical value for K 2.4 and Calcium 6.7. Received order for Calcium Gluconate IV 1 gm to be infused over 2 hours. Potassium 40 MEQ via Gtube x 2 given two hours apart.
--- NOTE | 2020-09-17 08:15 | NUR ---
Provided ABG report to MD Nava. Received order to change vent setting to AC 18 FIO2 65% and keep O2 saturation above 90%.
[2020-09-17] MEDS: levETIRAcetam 500 MG in NS 100 ML IV SCH ×2 (08:25→20:35)
[2020-09-17] MEDS: ASCORBIC ACID 500 MG TABLET GT SCH (08:26)
[2020-09-17] MEDS: ENOXAPARIN SODIUM 30 MG/0.3 ML SYRINGE SQ SCH ×2 (08:26→20:38)
[2020-09-17] MEDS: LACTOBACILLUS RHAMNOSUS GG 1 CAP CAPSULE PO SCH ×2 (08:26→20:35)
[2020-09-17] MEDS: FAMOTIDINE 20 MG TABLET GT SCH ×2 (08:26→20:35)
[2020-09-17] MEDS: MULTIVITS,CA,MINERALS/IRON/FA 1 TABLET GT SCH (08:26)
[2020-09-17] MEDS ORDERED: methylPREDNISolone SOD SUCC/PF 62.5 MG/ML VIAL IVP ONE (08:30)
[2020-09-17] MEDS ORDERED: CALCIUM GLUCONATE 1 GM in NS 100 ML IV ONE (08:30)
--- NOTE | 2020-09-17 08:30 | NUR ---
RT NOTES Vent settings to AC [address] Nava's order. No adverse reactions noted. Will monitor pt.
[2020-09-17] MEDS ORDERED: POTASSIUM CHLORIDE 20 MEQ/PKT PACKET PO ONE ×2 (09:00→13:00)
--- NOTE | 2020-09-17 09:50 | NUR ---
SEEN AND EXAMINED BY SANTOSH AGUILERA. REPORTED TO DR. WHITE, PER NIGHT NURSE GT SITE WAS LEAKING WITH YELLOW DRAINAGE AND ODOR SMELL. THEREFORE, HELD GT FEEDING. I CHECKED THIS MORNING NO DRAINAGE ON GT SITE. RESIDUAL 20ML GREENISH COLOR. DR. WHITE STATED THAT TO RESUME GT FEEDING WITH RATE 20ML/HR.
--- NOTE | 2020-09-17 10:21 | NUR ---
SEEN AND EXAMINED BY SVETLANA ROSAS.
[2020-09-17] MEDS: FUROSEMIDE 100 MG in D5W 90 ML IV SCH (11:52)
--- NOTE | 2020-09-17 16:11 | NUR ---
Nutrition F/U Admitting Diagnosis: Septic shock Medical History Comment: Pt w/: Septic shock, Bilateral pneumonia, Dehydration, CHRISTIANO, Chronic Respiratory failure, Down Syndrome, DM per MD notes. PMH: Down, syndrome, DM, Chronic respiratory failure, Tracheostomy and GT placement. SARS-CoV-2 Ag Rapid 08/10 Negative Subjective Information: Pt was seen at the door entryway -- isolation protocols continue in place. TPN and EN support were seen infusing as per physician orders. Glucerna 1.5 was infusing at 20 ml/hr -- RN reported that pt was reported to have some leaking at the GT site during overnight houseperson, so TF was held, however, GRV were not significant -- RN stated pt had 20 ml GRV this morning and none this afternoon. RN stated pt's last BM was last night. No pending plans/procedures. Per EMR review, hematology has reported that pt's plt levels are stable/improving, and no evidence of bleeding; GI has reported that GT feeding was held again overnight for no obscure reason; TF Rate: 20 ml 09/17; GRV: 20 ml 09/17; TPN Intakes: 640 ml 09/17; TF Intakes: 400 ml; abd is distended w/ hypoactive bowel sounds; last BM x1 09/17; 3+ pitting edema to bilateral foot/hand and generalized; Joel scale: 10 -- per [employer] note 09/08/20: 1. Sacral/Buttocks areas: Blanchable redness (IAD/MASD) with brown discoloration (resolved). 2. Left Sacral area: Area of wrinkly brown skin (resolved). 3. Right Buttock: Blanchable redness with wound, present on admission. 4. Right Lateral Malleolus: Blanchable redness, present on admission. 5. Left Heel: Non-blanchable dark red tissue with brown discoloration, present on admission. 6. Right Heel: Blanchable dark red tissue with brown discoloration, present on admission. 7. Left Abdominal Fold: Intertrigo with erythema and MASD. 8. Left Inguinal Fold: Intertrigo with erythema and MASD. 9. Right Superior Neck Area, Medial To Ear Lobe: Friction blister from tape rubbing. Bulla present, closed. 10. Right Outer (Lateral) Ear ([place]): Possible tape related injury. 12. Right Posterior (Medial) Ear ([place]): Possible tape related injury. Current Diet Order/Nutrition Support: TPN D30%, AA5.4% at 80 ml/hr, IL20% at 5ml/hr via central line Current TPN Provides: 1407 kcal/day, 47 gm protein/day, 2040 ml total volume/day, and GIR: 3 gm CHO/kg/min Current TPN Meets: 81% of new estimated caloric needs and 80% of lower end of estimated protein needs EN Support: Glucerna 1.5 at 35 ml/hr (goal rate), Free Water Flush: 150 ml Q8H via GT x9 days Current EN Support Provides: 1260 kcal/day, 69 gm protein/day, and 1088 ml free water/day Current EN Support Meets: 72% of new estimated caloric needs and 78% of upper end of estimated protein needs Pertinent Medications: IV ALB, culturelle, SSI, theragran, VIT C, reglan, lactulose, lovenox, D5%/NS at 20 ml/hr (82 kcal/day) Pertinent Labs: K 2.4 L, BG 287 H, POC BG 291 H, BUN 33 H, CRE 0.83 WNL; 09/14: TG 236 H Ht: 54/64 Wt: (08/28): 65 kg, 143 lbs (08/22): 133.7 lbs, 60.7 kg (08/17): 63.957 kg/ 140 lbs, (08/17) 141#/ 64kg,(08/12) 139#/63.408274 kg; 141#/64 kg (08/17) *wt stable Body Mass Index: (08/28): 24.54 kg/m2, (08/22): 23 kg/m2, (08/17): 24.2 kg/m2, (08/12): 23.86 kg/m2), (08/17): 24.2 kg.m2 Weight status: appropriate [place]/Adjusted Body Weight: 130#/ 59kg; Adj IBW QP: 114#/ 52kg NEW Estimated Energy Expenditure (kcals/day) 1740 Kcal/day (PSU 2003b for vent, febrile -- Ve: 10.7; Temperature: 37.8 degrees C) Estimated Protein Required (g/day) 59-89 gm/day (1-1.5 gm/kg IBW for sepsis, renal Dz predialysis and wound) Estimated Fluid Required (l/day) per MD (ARF) Problem/Etiology/Signs/Symptoms Increased nutrient needs r/t metabolic demands AEB wounds. (*ongoing) Altered nutrition related labs r/t endocrine dysfunction AEB elevated BG. (*ongoing) Inadequate PN intake r/t current PN order AEB current PN meets <65% of estimated needs (resolved, PN meeting estimated nutrition needs, 08/25) Altered GI function r/t increased gastric motility AEB diarrhea, rectal tube in place, + C.diff. (*pt continues +C. diff, but no longer has a rectal tube) Excessive nutrition support related to risk for overfeeding as evidence by pt is currently meeting >100% of estimated nutritional requirements. (*ongoing, as of 09/14) Expected Outcomes/Goals Monitor DC PN, resume EN support, and intake w/ goal of pt meeting more than 75% of estimated nutritional needs, labs trending WNL, normal GI function, skin integrity/wt maintenance (ongoing) Dietitian Recommendations * D/C TPN support and observe pt's tolerance to solely EN support * Recommend: slowly increase EN rate to goal. * Consider Glucerna 1.5 at 45 ml/hr (goal rate), Free Water Flush: 150 ml Q8h (per physician) via GT Provides: 1620 kcal/day, 89 gm protein/day, and 820 ml free water/day Meets: 93% of new estimated caloric needs and 100% of upper end of estimated protein needs Follow Up High risk 2-3 days
--- NOTE | 2020-09-17 16:18 | NUR ---
Dietitian Recommendations * D/C TPN support and observe pt's tolerance to solely EN support * Recommend: slowly increase EN rate to goal. * Consider Glucerna 1.5 at 45 ml/hr (goal rate), Free Water Flush: 150 ml Q8h (per physician) via GT Provides: 1620 kcal/day, 89 gm protein/day, and 820 ml free water/day Meets: 93% of new estimated caloric needs and 100% of upper end of estimated protein needs LP, RD Please refer to Nutrition F/U for details.
--- NOTE | 2020-09-17 17:08 | NUR ---
SEEN AND EXAMINED BY ARPAN HAIR Reported to Dr. Collazo. Patient K 2.4 and calcium 6.7 both replaced, SBP in 160s-170s. Proamatine 10mg held. Patient SBP in 110s-120 since 1500.
--- NOTE | 2020-09-17 17:25 | NUR ---
SEEN AND EXAMINED BY MANAV SHAIKH.
--- NOTE | 2020-09-17 18:47 | NUR ---
CLOSING NOTE Patient resting in the bed. No acute distress. Trach intact to vent. HOB elevated. GT intact, patent, no residual at this time. On Glucerna 1.5 at 20ml/hr. Minimal drainage noted at GT site. Skin warm and dry to touch. PICC line intact to KERRI, no redness, no swelling, no drainage, covered with clean and dry transparent dressing. On TPN at 80ml/hr, Lasix drip at 3ml/hr, D5 NS at 20ml/hr, infusing well. F/C intact, drain gravity. All needs met. Safety measure maintained. Call light within reached. Bed locked in low position. On contact isolation. Will endorse to night nurse.
--- NOTE | 2020-09-17 20:00 | NUR ---
Pt report received. Pt obtunded, no response to verbal or tactile stimulation. #7 portex, [id number] with settings: A/C, 18, 500, 65%, 7. G-tube feeding of Glucerna at 20 mL/hr, abdomen mildly distended, but soft. LUE PICC patent and secure, TPN infusing at 80 mL/hr, D5NS at 20 mL/hr. F/C secure draining yellow urine with sedimentation. 2+ edema generalized to extremities. VSS, NAD.
[2020-09-17] MEDS ORDERED: [UNRECOGNIZED DRUG - OTHER] IV SCH ×11 (21:00)
[2020-09-17] MEDS ORDERED: TPN CENTRAL IV SCH ×11 (21:00)
[2020-09-17] MEDS ORDERED: POTASSIUM CHLORIDE IV SCH ×11 (21:00)
[2020-09-17] MEDS ORDERED: SODIUM CHLORIDE IV SCH ×11 (21:00)
--- NOTE | 2020-09-17 21:00 | NUR ---
G-Tube residual 160 mL. Tube feeding turned off. Yellow and curded drainage noted to G-tube securing device, gauze dsg and to gown. G-tube and site cleaned with sterile water. Site continued to drain, but stopped once new dsg applied and secured. Clean gown applied to pt.
[2020-09-18] VITALS (31 sets, daily range): BP systolic 88–133
--- NOTE | 2020-09-18 | NUR ---
G-tube residual remains at 160 mL, no change in consistency. Drainage noted to dsg. Site cleaned with sterile water, new dsg applied. Tube feeding remains off. VSS, NAD.
--- NOTE | 2020-09-18 00:25 | NUR ---
Fsbs 443. Humulin R 12 Units given SQ per s.s. protocol and Dr. Ana Rosa benitez.
--- NOTE | 2020-09-18 00:25 | NUR ---
[facility]ED [facility] [phone]
--- NOTE | 2020-09-18 00:30 | NUR ---
Dr. Valleium informed of pt fsbs 443. New order received to given Lantus 10 Units SQ now, then BID. Order entered and carried out.
[2020-09-18] MEDS: INSULIN GLARGINE 100 UNITS/ML 10 ML VIAL SUBCUT SCH ×3 (00:41→22:08)
[2020-09-18] MEDS: INSULIN REGULAR, HUMAN 100 UNITS/ML, 10 ML VIAL (humuLIN R) SUBCUT PRN ×4 (00:41→17:30)
[2020-09-18] MEDS: IPRATROPIUM/ALBUTEROL SULFATE 3 ML AMPUL.NEB (DUONEB) INH SCH ×4 (00:45→19:11)
[2020-09-18] MEDS: methylPREDNISolone SOD SUCC/PF 62.5 MG/ML VIAL IVP SCH ×4 (02:20→22:06)
[2020-09-18] MEDS: MIDODRINE HCL 5 MG TABLET (PROAMATINE) GT SCH ×3 (06:00→22:06)
--- NOTE | 2020-09-18 06:00 | NUR ---
G-tube residual 160 mL, yellow and curded stomach contents. No further drainage noted to site. Per documented orders of Dr. Garzon, Glucerna tube feeding resumed at previous rate of 20 mL/hr. (Feeding to be held if residual > 200). Will endorse to AM shift.
--- NOTE | 2020-09-18 06:15 | NUR ---
Fsbs 442. Humulin R 12 Units given SQ per ss protocol. Will endorse to oncoming shift.
[2020-09-18] MEDS: METOCLOPRAMIDE HCL 10 MG/2 ML VIAL IVP SCH ×3 (06:52→22:24)
[2020-09-18 06:59] LABS: ALBUMIN 1.8 g/dL (3.4-4.8); CREATININE 0.92 mg/dL (0.55-1.30); PHOSPHORUS 2.9 mg/dL (2.7-4.5); TOTAL BILIRUBIN 1.4 mg/dL (0.0-1.0)
--- NOTE | 2020-09-18 07:15 | NUR ---
Pt report given to oncoming RN. Pt remains obtunded. No changes in Vent settings this shift. LUE PICC patent, TPN at 80 mL/hr. G-tube feedings continue at 20 mL/hr, no drainage to site. AM nurse informed of fsbs readings and high residuals.
--- NOTE | 2020-09-18 07:20 | NUR ---
opening notes: received report from endorsing RN, patient is obtunded, lying in bed with an IVF of D5NS @ 20 mls/hr, Lasix drip @ 3 mls/hr, and TPN @80 mls/hr. Contreras catheter in place draining to gravity, jose a in color lots of sediments. bed locked at lowest position. fall and safety precaution in place.
--- NOTE | 2020-09-18 07:30 | NUR ---
Dr. Solis at bedside. Updated him on high residuals and elevated blood glucose. Instructed to dump residuals and turn feedings on and off.
[2020-09-18] MEDS: D5NS 1,000 ML IV SCH (07:45)
[2020-09-18 07:48] LABS: BASOPHILS % (AUTO) 0.1 % (0.0-2.0); HEMATOCRIT 26.8 % (36-54); LYMPHOCYTES # (AUTO) 0.2 K/uL (1.0-5.5); MEAN CORPUSCULAR HEMOGLOBIN 35 pg (27-31); MEAN CORPUSCULAR HGB CONC 34 % (32-36); MEAN CORPUSCULAR VOLUME 105 fL (79.0-98.0); MONOCYTES # (AUTO) 0.3 K/uL (0.0-1.0); MONOCYTES % (AUTO) 3.7 % (1.7-9.3); NEUTROPHILS # (AUTO) 7.7 K/uL (1.8-7.7); NEUTROPHILS % (AUTO) 94.2 % (40.0-70.0); PLATELET COUNT (AUTO) 55 K/uL (130-430); RED BLOOD CELL COUNT(AUTO) 2.56 MIL/uL (4.2-6.2); RED CELL DISTRIBUTION WIDTH 27.1 % (9.0-15.0); WHITE BLOOD COUNT (AUTO) 8.2 K/uL (4.8-10.8)
[2020-09-18] MEDS: ASCORBIC ACID 500 MG TABLET GT SCH (08:15)
[2020-09-18] MEDS: MULTIVITS,CA,MINERALS/IRON/FA 1 TABLET GT SCH (08:15)
[2020-09-18] MEDS: FAMOTIDINE 20 MG TABLET GT SCH ×2 (08:15→22:05)
[2020-09-18] MEDS: LACTOBACILLUS RHAMNOSUS GG 1 CAP CAPSULE PO SCH ×2 (08:15→22:05)
[2020-09-18] MEDS: levETIRAcetam 500 MG in NS 100 ML IV SCH ×2 (08:20→22:25)
[2020-09-18] MEDS: ENOXAPARIN SODIUM 30 MG/0.3 ML SYRINGE SQ SCH ×2 (08:29→22:08)
[2020-09-18 08:33] LABS: CALCIUM 6.7 mg/dL (8.4-11.0); POTASSIUM 2.8 mmol/L (3.5-5.1)
[2020-09-18] MEDS: POLYETHYLENE GLYCOL 3350, 17 GM/ POWD.PACK GT SCH ×2 (09:15→22:05)
[2020-09-18] MEDS: MINERAL OIL 30 ML UDC GT SCH (09:15)
[2020-09-18] MEDS ORDERED: COMMUNICATION ORDER XX ONE (09:30)
[2020-09-18] MEDS ORDERED: POTASSIUM CHLORIDE 60 MEQ in NS 250 ML IV ONE (10:30)
[2020-09-18] MEDS ORDERED: CALCIUM GLUCONATE 1 GM in NS 100 ML IV ONE (10:30)
[2020-09-18] MEDS: FUROSEMIDE 100 MG in D5W 90 ML IV SCH (12:08)
[2020-09-18] MEDS ORDERED: DEXTROSE 50%-WATER 50 ML DISP.SYRIN IVP PRN (14:00)
[2020-09-18] MEDS ORDERED: GLUCOSE (DEXTROSE) ORAL GEL -Adults PO PRN (14:00)
[2020-09-18] MEDS ORDERED: D5W 1,000 ML IV PRN (14:00)
--- NOTE | 2020-09-18 17:40 | NUR ---
RN notes: patient Blood sugar is 420, DR. Polanco ordered to increase the Lantus to 15 units q 12 hours and if the blood sugar is above 400 give 15 units of regular insulin.
[2020-09-18] MEDS ORDERED: NOREPINEPHRINE 4 MG/4 ML VIAL IV ONE (19:40)
--- NOTE | 2020-09-18 19:40 | NUR ---
closing notes: endorsed patient to billboard erector RN, for continuation of care.
--- NOTE | 2020-09-18 20:15 | NUR ---
Pt report received. Pt obtunded, responds only to painful stimuli by moving lower extremities. #7 Portex [id number]: A/C, 18, 500, 65%, 7. LUE PICC patent and secure with TPN at 80 mL/hr, D5NS at 20 mL/hr, and Lasix drip at 3 mL/hr. Abdomen soft, distended, hypoactive BS x 4. G-tube secure, no drainage noted to site with Glucerna at 20 mL/hr. Residual 100 mL yellow and curded stomach contents. Testicular swelling with serosanguineous drainage below scrotum. Barrier cream and non-adherent dsg applied, cradled with pillow case. F/C draining dark orange urine with large amounts of sedimentation to tubing and bag. 3+ to 4+ pitting edema generalized to all extremities. Heels floated with pillow support. Fall and seizure precautions in place. VSS, NAD.
[2020-09-18] MEDS ORDERED: POTASSIUM CHLORIDE IV SCH ×10 (21:00)
[2020-09-18] MEDS ORDERED: TPN CENTRAL IV SCH ×10 (21:00)
[2020-09-18] MEDS ORDERED: K PHOS IV SCH ×10 (21:00)
[2020-09-18] MEDS ORDERED: [UNRECOGNIZED DRUG - OTHER] IV SCH ×10 (21:00)
[2020-09-18] MEDS: ALBUMIN HUMAN 25% 100 ML IV PRN (22:23)
--- NOTE | 2020-09-18 22:23 | NUR ---
B/P 80/32, HR 85. Albumin 25%/100 mL x 1 bottle now infusing per PRN order.
[2020-09-19] VITALS (33 sets, daily range): BP systolic 86–152
[2020-09-19] MEDS: INSULIN REGULAR, HUMAN 100 UNITS/ML, 10 ML VIAL (humuLIN R) SUBCUT PRN ×4 (00:05→18:11)
[2020-09-19] MEDS: IPRATROPIUM/ALBUTEROL SULFATE 3 ML AMPUL.NEB (DUONEB) INH SCH ×4 (01:38→19:50)
[2020-09-19] MEDS: methylPREDNISolone SOD SUCC/PF 62.5 MG/ML VIAL IVP SCH (02:14)
[2020-09-19] MEDS ORDERED: methylPREDNISolone SOD SUCC/PF 62.5 MG/ML VIAL ONE (02:17)
--- NOTE | 2020-09-19 04:00 | NUR ---
CHG bath given, clean gown applied and linens changed. Redness to buttocks and beneath scrotum. Barrier cream applied. Dsg to sacrum c/d/i. Testicles elevated with pillow case.
--- NOTE | 2020-09-19 05:30 | NUR ---
Residual 350 mL yellow and curded stomach contents. Feeding remains on hold. Laculose 30 mL per G-tube.
[2020-09-19] MEDS: METOCLOPRAMIDE HCL 10 MG/2 ML VIAL IVP SCH ×3 (05:41→21:18)
[2020-09-19] MEDS: MIDODRINE HCL 5 MG TABLET (PROAMATINE) GT SCH ×3 (05:41→21:20)
[2020-09-19] MEDS: ALBUMIN HUMAN 25% 100 ML IV PRN (05:54)
--- NOTE | 2020-09-19 06:00 | NUR ---
Dr. Nava making rounds. Updated on pt status including high residuals and uncontrolled blood glucose. New orders received to change dosage of Solumedrol to 30 mg IVP q 6 hours.
[2020-09-19 06:39] LABS: INR 1.2 (0.80-1.20); PROTHROMBIN TIME 12.4 SECS (9.5-12.5)
--- NOTE | 2020-09-19 07:15 | NUR ---
opening notes: received bedside report from endorsing RN, on Lasix drip 3 ml/hr, TPN @ 80 ml/hr, and D5 NS @ 20 ml/hr .Trach to vent AC 18, tidal volume 500, Fi02 65 and PEEP 7.Contreras catheter in place draining to gravity, bed locked at lowest position, fall and safety precaution in place.
--- NOTE | 2020-09-19 07:25 | NUR ---
Pt report given to oncoming RN. Pt remains obtunded, no change in vent settings. TPN at 80 mL/hr, D5NS at 20 mL/hr, Lasix drip at 3 mL/hr and Albumin 25%/100 mL all continues to infuse without difficulty to LUE PICC. Glucerna G-tube feeding still on hold. F/C draining jose a and sedimented urine. No BM this shift.
[2020-09-19 07:41] LABS: BASOPHILS % (AUTO) 0.2 % (0.0-2.0); HEMATOCRIT 28.6 % (36-54); HEMOGLOBIN 9.1 g/dL (14.0-18.0); LYMPHOCYTES # (AUTO) 0.6 K/uL (1.0-5.5); LYMPHOCYTES % (AUTO) 5.2 % (20.5-51.5); MEAN CORPUSCULAR HEMOGLOBIN 34 pg (27-31); MEAN CORPUSCULAR HGB CONC 32 % (32-36); MEAN CORPUSCULAR VOLUME 106 fL (79.0-98.0); MONOCYTES # (AUTO) 0.3 K/uL (0.0-1.0); MONOCYTES % (AUTO) 2.4 % (1.7-9.3); NEUTROPHILS # (AUTO) 11.4 K/uL (1.8-7.7); RED BLOOD CELL COUNT(AUTO) 2.69 MIL/uL (4.2-6.2); RED CELL DISTRIBUTION WIDTH 27.9 % (9.0-15.0); WHITE BLOOD COUNT (AUTO) 12.4 K/uL (4.8-10.8)
[2020-09-19] MEDS ORDERED: methylPREDNISolone SOD SUCC 40 MG/ML VIAL IVP SCH (08:00)
--- NOTE | 2020-09-19 08:00 | NUR ---
phone call received from patient brother (FRANCISCO) asking for updates.
[2020-09-19 08:10] LABS: ALBUMIN 2.1 g/dL (3.4-4.8); CALCIUM 7.4 mg/dL (8.4-11.0); CREATININE 1.02 mg/dL (0.55-1.30); PHOSPHORUS 3.6 mg/dL (2.7-4.5); POTASSIUM 4.1 mmol/L (3.5-5.1); TOTAL BILIRUBIN 2.9 mg/dL (0.0-1.0)
[2020-09-19] MEDS: POLYETHYLENE GLYCOL 3350, 17 GM/ POWD.PACK GT SCH ×2 (09:00→21:18)
[2020-09-19] MEDS: LACTOBACILLUS RHAMNOSUS GG 1 CAP CAPSULE PO SCH ×2 (09:00→21:18)
[2020-09-19] MEDS: MULTIVITS,CA,MINERALS/IRON/FA 1 TABLET GT SCH (09:00)
[2020-09-19] MEDS: FAMOTIDINE 20 MG TABLET GT SCH ×2 (09:00→21:20)
[2020-09-19] MEDS: MINERAL OIL 30 ML UDC GT SCH (09:01)
[2020-09-19] MEDS: ENOXAPARIN SODIUM 30 MG/0.3 ML SYRINGE SQ SCH (09:21)
[2020-09-19] MEDS: levETIRAcetam 500 MG in NS 100 ML IV SCH ×2 (09:26→21:17)
[2020-09-19] MEDS: INSULIN GLARGINE 100 UNITS/ML 10 ML VIAL SUBCUT SCH ×2 (09:41→21:15)
[2020-09-19 10:02] LABS: PLATELET COUNT (AUTO) 33 K/uL (130-430)
[2020-09-19 10:55] LABS: NEUTROPHILS % (AUTO) 92.2 % (40.0-70.0)
--- NOTE | 2020-09-19 11:20 | NUR ---
rt notes 1120 Pt saturation 90%, and BP was low. increased FIO2 to 75%, will titrate as needed. RN Wil aware of changes. will continue to monitor pt.
[2020-09-19] MEDS: FUROSEMIDE 100 MG in D5W 90 ML IV SCH (11:26)
[2020-09-19] MEDS: NOREPINEPHRINE BITARTRATE 16 MG in NS 234 ML IV PRN (12:00)
[2020-09-19] MEDS ORDERED: DEXAMETHASONE SOD PHOSPHATE 4 MG/ML VIAL IVP ONE (13:15)
--- NOTE | 2020-09-19 15:35 | NUR ---
TITRATED FIO2 TO 70%. SPO2 94%, HR 99.
--- NOTE | 2020-09-19 17:30 | NUR ---
CHG bath given, changed linen, bedside care rendered.
--- NOTE | 2020-09-19 19:30 | NUR ---
closing notes: endorsed patient to night shift manager RN for continuation of care.
--- NOTE | 2020-09-19 20:00 | NUR ---
OBTUNDED. TRACH TO VENT. RESPONDS TO NOXIOUS STIMULI. SUCTIONED WITH MODERATE THIN YELLOW MUCUS OBTAINED. ORAL CARE GIVEN. GT CLAMPED. RESIDUAL CHECK > 60. BAH CATH PATENT DRAINING CLOUDY MYRTLE URINE TO GRAVITY. ON LEVOPHED AT 0.03 MCG/KG/MIN. ON LASIX DRIP AT 3 MG/HR. ON TPN AT 80CC/HR. KERRI PICC LINE BETTY D/I. JOSE.
[2020-09-19] MEDS ORDERED: POTASSIUM CHLORIDE IV SCH ×10 (21:00)
[2020-09-19] MEDS ORDERED: [UNRECOGNIZED DRUG - OTHER] IV SCH ×10 (21:00)
[2020-09-19] MEDS ORDERED: TPN CENTRAL IV SCH ×10 (21:00)
[2020-09-19] MEDS ORDERED: K PHOS IV SCH ×10 (21:00)
--- NOTE | 2020-09-19 21:00 | NUR ---
LEVOPHED DECREASED TO 0.02 MCG/KG/MIN
--- NOTE | 2020-09-19 22:00 | NUR ---
HS CARE GIVEN.
--- NOTE | 2020-09-19 23:00 | NUR ---
LEVOPHED DECREASED TO 0.01 MCG/KG/MIN.
[2020-09-20] VITALS (31 sets, daily range): BP systolic 85–165
--- NOTE | 2020-09-20 | NUR ---
ACCU-CHEK 306, 8 UNITS REGULAR INSULIN SQ GIVEN. SUCTIONED WITH SAME RESULTS. ORAL CARE GIVEN. RESIDUAL CHEK > 60CC.
[2020-09-20] MEDS: DEXAMETHASONE SOD PHOSPHATE 4 MG/ML VIAL IVP SCH ×4 (00:05→18:20)
[2020-09-20] MEDS: INSULIN REGULAR, HUMAN 100 UNITS/ML, 10 ML VIAL (humuLIN R) SUBCUT PRN ×3 (00:07→13:12)
[2020-09-20] MEDS: IPRATROPIUM/ALBUTEROL SULFATE 3 ML AMPUL.NEB (DUONEB) INH SCH ×4 (00:50→19:40)
--- NOTE | 2020-09-20 04:00 | NUR ---
SUCTIONED. TURNED. ORAL CARE GIVEN. AM CARE DONE. RESIDUAL CHECK STILL > 60.
--- NOTE | 2020-09-20 06:00 | NUR ---
1 MODERATE WATERY BROWN STOOL DEFECATED. CLEANED. PAMELA-CARE, BACK CARE, BAH CARE, SKIN CARE RENDERED. UO GOOD. SUCTIONED AND TURNED Q2 HRS AND PRN. ACCU-CHEK 305, 8 UNITS REGULAR INSULIN SQ GIVEN. DESATURATING AT TIMES. REMAINS IN GUARDED CONDITION.
[2020-09-20] MEDS ORDERED: METOCLOPRAMIDE HCL 10 MG/10 ML UDC ONE (06:01)
[2020-09-20] MEDS: METOCLOPRAMIDE HCL 10 MG/2 ML VIAL IVP SCH ×3 (06:10→21:48)
[2020-09-20] MEDS: MIDODRINE HCL 5 MG TABLET (PROAMATINE) GT SCH ×3 (06:11→21:48)
[2020-09-20] MEDS ORDERED: METOCLOPRAMIDE HCL 10 MG/2 ML VIAL ONE (06:12)
[2020-09-20 06:39] LABS: BASOPHILS % (AUTO) 0.2 % (0.0-2.0); HEMATOCRIT 29.4 % (36-54); HEMOGLOBIN 9.3 g/dL (14.0-18.0); LYMPHOCYTES # (AUTO) 0.5 K/uL (1.0-5.5); LYMPHOCYTES % (AUTO) 5.4 % (20.5-51.5); MEAN CORPUSCULAR HEMOGLOBIN 34 pg (27-31); MEAN CORPUSCULAR HGB CONC 32 % (32-36); MEAN CORPUSCULAR VOLUME 109 fL (79.0-98.0); MONOCYTES # (AUTO) 0.3 K/uL (0.0-1.0); MONOCYTES % (AUTO) 2.7 % (1.7-9.3); NEUTROPHILS % (AUTO) 91.7 % (40.0-70.0); RED BLOOD CELL COUNT(AUTO) 2.71 MIL/uL (4.2-6.2); WHITE BLOOD COUNT (AUTO) 9.8 K/uL (4.8-10.8)
[2020-09-20 07:05] LABS: ALANINE AMINOTRANSFERASE 59 U/L (12-78); ASPARTATE AMINOTRANSFERASE 107 U/L (10-37); CALCIUM 7.6 mg/dL (8.4-11.0); CREATININE 1.09 mg/dL (0.55-1.30); GLUCOSE 353 mg/dL (70-99); PHOSPHORUS 4.2 mg/dL (2.7-4.5); SODIUM SERUM 159 mmol/L (136-145); TOTAL BILIRUBIN 3.2 mg/dL (0.0-1.0); TRIGLYCERIDES 164 mg/dL (30-150); UREA NITROGEN, BLOOD 52 mg/dL (8-21)
--- NOTE | 2020-09-20 07:05 | NUR ---
DESATURATING, 87-88%. BR TX GIVEN BY RT. INCREASED FIO2 TO 100% PER TITRATE ORDERS.
[2020-09-20 07:21] LABS: GFR AFRICAN AMERICAN 89 mL/min (>90)
[2020-09-20 07:23] LABS: ANION GAP < 3 (5-15); CHLORIDE 122 mmol/L (98-107)
[2020-09-20 08:37] LABS: PLATELET COUNT (AUTO) 26 K/uL (130-430)
[2020-09-20] MEDS: MINERAL OIL 30 ML UDC GT SCH (09:00)
[2020-09-20] MEDS: POLYETHYLENE GLYCOL 3350, 17 GM/ POWD.PACK GT SCH ×2 (09:00→21:49)
[2020-09-20] MEDS ORDERED: ERYTHROMYCIN LACTOBIONATE 250 MG in NS 50 ML IV SCH (09:15)
[2020-09-20] MEDS: FAMOTIDINE 20 MG TABLET GT SCH ×2 (09:35→21:49)
[2020-09-20] MEDS: MULTIVITS,CA,MINERALS/IRON/FA 1 TABLET GT SCH (09:35)
[2020-09-20] MEDS: LACTOBACILLUS RHAMNOSUS GG 1 CAP CAPSULE PO SCH ×2 (09:35→21:49)
[2020-09-20] MEDS: levETIRAcetam 500 MG in NS 100 ML IV SCH ×2 (09:37→21:46)
[2020-09-20] MEDS: INSULIN GLARGINE 100 UNITS/ML 10 ML VIAL SUBCUT SCH ×2 (09:45→21:55)
[2020-09-20] MEDS: D5W 1,000 ML IV SCH (14:00)
[2020-09-20] MEDS: NOREPINEPHRINE BITARTRATE 16 MG in NS 234 ML IV PRN (14:04)
[2020-09-20] MEDS ORDERED: LABETALOL 100 MG/ 20ML VIAL IVP ONE (14:30)
[2020-09-20] MEDS ORDERED: NOREPINEPHRINE BITARTRATE 16 MG in D5W 234 ML IV PRN (14:30)
[2020-09-20] MEDS ORDERED: LABETALOL 100 MG/ 20ML VIAL ONE (14:36)
--- NOTE | 2020-09-20 16:17 | NUR ---
Nutrition F/U Admitting Diagnosis: Septic shock Medical History Comment: Pt w/: Septic shock, Bilateral pneumonia, Dehydration, CHRISTIANO, Chronic Respiratory failure, Down Syndrome, DM per MD notes. PMH: Down, syndrome, DM, Chronic respiratory failure, Tracheostomy and GT placement. SARS-CoV-2 Ag Rapid 08/10 Negative Subjective Information: Pt was seen at the door entryway -- isolation protocols continue. TPN was seen infusing as per physician orders. Evidence of TF pump and Glucerna 1.5 hanging but not attached/infusing. RN reported that pt has leakage from the GT site and therefore, TF is not being infused at this time. Per EMR review, pt had high GRV (>300 ml) and has been having leakage from GT site; GI has indicated that they may upside replacement GT, but will monitor affects of reglan and erythromycin; TF Rate: 20 ml 09/19; GRV: 1150 ml total 09/19; TPN Intakes: 960 ml 09/20; TF Intakes: 40 ml 09/19; abd w/ hypoactive bowel sounds; last BM x2 09/20; 3+ pitting edema to bilateral foot/hand and generalized; Joel scale: 10 -- per Business Support Associate note 09/08/20: 1. Sacral/Buttocks areas: Blanchable redness (IAD/MASD) with brown discoloration (resolved). 2. Left Sacral area: Area of wrinkly brown skin (resolved). 3. Right Buttock: Blanchable redness with wound, present on admission. 4. Right Lateral Malleolus: Blanchable redness, present on admission. 5. Left Heel: Non-blanchable dark red tissue with brown discoloration, present on admission. 6. Right Heel: Blanchable dark red tissue with brown discoloration, present on admission. 7. Left Abdominal Fold: Intertrigo with erythema and MASD. 8. Left Inguinal Fold: Intertrigo with erythema and MASD. 9. Right Superior Neck Area, Medial To Ear Lobe: Friction blister from tape rubbing. Bulla present, closed. 10. Right Outer (Lateral) Ear ([place]): Possible tape related injury. 12. Right Posterior (Medial) Ear ([place]): Possible tape related injury. TPN support continues appropriate -- concentration was recently adjusted likely to cover for elevated BG/POC BG lab values. Current Diet Order/Nutrition Support: TPN D20%, AA8.5% at 80 ml/hr, IL20% at 5 ml/hr via central line Current TPN Provides: 1219 kcal/day, 82 gm protein/day, 2040 ml total volume/day, and GIR: 2.1 gm CHO/kg/min Current TPN Meets: 70% of estimated caloric needs and 92% of lower end of estimated protein needs EN Support: Glucerna 1.5 at 35 ml/hr (goal rate), Free Water Flush: 150 ML Q8H via GT x12 days Current EN Support Provides: 1260 kcal/day, 69 gm protein/day, and 1088 ml free water/day Current EN Support Meets: 72% of estimated caloric needs and 78% of upper end of estimated protein needs Pertinent Medications: IV ALB, culturelle, SSI, theragran, reglan, lactulose, lovenox Pertinent Labs: K 5 WNL, BG 353 H, POC BG 306 H, BUN 52 H, 09/14: TG 236 H Ht: 54/64 Wt: (08/28): 65 kg, 143 lbs (08/22): 133.7 lbs, 60.7 kg (08/17): 63.957 kg/ 140 lbs, (08/17) 141#/ 64kg,(08/12) 139#/63.301410 kg; 141#/64 kg (08/17) *wt stable Body Mass Index: (08/28): 24.54 kg/m2, (08/22): 23 kg/m2, (08/17): 24.2 kg/m2, (08/12): 23.86 kg/m2), (08/17): 24.2 kg.m2 Weight status: appropriate [place]/Adjusted Body Weight: 130#/ 59kg; Adj IBW QP: 114#/ 52kg Estimated Energy Expenditure (kcals/day) 1740 Kcal/day (PSU for vent, febrile -- Ve: 10.7; Temperature: 37.8 degrees C) -- RD unable to retrieve new Ve in EMR 09/20 Estimated Protein Required (g/day) 59-89 gm/day (1-1.5 gm/kg IBW for sepsis, renal Dz predialysis and wound) Estimated Fluid Required (l/day) per MD (ARF) Problem/Etiology/Signs/Symptoms Increased nutrient needs r/t metabolic demands AEB wounds. (*ongoing) Altered nutrition related labs r/t endocrine dysfunction AEB elevated BG. (*ongoing) Inadequate PN intake r/t current PN order AEB current PN meets <65% of estimated needs (resolved, PN meeting estimated nutrition needs, 08/25) Altered GI function r/t increased gastric motility AEB diarrhea, rectal tube in place, + C.diff. (*pt continues +C. diff, but no longer has a rectal tube) Excessive nutrition support related to risk for overfeeding as evidence by pt is currently meeting >100% of estimated nutritional requirements. (*ongoing, as of 09/14) Expected Outcomes/Goals Monitor DC PN, resume EN support, and intake w/ goal of pt meeting more than 75% of estimated nutritional needs, labs trending WNL, normal GI function, skin integrity/wt maintenance (ongoing) Dietitian Recommendations * Consider TPN D20%, AA8.5% at 90 ml/hr (goal rate), IL20% at 5 ml/hr via central line Current TPN Provides: 1341 kcal/day, 92 gm protein/day, 2040 ml total volume/day, and GIR: 2.1 gm CHO/kg/min Current TPN Meets: 77% of estimated caloric needs and 103% of upper end of estimated protein needs * Continue to hold TF until further management by GI Follow Up High risk 2-3 days
--- NOTE | 2020-09-20 16:32 | NUR ---
Dietitian Recommendations * Consider TPN D20%, AA8.5% at 90 ml/hr (goal rate), IL20% at 5 ml/hr via central line Current TPN Provides: 1341 kcal/day, 92 gm protein/day, 2040 ml total volume/day, and GIR: 2.1 gm CHO/kg/min Current TPN Meets: 77% of estimated caloric needs and 103% of upper end of estimated protein needs * Continue to hold TF until further management by GI LP, RD Please refer to Nutrition F/U for details.
--- NOTE | 2020-09-20 20:18 | NUR ---
Patient is awake non verbal HOB elevated TRACH SUCTION MODERATE amount of thick white sputum up right position chest movement Remains symmetrical procedure tolerated continue to monitor .
[2020-09-20] MEDS ORDERED: FAT EMULSIONS 250 ML IV SCH (21:00)
[2020-09-20] MEDS ORDERED: [UNRECOGNIZED DRUG - OTHER] IV SCH ×8 (21:00)
[2020-09-20] MEDS ORDERED: CALCIUM GLUCONATE IV SCH ×8 (21:00)
[2020-09-20] MEDS ORDERED: TPN CENTRAL IV SCH ×8 (21:00)
[2020-09-20] MEDS ORDERED: POTASSIUM CHLORIDE IV SCH ×8 (21:00)
[2020-09-20] MEDS: FUROSEMIDE 100 MG in D5W 90 ML IV SCH (21:47)
--- NOTE | 2020-09-20 23:00 | NUR ---
DR GENNY BERGERON here to see patient and @ the bedside / .
--- NOTE | 2020-09-20 23:45 | NUR ---
LASIX gtt @ 3 ML HR General EDEMA is noted to both upper & lower extremities , off loading with pillows & Repositioning on two hour schedule tolerate kept clean also dry as needed / .
[2020-09-21] VITALS (36 sets, daily range): BP systolic 83–168
[2020-09-21] MEDS ORDERED: DEXAMETHASONE SOD PHOSPHATE 10 MG/ML VIAL ONE ×2 (00:18→05:52)
[2020-09-21] MEDS: IPRATROPIUM/ALBUTEROL SULFATE 3 ML AMPUL.NEB (DUONEB) INH SCH ×4 (00:20→19:51)
[2020-09-21] MEDS: INSULIN REGULAR, HUMAN 100 UNITS/ML, 10 ML VIAL (humuLIN R) SUBCUT PRN ×4 (00:26→18:51)
--- NOTE | 2020-09-21 03:14 | NUR ---
Watery stool noted linin change kept clean also dry as needed comfort measures implemented position change tolerated / .
--- NOTE | 2020-09-21 03:15 | NUR ---
Trach suction upright position FI02 80 % minimal VENTILATOR alarming noted HOB kept elevated chest movement symmetrical also unlabored / .
--- NOTE | 2020-09-21 05:22 | NUR ---
CHG BED BATH GIVEN tolerated .
--- NOTE | 2020-09-21 05:23 | NUR ---
wound care sacral area done again this hour d/t patient cleaning .
[2020-09-21] MEDS: METOCLOPRAMIDE HCL 10 MG/2 ML VIAL IVP SCH ×3 (05:56→22:03)
[2020-09-21] MEDS: DEXAMETHASONE SOD PHOSPHATE 4 MG/ML VIAL IVP SCH ×2 (05:58)
[2020-09-21] MEDS: MIDODRINE HCL 5 MG TABLET (PROAMATINE) GT SCH ×3 (05:58→22:05)
[2020-09-21 06:24] LABS: INR 1.2 (0.80-1.20); PROTHROMBIN TIME 12.4 SECS (9.5-12.5)
[2020-09-21 06:26] LABS: ALBUMIN 1.7 g/dL (3.4-4.8); CALCIUM 8.1 mg/dL (8.4-11.0); CREATININE 1.28 mg/dL (0.55-1.30); PHOSPHORUS 4.9 mg/dL (2.7-4.5); TOTAL BILIRUBIN 3.2 mg/dL (0.0-1.0)
[2020-09-21 06:57] LABS: BASOPHILS % (AUTO) 0.2 % (0.0-2.0); HEMOGLOBIN 10.3 g/dL (14.0-18.0); LYMPHOCYTES # (AUTO) 0.8 K/uL (1.0-5.5); LYMPHOCYTES % (AUTO) 6.1 % (20.5-51.5); MEAN CORPUSCULAR HEMOGLOBIN 34 pg (27-31); MEAN CORPUSCULAR HGB CONC 31 % (32-36); MEAN CORPUSCULAR VOLUME 111 fL (79.0-98.0); MONOCYTES # (AUTO) 0.2 K/uL (0.0-1.0); MONOCYTES % (AUTO) 1.5 % (1.7-9.3); NEUTROPHILS # (AUTO) 12.8 K/uL (1.8-7.7); NEUTROPHILS % (AUTO) 92.2 % (40.0-70.0); RED BLOOD CELL COUNT(AUTO) 2.99 MIL/uL (4.2-6.2); RED CELL DISTRIBUTION WIDTH 27.6 % (9.0-15.0); WHITE BLOOD COUNT (AUTO) 13.9 K/uL (4.8-10.8)
--- NOTE | 2020-09-21 07:30 | NUR ---
Received pt obtunded and unresponsive. No gag when suctioning. HOB up. AC 18/500/80%/p7. 02 sats 93%. Lungs with crackles bilaterally. No secretions to suction. Abd distended with hypoactive bowel sounds. Gt clamped. Contreras with jose a urine. PICC line to left uper arm with TPN/lipids, lasix drip at 3mg/hr and levophed at 0.07 mcgs/kg/min and D5W at 50 cc/hr infusing. Pt has 2-3+pitting edema to body. Pt on a low air loss mattress. Heels blanchable pink and floated off bed on pillows.
--- NOTE | 2020-09-21 07:30 | NUR ---
Dr. Rao rounded and orders left.
[2020-09-21 08:41] LABS: PLATELET COUNT (AUTO) 24 K/uL (130-430)
--- NOTE | 2020-09-21 08:45 | NUR ---
Informed Dr. Oseguera about critical labs. Orders received.
[2020-09-21] MEDS: FAMOTIDINE 20 MG TABLET GT SCH ×2 (09:24→22:04)
[2020-09-21] MEDS: MULTIVITS,CA,MINERALS/IRON/FA 1 TABLET GT SCH (09:24)
[2020-09-21] MEDS: levETIRAcetam 500 MG in NS 100 ML IV SCH ×2 (09:24→22:11)
[2020-09-21] MEDS: LACTOBACILLUS RHAMNOSUS GG 1 CAP CAPSULE PO SCH ×2 (09:24→22:02)
[2020-09-21] MEDS: INSULIN GLARGINE 100 UNITS/ML 10 ML VIAL SUBCUT SCH ×2 (09:27→22:08)
[2020-09-21] MEDS: D5W 1,000 ML IV SCH (09:30)
[2020-09-21] MEDS ORDERED: SODIUM POLYSTYRENE SULFONATE 15 GM/60 ML UDBTL NG ONE (10:00)
[2020-09-21] MEDS: POLYETHYLENE GLYCOL 3350, 17 GM/ POWD.PACK GT SCH ×2 (11:39→22:02)
[2020-09-21] MEDS: MINERAL OIL 30 ML UDC GT SCH (11:39)
--- NOTE | 2020-09-21 13:20 | NUR ---
Gt noted to be leaking again when patient turned. Residual check and approx 300cc yellow stomach content received. Tube feeding infusing at 10 cc/hr and turned off. Good urine output from lasix drip.
--- NOTE | 2020-09-21 14:10 | NUR ---
Large liquid BM . Nicolette care done. Wound care done to denuded area on coccyx. Foam dressing applied.
[2020-09-21] MEDS: ERYTHROMYCIN BASE 500 MG TABLET PO SCH ×2 (15:10→22:03)
[2020-09-21] MEDS: ALBUMIN HUMAN 25% 50 ML IV SCH ×3 (15:14→22:09)
--- NOTE | 2020-09-21 15:30 | NUR ---
Dr. Collazo rounded and spoke to Dr. Oseguera at bedside.
--- NOTE | 2020-09-21 17:15 | NUR ---
RT noted high PIP on vent. Attempted to trouble shoot and suction pt and unable to pass catheter. Trach removed and replacement attempted without success. Please refer to RT notes and Dr. Pack, ER notes. Dr. Pack was called to assist with trach replacement.
--- NOTE | 2020-09-21 17:30 | NUR ---
Report given to oncoming staff to assume care of patient.
--- NOTE | 2020-09-21 18:20 | NUR ---
Dr. Pack arrived to assist with trach replacement. Please see his documentation. Bedside bronch done to replace trach. 02 sats post procedure 97%, best they have been all day. HR 107 and pt rides the vent at 24.Remains unresponsive. Right ear wound care endorsed to oncoming shift to do due to unanticipated events.
--- NOTE | 2020-09-21 18:33 | NUR ---
1715 after a gentle pt turn noted high peak pressure. unable to pass sx cath.. pt is desaturating. deflated trach tube balloon bagged with 100% fio2 via bvm. unable reinsert old trach tube with obturator. place # 7 ett good air movement/ bilat b/s. spo2 = 92%. attempted bivona # [address] anguiano called and with a bronchoscope was able to insert 8.0 bivona at [address] pt [address] back on vent. equal b/s. spo2 = 90%. vt = 486.
[2020-09-21] MEDS ORDERED: CALCIUM GLUCONATE IV SCH ×8 (21:00)
[2020-09-21] MEDS ORDERED: MAGNESIUM SULFATE IV SCH ×8 (21:00)
[2020-09-21] MEDS ORDERED: TPN CENTRAL IV SCH ×8 (21:00)
[2020-09-21] MEDS ORDERED: [UNRECOGNIZED DRUG - OTHER] IV SCH ×8 (21:00)
--- NOTE | 2020-09-21 21:00 | NUR ---
PATIENT WAS ACCEPTED AND ASSESS DONE ,PATIENT HAS NO GAG COUGH RELEX , OBTUNDA CONDITION NO REPOND TO COMMANDS ON VENT PRE TRACH VERY LITTLE SECRETION NOTICE SOME PINK SECRETION FROM ORAL CAVITY AND NASAL SUCTION AREA WITH ORAL CARE , NOTICE ABDOMEN VERY DISTENDE ALSO LEAKAGE FROM AROUND THE GASTRIC TUBE AND FROM THE TUBE , TRIED TO GIVE MEDICAION , SOME WAS LEAKING FROM TUBE THE GI CONSULT WILL COME IN TODAY TO EVALUATE THE PROBLEM TUBE FEEDING HAS BEEN ON HOLD TUBE FEEDING WOULD FORM HARD MATERIAL AROUND TUBE LIKE THICK YELLOW BABY STOOL , NO BLEEDING PATIENT IS ON LEVO DRIP WILL TITRATE BP IN THE HI 170-180 ALSOS THE HEART RATE WILL INCREASED TO 120 , LASIX DRIP HAS ON HOLD URINE OUTPUT REMAIN WELL IN GOOD CONDITION , LARGE AMOUNT ,LARGE AMOUNT LIQUID BROWN STOOLFROM MEDICATION GIVEN FOR THE HIGH K+ STABLE BP REMAINED WILL STOP LEVO, STABLE
[2020-09-21] MEDS: DEXAMETHASONE SOD PHOSPHATE 10 MG/ML VIAL IVP SCH (22:15)
[2020-09-22] VITALS (34 sets, daily range): BP systolic 90–202
[2020-09-22] MEDS: IPRATROPIUM/ALBUTEROL SULFATE 3 ML AMPUL.NEB (DUONEB) INH SCH ×4 (00:04→19:38)
--- NOTE | 2020-09-22 04:00 | NUR ---
NO CHANGE WITH PATIENT CONDITION HAS NO TEMP , WILL CONTINUED WITH PLAN OF CARE, STABLE
[2020-09-22] MEDS: D5W 1,000 ML IV SCH ×2 (07:00→19:19)
[2020-09-22] MEDS: INSULIN REGULAR, HUMAN 100 UNITS/ML, 10 ML VIAL (humuLIN R) SUBCUT PRN ×3 (07:01→19:17)
--- NOTE | 2020-09-22 07:07 | NUR ---
OPENING NOTE: REPORT RECEIVED FROM RN USING SBAR REPORTING. ALL CARE ASSUMED.
[2020-09-22 07:11] LABS: HEMATOCRIT 33.1 % (36-54); HEMOGLOBIN 10.2 g/dL (14.0-18.0); LYMPHOCYTES # (AUTO) 0.4 K/uL (1.0-5.5); MEAN CORPUSCULAR HEMOGLOBIN 34 pg (27-31); MEAN CORPUSCULAR HGB CONC 31 % (32-36); MEAN CORPUSCULAR VOLUME 111 fL (79.0-98.0); MONOCYTES # (AUTO) 0.2 K/uL (0.0-1.0); NEUTROPHILS # (AUTO) 8.8 K/uL (1.8-7.7); RED BLOOD CELL COUNT(AUTO) 2.98 MIL/uL (4.2-6.2); RED CELL DISTRIBUTION WIDTH 27.8 % (9.0-15.0); WHITE BLOOD COUNT (AUTO) 9.4 K/uL (4.8-10.8)
[2020-09-22] MEDS: MIDODRINE HCL 5 MG TABLET (PROAMATINE) GT SCH ×3 (07:30→21:22)
[2020-09-22 07:31] LABS: ALBUMIN 2.2 g/dL (3.4-4.8); CALCIUM 8.4 mg/dL (8.4-11.0); CREATININE 1.42 mg/dL (0.55-1.30); PHOSPHORUS 4.4 mg/dL (2.7-4.5); POTASSIUM 4.2 mmol/L (3.5-5.1); TOTAL BILIRUBIN 2.8 mg/dL (0.0-1.0)
[2020-09-22] MEDS ORDERED: MINERAL OIL 30 ML UDC GT PRN (07:45)
[2020-09-22] MEDS: ERYTHROMYCIN BASE 500 MG TABLET PO SCH ×3 (08:07→21:22)
[2020-09-22 08:28] LABS: PLATELET COUNT (AUTO) 12 K/uL (130-430)
[2020-09-22] MEDS: MULTIVITS,CA,MINERALS/IRON/FA 1 TABLET GT SCH (09:00)
[2020-09-22] MEDS: LACTOBACILLUS RHAMNOSUS GG 1 CAP CAPSULE PO SCH ×2 (09:00→21:09)
[2020-09-22] MEDS: POLYETHYLENE GLYCOL 3350, 17 GM/ POWD.PACK GT SCH (09:00)
[2020-09-22] MEDS: DEXAMETHASONE SOD PHOSPHATE 10 MG/ML VIAL IVP SCH ×2 (09:28→21:10)
[2020-09-22] MEDS: FAMOTIDINE 20 MG TABLET GT SCH ×2 (09:28→21:09)
[2020-09-22] MEDS: METOCLOPRAMIDE HCL 10 MG/2 ML VIAL IVP SCH ×3 (09:32→21:22)
[2020-09-22] MEDS: levETIRAcetam 500 MG in NS 100 ML IV SCH ×2 (09:33→21:10)
[2020-09-22] MEDS: INSULIN GLARGINE 100 UNITS/ML 10 ML VIAL SUBCUT SCH ×2 (09:41→21:28)
--- NOTE | 2020-09-22 10:05 | NUR ---
DR FENG: SPOKE WITH DR FENG, UPDATING HIM ON PTS STATUS. NEW ORDERS ACKNOWLEDGED AND CARRIED OUT. WILL CONTINUE TO MONITOR.
--- NOTE | 2020-09-22 11:19 | NUR ---
SPOKE WITH BROTHER: UPDATED BROTHER ON PTS DECLINING STATUS. BROTHER SAID HE WILL BE IN CONTACT WITH UPDATE.
[2020-09-22] MEDS ORDERED: CALCIUM GLUCONATE IV SCH ×8 (21:00)
[2020-09-22] MEDS ORDERED: MAGNESIUM SULFATE IV SCH ×8 (21:00)
[2020-09-22] MEDS ORDERED: [UNRECOGNIZED DRUG - OTHER] IV SCH ×8 (21:00)
[2020-09-22] MEDS ORDERED: TPN CENTRAL IV SCH ×8 (21:00)
[2020-09-22] MEDS: CEFEPIME 0.5 GM in D5W 50 ML IV SCH (21:09)
[2020-09-22] MEDS: metroNIDAZOLE 500 mg/NS 100 ML IV SCH (21:10)
--- NOTE | 2020-09-22 23:05 | NUR ---
DR. ROYAL HERE TO SEE PATIENT, NO NEW ORDERS.
[2020-09-23] VITALS (31 sets, daily range): BP systolic 89–167
[2020-09-23] MEDS: INSULIN REGULAR, HUMAN 100 UNITS/ML, 10 ML VIAL (humuLIN R) SUBCUT PRN ×4 (00:41→19:02)
[2020-09-23] MEDS: IPRATROPIUM/ALBUTEROL SULFATE 3 ML AMPUL.NEB (DUONEB) INH SCH ×4 (01:02→19:41)
[2020-09-23] MEDS: MIDODRINE HCL 5 MG TABLET (PROAMATINE) GT SCH ×3 (06:27→21:51)
[2020-09-23] MEDS: ERYTHROMYCIN BASE 500 MG TABLET PO SCH (06:27)
[2020-09-23] MEDS: METOCLOPRAMIDE HCL 10 MG/2 ML VIAL IVP SCH ×3 (06:27→21:51)
[2020-09-23 06:31] LABS: HEMATOCRIT 25.8 % (36-54); HEMOGLOBIN 8.1 g/dL (14.0-18.0); MEAN CORPUSCULAR HEMOGLOBIN 35 pg (27-31); MEAN CORPUSCULAR HGB CONC 31 % (32-36); MEAN CORPUSCULAR VOLUME 110 fL (79.0-98.0); RED BLOOD CELL COUNT(AUTO) 2.34 MIL/uL (4.2-6.2); RED CELL DISTRIBUTION WIDTH 27.1 % (9.0-15.0)
[2020-09-23 06:37] LABS: ALBUMIN 1.6 g/dL (3.4-4.8); CALCIUM 7.7 mg/dL (8.4-11.0); CREATININE 2.18 mg/dL (0.55-1.30); POTASSIUM 3.7 mmol/L (3.5-5.1)
[2020-09-23 07:21] LABS: TOTAL BILIRUBIN 4.8 mg/dL (0.0-1.0)
[2020-09-23] MEDS: D5W 1,000 ML IV SCH ×2 (07:26→16:28)
--- NOTE | 2020-09-23 07:26 | NUR ---
ENDORSEMENT PATIENT CARE ENDORSED TO DAYSHIFT RN USING NURSING SBAR.
[2020-09-23 08:28] LABS: WHITE BLOOD COUNT (AUTO) 33.8 K/uL (4.8-10.8)
[2020-09-23 08:29] LABS: PLATELET COUNT (AUTO) 28 K/uL (130-430)
[2020-09-23] MEDS ORDERED: FUROSEMIDE 40 MG/4 ML VIAL IVP ONE (08:30)
--- NOTE | 2020-09-23 08:57 | NUR ---
DR CARDOZA: NOTIFIED DR CARDOZA OF ELEVATED BUN, ORDERS RECEIVED. BROTHER CALLED TO BE NOTIFIED OF POSSIBLE NEED OF DIALYSIS, LEFT MESSAGE. AWAITING CALL BACK.
[2020-09-23] MEDS: POLYETHYLENE GLYCOL 3350, 17 GM/ POWD.PACK GT SCH (09:00)
[2020-09-23] MEDS: MULTIVITS,CA,MINERALS/IRON/FA 1 TABLET GT SCH (09:00)
[2020-09-23] MEDS: DEXAMETHASONE SOD PHOSPHATE 10 MG/ML VIAL IVP SCH ×2 (09:12→21:04)
[2020-09-23] MEDS: LACTOBACILLUS RHAMNOSUS GG 1 CAP CAPSULE PO SCH ×2 (09:12→21:03)
[2020-09-23] MEDS: metroNIDAZOLE 500 mg/NS 100 ML IV SCH ×2 (09:12→21:51)
[2020-09-23] MEDS: levETIRAcetam 500 MG in NS 100 ML IV SCH ×2 (09:15→21:08)
[2020-09-23] MEDS: CEFEPIME 0.5 GM in D5W 50 ML IV SCH ×2 (09:15→20:59)
[2020-09-23] MEDS: FAMOTIDINE 20 MG TABLET GT SCH ×2 (09:17→21:03)
[2020-09-23] MEDS: INSULIN GLARGINE 100 UNITS/ML 10 ML VIAL SUBCUT SCH ×2 (09:22→21:05)
[2020-09-23 10:23] LABS: ATYPICAL LYMPHOCYTES % 0 % (0-0); BAND % (MANUAL) 34 % (0-6); LYMPHOCYTES % (MANUAL) 3 % (20-46); MONOCYTES % (MANUAL) 4 % (0-11)
[2020-09-23 10:24] LABS: BASOPHILS % (MANUAL) 0 % (0-2); EOSINOPHILS % (MANUAL) 0 % (0-7)
--- NOTE | 2020-09-23 10:46 | NUR ---
Nutrition F/U Admitting Diagnosis: Septic shock Medical History Comment: Pt w/: Septic shock, Bilateral pneumonia, Dehydration, CHRISTIANO, Chronic Respiratory failure, Down Syndrome, DM per MD notes. PMH: Down, syndrome, DM, Chronic respiratory failure, Tracheostomy and GT placement. SARS-CoV-2 Ag Rapid 08/10 Negative Subjective Information: Pt seen in ICU, PN infusing as ordered. RD s/w pharmD ([id number]) and pharmD discussed plan to keep pt on current PN concentration and infusion rate to better control electrolytes. RD endorsed PN goal rate for increasing infusion rate when pt is more stable. Per GI MD notes, pt w/ persistent residuals and leak at G-tube site. Pts stomach motility is failing and GI recommends to avoid using the G-tube, keep pt on TPN and avoid using G-tube even for medications. Per EMR review, pt remains w/ severe anasarca despite IV lasix, abdomen is firm and distended, last BM 09/23 x1, Joel scale: 13. Behavioral Health Director note 09/08/20: 1. Sacral/Buttocks areas: Blanchable redness (IAD/MASD) with brown discoloration (resolved). 2. Left Sacral area: Area of wrinkly brown skin (resolved). 3. Right Buttock: Blanchable redness with wound, present on admission. 4. Right Lateral Malleolus: Blanchable redness, present on admission. 5. Left Heel: Non-blanchable dark red tissue with brown discoloration, present on admission. 6. Right Heel: Blanchable dark red tissue with brown discoloration, present on admission. 7. Left Abdominal Fold: Intertrigo with erythema and MASD. 8. Left Inguinal Fold: Intertrigo with erythema and MASD. 9. Right Superior Neck Area, Medial To Ear Lobe: Friction blister from tape rubbing. Bulla present, closed. 10. Right Outer (Lateral) Ear ([place]): Possible tape related injury. 12. Right Posterior (Medial) Ear ([place]): Possible tape related injury. Per RN notes, 3+ pitting edema to bilateral foot, bilateral hand, generalized. Current PN provides <75% of estimated calorie needs and pt is not meeting estimated calorie needs. Current Diet Order/Nutrition Support: TPN D20%, AA8.5% at 80 ml/hr, no lipid via central line Current TPN Provides: 979 kcal/day, 82 gm protein/day, 1920 ml total volume/day, and GIR: 2.08 gm CHO/kg/min Current TPN Meets: 56% of estimated caloric needs and 92% of lower end of estimated protein needs EN Support: Glucerna 1.5 at 35 ml/hr (goal rate), Free Water Flush: 150 ML Q8H via GT x15 days --active diet order but not infusing, has been held since 09/21 Pertinent Medications: culturelle, SSI, theragran, reglan, lactulose, lovenox, Decadron Pertinent Labs: 09/23: Na 155H, K 3.7WNL, BG 192H, BUN 128H, Cre 2.18H, 09/20 TG 164H Ht: 54/64 Wt: (08/28): 65 kg, 143 lbs (08/22): 133.7 lbs, 60.7 kg (08/17): 63.957 kg/ 140 lbs, (08/17) 141#/ 64kg,(08/12) 139#/63.855512 kg; 141#/64 kg (08/17) *wt stable Body Mass Index: (08/28): 24.54 kg/m2, (08/22): 23 kg/m2, (08/17): 24.2 kg/m2, (08/12): 23.86 kg/m2), (08/17): 24.2 kg.m2 Weight status: appropriate [place]/Adjusted Body Weight: 130#/ 59kg; Adj IBW QP: 114#/ 52kg Estimated Energy Expenditure (kcals/day) 1740 Kcal/day (PSU 2002b for vent, febrile -- Ve: 10.7; Temperature: 37.8 degrees C) -- RD unable to retrieve new Ve in EMR 09/20 Estimated Protein Required (g/day) 59-89 gm/day (1-1.5 gm/kg IBW for sepsis, renal Dz predialysis and wound) Estimated Fluid Required (l/day) per MD (ARF) Problem/Etiology/Signs/Symptoms Increased nutrient needs r/t metabolic demands AEB wounds. (*ongoing) Altered nutrition related labs r/t endocrine dysfunction AEB elevated BG. (*ongoing) Inadequate PN intake r/t current PN order AEB current PN meets <65% of estimated needs (resolved, PN meeting estimated nutrition needs, 08/25) Altered GI function r/t increased gastric motility AEB diarrhea, rectal tube in place, + C.diff. (*pt continues +C. diff, but no longer has a rectal tube) Excessive nutrition support related to risk for overfeeding as evidence by pt is currently meeting >100% of estimated nutritional requirements. (*not applicable) Inadequate calorie intake r/t PN infusion rate AEB PN intake meets <60% of estimated calorie needs. (*new 09/23) Expected Outcomes/Goals Monitor PN tolerance and intake w/ goal of pt meeting more than 75% of estimated nutritional needs, labs trending WNL, normal GI function, skin integrity/wt maintenance. Dietitian Recommendations * Continue current PN per pharmD. * Consider TPN D20%, AA8.5% at 90 ml/hr (goal rate), IL20% at 5 ml/hr via central line when appropriate Current TPN Provides: 1341 kcal/day, 92 gm protein/day, 2040 ml total volume/day, and GIR: 2.1 gm CHO/kg/min Current TPN Meets: 77% of estimated caloric needs and 103% of upper end of estimated protein needs * Continue to hold TF until further management by GI Follow Up High risk 2-3 days
--- NOTE | 2020-09-23 10:52 | NUR ---
Dietitian Recommendations * Continue current PN per pharmD. * Consider TPN D20%, AA8.5% at 90 ml/hr (goal rate), IL20% at 5 ml/hr via central line when appropriate Current TPN Provides: 1341 kcal/day, 92 gm protein/day, 2040 ml total volume/day, and GIR: 2.1 gm CHO/kg/min Current TPN Meets: 77% of estimated caloric needs and 103% of upper end of estimated protein needs * Continue to hold TF until further management by GI Please see Nutrition F/U note for details RAGHU GAGNON
--- NOTE | 2020-09-23 14:36 | NUR ---
CONSULTATION PAGED/CALLED Reason for Consultation: Gio catheter placment Person Who was Notified: exchange Consulting Physician: Dr. Collazo Senior Maintenance Mechanic Specialty: Surgery Ordering Physician: Dr. Collazo
[2020-09-23] MEDS: VANCOMYCIN HCL ORAL SOLUTION 250 MG/5 ML, 80 ML GT SCH ×3 (16:27→21:02)
--- NOTE | 2020-09-23 17:07 | NUR ---
Spoke with Dr. Lund regarding andrade catheter placement. Dr. Lund states he will discuss with Dr. Carrion regarding procedure. Waiting for call back with time of procedure.
[2020-09-23 18:25] LABS: CALCIUM 7.5 mg/dL (8.4-11.0); CREATININE 2.21 mg/dL (0.55-1.30); POTASSIUM 3.8 mmol/L (3.5-5.1)
[2020-09-23 18:29] LABS: ALBUMIN 1.5 g/dL (3.4-4.8); TOTAL BILIRUBIN 5.5 mg/dL (0.0-1.0)
[2020-09-23 18:57] LABS: HEMOGLOBIN 8.1 g/dL (14.0-18.0); MEAN CORPUSCULAR HEMOGLOBIN 34 pg (27-31); MEAN CORPUSCULAR HGB CONC 30 % (32-36); MEAN CORPUSCULAR VOLUME 111 fL (79.0-98.0); RED BLOOD CELL COUNT(AUTO) 2.43 MIL/uL (4.2-6.2); RED CELL DISTRIBUTION WIDTH 26.4 % (9.0-15.0); WHITE BLOOD COUNT (AUTO) 19.5 K/uL (4.8-10.8)
--- NOTE | 2020-09-23 19:19 | NUR ---
Informed Dr. Oseguera regarding hematuria noted in schultz catheter. New orders made for consultation. Addendum: 09/23/20 at 1920 by Edel Benson RN Also informed Dr. Oseguera about stat labs regarding hematuria.
[2020-09-23] MEDS ORDERED: HEPARIN SODIUM,PORCINE 5,000 UNITS/ML VIAL ONE (19:29)
[2020-09-23 19:32] LABS: PLATELET COUNT (AUTO) 5 K/uL (130-430)
--- NOTE | 2020-09-23 19:33 | NUR ---
REPORT RECEIVED FROM DAY SHIFT NURSE. PT IS OBTUNDED. FALL AND SAFETY PRECAUTIONS ARE IN PLACE.
--- NOTE | 2020-09-23 19:42 | NUR ---
DR. REILLY HERE TO PLACE SEB CATHETER. PT WITH CRITICAL PLATELET COUNT OF 5. DR. REILLY WAS NOTIFIED AND HE CONTACTED DR. CARDOZA BY PHONE TO INFORM HER OF LOW PLATELET. DR. REILLY UNABLE T PLACE SEB CATH AT THIS TIME DUE TO LOW PLATELET COUNT.
[2020-09-23 20:35] LABS: BAND % (MANUAL) 27 % (0-6); BASOPHILS % (MANUAL) 0 % (0-2); EOSINOPHILS % (MANUAL) 0 % (0-7); LYMPHOCYTES % (MANUAL) 2 % (20-46); MONOCYTES % (MANUAL) 1 % (0-11)
[2020-09-23] MEDS ORDERED: CALCIUM GLUCONATE IV SCH ×9 (21:00)
[2020-09-23] MEDS ORDERED: TPN CENTRAL IV SCH ×9 (21:00)
[2020-09-23] MEDS ORDERED: [UNRECOGNIZED DRUG - OTHER] IV SCH ×9 (21:00)
[2020-09-23] MEDS ORDERED: POTASSIUM ACETATE IV SCH ×9 (21:00)
--- NOTE | 2020-09-23 22:10 | NUR ---
KERRI GILL DRESSING CHANGE DONE UTILIZING STERILE TECHNIQUE. Addendum: 09/24/20 at 0659 by Stephanie Sunshine RN CAPS ON BOTH LUMENS WERE ALSO CHANGED.
[2020-09-24] VITALS (30 sets, daily range): BP systolic 100–156
--- NOTE | 2020-09-24 00:15 | NUR ---
DR. ROYAL HERE TO SEE PT.
[2020-09-24] MEDS: INSULIN REGULAR, HUMAN 100 UNITS/ML, 10 ML VIAL (humuLIN R) SUBCUT PRN ×4 (00:29→18:14)
--- NOTE | 2020-09-24 00:29 | NUR ---
ACCUCHECK 281 AND REGULAR INSULIN 6 UNITS GIVEN SQ. SKIN REMAINS WARM AND DRY TO TOUCH. TPN IS INFUSING WELL VIA KERRI PICC AT 80ML/HR.
[2020-09-24] MEDS: IPRATROPIUM/ALBUTEROL SULFATE 3 ML AMPUL.NEB (DUONEB) INH SCH ×4 (00:40→20:17)
--- NOTE | 2020-09-24 02:20 | NUR ---
PT'S BROTHER FRANCISCO CALLED FOR UPDATES AND ALL HIS QUESTIONS WERE ANSWERED.
[2020-09-24 05:13] LABS: BASOPHILS % (AUTO) 0.2 % (0.0-2.0); HEMATOCRIT 23.5 % (36-54); HEMOGLOBIN 7.6 g/dL (14.0-18.0); LYMPHOCYTES # (AUTO) 0.3 K/uL (1.0-5.5); LYMPHOCYTES % (AUTO) 3.6 % (20.5-51.5); MEAN CORPUSCULAR HEMOGLOBIN 34 pg (27-31); MEAN CORPUSCULAR HGB CONC 32 % (32-36); MEAN CORPUSCULAR VOLUME 107 fL (79.0-98.0); MONOCYTES # (AUTO) 0.1 K/uL (0.0-1.0); MONOCYTES % (AUTO) 1.5 % (1.7-9.3); NEUTROPHILS # (AUTO) 9.1 K/uL (1.8-7.7); NEUTROPHILS % (AUTO) 94.7 % (40.0-70.0); RED BLOOD CELL COUNT(AUTO) 2.21 MIL/uL (4.2-6.2); RED CELL DISTRIBUTION WIDTH 26.3 % (9.0-15.0); WHITE BLOOD COUNT (AUTO) 9.6 K/uL (4.8-10.8)
[2020-09-24 05:17] LABS: PLATELET COUNT (AUTO) 4 K/uL (130-430)
[2020-09-24 05:42] LABS: ALBUMIN 1.3 g/dL (3.4-4.8); CALCIUM 7.1 mg/dL (8.4-11.0); CREATININE 2.3 mg/dL (0.55-1.30); POTASSIUM 3.7 mmol/L (3.5-5.1); TOTAL BILIRUBIN 5.2 mg/dL (0.0-1.0)
[2020-09-24] MEDS: METOCLOPRAMIDE HCL 10 MG/2 ML VIAL IVP SCH ×3 (05:50→20:21)
[2020-09-24] MEDS: MIDODRINE HCL 5 MG TABLET (PROAMATINE) GT SCH ×3 (05:50→20:26)
[2020-09-24] MEDS: D5W 1,000 ML IV SCH ×3 (05:57→17:51)
--- NOTE | 2020-09-24 06:10 | NUR ---
G TUBE SITE DRESSING NOTED WITH LARGE AMOUNT OF YELLOWISH GREEN FLUID. DRESSING CHANGE DONE.
--- NOTE | 2020-09-24 06:50 | NUR ---
CRITICAL LABS (PLATELETS 4 AND BUN 147) REPORTED TO DR. CARDOZA. DR. HEATH TO BE NOTIFIED OF PLATELET COUNT PER DR. CARDOZA. DR. HEATH WAS PAGED BY UPPER CASER JOSE LUIS.
--- NOTE | 2020-09-24 07:15 | NUR ---
REPORT GIVEN TO DAY SHIFT NURSE. ENDORSED CRITICAL PLATELET COUNT TO DAY SHIFT NURSE TO FOLLOW UP WITH DR. HEATH.
--- NOTE | 2020-09-24 07:15 | NUR ---
Opening notes: received bedside report from endorsing RN, patient lying in bed with an IVF of D5 @ 100 cc/hr. TPN @ 80 cc/hr. Trach to Vent Bivona 8.0 AC 24, 500, Fio2 100 and PEEP 7. Contreras Catheter draining to gravity, reddish in color.Bed locked at lowest position . fall and safety precaution in place.
--- NOTE | 2020-09-24 07:49 | NUR ---
Dr. Avitia is at bedside assessing the patient.
[2020-09-24] MEDS: levETIRAcetam 500 MG in NS 100 ML IV SCH ×2 (09:06→20:21)
[2020-09-24] MEDS: POLYETHYLENE GLYCOL 3350, 17 GM/ POWD.PACK GT SCH (09:14)
[2020-09-24] MEDS: LACTOBACILLUS RHAMNOSUS GG 1 CAP CAPSULE PO SCH ×2 (09:15→20:26)
[2020-09-24] MEDS: FAMOTIDINE 20 MG TABLET GT SCH ×2 (09:15→20:26)
[2020-09-24] MEDS: metroNIDAZOLE 500 mg/NS 100 ML IV SCH ×2 (09:16→21:23)
[2020-09-24] MEDS: DEXAMETHASONE SOD PHOSPHATE 10 MG/ML VIAL IVP SCH ×3 (09:28→18:00)
[2020-09-24] MEDS: LABETALOL 100 MG/ 20ML VIAL IVP PRN (09:38)
[2020-09-24] MEDS: CEFEPIME 0.5 GM in D5W 50 ML IV SCH ×2 (09:47→20:48)
[2020-09-24] MEDS: VANCOMYCIN HCL ORAL SOLUTION 250 MG/5 ML, 80 ML GT SCH ×4 (09:49→20:26)
[2020-09-24] MEDS: MULTIVITS,CA,MINERALS/IRON/FA 1 TABLET GT SCH (09:55)
[2020-09-24] MEDS: INSULIN GLARGINE 100 UNITS/ML 10 ML VIAL SUBCUT SCH ×2 (10:01→21:06)
--- NOTE | 2020-09-24 19:30 | NUR ---
Patient obtunded, on vent, setting are AC 24, TV 500, FIO2 100% and peep of 7, tolerating it well. No signs of pain using the FLACC score, no distress noted, VSS. Patient has schultz in place, secured and urine flowing freely, light red color urine noted, per am nurse, is aware. Patient has a g-tube in place, no feed, verified placement, working and intact, no residual noted. Currently running platelet infusion, started at 1750, will increase rate and flush. Patient had an upper left picc line, intact and infusing. Patient has TPN running at 80ml/hr, tolerating it well. I got a full report from am nurse, bed is low, locked, 2 side rails are up and call light is within reach.
--- NOTE | 2020-09-24 19:32 | NUR ---
closing notes: endorsed patient o cnc machinist 2nd shift RN for continuation of care.
[2020-09-24] MEDS ORDERED: TPN CENTRAL IV SCH ×10 (21:00)
[2020-09-24] MEDS ORDERED: SODIUM CHLORIDE IV SCH ×10 (21:00)
[2020-09-24] MEDS ORDERED: [UNRECOGNIZED DRUG - OTHER] IV SCH ×10 (21:00)
[2020-09-24] MEDS ORDERED: POTASSIUM CHLORIDE IV SCH ×10 (21:00)
[2020-09-25] VITALS (33 sets, daily range): BP systolic 99–201
[2020-09-25] MEDS: DEXAMETHASONE SOD PHOSPHATE 10 MG/ML VIAL IVP SCH ×4 (00:34→17:44)
[2020-09-25] MEDS: INSULIN REGULAR, HUMAN 100 UNITS/ML, 10 ML VIAL (humuLIN R) SUBCUT PRN ×4 (00:50→18:01)
[2020-09-25] MEDS: IPRATROPIUM/ALBUTEROL SULFATE 3 ML AMPUL.NEB (DUONEB) INH SCH ×4 (01:28→19:36)
[2020-09-25] MEDS: D5W 1,000 ML IV SCH ×2 (04:44→16:32)
[2020-09-25] MEDS: MIDODRINE HCL 5 MG TABLET (PROAMATINE) GT SCH ×2 (06:00→14:37)
[2020-09-25] MEDS: METOCLOPRAMIDE HCL 10 MG/2 ML VIAL IVP SCH ×3 (06:27→22:27)
[2020-09-25 07:06] LABS: ALBUMIN 1.5 g/dL (3.4-4.8); CALCIUM 7.3 mg/dL (8.4-11.0); CREATININE 2.07 mg/dL (0.55-1.30); PHOSPHORUS 4.8 mg/dL (2.7-4.5); POTASSIUM 3.7 mmol/L (3.5-5.1); TOTAL BILIRUBIN 7.5 mg/dL (0.0-1.0)
--- NOTE | 2020-09-25 07:15 | NUR ---
OPENING NOTES: RECEIVED BEDSIDE REPORT FROM ENDORSING TRANSCRIPTION SPECIALIST RN, PATIENT IS LYING IN BED WITH AN IVF OF d5W INFUSING AT 100 CC/HR, TPN 2 80 CC /HR. BAH CATHETER IN PLACE DRAINING TO GRAVITY PINKISH REDDISH IN COLOR, PATIENT IS TRACH TO VENT ac 24, TIDAL VOLUME 500 FIO2 @ 100% AND PEEP OF 7. BED LOCKED AT LOWEST POSITION, FALL AND SAFETY PRECAUTION IN PLACE.
[2020-09-25 07:21] LABS: HEMATOCRIT 26.7 % (36-54); HEMOGLOBIN 8.5 g/dL (14.0-18.0); MEAN CORPUSCULAR HEMOGLOBIN 34 pg (27-31); MEAN CORPUSCULAR HGB CONC 32 % (32-36); MEAN CORPUSCULAR VOLUME 107 fL (79.0-98.0); RED BLOOD CELL COUNT(AUTO) 2.49 MIL/uL (4.2-6.2); RED CELL DISTRIBUTION WIDTH 25.2 % (9.0-15.0); WHITE BLOOD COUNT (AUTO) 27.7 K/uL (4.8-10.8)
[2020-09-25] MEDS: metroNIDAZOLE 500 mg/NS 100 ML IV SCH ×2 (08:52→22:27)
--- NOTE | 2020-09-25 08:52 | NUR ---
Dr. Armendariz is @ bedside assessing the patient.
[2020-09-25 08:53] LABS: PLATELET COUNT (AUTO) 14 K/uL (130-430)
--- NOTE | 2020-09-25 08:55 | NUR ---
ABN PLATELET. PAGED DR HEATH FOR NOTIFICATION.
[2020-09-25] MEDS: levETIRAcetam 500 MG in NS 100 ML IV SCH ×2 (09:33→22:28)
[2020-09-25] MEDS: MULTIVITS,CA,MINERALS/IRON/FA 1 TABLET GT SCH (09:34)
[2020-09-25] MEDS: POLYETHYLENE GLYCOL 3350, 17 GM/ POWD.PACK GT SCH (09:34)
[2020-09-25] MEDS: LACTOBACILLUS RHAMNOSUS GG 1 CAP CAPSULE PO SCH ×2 (09:34→22:26)
[2020-09-25] MEDS: FAMOTIDINE 20 MG TABLET GT SCH ×2 (09:34→22:26)
[2020-09-25] MEDS: VANCOMYCIN HCL ORAL SOLUTION 250 MG/5 ML, 80 ML GT SCH ×4 (09:35→22:26)
[2020-09-25] MEDS: CEFEPIME 0.5 GM in D5W 50 ML IV SCH ×2 (09:37→22:28)
[2020-09-25] MEDS: INSULIN GLARGINE 100 UNITS/ML 10 ML VIAL SUBCUT SCH ×2 (09:45→22:39)
--- NOTE | 2020-09-25 10:30 | NUR ---
ELEMENTARY SUBSTITUTE TEACHER DR HEATH RETURNED THE CALL, MADE AWARE OF PLATELET COUNT 14. NO NEW ORDERS RECEIVED.
[2020-09-25 11:21] LABS: BAND % (MANUAL) 40 % (0-6); BASOPHILS % (MANUAL) 0 % (0-2); EOSINOPHILS % (MANUAL) 0 % (0-7); LYMPHOCYTES % (MANUAL) 1 % (20-46); METAMYELOCYTES % 2 % (0-0); MONOCYTES % (MANUAL) 1 % (0-11); WBC MORPHOLOGY TOXIC GRANULATION
[2020-09-25] MEDS: LABETALOL 100 MG/ 20ML VIAL IVP PRN (12:18)
--- NOTE | 2020-09-25 15:07 | NUR ---
WOUND RE-EVALUATION: Patient received in a [facility] Bed with an IsoFlex ARISTIDES mattress with low air-loss therapy, eyes closed, nonverbal, nonresponsive to verbal commands. Patient is unable to turn in bed independently. Joel Score is a 10. Past Medical History: Diabetes Mellitus, Down Syndrome, Chronic Respiratory Failure, Tracheostomy, G-tube placement. Admitted for Hypotension, initial workup significant for Septic Shock, Dehydration, and Acute Renal Failure. Intrinsic factors that delay wound healing: Diabetes Mellitus, Chronic Respiratory Failure, Acute Renal Failure, Septic Shock, severe Malnutrition, Bilateral Pneumonia, Anemia. Extrinsic factors that delay wound healing: Decreased mobility. Per assessment by Dr. Nava: "ASSESSMENT AND PLAN: This is a gentleman who has multiple medical problems, is doing worse, still needs 100% of oxygen and his pO2 is in the low 70s and he seems to be jaundiced. He is severely malnourished. His albumin is 1.3 and his total bilirubin is elevated. He is thrombocytopenic and of course, he has underlying sepsis and other problems. So, we will continue with the vent support. We will continue with the dexamethasone. We will continue with his antibiotics. We will continue with the TPN. We will monitor his renal function and H and H and we will continue with the nutritional support and breathing treatments and supportive care and watch him closely. Prognosis is extremely poor." Wound Assessment: 1. Sacral/Buttocks areas: Blanchable redness (IAD/MASD) with brown discoloration (resolved). 2. Left Sacral area: Area of wrinkly brown skin, now a tiny brown scab measuring 0.1 cm x 0.1 cm. 3. Right Buttock: Blanchable redness with wound, present on admission. Site has 100% pink scar tissue (resolved). Recommend continue: Cleanse sites with normal saline. Apply moisture barrier cream to sites. Cover with Sacral foam dressing. Perform site care daily, and as needed for dressing soiling or dislodgement. Do not rub involved areas. 4. Right Lateral Malleolus: Blanchable redness, present on admission. 5. Left Heel: Non-blanchable dark red tissue with brown discoloration, present on admission. 6. Right Heel: Blanchable dark red tissue with brown discoloration, present on admission. Recommend continue: Elevate, offload and float bilateral heels, ankles and feet with one pillow lengthwise under each extremity at all times. Do not allow any portion of heels, ankles or feet to to touch bed or other surfaces at any time. 7. Left Abdominal Fold: Intertrigo with erythema and MASD. Site now has pink erythema. Right Abdominal Fold has pink erythema. 8. Left Inguinal Fold: Intertrigo with erythema and MASD. Site now has pink erythema. Right Inguinal Fold has pink erythema. Recommend: Cleanse involved areas with normal saline. Pat dry. Apply antifungal powder to involved areas. Dust off excess powder with clean gauze. Cut Interdry Ag cloth into appropriate size and place in between all Abdominal and Inguinal fold areas. 9. Right Superior Neck Area, Medial To Ear Lobe: Friction blister from tape rubbing. Site now has 100% black scab. No odor, no drainage. Site measures 1.4 cm x 2.5 cm. Recommend continue: Leave open to air. Offload area with 1-2 towels folded into thirds at all times. 10. Right Outer (Lateral) Ear ([place]): Tape related erosion injury. Site now has 100% black scab. No odor, no drainage. Periwound intact. Site measures 3.2 cm x 0.7 cm. Recommend continue: Apply alginate dressing to involved areas. Cover alginate dressing with nonadhesive foam dressing cut to size. Secure dressings with transparent dressings. Perform site care daily, and as needed for dressing soiling or dislodgment. Offload area with 1-2 towels folded into thirds at all times. 11. Left Lower Lip Near Corner of Mouth: Brown scab from patient biting. No odor, no drainage. Periwound intact. Site measures 0.1 cm x 0.5 cm. 12. Left Lower Lip, Medial to Site 11: Brown scab from patient biting. No odor, no drainage. Periwound intact. Site measures 0.3 cm x 0.4 cm. Recommend: No dressings needed. Continue to monitor sites q shift. 13. Left Anterior Tongue: Wound from patient biting. Site has 100% dull red tissue. No odor, no drainage. Periwound intact. Site measures 0.4 cm x 1.4 cm. Recommend: No dressings needed. Continue to monitor sites q shift. 14. Left Mid Abdomen: Skin tear. Site has 100% red tissue. No odor, no drainage. Periwound intact. Site measures 1.7 cm x 0.4 cm. Recommend: Cleanse site with normal saline. Apply moisture barrier cream to site. Cover site with 4x4 foam dressing. Perform site care daily, and as needed for dressing soiling or dislodgement. Also recommend continue: Reposition patient side to side only every 2 hours with pillow support and off-load pressure areas with pillows for pressure re-distribution. Offload, elevate and float bilateral heels with pillows. Perform skin care and monitor skin integrity Q shift. Use moisture barrier cream on buttocks and other moisture susceptible areas QID and as needed for soiling. Maintain patient on low air loss therapy.
--- NOTE | 2020-09-25 17:54 | NUR ---
Nutrition F/U Admitting Diagnosis: Septic shock Medical History Comment: Pt w/: Septic shock, Bilateral pneumonia, Dehydration, CHRISTIANO, Chronic Respiratory failure, Down Syndrome, DM per MD notes. PMH: Down, syndrome, DM, Chronic respiratory failure, Tracheostomy and GT placement. SARS-CoV-2 Ag Rapid 08/10 Negative Subjective Information: Pt seen in ICU, TPN infusing @ 80 ml/hr. Per GI MD notes, no GT leakage but keep pt TPN d/t multiorgan failure. Per EMR review, pt remains w/ severe anasarca despite IV lasix, abdomen is firm and distended, last BM 09/23 x1. learning and development intern spoke with pt's RN who stated that pt was given miralax to help w/ BM RN reported no BM for 2 days. Joel scale: 10; Manual Machinist note 09/08/20: 1. Sacral/Buttocks areas: Blanchable redness (IAD/MASD) with brown discoloration (resolved). 2. Left Sacral area: Area of wrinkly brown skin (resolved). 3. Right Buttock: Blanchable redness with wound, present on admission. 4. Right Lateral Malleolus: Blanchable redness, present on admission. 5. Left Heel: Non-blanchable dark red tissue with brown discoloration, present on admission. 6. Right Heel: Blanchable dark red tissue with brown discoloration, present on admission. 7. Left Abdominal Fold: Intertrigo with erythema and MASD. 8. Left Inguinal Fold: Intertrigo with erythema and MASD. 9. Right Superior Neck Area, Medial To Ear Lobe: Friction blister from tape rubbing. Bull[place] present, closed. 10. Right Outer (Lateral) Ear ([place]): Possible tape related injury. 12. Right Posterior (Medial) Ear ([place]): Possible tape related injury. Per RN notes, 3+ pitting edema to bilateral foot, bilateral hand, generalized. Current PN provides <75% of estimated calorie needs and pt is not meeting estimated calorie needs. Current Diet Order/Nutrition Support: TPN D20%, AA8.5% at 91.19 ml/hr, no lipid via central line Current TPN Provides: 1117 kcal/day, 93 gm protein/day, 2189 ml total volume/day, and GIR: 2.34 gm CHO/kg/min Current TPN Meets: 61% of estimated caloric needs and 105% of upper end of estimated protein needs EN Support: Glucerna 1.5 at 35 ml/hr (goal rate), Free Water Flush: 150 ML Q8H via GT x15 days --active diet order but not infusing, has been held since 09/21 Pertinent Medications: SSI, reglan, lactulose, lovenox, Decadron, miralax Pertinent Labs: 09/25: Na 139WNL, K 3.7WNL, BG 271H, BUN 148H, Cre 2.07H, 09/20 TG 164H, POC BG 197H Ht: 54/64 Wt:(08/28): 65 kg, 143 lbs (08/22): 133.7 lbs, 60.7 kg (08/17): 63.957 kg/ 140 lbs, (08/17) 141#/ 64kg,(08/12) 139#/63.798459 kg; 141#/64 kg (08/17) *wt stable Body Mass Index: (08/28): 24.54 kg/m2, (08/22): 23 kg/m2, (08/17): 24.2 kg/m2, (08/12): 23.86 kg/m2), (08/17): 24.2 kg.m2 Weight status: appropriate [place]/Adjusted Body Weight: 130#/ 59kg; Adj IBW QP: 114#/ 52kg Estimated Energy Expenditure (kcals/day) 1844 Kcal/day (PSU 2003b for vent-- Ve: 19.7; Temperature: 36.7 degrees C) -- (*new) Estimated Protein Required (g/day) 59-89 gm/day (1-1.5 gm/kg IBW for sepsis, renal Dz predialysis and wound) Estimated Fluid Required (l/day) per MD (ARF) Problem/Etiology/Signs/Symptoms Increased nutrient needs r/t metabolic demands AEB wounds. (*ongoing) Altered nutrition related labs r/t endocrine dysfunction AEB elevated BG. (*ongoing) Inadequate PN intake r/t current PN order AEB current PN meets <65% of estimated needs (*ongoing) Altered GI function r/t increased gastric motility AEB diarrhea, rectal tube in place, + C.diff. (*pt continues +C. diff, but no longer has a rectal tube) Excessive nutrition support related to risk for overfeeding as evidence by pt is currently meeting >100% of estimated nutritional requirements. (*not applicable) Inadequate calorie intake r/t PN infusion rate AEB PN intake meets <65% of estimated calorie needs. (*new 09/25) Expected Outcomes/Goals Monitor PN tolerance and intake w/ goal of pt meeting more than 75% of estimated nutritional needs, labs trending WNL, normal GI function, skin integrity/wt maintenance. Dietitian Recommendations * Continue current PN per pharmD. * Consider TPN D20%, AA8.5% at 90 ml/hr (goal rate), IL20% at 5 ml/hr via central line when appropriate Current TPN Provides: 1117 kcal/day, 93 gm protein/day, 2189 ml total volume/day, and GIR: 2.34 gm CHO/kg/min Current TPN Meets: 61% of estimated caloric needs and 105% of upper end of estimated protein needs * Consider D/C EN support per GI Follow Up High risk 2-3 days
--- NOTE | 2020-09-25 17:55 | NUR ---
Dietitian Recommendations * Continue current PN per pharmD. * Consider TPN D20%, AA8.5% at 90 ml/hr (goal rate), IL20% at 5 ml/hr via central line when appropriate Current TPN Provides: 1117 kcal/day, 93 gm protein/day, 2189 ml total volume/day, and GIR: 2.34 gm CHO/kg/min Current TPN Meets: 61% of estimated caloric needs and 105% of upper end of estimated protein needs * Consider D/C EN support per GI LP, RD Please refer to Nutrition F/U for details.
[2020-09-25] MEDS ORDERED: TPN CENTRAL IV SCH ×10 (21:00)
[2020-09-25] MEDS ORDERED: [UNRECOGNIZED DRUG - OTHER] IV SCH ×10 (21:00)
[2020-09-25] MEDS ORDERED: POTASSIUM CHLORIDE IV SCH ×10 (21:00)
[2020-09-25] MEDS ORDERED: SODIUM CHLORIDE IV SCH ×10 (21:00)
--- NOTE | 2020-09-25 21:00 | NUR ---
PATIENT WAS ACCPTED AND ASSESS DONE PATIENT IS VERY LETHARGIC , ON VENT PRE TRACH NOTICE BLOWING OFF HI PRESSURE , CAUSING ATARM TO GO OFF RT CHECK AND DECIDED TO INCREASE THE PEEP TO 10 ALSO THE PATIENT WAS DESATINF TO THE 86-88 PATIENT IS SET AT 1005 fio2 STABLE NO TUBE FEEDING ON TPN PEG TUBE FOR MEDICATION ONLY SOME DRAINAGE FROM AROUND THE TUBE ,PATIENT ISKIN IS VERY TIGHT CAUSE SOME BRISTLE WILL MONITOR BUN IS ELEVATED 146, STABLE
[2020-09-25] MEDS ORDERED: MIDODRINE HCL 5 MG TABLET (PROAMATINE) GT SCH (22:00)
--- NOTE | 2020-09-25 22:00 | NUR ---
PATIENY CONDITION HAS GOTTEN WEAKER ON MONITOR WENT INTO VT10 BEAT RUN BP 149/78HR 113 LABELALOL 10 MG IV WAS GIVEN BP 149/17 HR 100 SINUS RHYTHM AND MORE STABLE BUT GUARDED MAY STAT ON AMONRIDOME DRIP IF HAD MORE VT STABLE WILL CONTINUED WITH PLAN OF CARE
--- NOTE | 2020-09-25 22:55 | NUR ---
DR OSEGUERA Pt had [address] Oseguera notified regarding the runs of VT. Orders received. Consult Cardiology: Dr Oglesby
--- NOTE | 2020-09-25 23:05 | NUR ---
[facility] [phone]
--- NOTE | 2020-09-25 23:24 | NUR ---
[address] DR[address] QUILES [phone]
--- NOTE | 2020-09-25 23:29 | NUR ---
PAGED DR. CARDONA [phone] SPOKE WITH LILIBETH
--- NOTE | 2020-09-25 23:30 | NUR ---
DR BRENDAN Oglesby consulted regarding the runs of VT. Orders received 1. Discontinue Proamatine 2.EKG, CXR in AM 3.Start Amiodarone 0.5mg/hr IV for VT greater than 30 beats. No bolus.
[2020-09-26] VITALS (23 sets, daily range): BP systolic 80–146
[2020-09-26] MEDS: IPRATROPIUM/ALBUTEROL SULFATE 3 ML AMPUL.NEB (DUONEB) INH SCH ×3 (00:51→20:11)
[2020-09-26] MEDS: DEXAMETHASONE SOD PHOSPHATE 10 MG/ML VIAL IVP SCH ×4 (03:41→18:13)
[2020-09-26] MEDS: D5W 1,000 ML IV SCH ×3 (04:00→18:47)
--- NOTE | 2020-09-26 05:30 | NUR ---
PATIENT CONDITION UNCHANGED AM CARE WAS GIVEN SMALL BM , BROWN STOOL , PATIENT PENIS AND SCROTUM IS VERY SWOLLEN THE LEGS IS APART , LEGS edmatous ,3+ CONDITION GUARDED, WILL CONTINUED WITH PLAN OF CARE
[2020-09-26] MEDS: METOCLOPRAMIDE HCL 10 MG/2 ML VIAL IVP SCH ×2 (06:20→13:59)
[2020-09-26 06:58] LABS: BASOPHILS % (AUTO) 0.2 % (0.0-2.0); EOSINOPHILS # (AUTO) 0.1 K/uL (0.0-0.4); EOSINOPHILS % (AUTO) 0.4 % (0.0-4.0); LYMPHOCYTES # (AUTO) 0.6 K/uL (1.0-5.5); LYMPHOCYTES % (AUTO) 2.1 % (20.5-51.5); MEAN CORPUSCULAR HEMOGLOBIN 33 pg (27-31); MEAN CORPUSCULAR HGB CONC 32 % (32-36); MEAN CORPUSCULAR VOLUME 106 fL (79.0-98.0); MONOCYTES # (AUTO) 0.4 K/uL (0.0-1.0); MONOCYTES % (AUTO) 1.3 % (1.7-9.3); NEUTROPHILS # (AUTO) 26.2 K/uL (1.8-7.7); RED BLOOD CELL COUNT(AUTO) 2.08 MIL/uL (4.2-6.2); WHITE BLOOD COUNT (AUTO) 27.3 K/uL (4.8-10.8)
--- NOTE | 2020-09-26 07:15 | NUR ---
OPENING NOTES: RECEIVED BEDSIDE REPORT FROM ENDORSING CRYSTAL CUTTER RN FOR CONTINUATION OF CARE,PATIENT IS LYING IN BED WITH AN IVF OF D5 INFUSING AT 100 CC/HR, ON TPN @ 90 CC/HR .LEFT UPPER PICC LINE, TRACH TO VENT BIVONA 8.0 AC 24,TIDAL VOLUME 500 FIO2 100 PEEP 10. BAH CATHETER IN PLACE DRAINING TO GRAVITY, PINKISH REDDISH IN COLOR, BED LOCKED AT LOWEST POSITION, FALL AND SAFETY PRECAUTION IN PLACE.
[2020-09-26 07:20] LABS: ALBUMIN 1.5 g/dL (3.4-4.8); CALCIUM 7.1 mg/dL (8.4-11.0); CREATININE 1.99 mg/dL (0.55-1.30); PHOSPHORUS 5.1 mg/dL (2.7-4.5); POTASSIUM 3.9 mmol/L (3.5-5.1); TOTAL BILIRUBIN 9.4 mg/dL (0.0-1.0)
--- NOTE | 2020-09-26 07:42 | NUR ---
RN NOTES: SPOKED TO DR. CARDOZA ON THE PHONE, REGARDING THE CRITICAL VALUE, BUN 156. NO NEW ORDERS RECEIVED.
[2020-09-26] MEDS: levETIRAcetam 500 MG in NS 100 ML IV SCH (08:20)
[2020-09-26] MEDS: FAMOTIDINE 20 MG TABLET GT SCH (08:26)
[2020-09-26] MEDS: LACTOBACILLUS RHAMNOSUS GG 1 CAP CAPSULE PO SCH (08:26)
--- NOTE | 2020-09-26 08:29 | NUR ---
DR. CARDONA IS AT BEDSIDE ASSESSING THE PATIENT
[2020-09-26] MEDS: MULTIVITS,CA,MINERALS/IRON/FA 1 TABLET GT SCH (08:31)
[2020-09-26] MEDS: POLYETHYLENE GLYCOL 3350, 17 GM/ POWD.PACK GT SCH (08:31)
[2020-09-26] MEDS: metroNIDAZOLE 500 mg/NS 100 ML IV SCH (08:32)
[2020-09-26] MEDS: VANCOMYCIN HCL ORAL SOLUTION 250 MG/5 ML, 80 ML GT SCH ×3 (08:36→18:11)
[2020-09-26] MEDS: INSULIN GLARGINE 100 UNITS/ML 10 ML VIAL SUBCUT SCH (09:00)
[2020-09-26 09:13] LABS: PROTHROMBIN TIME 20.9 SECS (9.5-12.5)
[2020-09-26] MEDS: CEFEPIME 0.5 GM in D5W 50 ML IV SCH (09:25)
--- NOTE | 2020-09-26 09:51 | NUR ---
PAGED DR. HEATH
--- NOTE | 2020-09-26 10:21 | NUR ---
CHECK PATIENT BLOOD SUGAR @ 10:04 AM, 58 MG/DL , GAVE 50 ML DEXTROSE 50% SYRINGE , AND RECHECK BLOOD SUGAR AFTER 15 MINUTES , BLOOD SUGAR IS 143 MG/DL. TALKED TO ETTA ABOUT THE PATIENT BLOOD SUGAR.
--- NOTE | 2020-09-26 10:34 | NUR ---
TALKED TO DR. HEATH ON THE PHONE ABOUT THE PLATELET COUNT, NO NEW ORDERS RECEIVED.
[2020-09-26 10:41] LABS: PLATELET COUNT (AUTO) 10 K/uL (130-430)
--- NOTE | 2020-09-26 10:45 | NUR ---
DR. QUILES IS AT BEDSIDE. ASSESSING THE PATIENT, TOLD MD ABOUT THE PATIENT BLOOD SUGAR.
--- NOTE | 2020-09-26 11:24 | NUR ---
PAGED , SPOKE TO JOSE LUIS
--- NOTE | 2020-09-26 11:38 | NUR ---
SPOKE TO ON THE PHONE, ORDERS RECEIVED, RT IS AWARE OF NEW ORDER.
[2020-09-26] MEDS: ALBUMIN HUMAN 25% 100 ML IV PRN (12:22)
[2020-09-26] MEDS ORDERED: NOREPINEPHRINE 4 MG/4 ML VIAL IV ONE (13:30)
--- NOTE | 2020-09-26 16:35 | NUR ---
IS AT BEDSIDE ASSESSING THE PATIENT
--- NOTE | 2020-09-26 16:37 | NUR ---
DR. HEATH ORDERED PRBC AND FFP
[2020-09-26] MEDS ORDERED: ALBUMIN HUMAN 25% 100 ML IV ONE (18:00)
--- NOTE | 2020-09-26 19:30 | NUR ---
Opening Note Received report from AM nurse using SBAR approach.
--- NOTE | 2020-09-26 19:34 | NUR ---
ENDORSED PATIENT TO FILLING MACHINE SET UP MECHANIC RN FOR CONTINUATION OF CARE.
--- NOTE | 2020-09-26 20:07 | NUR ---
BT INITIATION: Consent signed per Rian, brother, agreeing to administration of blood. Blood has been type and crossmatched. Blood sent from blood bank. Information on unit of blood checked against patient wristband at bedside by two nurses. All information matches. Patient or responsible alliance party informed of potential complications associated with blood transfusion. Informed of possible transfusion reaction symptoms. Aware of need to notify nurse at once of itching, shortness of breath, flushing, feeling of impending doom, or other symptoms not previously present. Vital signs taken within 5 minutes prior to initiation of transfusion. RN will remain with patient for first 15 minutes of transfusion at which time vital signs will be re-assessed.
[2020-09-26] MEDS ORDERED: EPINEPHrine JECT 0.1 MG/ML SYR ONE (20:17)
--- NOTE | 2020-09-26 20:33 | NUR ---
Patient Coded HR 50's then dropped to 36 then to 22. Administered epinephrine immediately. Code intiated at 7897
--- NOTE | 2020-09-26 20:43 | NUR ---
NOTIFIED OF PATIENT EXPIRATION DR. QUILES PAGED [phone] CALLED BACK AND WAS INFORMED
--- NOTE | 2020-09-26 20:43 | NUR ---
Dr. adams notified of patient's .
--- NOTE | 2020-09-26 20:53 | NUR ---
Called the coroners and patient is not a engraver hand hard metals's case.
--- NOTE | 2020-09-26 20:55 | NUR ---
Called patient's brother, Rian, and notified him of . Answered all questions
[2020-09-26] MEDS ORDERED: TPN CENTRAL IV SCH ×10 (21:00)
[2020-09-26] MEDS ORDERED: SODIUM CHLORIDE IV SCH ×10 (21:00)
[2020-09-26] MEDS ORDERED: POTASSIUM CHLORIDE IV SCH ×10 (21:00)
[2020-09-26] MEDS ORDERED: [UNRECOGNIZED DRUG - OTHER] IV SCH ×10 (21:00)
--- NOTE | 2020-09-26 21:02 | NUR ---
Called [facility] #: [id number]
--- NOTE | 2020-09-26 21:42 | NUR ---
CONSULTING PHYSICIANS CALLED DR. ROYAL [phone] DR. CARDONA [phone] DR. CARDOZA : ANSWERED THE PHONE AND WAS INFORMED DR. WINCHESTER (DR. ELLIS RAIL SPLITTER) [phone] DR[address] ZAVALA [phone] VERA TEXT SENT @ [phone]
--- NOTE | 2020-09-26 22:16 | NUR ---
Called the mortuary, [facility], and spoke to Lani.
--- NOTE | 2020-09-26 22:30 | NUR ---
Brother called and stated not to go through the mortuary anymore. he will call the social media marketing specialist and talk to them first. He stated that he wants his brother in the [facility] body hold
[2020-09-26] MEDS ORDERED: EPINEPHrine JECT 0.1 MG/ML SYR IVP ONE (23:22)
[2020-09-26] MEDS ORDERED: SODIUM BICARBONATE 8.4% JECT 50 MEQ/50 ML SYRINGE IVP ONE (23:22)
--- NOTE | 2020-09-26 23:50 | NUR ---
Cleaned patient and put him in the body hold
--- NOTE | 2020-09-27 00:30 | NUR ---
Security took patient to the body hold.
--- NOTE | 2020-10-07 17:12 | NUR ---
SS notes Body Hold MINISTER ASSISTANT called pts. brother, Rian Blanco at [phone] and left a message. MINISTER ASSISTANT called [phone] and was able to speak to Rian who stated he is trying to collaborate with family member to gather up the funds for a and was told that pt. can stay in hospital body hold until this can be done. Rian stated he will need 5-6 weeks. MINISTER ASSISTANT apologized for the wrong information given to him. MINISTER ASSISTANT explained [facility] 2 bodies. Rian kept reiterating that he was told the body could be stored at this body hold. MINISTER ASSISTANT asked if Rian needed any mortuary resources or cremation. Rian stated he did not need any help and ended the conversation. MINISTER ASSISTANT called Lindsay Ornelas, [facility]annes Coord. for [facility] who stated brother Rian recently learned that the has some money in an account and Rian wants to wait to access this money to pay for arrangements. MINISTER ASSISTANT thanked her for the info.
== END 2020-09-26 23:23 | DRG 870 ==
LOC: SED 08:13 → SIC 12:31
PROVIDERS: ADMIT Family Medicine; ATTEND Family Medicine
PROC: 5A1955Z Respiratory Ventilation, Greater than 96 Consecutive Hours (ICD-10-PCS; principal; 2020-08-10)
PROC: 0JPV3WZ Removal of Totally Implantable Vascular Access Device from Upper Extremity Subcutaneous Tissue and Fascia, Percutaneous Approach (ICD-10-PCS; 2020-09-05)
PROC: 05PYX3Z Removal of Infusion Device from Upper Vein, External Approach (ICD-10-PCS; 2020-09-05)
PROC: 4A10X4Z Monitoring of Central Nervous Electrical Activity, External Approach (ICD-10-PCS; 2020-09-06)
PROC: 30233R1 Transfusion of Nonautologous Platelets into Peripheral Vein, Percutaneous Approach (ICD-10-PCS; 2020-09-24)
PROC: 30233N1 Transfusion of Nonautologous Red Blood Cells into Peripheral Vein, Percutaneous Approach (ICD-10-PCS; 2020-09-25)
DX: A41.59 Other Gram-negative sepsis (principal); R65.21 Severe sepsis with septic shock; J18.9 Pneumonia, unspecified organism; R53.2 Functional quadriplegia; J15.6 Pneumonia due to other Gram-negative bacteria; E43 Unspecified severe protein-calorie malnutrition; T80.211A Bloodstream infection due to central venous catheter, initial encounter; N17.9 Acute kidney failure, unspecified; J96.11 Chronic respiratory failure with hypoxia; K56.7 Ileus, unspecified; N39.0 Urinary tract infection, site not specified; Z16.19 Resistance to other specified beta lactam antibiotics; Z16.24 Resistance to multiple antibiotics; K94.23 Gastrostomy malfunction; A04.72 Enterocolitis due to Clostridium difficile, not specified as recurrent; B49 Unspecified mycosis; E87.0 Hyperosmolality and hypernatremia; E87.2 Acidosis; Z99.11 Dependence on respirator [ventilator] status; E86.0 Dehydration; R13.10 Dysphagia, unspecified; Y84.8 Other medical procedures as the cause of abnormal reaction of the patient, or of later complication, without mention of misadventure at the time of the procedure; D69.6 Thrombocytopenia, unspecified; D63.8 Anemia in other chronic diseases classified elsewhere; K72.90 Hepatic failure, unspecified without coma; F79 Unspecified intellectual disabilities; Z20.822 Contact with and (suspected) exposure to COVID-19; D64.9 Anemia, unspecified; E11.65 Type 2 diabetes mellitus with hyperglycemia; E87.70 Fluid overload, unspecified; I12.9 Hypertensive chronic kidney disease with stage 1 through stage 4 chronic kidney disease, or unspecified chronic kidney disease; E11.22 Type 2 diabetes mellitus with diabetic chronic kidney disease; N18.9 Chronic kidney disease, unspecified; Q90.9 Down syndrome, unspecified; Z79.899 Other long term (current) drug therapy; Y92.89 Other specified places as the place of occurrence of the external cause; Z86.16 Personal history of COVID-19; Z68.29 Body mass index [BMI] 29.0-29.9, adult
CPT/HCPCS: 36415; 36600; 71045; 71275; 72191; 74175; 74240-TC; 76376; 76770; 80048; 80053; 80150; 81000; 82247; 82248; 82272; 82607; 82728; 82746; 82803-TC; 82962; 83540; 83550; 83605; 83690; 83735; 83880; 84100; 84295; 84439; 84443; 84478; 84484; 85007; 85025; 85027; 85049-TC; 85384; 85610-TC; 85730-TC; 86022; 86580; 86886; 86900; 86901; 86920; 87040-TC; 87070-TC; 87081; 87086; 87205-TC; 87230-TC; 93005; 93970; 94002; 94003; 94640; 95816; 96361; 96365; 96367; 99291; 99292; C9113; J0171; J0278; J0610; J0692; J1030; J1100; J1170; J1644; J1650; J1815; J1940; J1953; J1956; J2001; J2060; J2248; J2270; J2543; J2765; J2916; J2930; J3370; J3475; J3480; J3490; J7050; J7060; J7131; J7613; J8597; P9021; P9034; P9046; Q9963; Q9967